=== PATIENT | female | born 1980 | race Caucasian/White ===

== ENCOUNTER 2017-07-24 21:11 | Emergency (ER) | payer MEDICAID, SELFPAY ==
[2017-07-24 21:12] VITALS: BP 129/84; PULSE 98; RESP 16; TEMP 36.7; O2SAT 98; BMI 35.9
--- NOTE | 2017-07-24 21:21 | EKG12_ITS ---
Test Reason : CP Blood Pressure : / mmHG Vent. Rate : 093 BPM Atrial Rate : 093 BPM P-R Int : 136 ms QRS Dur : 078 ms QT Int : 356 ms P-R-T Axes : 063 048 047 degrees QTc Int : 442 ms Normal sinus rhythm Normal ECG Confirmed by ALBERTO RUTHERFORD, TOMEKA ([id number]), news videotape editor JOS SANTOYO ([id number]) on 07/27/2017 1:59:22 PM Referred By: SAVITA Confirmed By:TOMEKA DOMINGUEZ MD
--- NOTE | 2017-07-24 22:09 | CT_ITS ---
STUDY: CT BRAIN WITHOUT CONTRAST REASON FOR EXAM: Female, 36 years old. Weakness of the left leg. Numbness and tingling. RADIATION DOSAGE (If Supplied By Facility): CTDIvol = ( 44.99 ) mGy, DLP = ( 745.49 ) mGycm TECHNIQUE: Transaxial CT imaging of the brain was performed without administration of intravenous contrast material. Individualized dose optimization techniques were used for this CT. COMPARISON: Prior head CT exam of July 09, 2012 FINDINGS: Normal soft tissue structures. Normal calvarium. Normal size ventricles and extra-axial spaces for the patient's age. Normal white matter tracts of the cerebral hemispheres. Normal basal ganglia and thalami. Normal brainstem. Normal cerebellum. There is no intracranial hemorrhage. There are no findings of an acute ischemic infarction. Normal visualized paranasal sinuses. CT/Brain/Head without Contrast IMPRESSION: Normal unenhanced CT scan of the brain. Electronically Signed: Latasha Toure MD at 23:04 EST , Service support ,
--- NOTE | 2017-07-24 22:14 | ED.DCSUM_ITS ---
- ER Visit Summary Date of Service: 07/24/17 Chief Complaint: []Left leg numbness History of Present Illness: The patient is a 36 F [] complaining of entire left leg numbness. She reports the numbness starts from the groin down to the toes. Denies any injury. Denies any increase in physical activity. 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 She is asleep upon my entry into the room to perform history and physical exam. Denies headache. No other complaints. Physical Examination: [] Afebrile, vital signs stable. 36-year-old female no acute distress. Cardiovascular exam is regular rate and rhythm. Lungs are clear to auscultation. Abdomen is soft nontender. There is no lower extremity edema. Positive dorsalis pedis pulses are palpable bilaterally. Patient exhibits slight motor weakness to the left lower extremity, however this seems voluntary. Patient reports slight decreased sensation from the upper thigh down to the foot. Right lower extremity is unremarkable in regards to muscle strength or sensation. Test Results: [] CT head: Negative. CBC, BMP: Within normal limits. Emergency Department Course and Treatment: [] Patient evaluated for symptoms consistent with left lower extremity numbness. I do not identify any significant or life-threatening pathology based on this presentation. In light of the normal laboratory work including electrolytes and normal head CT, I feel the patient can follow-up with her primary care physician. Treatment Plan: [] Follow up with primary care physician. Disposition: [] Discharge, stable. Impression: [] Left lower extremity numbness This note was generated with [employer] dictation software. It may contain incorrect words, spelling, and punctuation that were not noted in review of the chart prior to signing ED Disposition - Plan for ED Patient: Chief Complaint: Numb/Ting Referrals: Gonzalo Adamson MD [Primary Care Provider] -
[2017-07-24 22:43] LABS: Anion Gap 5 (5-15); BUN 15 mg/dL (7-18); BUN/Creat Ratio 22.3 RATIO (10-20); Calcium,Total 8.5 mg/dL (8.5-10.1); Chloride 109 mmol/L (98-107); Creatinine, Serum 0.67 mg/dL (0.55-1.02); EST Glomerular Filtration Rate 106 mL/min (>60); Est Glom Filt Rate - Afr Amer 128 mL/min (>60); Estimated Creatinine Clearance 102.17 ml/min; Glucose 74 mg/dL (74-106); Potassium 3.7 mmol/L (3.5-5.1); Sodium Level 140 mmol/L (136-145)
[2017-07-24 22:47] LABS: Absolute Lymphocyte Count 3.16 X10^3/ul (0.83-4.51); Absolute Neutrophil Count 5.7 X10^3/uL (2.0-7.7); Basophil# 0.04 X10^3/uL; Basophil% 0.4 % (0-1); Eosinophil# 0.33 X10^3/uL; Eosinophils% 3.3 % (0-5); Hematocrit 38.9 % (37-47); Lymphocyte # 3.16 X10^3/ul (4.0); Lymphocyte % 31.9 % (19-41); Mean Corp Hgb Conc 33.4 g/gl (32-36); Mean Corpuscular Hgb 33.3 pg (27.0-32.0); Mean Corpuscular Volume 99.7 fL (81-99); Mean Platelet Vol. 9.1 fl (6.2-12.0); Monocyte# 0.64 X10^3/uL; Monocyte% 6.5 % (0-10); Neutrophil # 5.72 X10^3/uL (2.7-7.7); Neutrophil % 57.8 % (47-70); Platelet Count 308 K/mm3 (150-450); RBC Distribution Width CV 12.3 % (11.6-14.6); RBC Distribution Width SD 44.8 fl (35.1-43.9); White Blood Count 9.9 K/mm3 (4.4-11.0)
[2017-07-24 22:52] LABS: POSITIVE COUNT NO; POSITIVE DIFFERENTIAL NO; POSITIVE MORPHOLOGY NO
--- NOTE | 2017-07-24 23:09 | ED.DEP ---
ED Disposition - Plan for ED Patient: Disposition: Home or Assisted Living Chief Complaint: Numb/Ting Instructions: ED Sciatica Referrals: Gonzalo Adamson MD [Primary Care Provider] -
[2017-07-24 23:26] VITALS: BP 130/94; PULSE 88; RESP 14
== END 2017-07-24 23:26 | disposition home or self-care (01) ==
PROVIDERS: Emergency Provider Emergency Medicine; Family Provider Family Medicine; PCP Family Medicine
DX: R20.0 Anesthesia of skin (principal); Z72.0 Tobacco use
CPT/HCPCS: 70450; 80048; 85025; 93005; 99283; A4216

== ENCOUNTER 2017-09-10 08:52 | Emergency (ER) | payer MEDICAID, SELFPAY ==
[2017-09-10 08:53] VITALS: BP 152/78; PULSE 104; RESP 16; TEMP 36.5; O2SAT 96; BMI 30.9
--- NOTE | 2017-09-10 09:17 | ED.VISSUMM ---
- ER Visit Summary Date of Service: 09/10/17 Chief Complaint: [] diffuse muscle pain History of Present Illness: The patient is a 36 F [] reports history of musculoskeletal disorder diagnosed as an adult the causes her to have diffuse muscle pains and cramps she indicates her daughter has the same condition, she is treated by [facility] physician she has not seen them in some time she takes Valium she took that was not improved and she came in today for evaluation. She states this is her chronic condition nothing is new or different she indicates she has spasms in her muscles diffusely almost every muscle group. There has been no fever no cough no trauma she also complains that she has a lip blister that she would like to be evaluated for. She indicates normally when she comes into the emergency department she is treated with Dilaudid and other medications her review of systems otherwise negative Physical Examination: [] Sitting in the bed no distress she has a very flat scaled crusted lip blister the oral cavity is unremarkable with no blister she is opening her mouth fully there is no lymphadenopathy lungs are clear heart tones are normal abdomen soft obese but nontender she has full range of motion of all major joints in all 4 extremities she complains of whole body musculoskeletal sense of tightness she denies chest pain shortness of breath, she assures me this is her typical usual musculoskeletal exacerbation Through the upper potential treatment options and management options. She indicates she is always treated with Dilaudid I explained to her that narcotic medications are generally not indicated for chronic conditions such as the above we try to discuss nonnarcotic management she rejected that, she indicates she always gets Dilaudid when she comes to the emergency department she wanted Dilaudid explained to her that I was not present when she was seen for previous visits cannot comment on what was done or what was not done at those times but that given her condition given her physical exam given the requirements and regulations by the state pharmacy board [facility] medical [facility] other national organizations related to the use of narcotics, given that her physicians been managing her chronically do not have her on narcotics that narcotics will not be prescribed today She did agree to proceed with dose of Norflex IM she will be given a prescription we did also send a viral swab for the lip blister, and she was instructed to use [id number] occasions for the blister and follow-up her family doctor for culture results and further management of all the above Test Results: [] Emergency Department Course and Treatment: [] Treatment Plan: [] Disposition: [] Stable, home Impression: [] Diffuse musculoskeletal type spasm reported history of unspecified musculoskeletal disorder, lip blister, requesting narcotics This note was generated with [employer] software. It may contain incorrect words, spelling, and punctuation that were not noted in review of the chart prior to signing ED Disposition - Plan for ED Patient: Chief Complaint: Back Referrals: Gonzalo Adamson MD [Primary Care Provider] -
[2017-09-10] MEDS: Orphenadrine 60 MG/2 ML Ampul IM (09:19)
--- NOTE | 2017-09-10 09:22 | ED.DCSUM_ITS ---
- ER Visit Summary Date of Service: 09/10/17 Chief Complaint: [] diffuse muscle pain History of Present Illness: The patient is a 36 F [] reports history of musculoskeletal disorder diagnosed as an adult the causes her to have diffuse muscle pains and cramps she indicates her daughter has the same condition, she is treated by [facility] physician she has not seen them in some time she takes Valium she took that was not improved and she came in today for evaluation. She states this is her chronic condition nothing is new or different she indicates she has spasms in her muscles diffusely almost every muscle group. There has been no fever no cough no trauma she also complains that she has a lip blister that she would like to be evaluated for. She indicates normally when she comes into the emergency department she is treated with Dilaudid and other medications her review of systems otherwise negative Physical Examination: [] Sitting in the bed no distress she has a very flat scaled crusted lip blister the oral cavity is unremarkable with no blister she is opening her mouth fully there is no lymphadenopathy lungs are clear heart tones are normal abdomen soft obese but nontender she has full range of motion of all major joints in all 4 extremities she complains of whole body musculoskeletal sense of tightness she denies chest pain shortness of breath, she assures me this is her typical usual musculoskeletal exacerbation Through the upper potential treatment options and management options. She indicates she is always treated with Dilaudid I explained to her that narcotic medications are generally not indicated for chronic conditions such as the above we try to discuss nonnarcotic management she rejected that, she indicates she always gets Dilaudid when she comes to the emergency department she wanted Dilaudid explained to her that I was not present when she was seen for previous visits cannot comment on what was done or what was not done at those times but that given her condition given her physical exam given the requirements and regulations by the state pharmacy board [facility] other national organizations related to the use of narcotics, given that her physicians been managing her chronically do not have her on narcotics that narcotics will not be prescribed today She did agree to proceed with dose of Norflex IM she will be given a prescription we did also send a viral swab for the lip blister, and she was instructed to use [id number] occasions for the blister and follow-up her family doctor for culture results and further management of all the above Test Results: [] Emergency Department Course and Treatment: [] Treatment Plan: [] Disposition: [] Stable, home Impression: [] Diffuse musculoskeletal type spasm reported history of unspecified musculoskeletal disorder, lip blister, requesting narcotics This note was generated with [employer] software. It may contain incorrect words, spelling, and punctuation that were not noted in review of the chart prior to signing ED Disposition - Plan for ED Patient: Chief Complaint: Back Referrals: Gonzalo Adamson MD [Primary Care Provider] -
--- NOTE | 2017-09-10 09:22 | ED.DEP ---
ED Disposition - Plan for ED Patient: Chief Complaint: Back Instructions: ED Spasm Back No Trauma Prescriptions: Orphenadrine [Norflex ER] 100 mg ORAL DAILY #7 tab Referrals: Gonzalo Adamson MD [Primary Care Provider] -
[2017-09-10 09:48] VITALS: BP 113/82; PULSE 71; RESP 18; O2SAT 98
--- NOTE | 2017-09-10 09:53 | ED.RN ---
THIS NURSE REVIEWED D/C INSTRUCTIONS WITH PT. PT VERBALIZED UNDERSTANDING OF INSTRUCTIONS. PT DENIES FURTHER NEEDS OR QUESTIONS AT THIS TIME. PT AMBULATES FROM ROOM ON OWN WITHOUT ASSISTANCE FROM STAFF
--- NOTE | 2017-09-19 20:50 | ED.RN ---
ATTEMPTED TO CALL PATIENT AND INFORM HER OF LIP BLISTER CULTURE RESULTS. PATIENTS MAILBOX IS FULL AND CAN NOT ACCEPT ANY NEW MESSAGES AT THIS TIME. SPOKE WITH DR. HOGAN ABOUT PATIENTS CARE PLAN. ADVISED FOLLOW OF THE COUNTER TREATMENTS FOR COLD SORES AND FOLLOW UP WITH PCP WITH ANY FURTHER ISSUES.
== END 2017-09-10 09:53 | disposition home or self-care (01) ==
LOC: ED 09:16
PROVIDERS: Emergency Provider Emergency Medicine; Family Provider Family Medicine; PCP Family Medicine
DX: M62.838 Other muscle spasm (principal); S00.521A Blister (nonthermal) of lip, initial encounter; X58.XXXA Exposure to other specified factors, initial encounter; Y93.9 Activity, unspecified; Y92.9 Unspecified place or not applicable; Y99.9 Unspecified external cause status
CPT/HCPCS: 87252; 96372; 99282

== ENCOUNTER 2017-12-29 23:08 | Emergency (ER) | payer MEDICAID, SELFPAY ==
[2017-12-29 23:09] VITALS: BP 130/81; PULSE 72; RESP 16; TEMP 36.2; O2SAT 98; BMI 34.3
--- NOTE | 2017-12-29 23:20 | RAD_ITS ---
STUDY: X-RAY - RIGHT FOOT CLINICAL: Female, 37 years old. Right foot injury 2 days ago. Fifth digit pain TECHNIQUE: 3 view(s) of the foot. COMPARISON: None. FINDINGS: Normal talus, calcaneus, and tarsal bones. Normal visualized subtalar, talonavicular, calcaneocuboid, tarsal and tarsometatarsal articulations. Normal metatarsi. Normal metatarsophalangeal joint of the great toe. Normal tibial and fibular sesamoid bones. Normal interphalangeal joint of the great toe. Normal phalanges of the great toe. Normal second through fifth metatarsophalangeal joints. Normal interphalangeal joints and phalanges of the lesser toes. The soft tissue structures are unremarkable. RAD/Foot min 3 Views IMPRESSION: Normal x-ray examination of the foot. Electronically Signed: Anshu Hooper MD at 23:45 EDT Tel , Service support ,
--- NOTE | 2017-12-29 23:21 | ED.DCSUM_ITS ---
- ER Visit Summary Date of Service: 12/29/17 Chief Complaint: Right foot pain History of Present Illness: The patient is a 37 F who has right foot pain. She kicked a shopping cart 2 days ago. She was only wearing sandals when this happened. She has pain of the right foot that radiates to her ankle. She tried Aleve without any relief. She does have a history of a surgery to the right foot. Physical Examination: Vital signs reviewed. Right foot exam reveals tenderness palpation of the lateral foot. There is no swelling seen. She does have painful range of motion. She has equal pulses. Test Results: X-rays the foot is normal Emergency Department Course and Treatment: Patient has no fractures of the foot. She will be instructed to use ice and continue nonsteroidals. She will follow-up with her PCP Treatment Plan: [] Disposition: Discharge Impression: Right foot sprain This note was generated with [employer] dictation software. It may contain incorrect words, spelling, and punctuation that were not noted in review of the chart prior to signing ED Disposition - Plan for ED Patient: Chief Complaint: Lower Extremity Injury Referrals: Gonzalo Adamson MD [Primary Care Provider] -
--- NOTE | 2017-12-29 23:33 | ED.DEP ---
ED Disposition - Plan for ED Patient: Disposition: Home or Assisted Living Chief Complaint: Lower Extremity Injury Instructions: ED Sprain Foot Referrals: Gonzalo Adamson MD [Primary Care Provider] -
[2017-12-29 23:51] VITALS: RESP 18
== END 2017-12-29 23:54 | disposition home or self-care (01) ==
LOC: ED 23:40
PROVIDERS: Emergency Provider Emergency Medicine; Family Provider Family Medicine; PCP Family Medicine
DX: S93.601A Unspecified sprain of right foot, initial encounter (principal); Z72.0 Tobacco use; W22.8XXA Striking against or struck by other objects, initial encounter; Y93.89 Activity, other specified; Y92.89 Other specified places as the place of occurrence of the external cause; Y99.8 Other external cause status
CPT/HCPCS: 73630; 99282

== ENCOUNTER 2018-02-16 13:43 | Emergency (ER) | payer MEDICAID, SELFPAY ==
[2018-02-16 13:44] VITALS: BP 131/79; PULSE 85; RESP 16; TEMP 36.8; O2SAT 98; BMI 35.6
--- NOTE | 2018-02-16 14:45 | RAD_ITS ---
STUDY: X-RAY CHEST REASON FOR EXAM: Female, 37 years old. Dizziness TECHNIQUE: Frontal and lateral views of the chest. COMPARISON: None. FINDINGS: The lungs are clear and expanded. There is no demonstrated pleural abnormality. Normal size heart. Normal mediastinum and maddie. Normal visualized pulmonary arteries. Normal visualized aortic arch and descending thoracic aorta. Normal visualized thoracic spine. Normal visualized ribs, clavicles, and shoulders. There is no demonstrated abnormality of the visualized soft tissue structures of the upper abdomen. RAD/Chest PA and Lateral IMPRESSION: Normal x-ray examination of the chest. Electronically Signed: Keaton Lambert MD at 16:37 EDT , Service support ,
--- NOTE | 2018-02-16 14:54 | ED.DCSUM_ITS ---
- ER Visit Summary Date of Service: 02/16/18 Chief Complaint: General weakness History of Present Illness: The patient is a 37 F who presents with weakness, lightheadedness, dizziness that began yesterday. Patient states this has been waxing and waning for the past 2 days. Patient states this has gradually gotten worse. Patient states she feels lightheaded. Patient also states she feels like my head is filled with fog. Patient denies any spinning sensation. Patient does admit to some urinary urgency but denies any dysuria. Patient admits to some subjective fevers. Patient denies any chest pain or shortness of breath. Patient denies any nausea or vomiting. Patient does admit to a headache. Physical Examination: All signs are stable. Patient is afebrile. Patient is in no acute distress. Oral mucosa is pink and moist. Neck is supple. Trachea is midline. There is no JVD noted. Heart was regular rate and rhythm. Lungs are clear and equal bilaterally. There is good respiratory effort noted. Cranial nerves II through XII are intact strength is 5/5 bilateral in the upper and lower extremities. She was able to sit up on her own without difficulty. There are no sensory deficits noted. The remaining physical exam is within normal limits. Test Results: CBC, metabolic profile, and urinalysis were obtained were all within normal limits. PA and lateral chest x-ray was obtained. There is no acute cardiopulmonary process. Emergency Department Course and Treatment: Patient was able to stand and ambulate without difficulty. Patient was advised that this may be related to her baclofen and Valium. Patient was instructed to follow-up with her primary care physician for further evaluation. Patient understood and was agreeable with the plan. All questions were answered. Disposition: Discharged home Impression: Weakness and dizziness This note was generated with [employer] dictation software. It may contain incorrect words, spelling, and punctuation that were not noted in review of the chart prior to signing ED Disposition - Plan for ED Patient: Chief Complaint: Weakness Diagnosis: Weakness generalized Instructions: ED Weakness O Referrals: Gonzalo Adamson MD [Primary Care Provider] -
[2018-02-16 15:13] LABS: Absolute Lymphocyte Count 2.27 X10^3/ul (0.83-4.51); Absolute Neutrophil Count 5.8 X10^3/uL (2.0-7.7); Basophil# 0.03 X10^3/uL; Basophil% 0.3 % (0-1); Eosinophil# 0.29 X10^3/uL; Eosinophils% 3.3 % (0-5); Hematocrit 40.3 % (37-47); Hemoglobin 13.6 g/dl (12.0-15.0); Lymphocyte # 2.27 X10^3/ul (4.0); Lymphocyte % 25.9 % (19-41); Mean Corp Hgb Conc 33.7 g/gl (32-36); Mean Corpuscular Hgb 33.4 pg (27.0-32.0); Mean Platelet Vol. 9.3 fl (6.2-12.0); Monocyte# 0.39 X10^3/uL; Monocyte% 4.4 % (0-10); Neutrophil # 5.79 X10^3/uL (2.7-7.7); Neutrophil % 66.1 % (47-70); Platelet Count 314 K/mm3 (150-450); RBC Distribution Width SD 43.5 fl (35.1-43.9); Red Blood Count 4.07 M/mm3 (4.2-5.4); White Blood Count 8.8 K/mm3 (4.4-11.0)
[2018-02-16 15:17] LABS: POSITIVE COUNT NO; POSITIVE DIFFERENTIAL NO; POSITIVE MORPHOLOGY NO
[2018-02-16 15:28] LABS: Albumin, Serum 3.7 g/dL (3.2-5.0); BUN 12 mg/dL (7-18); BUN/Creat Ratio 13.5 RATIO (10-20); Creatinine, Serum 0.89 mg/dL (0.55-1.02); EST Glomerular Filtration Rate 77 mL/min (>60); Est Glom Filt Rate - Afr Amer 93 mL/min (>60); Estimated Creatinine Clearance 76.19 ml/min; Globulin 3.2 g/dL (2.2-4.2); Glucose 74 mg/dL (74-106); Protein, Total 6.9 g/dL (6.4-8.2)
[2018-02-16 15:29] LABS: ALB/GLOB Ratio 1.2 RATIO (0.9-2.4); AST(SGOT) 18 U/L (15-37); Alanine Aminotransfer ALT/SGPT 32 U/L (13-56); Alkaline Phosphatase 60 U/L (45-117); Anion Gap 6 (5-15); Calcium,Total 8.8 mg/dL (8.5-10.1); Chloride 109 mmol/L (98-107); Potassium 4.1 mmol/L (3.5-5.1); Sodium Level 143 mmol/L (136-145)
[2018-02-16 15:41] LABS: Bacteria 0 SEEN /hpf (None Seen); Mucous, Urine 0 SEEN /hpf (<or=2+)
[2018-02-16 15:46] LABS: Color, Urine Yellow (Yellow); Glucose, Dipstick Normal (Normal); Ketone-Dipstick 5 mg/dl (Negative); Leukocyte Esterase-Dipstick 25 /ul (Negative); Nitrite-Dipstick Negative (Negative); Occult Blood-Urine 25 /ul (Negative); Protein-Dipstick Negative (Negative); Specific Gravity, Urine 1.015 (1.002-1.030); Urine Bilirubin Dipstick Negative (Negative); Urine Clarity Sl. Cloudy (Clear); Urine Urobilinogen 1 mg/dl (Normal)
[2018-02-16 15:55] LABS: Amorphous Sediment 1+ PHOS; Red Blood Cells-Urine 0-5 SEEN /hpf (0-5); Squamous Epithelial Cells - UA 0-5 SEEN /hpf (5-10); White Blood Cells 0-5 SEEN /hpf (0-5)
[2018-02-16 17:00] VITALS: BP 130/87; PULSE 87; RESP 16; O2SAT 98
== END 2018-02-16 17:02 | disposition home or self-care (01) ==
LOC: ED 15:19
PROVIDERS: Emergency Provider Emergency Medicine; Family Provider Family Medicine; PCP Family Medicine
DX: R42 Dizziness and giddiness (principal); R53.1 Weakness; G71.12 Myotonia congenita; Z72.0 Tobacco use; Z79.899 Other long term (current) drug therapy
CPT/HCPCS: 71046; 80053; 81001; 85025; 99283; A4216

== ENCOUNTER 2018-04-17 22:06 | Emergency (ER) | payer MEDICAID, SELFPAY ==
[2018-04-17 22:06] VITALS: BP 128/79; PULSE 87; RESP 18; TEMP 35.5; O2SAT 97; BMI 34.3
--- NOTE | 2018-04-17 22:50 | RAD_ITS ---
STUDY: X-RAY - RIGHT FOOT CLINICAL: Female, 37 years old. Pain TECHNIQUE: 3 view(s) of the foot. COMPARISON: None. FINDINGS: Normal talus, calcaneus, and tarsal bones. Normal visualized subtalar, talonavicular, calcaneocuboid, tarsal and tarsometatarsal articulations. Normal metatarsi. Normal metatarsophalangeal joint of the great toe. Normal tibial and fibular sesamoid bones. Normal interphalangeal joint of the great toe. Normal phalanges of the great toe. Normal second through fifth metatarsophalangeal joints. Normal interphalangeal joints and phalanges of the lesser toes. The soft tissue structures are unremarkable. RAD/Foot min 3 Views IMPRESSION: Normal x-ray examination of the foot. Electronically Signed: Juvenal Pedroza DO at 23:19 EST Tel [phone], Service support ,
--- NOTE | 2018-04-17 23:33 | ED.DCSUM_ITS ---
- ER Visit Summary Date of Service: 04/17/18 Chief Complaint: Right foot pain History of Present Illness: The patient is a 37 F who presents with right foot pain. 2 days ago she was playing twister and she fell inverting her right foot and ankle and then a 12-year-old also fell onto it. She states I have a bad right foot. She has a history of prior problems with that foot and ankle and she has had previous right ankle arthroscopy. She has had some recent congestion but otherwise review of systems negative. She has been able to ambulate although is painful. Physical Examination: Afebrile vital signs normal Moist mucous membranes Heart regular rate Respiratory distress Patient has active full range of motion of the right lower extremity she does have some ecchymosis and soft tissue swelling over the proximal lateral right foot no focal bony tenderness no deformity normal sensation brisk capillary refill easily palpable dorsalis pedis pulse Test Results: Foot x-ray is normal Emergency Department Course and Treatment: Patient advised on supportive care including rest ice elevation and anti-inflammatory use. He was discharged. Treatment Plan: [] Disposition: Discharge Impression: Acute right foot sprain Right foot contusion This note was generated with [employer] dictation software. It may contain incorrect words, spelling, and punctuation that were not noted in review of the chart prior to signing ED Disposition - Plan for ED Patient: Chief Complaint: Lower Extremity Injury Referrals: Gonzalo Adamson MD [Primary Care Provider] -
--- NOTE | 2018-04-17 23:33 | ED.DEP ---
ED Disposition - Plan for ED Patient: Chief Complaint: Lower Extremity Injury Instructions: ED Contusion Foot, ED Sprain Foot Referrals: Gonzalo Adamson MD [Primary Care Provider] -
[2018-04-17 23:53] VITALS: RESP 14
--- NOTE | 2018-04-17 23:53 | ED.RN ---
RIGHT FOOT WRAPPED PER PT REQUEST WITH [employer] [facility]. PATIENT VERBALIZES UNDERSTANDING OF HOW TO USE WRAP. [facility]'S INTACT POST WRAP. PT VERBALIZES UNDERSTANDING OF D/C INSTRUCTIONS AND LEAVES FACILITY WITH SELF
== END 2018-04-17 23:55 | disposition home or self-care (01) ==
LOC: ED 22:53
PROVIDERS: Emergency Provider Emergency Medicine; Family Provider Family Medicine; PCP Family Medicine
DX: S93.601A Unspecified sprain of right foot, initial encounter (principal); S90.31XA Contusion of right foot, initial encounter; Z72.0 Tobacco use; X50.1XXA Overexertion from prolonged static or awkward postures, initial encounter; Y93.89 Activity, other specified; Y92.89 Other specified places as the place of occurrence of the external cause; Y99.8 Other external cause status
CPT/HCPCS: 73630; 99282

== ENCOUNTER 2018-06-22 12:43 | Emergency (ER) | payer MEDICAID, SELFPAY ==
[2018-06-22 12:43] VITALS: PULSE 80; RESP 16; TEMP 36.8; O2SAT 95; BMI 36.0
[2018-06-22 12:50] VITALS: BP 139/94
[2018-06-22 14:00] VITALS: BP 129/73; PULSE 73; RESP 19; TEMP 37.2; O2SAT 96
[2018-06-22 14:19] LABS: Anion Gap 7 (5-15); BUN 13 mg/dL (7-18); BUN/Creat Ratio 14.8 RATIO (10-20); Calcium,Total 8.7 mg/dL (8.5-10.1); Chloride 107 mmol/L (98-107); Creatinine, Serum 0.88 mg/dL (0.55-1.02); EST Glomerular Filtration Rate 78 mL/min (>60); Est Glom Filt Rate - Afr Amer 94 mL/min (>60); Estimated Creatinine Clearance 77.05 ml/min; Glucose 79 mg/dL (74-106); Potassium 4.3 mmol/L (3.5-5.1); Sodium Level 141 mmol/L (136-145)
[2018-06-22 14:43] VITALS: BP 139/89; PULSE 85; RESP 22
--- NOTE | 2018-06-22 15:51 | ED.VISSUMM ---
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 Patient states at home today she had twitching of her face which he thought might be a seizure. She denies any recent head injury. She denies any nausea, vomiting or diarrhea. She does not have a history of seizures. She had a negative CAT scan of her brain last year. Physical Examination: Well-appearing young female. Vital signs are stable. She is afebrile. She does not look septic or toxic. She is in no acute distress. HEENT exam pupils round reactive light. Moist weeks membranes. No facial droop. No signs of trauma to her face or scalp. Neck nontender. No lymphadenopathy. No meningismus. Lungs clear to auscultation bilaterally. Heart good rhythm no murmur. Abdomen soft nontender normal bowel sounds no peritoneal signs. Extremities she moves all 4. Neurovascularly intact. Calves are nontender. Neurologically she is awake alert with no Test Results: Chemistry panel was done was completely normal. Normal gap. Normal potassium. Normal BUN and creatinine. Emergency Department Course and Treatment: Repeat exam patient is doing well at 1550. She has had no seizures the entire time in the ER. Her exam is been unchanged. She requested some Tylenol for headache. Treatment Plan: Discharged home. Follow-up with her primary care physician. Disposition: Discharge Impression: Facial muscle spasms History of myoclonic congenita This note was generated with [employer] dictation software. It may contain incorrect words, spelling, and punctuation that were not noted in review of the chart prior to signing ED Disposition - Plan for ED Patient: Chief Complaint: Seizure Referrals: Gonzalo Adamson MD [Primary Care Provider] -
--- NOTE | 2018-06-22 15:54 | ED.DEP ---
ED Disposition - Plan for ED Patient: Disposition: Home or Assisted Living Chief Complaint: Seizure Referrals: Gonzalo Adamson MD [Primary Care Provider] - As Needed Additional Instructions: Follow up with your doctor as needed
[2018-06-22 16:02] VITALS: BP 112/73; PULSE 76; RESP 14; O2SAT 94
[2018-06-22] MEDS: Acetaminophen 500 MG Tablet 1000 MG PO (16:04)
[2018-06-22 16:08] VITALS: BP 112/73; PULSE 76; RESP 14; O2SAT 94
--- OUTSIDE RECORDS SUMMARY | 2018-08-27 09:47 | XMS RPT_ITS ---
:1980 Author Organization [place] Care Team Providers Name Role Phone THO BALL (CNM) Attending Unavailable GONZALO DE LEON Attending Unavailable KAREN SAMUEL (PT) Attending Unavailable GONZALO DE LEON Referring Unavailable GONZALO DE LEON Referring Unavailable Ankur DEAL (PA-C) Attending Unavailable Ankur DEAL (PA-C) Attending Unavailable CONSTANCE NEWSOME Attending Unavailable Ankur DEAL (PA-C) Attending Unavailable Ankur DEAL (PA-C) Attending Unavailable Ankur DEAL (PA-C) Attending Unavailable Ankur DEAL (PA-C) Referring Unavailable Ankur DEAL (PA-C) Referring Unavailable GONZALO DE LEON Attending Unavailable GONZALO DE LEON Referring Unavailable CHUCKY LAI Attending Unavailable GONZALO DE LEON Referring Unavailable GONZALO DE LEON Attending Unavailable GONZALO DE LEON Referring Unavailable HALEYGONZALO Referring Unavailable SHAE RODGERS (SAUSAGE CUTTER) Attending Unavailable Ankur DEAL (PA-C) Attending Unavailable ENRIQUE SANTOYO DO Attending Unavailable GONZALO DE LEON MD Primary Care Unavailable [place], Gonzalo Primary Care Unavailable Aryan Frey Attending Unavailable Dominik Diaz Attending Unavailable Ankur Deal Primary Care Unavailable [place], Gonzalo Primary Care Unavailable Kyle Gurrola Attending Unavailable [place], Gonzalo Primary Care Unavailable Kristina Scott Attending Unavailable Haley, Gonzalo Primary Care Unavailable Donte Ladd Attending Unavailable [place], Gonzalo Primary Care Unavailable Petar Osuna Attending Unavailable Haley, Gonzalo Primary Care Unavailable Billy Cage Attending Unavailable PROBLEMS PROBLEMS DATE TYPE CONDITION / CODE ATTENDING STATUS SOURCE 06/19/2018 Active Syncope and NA Active [facility] collapse / [facility] [place] R55(ICD-10) Repository 06/01/2018 Active Other specified CHUCKY LAI Active [facility] joint disorders, [facility] [place] right wrist / Repository M25.831(ICD-10) 05/08/2018 Active Pain in right NA Active [facility] wrist / [facility] [place] M25.531(ICD-10) Repository 03/21/2013 Active Nontoxic NA Active [facility] multinodular [facility] goiter / Repository E04.2(ICD-10) 03/28/2018 Active Other fatigue / NA Active [facility] R53.83(ICD-10) [facility] [place] Repository 08/22/2017 Active Sciatica, left NA Active [facility] side / [facility] M54.32(ICD-10) Repository 08/22/2017 Active Unknown / KAREN SAMUEL Active [facility] UNK(Unknown) (PT) [facility] [place] Repository PROCEDURES PROCEDURES No Procedure Records FoundRESULTS RESULTS CNCO Observed: 06/30/2018 Status: COMPLETED Source: [place] 12:00 AM [facility] Clinical report posted in error Void Comment: typo Letter Text [facility] [address] [place] [address] NAME: Valeria Jha DATE: 06/30/2018 ADDRESS: [address] [place], [place] [id number] [place] PHONE: [phone] (home) : 1980 To [facility] Appeals, Ms. Jha is being treated in the Department of Neurology at the [facility]. 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 Previously she had tried and failed multiple other SNRI meds including: Cymbalta, Paxil, Effexor, and Venlafaxine XR. According to the denial letter that was received, it states Desvenlafax is given if at least three of the preferred therapies have been tried. This criteria has been met and we ask that you reconsider the denial and approve this medication Thank you for your time, Constance Newsome MD Letter Text ? [facility] [address] [place] [address] ? NAME: Valeria Jha DATE: 06/30/2018 ? ADDRESS: [address] [place], [place] [id number] [place] PHONE: [phone] (home) ? : 1980 ? To [facility] Appeals, ? Ms. Jha is being treated in the Department of Neurology at the [facility]. 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 Previously she had tried and failed multiple other SNRI meds including: Cymbalta, Paxil, Effexor, and Venlafaxine XR. According to the denial letter that was received, Desvenlafax is given if at least three of the preferred therapies have been tried. This criteria has been met and we ask that you reconsider the denial and approve this medication ? Thank you for your time, ? ? ? Constance Newsome MD PROGRESS Observed: 06/28/2018 Status: COMPLETED Source: [place] 11:50 AM [facility] REPOSITORY HNO ID: [id number] Author: Ankur Brantley (Hiral) Say Service: (none) Author Type: Physician Sales And Merchandising Representative Type: Progress Notes Filed: 06/28/2018 5:08 PM Note Text: 37 year old female for [facility] ED follow up 06/22/18: went in with c/o feeling dizziness, lightheaded, severe headaches. Then started having headaches, increasing anxious feeling with tremors. States passed out last Tuesday. Attributes to Cymabalta which was actually helping her immensely. Robins like normal person. Pain was much better. States seizure- like activity: shaking in head and arms but couldn't stop it. Had a headache also for 2 weeks which improved when she stopped Cymbalta last Tuesday. Came back yesterday when she took the medication again. Robins she had to do something because she feels so anxious. Petitioned Dr. Newsome to increase valium. He placed rx for Pristiq but needs prior auth. She feels agitated and angry inside. No thoughts of injury to self or others. from who she claims was violent but also who has custody of daughter. Has boyfriend with whom she lives. Significant stresses. Has been too symptomatic to work. Asking for temporary absence until meds are straightened out. HISTORIES FAMILY HISTORY Problem Relation Age of Onset - Allergies Mother - Hypertension Mother diabetes - Lipids Mother - Psychiatry Mother bipolar disorder - Diabetes Mother - Arthritis Father gout - other (Myotonia) Father - Alzheimer's Disease Paternal Grandfather HEARING LOSS,PARKINSONS - Stroke Paternal Grandfather - Arthritis Paternal Grandmother - Hypertension Paternal Grandmother - Osteoporosis Paternal Grandmother - Stroke Paternal Grandmother - Thyroid Paternal Grandmother - Arthritis Maternal Grandmother CAROTID ARTERY CLEANED OUT, DIABETES - Hypertension Maternal Grandmother - Lipids Maternal Grandmother - Stroke Maternal Grandmother - Diabetes Maternal Grandmother - Diabetes Brother (1/2 brother) PAST MEDICAL HISTORY Diagnosis Date - Abdominal pain, other specified site RLQ and LLQ chronic - Abnormal glandular Papanicolaou smear of cervix Abn. Pap smear (cervix), s/p CHARBEL - Chronic back pain - Chronic rhinitis 06/30/2005 Dr. Bell - Depressive disorder, not elsewhere classified 06/30/2005 nerves - Esotropia, unspecified Dr. Encarnacion, Right eye - GERD (gastroesophageal reflux disease) - Migraine - Myotonia - Thrombosed external hemorrhoid 03/20/2012 - Tobacco abuse - Unspecified constipation - Unspecified inflammatory disease of female pelvic organs and tissues chronic pelvic pain PAST SURGICAL HISTORY Procedure Laterality Date - APPENDECTOMY October 27, 2004 LAPROSCOPIC - COLONOSCOP W/ OR W/O [facility] SPEC 10/27/05 - HYSTEROSCOPY, STERILIZATION 02/13/08 [facility] - L'SCOPE DX W/WO BRUSHINGS/WASHINGS October Laparoscopy, adhesion lysis - POLYSOMNOGRAM(DIAG) 44981 12/2005 Sleep study wnl - THYROID FINE NEEDLE ASPIRATION 2013 - VAGINAL HYSTERECTOMY 10/29/10 [facility] Social History Marital status: Spouse name: Years of education: GED Number of children: 2 Occupational History Occupation Employer Comment unemployed [employer] last job in [employer] Social History Main Topics Smoking status: Current Every Day Smoker Packs/day: 1.00 Years: 12.00 Types: Cigarettes Smokeless tobacco: Never Used Alcohol use: No Drug use: No Comment: marijuana as teenager, none recent Sexual activity: Yes Partners with: Male control/protection: Surgical Other Topics Concern BLOOD TRANSFUSIONS No CAFFEINE Yes Comment:caffeine withdrawal headaches OCCUPATIONAL EXPOSURE No SLEEP CONCERN Yes Comment:nightmares of killings STRESS CONCERN Yes Comment:'too much' DIET No EXERCISE No SEAT BELT Yes SELF EXAMS Yes Comment:advised Social History Narrative Single, 2 children (ages 11 yo son, age 5 yo dtr ) - [facility] 01/2013 ACTIVE PROBLEM LIST Migraine Without Aura, Without Mention of Intractable Migraine Without Mention of Status Migrainosus Unspecified Constipation Myalgia and Myositis, Unspecified Bmi 37.0-37.9, Adult Multinodular Goiter Lumbar Spondylosis Low Back Pain 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 Disp: 30 tablet Rfl: 1 baclofen (LIORESAL) 10 mg tablet Take 1 tablet by mouth three times daily as needed. Disp: 90 tablet Rfl: 1 diazePAM (VALIUM) 10 mg tablet Take 1 tablet by mouth three times daily for 90 days. Disp: 90 tablet Rfl: 1 silver sulfADIAZINE (SILVADENE,THERMAZENE) 1 % cream Apply 1 application to affected area once daily. Disp: 50 g Rfl: 0 fluticasone (FLONASE) 50 mcg/actuation nasal spray Use 2 Sprays in each nostril once daily. Rinse mouth after use. Disp: 1 Bottle Rfl: 11 cetirizine (ZYRTEC) 10 mg tablet Take 1 tablet by mouth once daily. Disp: 90 tablet Rfl: 1 mupirocin (BACTROBAN) 2 % ointment Apply 1 application to affected area three times daily. Location: boil Disp: 15 g Rfl: 0 NAPROXEN ORAL Take by mouth. Disp: Rfl: ibuprofen (MOTRIN) 800 mg tablet Take 1 tablet by mouth every 6 hours as needed for Pain. Take with food. Disp: 40 tablet Rfl: 1 amoxicillin-clavulanic acid (AUGMENTIN) 875-125 mg per tablet Take 1 tablet by mouth twice daily for 10 days. Disp: 20 tablet Rfl: 0 perflutren lipid microspheres (DEFINITY) 1.1 mg/mL injection (to be provided with echo procedure) Inject 1.3 mL intravenously as directed. Disp: 1.3 mL Rfl: 0 No current facility-administered medications for this visit. ONE PNEUMOVAX PRIOR TO AGE 67 due on 2001 EXAM: BP 100/80 Pulse 80 Temp 36.1 ?C (97 ?F) (Tympanic) Resp 20 Wt 95.7 kg (211 lb) LMP 10/13/2010 BMI 36.22 kg/m? Pleasant adult woman who appears affected with depressed facies. Alert and oriented all spheres. Normal affect and cognition. Speech normal. No deficits to learning or comprehension. No pressured speech. Did have occurrence with intentional tremor in neck while holding breath. When I told her this was not a seizure behavior, she said she knew that, she was just frustrated that she can't take a medication that really helped. Skin warm, dry, pink to lips and nailbeds. Normal turgor. Respirations regular and unlabored. HEENT WNL. PERRLA, right eye with esotropia (chronic). No scleral injections. TM's clear. Nose and oropharynx free from injection or lesion. No cervical lymph nodes. Thyroid non-tender, no masses Chest CTA. HRRR without murmur or gallop. Neck is supple. TTPs bilaterally with cervical restriction. TTPS in TMJs bilaterally also. Extrem: no clubbing, cyanosis, edema. Extremities are warm and pink with prompt capillary refill. No rigidity or cogwheeling. No flapping tremor. No spasm. OMT: myofascial release to TTPS, HVLA to cervical segments bilaterally ASSESSMENT/PLAN: 1. Medication adverse effect, subsequent encounter - ICD9: V58.89, ICD10: T50.905D (primary diagnosis) May take Cymbalta intermittently if helps in weaning. 2. Major depressive disorder with single episode, remission status unspecified - ICD9: 296.20, ICD10: F32.9 Trial Pristiq if approved. 3. Anxiety disorder, unspecified type - ICD9: 300.00, ICD10: F41.9 As above 4. Tension headache - ICD9: 307.81, ICD10: G44.209 Improved with manual therapy 5. 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 No changes. F/u 2 weeks. Work absence for that period. HIRAL Li Observed: 06/28/2018 Status: COMPLETED Source: [place] 11:40 AM [facility] RE[facility]ORY Office Visit (FAMPWS) VALERIA JHA ([id number]) 1980 F Date Time Provider Department 06/28/18 11:40 AM Ankur DEAL) ORIN During your visit today, we recorded the following information about you: Temperature Pulse Respiration Blood pressure 97 degrees 80/minute 20/minute 100/80 Weight 95.7 kg M Fercho Deal PA-C 06/28/2018 5:08 PM Signed 37 year old female for [facility] ED follow up 06/22/18: went in with c/o feeling dizziness, lightheaded, severe headaches. Then started having headaches, increasing anxious feeling with tremors. States passed out last Tuesday. Attributes to Cymabalta which was actually helping her immensely. Robins like normal person. Pain was much better. States seizure-like activity: shaking in head and arms but couldn't stop it. Had a headache also for 2 weeks which improved when she stopped Cymbalta last Tuesday. Came back yesterday when she took the medication again. [place] she had to do something because she feels so anxious. Petitioned Dr. Newsome to increase valium. He placed rx for Pristiq but needs prior auth. She feels agitated and angry inside. No thoughts of injury to self or others. from who she claims was violent but also who has custody of daughter. Has boyfriend with whom she lives. Significant stresses. Has been too symptomatic to work. Asking for temporary absence until meds are straightened out. HISTORIES FAMILY HISTORY Problem Relation Age of Onset - Allergies Mother - Hypertension Mother diabetes - Lipids Mother - Psychiatry Mother bipolar disorder - Diabetes Mother - Arthritis Father gout - other (Myotonia) Father - Alzheimer's Disease Paternal Grandfather HEARING LOSS,PARKINSONS - Stroke Paternal Grandfather - Arthritis Paternal Grandmother - Hypertension Paternal Grandmother - Osteoporosis Paternal Grandmother - Stroke Paternal Grandmother - Thyroid Paternal Grandmother - Arthritis Maternal Grandmother CAROTID ARTERY CLEANED OUT, DIABETES - Hypertension Maternal Grandmother - Lipids Maternal Grandmother - Stroke Maternal Grandmother - Diabetes Maternal Grandmother - Diabetes Brother (1/2 brother) PAST MEDICAL HISTORY Diagnosis Date - Abdominal pain, other specified site RLQ and LLQ chronic - Abnormal glandular Papanicolaou smear of cervix Abn. Pap smear (cervix), s/p CHARBEL - Chronic back pain - Chronic rhinitis 06/30/2005 Dr. Bell - Depressive disorder, not elsewhere classified 06/30/2005 nerves - Esotropia, unspecified Dr. Encarnacion, Right eye - GERD (gastroesophageal reflux disease) - Migraine - Myotonia - Thrombosed external hemorrhoid 03/20/2012 - Tobacco abuse - Unspecified constipation - Unspecified inflammatory disease of female pelvic organs and tissues chronic pelvic pain PAST SURGICAL HISTORY Procedure Laterality Date - APPENDECTOMY October 27, 2004 LAPROSCOPIC - COLONOSCOP W/ OR W/O [facility] SPEC 10/27/05 - HYSTEROSCOPY, STERILIZATION 02/13/08 [facility] - L'SCOPE DX W/WO BRUSHINGS/WASHINGS October Laparoscopy, adhesion lysis - POLYSOMNOGRAM(DIAG) [id number] 12/2005 Sleep study wnl - THYROID FINE NEEDLE ASPIRATION 2012 - VAGINAL HYSTERECTOMY 10/29/10 [facility] Social History Marital status: Spouse name: Years of education: GED Number of children: 2 Occupational History Occupation Employer Comment unemployed [employer] last job in [place] Social History Main Topics Smoking status: Current Every Day Smoker Packs/day: 1.00 Years: 12.00 Types: Cigarettes Smokeless tobacco: Never Used Alcohol use: No Drug use: No Comment: marijuana as teenager, none recent Sexual activity: Yes Partners with: Male control/protection: Surgical Other Topics Concern BLOOD TRANSFUSIONS No CAFFEINE Yes Comment:caffeine withdrawal headaches OCCUPATIONAL EXPOSURE No SLEEP CONCERN Yes Comment:nightmares of killings STRESS CONCERN Yes Comment:'too much' DIET No EXERCISE No SEAT BELT Yes SELF EXAMS Yes Comment:advised Social History Narrative Single, 2 children (ages 11 yo son, age 5 yo dtr ) - [facility] 01/2013 ACTIVE PROBLEM LIST Migraine Without Aura, Without Mention of Intractable Migraine Without Mention of Status Migrainosus Unspecified Constipation Myalgia and Myositis, Unspecified Bmi 37.0-37.9, Adult Multinodular Goiter Lumbar Spondylosis Low Back Pain 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 Disp: 30 tablet Rfl: 1 baclofen (LIORESAL) 10 mg tablet Take 1 tablet by mouth three times daily as needed. Disp: 90 tablet Rfl: 1 diazePAM (VALIUM) 10 mg tablet Take 1 tablet by mouth three times daily for 90 days. Disp: 90 tablet Rfl: 1 silver sulfADIAZINE (SILVADENE,THERMAZENE) 1 % cream Apply 1 application to affected area once daily. Disp: 50 g Rfl: 0 fluticasone (FLONASE) 50 mcg/actuation nasal spray Use 2 Sprays in each nostril once daily. Rinse mouth after use. Disp: 1 Bottle Rfl: 11 cetirizine (ZYRTEC) 10 mg tablet Take 1 tablet by mouth once daily. Disp: 90 tablet Rfl: 1 mupirocin (BACTROBAN) 2 % ointment Apply 1 application to affected area three times daily. Location: boil Disp: 15 g Rfl: 0 NAPROXEN ORAL Take by mouth. Disp: Rfl: ibuprofen (MOTRIN) 800 mg tablet Take 1 tablet by mouth every 6 hours as needed for Pain. Take with food. Disp: 40 tablet Rfl: 1 amoxicillin-clavulanic acid (AUGMENTIN) 875-125 mg per tablet Take 1 tablet by mouth twice daily for 10 days. Disp: 20 tablet Rfl: 0 perflutren lipid microspheres (DEFINITY) 1.1 mg/mL injection (to be provided with echo procedure) Inject 1.3 mL intravenously as directed. Disp: 1.3 mL Rfl: 0 No current facility-administered medications for this visit. ONE PNEUMOVAX PRIOR TO AGE 67 due on 2001 EXAM: BP 100/80 Pulse 80 Temp 36.1 ?C (97 ?F) (Tympanic) Resp 20 Wt 95.7 kg (211 lb) LMP 10/13/2010 BMI 36.22 kg/m? Pleasant adult woman who appears affected with depressed facies. Alert and oriented all spheres. Normal affect and cognition. Speech normal. No deficits to learning or comprehension. No pressured speech. Did have occurrence with intentional tremor in neck while holding breath. When I told her this was not a seizure behavior, she said she knew that, she was just frustrated that she can't take a medication that really helped. Skin warm, dry, pink to lips and nailbeds. Normal turgor. Respirations regular and unlabored. HEENT WNL. PERRLA, right eye with esotropia (chronic). No scleral injections. TM's clear. Nose and oropharynx free from injection or lesion. No cervical lymph nodes. Thyroid non-tender, no masses Chest CTA. HRRR without murmur or gallop. Neck is supple. TTPs bilaterally with cervical restriction. TTPS in TMJs bilaterally also. Extrem: no clubbing, cyanosis, edema. Extremities are warm and pink with prompt capillary refill. No rigidity or cogwheeling. No flapping tremor. No spasm. OMT: myofascial release to TTPS, HVLA to cervical segments bilaterally ASSESSMENT/PLAN: 1. Medication adverse effect, subsequent encounter - ICD9: V58.89, ICD10: T50.905D (primary diagnosis) May take Cymbalta intermittently if helps in weaning. 2. Major depressive disorder with single episode, remission status unspecified - ICD9: 296.20, ICD10: F32.9 Trial Pristiq if approved. 3. Anxiety disorder, unspecified type - ICD9: 300.00, ICD10: F41.9 As above 4. Tension headache - ICD9: 307.81, ICD10: G44.209 Improved with manual therapy 5. 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 No changes. F/u 2 weeks. Work absence for that period. Ankur Deal PA-C M Fercho Deal PA-C 06/28/2018 12:35 PM Addendum Benadryl 25mg three times a day as needed for shakiness and dizziness Referring Provider: ER STAFF [[id number]] Allergies As of Date: 06/28/2018 Noted Allergy Reaction ADHESIVE 10/09/2008 Comments: Local irritation at site AUGMENTIN (AMOXICILLIN-POT CLAVUL*06/19/2018 14 - Other: See Comments Comments: Yeast infection Beestings [Other] 03/13/2007 CAT DANDER [Other] 02/25/2005 5 - Intolerance FLEXERIL (CYCLOBENZAPRINE HCL) 06/30/2016 5 - Intolerance Comments: headcahes GRASS POLLEN 02/25/2005 2 - Rash MOLDS [Other] 02/25/2005 5 - Intolerance RAGWEED 03/18/2006 Date Reviewed: 06/28/2018 Reviewed by: Jessy Nielson LPN - Fully Assessed Reason for Visit: ER F/U [41] Cmt: [facility] 06/22/18 and 06/23/18. Fainting, dizziness, headache witness stated looked like a seizure. Did stop taking the cymbalta for about 4 days and was feeling much better except for her mood. Reason For Visit History Recorded Primary Visit Diagnosis:Medication adverse effect, subsequent encounter [T50.902D] Other Visit Diagnoses:Major depressive disorder with single episode, remission status unspecified [F32.9] Anxiety disorder, unspecified type [F41.9] Tension headache [G44.209] Myotonia congenita [G71.12] Prescriptions as of 06/28/2018 Sig: DESVENLAFAXINE SUCCINATE ER 5* Take 1 tablet by mouth once d* BACLOFEN 10 MG TABLET Take 1 tablet by mouth three * DIAZEPAM 10 MG TABLET Take 1 tablet by mouth three * SILVER SULFADIAZINE 1 % TOPIC* Apply 1 application to affect* FLUTICASONE 50 MCG/ACTUATION * Use 2 Sprays in each nostril * CETIRIZINE 10 MG TABLET Take 1 tablet by mouth once d* MUPIROCIN 2 % TOPICAL OINTMENT Apply 1 application to affect* NAPROXEN ORAL Take by mouth. IBUPROFEN 800 MG TABLET Take 1 tablet by mouth every * AMOXICILLIN 875 MG-POTASSIUM * Take 1 tablet by mouth twice * PERFLUTREN LIPID MICROSPHERES* Inject 1.3 mL intravenously a* Problem List As Of Date 06/28/2018 Noted Resolved Esophageal reflux [K21.9] INVALID FOR*08/27/2015 Depressive disorder, not elsewhere classified [*INVALID FOR*08/27/2015 COMMON MIGRAINE W/O MENTN INTRACT [G43.009] INVALID FOR* Chronic rhinitis [J31.0] INVALID FOR*08/27/2015 More... Abdominal pain, right lower quadrant [R10.31] 05/09/2012 Abdominal pain, left lower quadrant [R10.32] 05/09/2012 CONSTIPATION NOS [K59.00] MYALGIA AND MYOSITIS NOS [DBC0642] INVALID FOR* Lump or Mass in Breast [N63.0] INVALID FOR*01/30/2009 Sprain of foot, unspecified site [S93.609A] INVALID FOR*03/21/2013 Nausea alone [R11.0] 03/21/2013 Heartburn [R12] 08/27/2015 Achilles bursitis or tendinitis [M76.60] INVALID FOR*08/27/2015 Enthesopathy of unspecified site [M77.9] INVALID FOR*08/27/2015 Tibialis posterior tendonitis [M76.829] INVALID FOR*08/27/2015 Urine frequency [R35.0] INVALID FOR*08/27/2015 Hematuria [R31.9] INVALID FOR*08/27/2015 Suprapubic pressure [R10.2] INVALID FOR*08/27/2015 Stress incontinence [N39.3] INVALID FOR*08/27/2015 BMI 37.0-37.9, adult [Z68.37] INVALID FOR* Thrombosed external hemorrhoid [K64.5] INVALID FOR*03/21/2013 Multinodular goiter [E04.2] INVALID FOR* Right groin pain [R10.31] INVALID FOR*08/18/2016 Lumbar spondylosis [M47.816] INVALID FOR* Low back pain [M54.5] INVALID FOR* 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 Left medial knee pain [M25.562] INVALID FOR* Paresthesia of left leg [R20.2] INVALID FOR* More... Sciatica of left side [M54.32] INVALID FOR* Fibromyalgia [M79.7] INVALID FOR* Other instructions from your clinician: Benadryl 25mg three times a day as needed for shakiness and dizziness Medications Discontinued During This Encounter doxycycline monohydrate (MONODOX) 10* 20 c* 0 06/19/2018 06/28/2018 Route: ORAL Sig: Take 1 capsule by mouth twice daily. Disc: Reason for discontinue is not on file. fluticasone propionate (FLONASE NASA* 06/28/2018 Class: Historical Med Route: NASAL Sig: Use 2 Sprays in the nose once daily. Disc: Reason for discontinue is not on file. Disposition: Return in about 2 weeks (around 07/12/2018). Follow-up and Disposition History Recorded Letter Text [facility] [address] [place], [place] [address] Valeria Jha [address] [place] [address] Clinic #: [id number] 06/28/2018 To Whom it may concern, Valeria Jha was examined here for an acute medical condition related to a medication reaction. Please excuse her from work missed over the next 2 weeks. We are adjusting and working with medications. She will be rechecked at that time for return to work. Thank you, Janeen Deal PA-C Encounter Status:Closed by Ankur DEAL PA-C on 06/28/18 OBSOLETE Observed: 06/27/2018 Status: COMPLETED Source: [place] 12:00 AM [facility] Refill ([facility]) VALERIA JHA ([id number]) 1980 F Date Time Provider Department 06/27/18 [facility] During your visit today, we recorded the following information about you: Subhash Frye, RN, RN 06/27/2018 2:15 PM Signed Spoke to pt. Agreeable to new dosage plan. States she has been on Effexor in the past and it caused worsening depression. Requesting scripts updated for baclofen and Valium. Sig adjusted per [facility]. Will have SjS review scripts and sign if appropriate/addend as needed. KATHY Latif, RN, RN 06/28/2018 9:13 AM Signed The following prescriptions have been called to [facility] pharmacy 06/28/2018 at 9:13 AM by Subhash Frye RN. Message left on VM in the pharmacy. Signed Prescriptions Disp Refills diazePAM (VALIUM) 10 mg tablet 90 tablet 1 Sig: Take 1 tablet by mouth three times daily for 90 days. TRES Class: C-IV PRICE: No Authorizing Provider: CONSTANCE NEWSOME Allergies As of Date: 06/27/2018 Noted Allergy Reaction ADHESIVE 10/09/2008 Comments: Local irritation at site AUGMENTIN (AMOXICILLIN-POT CLAVUL*06/19/2018 14 - Other: See Comments Comments: Yeast infection Beestings [Other] 03/13/2007 CAT DANDER [Other] 02/25/2005 5 - Intolerance FLEXERIL (CYCLOBENZAPRINE HCL) 06/30/2016 5 - Intolerance Comments: headcahes GRASS POLLEN 02/25/2005 2 - Rash MOLDS [Other] 02/25/2005 5 - Intolerance RAGWEED 03/18/2006 Date Reviewed: 06/19/2018 Reviewed by: Pat Oreilly LPN - Fully Assessed Reason for Visit: Refill Request [94] 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] Order(s):desvenlafaxine ER (PRISTIQ) 50 mg 24 hr tabletTake 1 tablet by mouth once daily.Disp: 30 tabletRfl: 1 baclofen (LIORESAL) 10 mg tabletTake 1 tablet by mouth three times daily as needed.Disp: 90 tabletRfl: 1 diazePAM (VALIUM) 10 mg tabletTake 1 tablet by mouth three times daily for 90 days.Disp: 90 tabletRfl: 1 Prescriptions as of 06/27/2018 Sig: DESVENLAFAXINE SUCCINATE ER 5* Take 1 tablet by mouth once d* BACLOFEN 10 MG TABLET Take 1 tablet by mouth three * DIAZEPAM 10 MG TABLET Take 1 tablet by mouth three * SILVER SULFADIAZINE 1 % TOPIC* Apply 1 application to affect* FLUTICASONE 50 MCG/ACTUATION * Use 2 Sprays in each nostril * FLONASE NASAL Use 2 Sprays in the nose once* AMOXICILLIN 875 MG-POTASSIUM * Take 1 tablet by mouth twice * PERFLUTREN LIPID MICROSPHERES* Inject 1.3 mL intravenously a* DOXYCYCLINE MONOHYDRATE 100 M* Take 1 capsule by mouth twice* CETIRIZINE 10 MG TABLET Take 1 tablet by mouth once d* MUPIROCIN 2 % TOPICAL OINTMENT Apply 1 application to affect* NAPROXEN ORAL Take by mouth. IBUPROFEN 800 MG TABLET Take 1 tablet by mouth every * Problem List As Of Date 06/27/2018 Noted Resolved Esophageal reflux [K21.9] INVALID FOR*08/27/2015 Depressive disorder, not elsewhere classified [*INVALID FOR*08/27/2015 COMMON MIGRAINE W/O MENTN INTRACT [G43.009] INVALID FOR* Chronic rhinitis [J31.0] INVALID FOR*08/27/2015 More... Abdominal pain, right lower quadrant [R10.31] 05/09/2012 Abdominal pain, left lower quadrant [R10.32] 05/09/2012 CONSTIPATION NOS [K59.00] MYALGIA AND MYOSITIS NOS [DIN5977] INVALID FOR* Lump or Mass in Breast [N63.0] INVALID FOR*01/30/2009 Sprain of foot, unspecified site [S93.609A] INVALID FOR*03/21/2013 Nausea alone [R11.0] 03/21/2013 Heartburn [R12] 08/27/2015 Achilles bursitis or tendinitis [M76.60] INVALID FOR*08/27/2015 Enthesopathy of unspecified site [M77.9] INVALID FOR*08/27/2015 Tibialis posterior tendonitis [M76.829] INVALID FOR*08/27/2015 Urine frequency [R35.0] INVALID FOR*08/27/2015 Hematuria [R31.9] INVALID FOR*08/27/2015 Suprapubic pressure [R10.2] INVALID FOR*08/27/2015 Stress incontinence [N39.3] INVALID FOR*08/27/2015 BMI 37.0-37.9, adult [Z68.37] INVALID FOR* Thrombosed external hemorrhoid [K64.5] INVALID FOR*03/21/2013 Multinodular goiter [E04.2] INVALID FOR* Right groin pain [R10.31] INVALID FOR*08/18/2016 Lumbar spondylosis [M47.816] INVALID FOR* Low back pain [M54.5] INVALID FOR* 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 Left medial knee pain [M25.562] INVALID FOR* Paresthesia of left leg [R20.2] INVALID FOR* More... Sciatica of left side [M54.32] INVALID FOR* Fibromyalgia [M79.7] INVALID FOR* Prescriptions ordered this encounter Disp Refills Start End DESVENLAFAXINE SUCCINATE ER 50 MG TA* 30 t* 1 06/28/2018 Route: ORAL Sig: Take 1 tablet by mouth once daily. BACLOFEN 10 MG TABLET 90 t* 1 06/28/2018 Route: ORAL Sig: Take 1 tablet by mouth three times daily as needed. DIAZEPAM 10 MG TABLET 90 t* 1 06/28/2018 09/26/2018 Class: Call Rx Route: ORAL Sig: Take 1 tablet by mouth three times daily for 90 days. Medications Discontinued During This Encounter DULoxetine (CYMBALTA) 30 mg capsule 30 c* 2 04/10/2018 06/28/2018 Route: ORAL Sig: Take 1 capsule by mouth once daily. Disc: Reason for discontinue is not on file. baclofen (LIORESAL) 10 mg tablet 90 t* 1 01/25/2018 06/28/2018 Sig: take 1 tablet by mouth three times a day if needed for muscle spasm Disc: Reason for discontinue is not on file. diazePAM (VALIUM) 10 mg tablet 60 t* 5 05/05/2018 06/28/2018 Class: Call Rx Route: ORAL Sig: Take 1 tablet by mouth twice daily for 180 days. Disc: Reason for discontinue is not on file. Encounter Status:Closed by SUBHASH FRYE on 06/28/18 DISCHARGE INSTRUCTION Observed: 06/23/2018 Status: F Source: [place] 3:45 PM [facility] Medical Records Department [address] [place] [address] Discharge Instruction 06/23/18804 MR#: [id number] Acct: [id number] Name: VALERIA JHA Ed[place] Rep #: [id number] : 1980 37 From: Corby Castellano MD PCP: Ankur Deal Status: DEP ER ED Disposition - Plan for ED Patient: Chief Complaint: Seizure Instructions: ED Muscle Pain Leg Cramps Referrals: Gonzalo De Leon MD [NON-STAFF] - What to do if you have Problems For any increased pain, shortness of breath, bleeding, nausea or vomiting, chest pain, or any unexpected problems, contact your Primary Care Provider. Call [facility] ([phone]) or report to the closest Emergency Room. Call 911 if necessary. 06/23/18 1545 <Electronically signed by Corby Castellano MD> Date Corby Castellano MD Cosigner Signature (If Indicated): Date CC: Ankur Deal EMERGENCY DEPARTMENT Observed: 06/23/2018 Status: C Source: [place] SUMMARY 8:05 AM [facility] Medical Records Department [address] [place] [address] Emergency Department Summary 06/23/18 0651 MR#: [id number] Acct: [id number] Name: VALERIA JHA Rep #: [id number] : 1980 37 From: Emiliano Diaz MD PCP: Ankur Deal Status: REG ER ADDENDUM by Corby Castellano MD on 06/23/18 at 0804 Patient signed out to me. CBC, BMP, urinalysis, hCG, CT brain all unremarkable. Patient did complain of a headache and requested Tylenol. She was treated. She will be discharged as planned. 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 She states that she felt as if she was going to have a seizure and then alerted coworkers, asking him to call 911. She was then witnessed to have twitching type movements but apparently remained conscious. According to report, no full body tonic-clonic seizure activity. She did not lose control of her bladder and she did not bite her tongue. She currently has a headache but otherwise feels back to baseline. Denies any injuries associated with the twitching. She was here last night for similar symptoms and her blood work was within normal limits but she is concerned that she may need a CAT scan. She denies any recent changes in medication. Denies any recent infection or trauma. Physical Examination: Vitals are within normal limits. She is not in distress. Neck is supple. Heart tones are regular and without murmur. Lungs are clear bilaterally. Abdomen is soft and nontender. She has no focal or lateralizing neuro findings. Test Results: CBC, BMP, hCG, urinalysis, and CT brain were all ordered and pending. Emergency Department Course and Treatment: Care will be turned over to the oncoming physician to check test results and reevaluate. Treatment Plan: At this point she looks well, by description it sounds like this was more of a twitching disorder which she states is not unusual for her myoclonic disorder. It does not sound like a full body tonic-clonic seizure based on what she is describing but I cannot say with certainty. If her workup is unremarkable here today, and she continues to feel completely normal, I feel she can safely be discharged home but will need close neurology follow-up. I discussed this with her as well as the oncoming physician who will assume care now at shift change. Disposition: Home if workup unremarkable here, close neurology follow-up Impression: Subsequent encounter, myoclonic jerks This note was generated with [employer] dictation software. It may contain incorrect words, spelling, and punctuation that were not noted in review of the chart prior to signing ED Disposition - Plan for ED Patient: Chief Complaint: Seizure Referrals: Gonzalo De Leon MD [Primary Care Provider] - What to do if you have Problems For any increased pain, shortness of breath, bleeding, nausea or vomiting, chest pain, or any unexpected problems, contact your Primary Care Provider. Call [facility] ([phone]) or report to the closest Emergency Room. Call 911 if necessary. 06/23/18 0700 <Electronically signed by Emiliano Diaz MD> Date Emiliano Diaz MD Cosigner Signature (If Indicated): Date CC: Ankur Deal URINALYSIS, COMPLETE Collected: 06/23/2018 Status: F Source: [place] 7:45 AM [facility] Order Comment: Order Date: 06/23/18 How was Urine Obtained? CLEAN CATCH TYPE CODE TESTS RESULT OUT OF RANGE REFERENCE UNITS LAB L400.3000 Yellow COLOR Normal Yellow LAB L400.3050 Clear Normal CLARITY Sl. Cloudy LAB L400.3200 Normal mg/dl Normal GLUCOSE, UR Normal LAB L400.3300 Negative mg/dL Normal BILIRUBIN URINE Negative LAB L400.3400 Negative mg/dl Normal KETONE UR Negative LAB L400.3465 1.002-1.030 Normal SP.GR. DIPSTX 1.010 LAB L400.3550 5.0 - 8.0 pH UR Normal 6.0 LAB L400.3600 Negative mg/dl PROT Normal DIPSTX Negative LAB L400.3700 Normal mg/dl Normal UROBILI Normal LAB L400.3750 Negative Normal NITRITE UR Negative LAB L400.3780 Negative /ul High 10 OCCULT BLOOD-UR LAB L400.3800 Negative /ul LEUK Normal ESTERASE Negative LAB L400.4050 0-5 /hpf WBC 0 Normal SEEN LAB L400.4100 0-5 /hpf Normal RBC-UA 0-5 SEEN LAB L400.4150 5-10 /hpf SQUAM Normal EPI 5-10 SEEN LAB L400.4300 None Seen /hpf 1+ Normal BACTERIA LAB L400.4350 <or=2+ /hpf 0 Normal MUCUS, URINE SEEN Performed By: #### L400.0001 #### [facility] [address] [place], [place], [address] CBC W/DIFF, AUTOMATED Collected: 06/23/2018 Status: F Source: [place] 6:45 AM [facility] TYPE CODE TESTS RESULT OUT OF RANGE REFERENCE UNITS LAB L100.1000 4.4-11.0 K/mm3 Normal WBC 7.9 LAB L100.1200 4.2-5.4 M/mm3 Normal RBC 4.27 LAB L100.1300 12.0-15.0 g/dl Normal HGB 14.7 LAB L100.1400 37-47 % Normal HCT 43.0 LAB L100.1500 81-99 fL High MCV 100.7 LAB L100.1600 27.0-32.0 pg High MCH 34.4 LAB L100.1700 32-36 g/gl Normal MCHC 34.2 LAB L100.1810 11.6-14.6 % Low RDW CV 11.4 LAB L100.1820 35.1-43.9 fl Normal RDW SD 41.1 LAB L100.1900 150-450 K/mm3 Normal PLT 291 LAB L100.2000 6.2-12.0 fl Normal MPV 9.2 LAB L100.2100 47-70 % High NEUT% 71.5 LAB L100.2200 19-41 % Normal LY% 20.6 LAB L100.2300 0-10 % Normal MONO% 5.6 LAB L100.2400 0-5 % Normal EO% 1.8 LAB L100.2500 0-1 % Normal BASO% 0.4 LAB L100.2550 0.0-0.9 % Normal IM GRAN % 0.100 Result Comment: IG% - Immature Granulocytes (promyelocytes, myelocytes and metamyelocytes) > 1% indicates that a LEFT SHIFT is Present. LAB L100.2620 2.0-7.7 X10 3/uL Normal Absolute Neut 5.6 LAB L100.2720 0.83-4.51 X10 3/ul Normal Absolute Lymph 1.62 Performed By: #### L100.0100 #### [facility] [address] [place], [address] BASIC METABOLIC Collected: 06/23/2018 Status: F Source: [place] PROFILE (BMP) 6:45 AM [facility] TYPE CODE TESTS RESULT OUT OF RANGE REFERENCE UNITS LAB L501.0100 74-106 mg/dL Normal GLU 93 Result Comment: Please note revised GLUCOSE reference range effective 2017. LAB L501.1000 7-18 mg/dL Normal BUN 15 LAB L501.1100 0.55-1.02 mg/dL Normal CREAT,SERUM 0.93 Result Comment: The validity of the calculated GFR AND GFRAA in patients over 70 years has not been determined. Clinical correlation is essential. LAB L501.1110 >60 mL/min Normal EST GFR 73 Result Comment: Non- GFR Calc LAB L501.1115 >60 mL/min Normal EST GFR - AA 88 Result Comment: GFR Calc LAB L501.1255 ml/min Normal Estimated CRCL 72.91 LAB L501.1300 10-20 RATIO Normal BUN/CRE 16.2 LAB L501.2200 8.5-10 mg/dL Normal .1 CA 8.7 LAB L501.5300 136-14 mmol/L Normal 5 NA 140 LAB L501.5600 3.5-5. mmol/L Normal 1 K 3.7 LAB L501.5900 98-107 mmol/L Normal CL 106 LAB L501.6100 21.0-3 mmol/L Normal 2.0 CO2 26.0 LAB L501.6200 5-15 Normal GAP 8 Performed By: #### L500.2500 #### [facility] [address] [place], [place], [id number] ,SERUM,HCG QUALI. Collected: Status: F Source: [place] 06/23/2018 6:45 AM [facility] TYPE CODE TESTS RESULT OUT OF REFERENCE UNITS RANGE LAB L700.6700 =>Qualitative mIU/mL Normal HCG Qual < 1 triggr LAB L700.7000 0-9 Nonpreg Negative Normal HCGSQUAL NEGATIVE Performed By: #### L700.6800 #### [facility] [address] [place], [place], [address] BRAIN/HEAD WITHOUT Observed: 06/23/2018 Status: F Source: [place] CONTRAST 6:39 AM [facility] Imaging Services [address] [place] [address] Brain/Head without Contrast MR#: [id number] Acct: [id number] Name: VALERIA JHA Rep #: [id number] : 1980 F 37 From: Tremayne Cordova PCP: Ankur Deal Status: REG ER Study: Brain/Head without Contrast Date of Exam: 06/23/18 Exam# [id number] Ordering Dr: Emiliano Diaz MD STUDY: CT BRAIN WITHOUT CONTRAST REASON FOR EXAM: Female, 37 years old. Seizure RADIATION DOSAGE (If Supplied By Facility): CTDIvol = ( 44.99 ) mGy, DLP = ( 745.49 ) mGycm TECHNIQUE: Transaxial CT imaging of the brain was performed without administration of intravenous contrast material. Individualized dose optimization techniques were used for this CT. COMPARISON: 07/24/2017 FINDINGS: Normal soft tissue structures. Normal calvarium. Normal size ventricles and extra-axial spaces for the patient's age. Normal white matter tracts of the cerebral hemispheres. Normal basal ganglia and thalami. Normal brainstem. Normal cerebellum. There is no intracranial hemorrhage. There are no findings of an acute ischemic infarction. Normal visualized paranasal sinuses. CT/Brain/Head without Contrast IMPRESSION: Normal unenhanced CT scan of the brain. Electronically Signed: Tremayne Cordova MD at 7:08 EST , Service support , CC: Ankur Deal; Dominik Diaz MD Broadcast Director Operations: Signed EMERGENCY DEPARTMENT Observed: 06/22/2018 Status: F Source: [place] SUMMARY 4:04 PM [facility] Medical Records Department [address] [place] [address] Emergency Department Summary 06/22/18 1551 MR#: [id number] Acct: [id number] Name: VALERIA JHA Rep #: [id number] : 1980 37 From: Aryan Frey MD PCP: Gonzalo De Leon MD Status: REG ER - ER Visit Summary Date of Service: 06/22/18 Chief Complaint: Possible seizure History of Present Illness: The patient is a 37 F medical history of myotonic congenita. Patient states at home today she had twitching of her face which he thought might be a seizure. She denies any recent head injury. She denies any nausea, vomiting or diarrhea. She does not have a history of seizures. She had a negative CAT scan of her brain last year. Physical Examination: Well-appearing young female. Vital signs are stable. She is afebrile. She does not look septic or toxic. She is in no acute distress. HEENT exam pupils round reactive light. Moist weeks membranes. No facial droop. No signs of trauma to her face or scalp. Neck nontender. No lymphadenopathy. No meningismus. Lungs clear to auscultation bilaterally. Heart good rhythm no murmur. Abdomen soft nontender normal bowel sounds no peritoneal signs. Extremities she moves all 4. Neurovascularly intact. Calves are nontender. Neurologically she is awake alert with no Test Results: Chemistry panel was done was completely normal. Normal gap. Normal potassium. Normal BUN and creatinine. Emergency Department Course and Treatment: Repeat exam patient is doing well at 1550. She has had no seizures the entire time in the ER. Her exam is been unchanged. She requested some Tylenol for headache. Treatment Plan: Discharged home. Follow-up with her primary care physician. Disposition: Discharge Impression: Facial muscle spasms History of myoclonic congenita This note was generated with [employer] dictation software. It may contain incorrect words, spelling, and punctuation that were not noted in review of the chart prior to signing ED Disposition - Plan for ED Patient: Chief Complaint: Seizure Referrals: Gonzalo De Leon MD [Primary Care Provider] - What to do if you have Problems For any increased pain, shortness of breath, bleeding, nausea or vomiting, chest pain, or any unexpected problems, contact your Primary Care Provider. Call [facility] ([phone]) or report to the closest Emergency Room. Call 911 if necessary. 06/22/18 1604 <Electronically signed by Aryan Frey MD> Date Aryan Frey MD Cosigner Signature (If Indicated): Date CC: Gonzalo De Leon MD DISCHARGE INSTRUCTION Observed: 06/22/2018 Status: F Source: [place] 4:04 PM [facility] Medical Records Department [address] [place] [address] Discharge Instruction 06/22/18 1554 MR#: [id number] Acct: [id number] Name: VALERIA JHA Rep #: [id number] : 1980 37 From: Aryan Frey MD PCP: Gonzalo De Leon MD Status: REG ER ED Disposition - Plan for ED Patient: Disposition: Home or Assisted Living Chief Complaint: Seizure Referrals: Gonzalo De Leon MD [Primary Care Provider] - As Needed Additional Instructions: Follow up with your doctor as needed What to do if you have Problems For any increased pain, shortness of breath, bleeding, nausea or vomiting, chest pain, or any unexpected problems, contact your Primary Care Provider. Call [facility] ([phone]) or report to the closest Emergency Room. Call 911 if necessary. 06/22/18 1604 <Electronically signed by Aryan Frey MD> Date Aryan Frey MD Cosigner Signature (If Indicated): Date CC: Gonzalo De Leon MD BASIC METABOLIC Collected: 06/22/2018 Status: F Source: [place] PROFILE (BMP) 2:02 PM [facility] TYPE CODE TESTS RESULT OUT OF RANGE REFERENCE UNITS LAB L501.0100 74-106 mg/dL Normal GLU 79 Result Comment: Please note revised GLUCOSE reference range effective 2017. LAB L501.1000 7-18 mg/dL Normal BUN 13 LAB L501.1100 0.55-1.02 mg/dL Normal CREAT,SERUM 0.88 Result Comment: The validity of the calculated GFR AND GFRAA in patients over 70 years has not been determined. Clinical correlation is essential. LAB L501.1110 >60 mL/min Normal EST GFR 78 Result Comment: Non- GFR Calc LAB L501.1115 >60 mL/min Normal EST GFR - AA 94 Result Comment: GFR Calc LAB L501.1255 ml/min Normal Estimated CRCL 77.05 LAB L501.1300 10-20 RATIO Normal BUN/CRE 14.8 LAB L501.2200 8.5-10 mg/dL Normal .1 CA 8.7 LAB L501.5300 136-14 mmol/L Normal 5 NA 141 LAB L501.5600 3.5-5. mmol/L Normal 1 K 4.3 LAB L501.5900 98-107 mmol/L Normal CL 107 LAB L501.6100 21.0-3 mmol/L Normal 2.0 CO2 27.0 LAB L501.6200 5-15 Normal GAP 7 Performed By: #### L500.2500 #### [facility] [address] [place], [address] OBSOLETE Observed: 06/20/2018 Status: COMPLETED Source: [place] 12:00 AM [facility] VALERIA JHA ([id number]) 1980 F Date Time Provider Department 06/20/18 [facility] During your visit today, we recorded the following information about you: Hiwot Encarnacion RN 06/20/2018 12:41 PM Signed Patient states that insurance will pay for Flonase if sent as Rx. Please send this and the Silvadene to [facility], Silvadene was marked in office and did not go to pharmacy yesterday. Rx's pended, please file. Thank you, Hiwot Encarnacion RN Allergies As of Date: 06/20/2018 Noted Allergy Reaction ADHESIVE 10/09/2008 Comments: Local irritation at site AUGMENTIN (AMOXICILLIN-POT CLAVUL*06/19/2018 14 - Other: See Comments Comments: Yeast infection Beestings [Other] 03/13/2007 CAT DANDER [Other] 02/25/2005 5 - Intolerance FLEXERIL (CYCLOBENZAPRINE HCL) 06/30/2016 5 - Intolerance Comments: headcahes GRASS POLLEN 02/25/2005 2 - Rash MOLDS [Other] 02/25/2005 5 - Intolerance RAGWEED 03/18/2006 Date Reviewed: 06/19/2018 Reviewed by: Pat Oreilly LPN - Fully Assessed Reason for Visit: Refill Request [94] Visit Diagnosis:Skin burn [T30.0] Order(s):silver sulfADIAZINE (SILVADENE,THERMAZENE) 1 % creamApply 1 application to affected area once daily.Disp: 50 gRfl: 0 fluticasone (FLONASE) 50 mcg/actuation nasal sprayUse 2 Sprays in each nostril once daily. Rinse mouth after use.Disp: 1 BottleRfl: 11 Prescriptions as of 06/20/2018 Sig: SILVER SULFADIAZINE 1 % TOPIC* Apply 1 application to affect* FLUTICASONE 50 MCG/ACTUATION * Use 2 Sprays in each nostril * FLONASE NASAL Use 2 Sprays in the nose once* AMOXICILLIN 875 MG-POTASSIUM * Take 1 tablet by mouth twice * PERFLUTREN LIPID MICROSPHERES* Inject 1.3 mL intravenously a* DOXYCYCLINE MONOHYDRATE 100 M* Take 1 capsule by mouth twice* DIAZEPAM 10 MG TABLET Take 1 tablet by mouth twice * DULOXETINE 30 MG CAPSULE,EUSEBIA* Take 1 capsule by mouth once * CETIRIZINE 10 MG TABLET Take 1 tablet by mouth once d* MUPIROCIN 2 % TOPICAL OINTMENT Apply 1 application to affect* BACLOFEN 10 MG TABLET take 1 tablet by mouth three * NAPROXEN ORAL Take by mouth. IBUPROFEN 800 MG TABLET Take 1 tablet by mouth every * Problem List As Of Date 06/20/2018 Noted Resolved Esophageal reflux [K21.9] INVALID FOR*08/27/2015 Depressive disorder, not elsewhere classified [*INVALID FOR*08/27/2015 COMMON MIGRAINE W/O MENTN INTRACT [G43.009] INVALID FOR* Chronic rhinitis [J31.0] INVALID FOR*08/27/2015 More... Abdominal pain, right lower quadrant [R10.31] 05/09/2012 Abdominal pain, left lower quadrant [R10.32] 05/09/2012 CONSTIPATION NOS [K59.00] MYALGIA AND MYOSITIS NOS [VVC2155] INVALID FOR* Lump or Mass in Breast [N63.0] INVALID FOR*01/30/2009 Sprain of foot, unspecified site [S93.609A] INVALID FOR*03/21/2013 Nausea alone [R11.0] 03/21/2013 Heartburn [R12] 08/27/2015 Achilles bursitis or tendinitis [M76.60] INVALID FOR*08/27/2015 Enthesopathy of unspecified site [M77.9] INVALID FOR*08/27/2015 Tibialis posterior tendonitis [M76.829] INVALID FOR*08/27/2015 Urine frequency [R35.0] INVALID FOR*08/27/2015 Hematuria [R31.9] INVALID FOR*08/27/2015 Suprapubic pressure [R10.2] INVALID FOR*08/27/2015 Stress incontinence [N39.3] INVALID FOR*08/27/2015 BMI 37.0-37.9, adult [Z68.37] INVALID FOR* Thrombosed external hemorrhoid [K64.5] INVALID FOR*03/21/2013 Multinodular goiter [E04.2] INVALID FOR* Right groin pain [R10.31] INVALID FOR*08/18/2016 Lumbar spondylosis [M47.816] INVALID FOR* Low back pain [M54.5] INVALID FOR* 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 Left medial knee pain [M25.562] INVALID FOR* Paresthesia of left leg [R20.2] INVALID FOR* More... Sciatica of left side [M54.32] INVALID FOR* Fibromyalgia [M79.7] INVALID FOR* Prescriptions ordered this encounter Disp Refills Start End SILVER SULFADIAZINE 1 % TOPICAL CREAM 50 g 0 06/20/2018 Route: TOPICAL Sig: Apply 1 application to affected area once daily. FLUTICASONE 50 MCG/ACTUATION NASAL S* 1 [facility]* 11 06/20/2018 Route: EACH NOSTRIL Sig: Use 2 Sprays in each nostril once daily. Rinse mouth after use. Medications Discontinued During This Encounter silver sulfADIAZINE (SILVADENE,THERM* 50 g 0 06/19/2018 06/20/2018 Class: In Office Route: TOPICAL Sig: Apply 1 application to affected area once daily. Disc: Reason for discontinue is not on file. Encounter Status:Closed by GONZALO DE LEON MD on 06/20/18 PROGRESS Observed: 06/19/2018 Status: COMPLETED Source: [place] 2:03 PM [facility] HNO ID: [id number] Author: Shae Rascon) [place] Service: (none) Author Type: Nurse Practitioner Type: Progress Notes Filed: 06/19/2018 3:03 PM Note Text: Valeria Jha is a 37 year old female who presents for problem visit labial lump for 3 days. HPI: pt states that she noticed the lump Sat when taking a shower, it was a little swollen and sore because she was messing with it. Denies any drainage from the lump. She does have a sinus infection and was running a low temp from that she believes. PAST MEDICAL HISTORY Diagnosis Date - Abdominal pain, other specified site RLQ and LLQ chronic - Abnormal glandular Papanicolaou smear of cervix Abn. Pap smear (cervix), s/p CHARBEL - Chronic back pain - Chronic rhinitis 06/30/2005 Dr. Bell - Depressive disorder, not elsewhere classified 06/30/2005 nerves - Esotropia, unspecified Dr. Encarnacion, Right eye - GERD (gastroesophageal reflux disease) - Migraine - Myotonia - Thrombosed external hemorrhoid 03/20/2012 - Tobacco abuse - Unspecified constipation - Unspecified inflammatory disease of female pelvic organs and tissues chronic pelvic pain PAST SURGICAL HISTORY Procedure Laterality Date - APPENDECTOMY October 27, 2004 LAPROSCOPIC - COLONOSCOP W/ OR W/O [facility] SPEC 10/27/05 - HYSTEROSCOPY, STERILIZATION 02/13/08 [facility] - L'SCOPE DX W/WO BRUSHINGS/WASHINGS October Laparoscopy, adhesion lysis - POLYSOMNOGRAM(DIAG) 15684 12/2005 Sleep study wnl - THYROID FINE NEEDLE ASPIRATION 2012 - VAGINAL HYSTERECTOMY 10/29/10 [facility] FAMILY HISTORY Problem Relation Age of Onset - Allergies Mother - Hypertension Mother diabetes - Lipids Mother - Psychiatry Mother bipolar disorder - Diabetes Mother - Arthritis Father gout - other (Myotonia) Father - Alzheimer's Disease Paternal Grandfather HEARING LOSS,PARKINSONS - Stroke Paternal Grandfather - Arthritis Paternal Grandmother - Hypertension Paternal Grandmother - Osteoporosis Paternal Grandmother - Stroke Paternal Grandmother - Thyroid Paternal Grandmother - Arthritis Maternal Grandmother CAROTID ARTERY CLEANED OUT, DIABETES - Hypertension Maternal Grandmother - Lipids Maternal Grandmother - Stroke Maternal Grandmother - Diabetes Maternal Grandmother - Diabetes Brother (1/2 brother) Social History Marital status: Spouse name: Years of education: GED Number of children: 2 Occupational History Occupation Employer Comment unemployed [employer] last job in [employer] Social History Main Topics Smoking status: Current Every Day Smoker Packs/day: 1.00 Years: 12.00 Types: Cigarettes Smokeless tobacco: Never Used Alcohol use: No Drug use: No Comment: marijuana as teenager, none recent Sexual activity: Yes Partners with: Male control/protection: Surgical Other Topics Concern BLOOD TRANSFUSIONS No CAFFEINE Yes Comment:caffeine withdrawal headaches OCCUPATIONAL EXPOSURE No SLEEP CONCERN Yes Comment:nightmares of killings STRESS CONCERN Yes Comment:'too much' DIET No EXERCISE No SEAT BELT Yes SELF EXAMS Yes Comment:advised Social History Narrative Single, 2 children (ages 11 yo son, age 5 yo dtr ) - [facility] 01/2013 Current Outpatient Prescriptions: fluticasone propionate (FLONASE NASAL) Use 2 Sprays in the nose once daily. silver sulfADIAZINE (SILVADENE,THERMAZENE) 1 % cream Apply 1 application to affected area once daily. amoxicillin-clavulanic acid (AUGMENTIN) 875-125 mg per tablet Take 1 tablet by mouth twice daily for 10 days. perflutren lipid microspheres (DEFINITY) 1.1 mg/mL injection (to be provided with echo procedure) Inject 1.3 mL intravenously as directed. diazePAM (VALIUM) 10 mg tablet Take 1 tablet by mouth twice daily for 180 days. DULoxetine (CYMBALTA) 30 mg capsule Take 1 capsule by mouth once daily. cetirizine (ZYRTEC) 10 mg tablet Take 1 tablet by mouth once daily. mupirocin (BACTROBAN) 2 % ointment Apply 1 application to affected area three times daily. Location: boil baclofen (LIORESAL) 10 mg tablet take 1 tablet by mouth three times a day if needed for muscle spasm NAPROXEN ORAL Take by mouth. ibuprofen (MOTRIN) 800 mg tablet Take 1 tablet by mouth every 6 hours as needed for Pain. Take with food. No current facility-administered medications for this visit. Allergies As of Date: 06/19/2018 Allergen Noted Reaction ADHESIVE 10/09/2008 BEESTINGS [OTHER] 03/13/2007 CAT DANDER [OTHER] 02/25/2005 Intolerance FLEXERIL [CYCLOBENZAPRINE HCL] 06/30/2016 Intolerance GRASS POLLEN 02/25/2005 Rash MOLDS [OTHER] 02/25/2005 Intolerance RAGWEED 03/18/2006 Fully Assessed 06/19/2018 REVIEW OF SYSTEMS Abdomen: No bloating, early satiety, indigestion, or increased flatulence. No abdominal pain, nausea, vomiting, diarrhea, or constipation. Bladder: No dysuria, gross hematuria, urinary frequency, urinary urgency, or incontinence. Expanded ROS: N/A Allergies and current medication updated:Yes EXAM: LMP 10/13/2010 GENERAL: pleasant, female in no apparent distress HEENT: Normocephalic, atraumatic, mucus membranes moist and no lesions CHEST: Normal inspiratory effort PELVIC: external genitalia normal, normal Bartholin's glands, urethra, Grayslake's glands, no cervical lesions, physiologic discharge present, normal appearing perineal body and perianal region, occulusion cyst of the left labia minora appox 0.5cm in size- able to squeeze scant amount of bloody discharge NEURO: alert and oriented x3,exam grossly non-focal ASSESSMENT AND PLAN: Pt is starting a ATB for sinus infection Diflucan sent Warm compress and bath soaks Follow up if cyst gets larger or more painful Shae [place], SPECIAL DELIVERY MESSENGER.SAUSAGE CUTTER CNOV Observed: 06/19/2018 Status: COMPLETED Source: [place] 2:00 PM [facility] Office Visit (WOOB) VALERIA JHA ([id number]) 1980 F Date Time Provider Department 06/19/18 2:00 PM SHAE RODGERS ([facility]) WOOB During your visit today, we recorded the following information about you: Blood pressure Weight 114/68 95.3 kg Shae Rodgers APRN.CNP 06/19/2018 3:03 PM Signed Valeria Edmar Yudelka is a 37 year old female who presents for problem visit labial lump for 3 days. HPI: pt states that she noticed the lump Sat when taking a shower, it was a little swollen and sore because she was messing with it. Denies any drainage from the lump. She does have a sinus infection and was running a low temp from that she believes. PAST MEDICAL HISTORY Diagnosis Date - Abdominal pain, other specified site RLQ and LLQ chronic - Abnormal glandular Papanicolaou smear of cervix Abn. Pap smear (cervix), s/p CHARBEL - Chronic back pain - Chronic rhinitis 06/30/2005 Dr. Bell - Depressive disorder, not elsewhere classified 06/30/2005 nerves - Esotropia, unspecified Dr. Encarnacion, Right eye - GERD (gastroesophageal reflux disease) - Migraine - Myotonia - Thrombosed external hemorrhoid 03/20/2012 - Tobacco abuse - Unspecified constipation - Unspecified inflammatory disease of female pelvic organs and tissues chronic pelvic pain PAST SURGICAL HISTORY Procedure Laterality Date - APPENDECTOMY October 27, 2004 LAPROSCOPIC - COLONOSCOP W/ OR W/O [facility] SPEC 10/27/05 - HYSTEROSCOPY, STERILIZATION 02/13/08 [facility] - L'SCOPE DX W/WO BRUSHINGS/WASHINGS October Laparoscopy, adhesion lysis - POLYSOMNOGRAM(DIAG) 10744 12/2005 Sleep study wnl - THYROID FINE NEEDLE ASPIRATION 2013 - VAGINAL HYSTERECTOMY 10/29/10 [facility] FAMILY HISTORY Problem Relation Age of Onset - Allergies Mother - Hypertension Mother diabetes - Lipids Mother - Psychiatry Mother bipolar disorder - Diabetes Mother - Arthritis Father gout - other (Myotonia) Father - Alzheimer's Disease Paternal Grandfather HEARING LOSS,PARKINSONS - Stroke Paternal Grandfather - Arthritis Paternal Grandmother - Hypertension Paternal Grandmother - Osteoporosis Paternal Grandmother - Stroke Paternal Grandmother - Thyroid Paternal Grandmother - Arthritis Maternal Grandmother CAROTID ARTERY CLEANED OUT, DIABETES - Hypertension Maternal Grandmother - Lipids Maternal Grandmother - Stroke Maternal Grandmother - Diabetes Maternal Grandmother - Diabetes Brother (1/2 brother) Social History Marital status: Spouse name: Years of education: GED Number of children: 2 Occupational History Occupation Employer Comment unemployed [employer] last job in [employer] Social History Main Topics Smoking status: Current Every Day Smoker Packs/day: 1.00 Years: 12.00 Types: Cigarettes Smokeless tobacco: Never Used Alcohol use: No Drug use: No Comment: marijuana as teenager, none recent Sexual activity: Yes Partners with: Male control/protection: Surgical Other Topics Concern BLOOD TRANSFUSIONS No CAFFEINE Yes Comment:caffeine withdrawal headaches OCCUPATIONAL EXPOSURE No SLEEP CONCERN Yes Comment:nightmares of killings STRESS CONCERN Yes Comment:'too much' DIET No EXERCISE No SEAT BELT Yes SELF EXAMS Yes Comment:advised Social History Narrative Single, 2 children (ages 11 yo son, age 5 yo dtr ) - [facility] 01/2013 Current Outpatient Prescriptions: fluticasone propionate (FLONASE NASAL) Use 2 Sprays in the nose once daily. silver sulfADIAZINE (SILVADENE,THERMAZENE) 1 % cream Apply 1 application to affected area once daily. amoxicillin-clavulanic acid (AUGMENTIN) 875-125 mg per tablet Take 1 tablet by mouth twice daily for 10 days. perflutren lipid microspheres (DEFINITY) 1.1 mg/mL injection (to be provided with echo procedure) Inject 1.3 mL intravenously as directed. diazePAM (VALIUM) 10 mg tablet Take 1 tablet by mouth twice daily for 180 days. DULoxetine (CYMBALTA) 30 mg capsule Take 1 capsule by mouth once daily. cetirizine (ZYRTEC) 10 mg tablet Take 1 tablet by mouth once daily. mupirocin (BACTROBAN) 2 % ointment Apply 1 application to affected area three times daily. Location: boil baclofen (LIORESAL) 10 mg tablet take 1 tablet by mouth three times a day if needed for muscle spasm NAPROXEN ORAL Take by mouth. ibuprofen (MOTRIN) 800 mg tablet Take 1 tablet by mouth every 6 hours as needed for Pain. Take with food. No current facility-administered medications for this visit. Allergies As of Date: 06/19/2018 Allergen Noted Reaction ADHESIVE 10/09/2008 BEESTINGS [OTHER] 03/13/2007 CAT DANDER [OTHER] 02/25/2005 Intolerance FLEXERIL [CYCLOBENZAPRINE HCL] 06/30/2016 Intolerance GRASS POLLEN 02/25/2005 Rash MOLDS [OTHER] 02/25/2005 Intolerance RAGWEED 03/18/2006 Fully Assessed 06/19/2018 REVIEW OF SYSTEMS Abdomen: No bloating, early satiety, indigestion, or increased flatulence. No abdominal pain, nausea, vomiting, diarrhea, or constipation. Bladder: No dysuria, gross hematuria, urinary frequency, urinary urgency, or incontinence. Expanded ROS: N/A Allergies and current medication updated:Yes EXAM: LMP 10/13/2010 GENERAL: pleasant, female in no apparent distress HEENT: Normocephalic, atraumatic, mucus membranes moist and no lesions CHEST: Normal inspiratory effort PELVIC: external genitalia normal, normal Bartholin's glands, urethra, Grayslake's glands, no cervical lesions, physiologic discharge present, normal appearing perineal body and perianal region, occulusion cyst of the left labia minora appox 0.5cm in size- able to squeeze scant amount of bloody discharge NEURO: alert and oriented x3,exam grossly non-focal ASSESSMENT AND PLAN: Pt is starting a ATB for sinus infection Diflucan sent Warm compress and bath soaks Follow up if cyst gets larger or more painful Shae Rodgers APRN.SAUSAGE CUTTER Referring Provider: SELF [[id number]] Allergies As of Date: 06/19/2018 Noted Allergy Reaction ADHESIVE 10/09/2008 Comments: Local irritation at site AUGMENTIN (AMOXICILLIN-POT CLAVUL*06/19/2018 14 - Other: See Comments Comments: Yeast infection Beestings [Other] 03/13/2007 CAT DANDER [Other] 02/25/2005 5 - Intolerance FLEXERIL (CYCLOBENZAPRINE HCL) 06/30/2016 5 - Intolerance Comments: headcahes GRASS POLLEN 02/25/2005 2 - Rash MOLDS [Other] 02/25/2005 5 - Intolerance RAGWEED 03/18/2006 Date Reviewed: 06/19/2018 Reviewed by: Pat Oreilly LPN - Fully Assessed Reason for Visit: Vaginal Problem [117] Cmt: Lump on vaginal area 3 days Primary Visit Diagnosis:Labial cyst [N90.7] Order(s):fluconazole (DIFLUCAN) 150 mg tabletTake 1 tablet by mouth one time only for 1 dose.Disp: 1 tabletRfl: 0 Prescriptions as of 06/19/2018 Sig: FLONASE NASAL Use 2 Sprays in the nose once* SILVER SULFADIAZINE 1 % TOPIC* Apply 1 application to affect* PERFLUTREN LIPID MICROSPHERES* Inject 1.3 mL intravenously a* DIAZEPAM 10 MG TABLET Take 1 tablet by mouth twice * DULOXETINE 30 MG CAPSULE,EUSEBIA* Take 1 capsule by mouth once * CETIRIZINE 10 MG TABLET Take 1 tablet by mouth once d* MUPIROCIN 2 % TOPICAL OINTMENT Apply 1 application to affect* BACLOFEN 10 MG TABLET take 1 tablet by mouth three * NAPROXEN ORAL Take by mouth. IBUPROFEN 800 MG TABLET Take 1 tablet by mouth every * AMOXICILLIN 875 MG-POTASSIUM * Take 1 tablet by mouth twice * FLUCONAZOLE 150 MG TABLET Take 1 tablet by mouth one ti* Medication notes this encounter AMOXICILLIN 875 MG-POTASSIUM CLAVULANATE 125 MG TABLET >> Pat Oreilly LPN 06/19/2018 2:07 PM >> PAT OREILLY LPN TueJun 19, 2018 2:07 PM Not started Problem List As Of Date 06/19/2018 Noted Resolved Esophageal reflux [K21.9] INVALID FOR*08/27/2015 Depressive disorder, not elsewhere classified [*INVALID FOR*08/27/2015 COMMON MIGRAINE W/O MENTN INTRACT [G43.009] INVALID FOR* Chronic rhinitis [J31.0] INVALID FOR*08/27/2015 More... Abdominal pain, right lower quadrant [R10.31] 05/09/2012 Abdominal pain, left lower quadrant [R10.32] 05/09/2012 CONSTIPATION NOS [K59.00] MYALGIA AND MYOSITIS NOS [DNF8694] INVALID FOR* Lump or Mass in Breast [N63.0] INVALID FOR*01/30/2009 Sprain of foot, unspecified site [S93.609A] INVALID FOR*03/21/2013 Nausea alone [R11.0] 03/21/2013 Heartburn [R12] 08/27/2015 Achilles bursitis or tendinitis [M76.60] INVALID FOR*08/27/2015 Enthesopathy of unspecified site [M77.9] INVALID FOR*08/27/2015 Tibialis posterior tendonitis [M76.829] INVALID FOR*08/27/2015 Urine frequency [R35.0] INVALID FOR*08/27/2015 Hematuria [R31.9] INVALID FOR*08/27/2015 Suprapubic pressure [R10.2] INVALID FOR*08/27/2015 Stress incontinence [N39.3] INVALID FOR*08/27/2015 BMI 37.0-37.9, adult [Z68.37] INVALID FOR* Thrombosed external hemorrhoid [K64.5] INVALID FOR*03/21/2013 Multinodular goiter [E04.2] INVALID FOR* Right groin pain [R10.31] INVALID FOR*08/18/2016 Lumbar spondylosis [M47.816] INVALID FOR* Low back pain [M54.5] INVALID FOR* 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 Left medial knee pain [M25.562] INVALID FOR* Paresthesia of left leg [R20.2] INVALID FOR* More... Sciatica of left side [M54.32] INVALID FOR* Fibromyalgia [M79.7] INVALID FOR* Prescriptions ordered this encounter Disp Refills Start End FLUCONAZOLE 150 MG TABLET 1 ta* 0 06/19/2018 06/19/2018 Route: ORAL Sig: Take 1 tablet by mouth one time only for 1 dose. Encounter Status:Closed by SHAE RODGERS on 06/19/18 CBC AND DIFFERENTIAL Collected: 06/19/2018 Status: F Source: [place] 1:13 PM [facility] TYPE CODE TESTS RESULT OUT OF REFERENCE UNITS RANGE LAB WBC 3.70-11.00 k/uL WBC 10.25 LAB RBC 3.90-5.20 m/uL RBC 4.21 LAB HGB 11.5-15.5 g/dL Hemoglobin 14.3 LAB HCT 36.0-46.0 % Hematocrit 43.2 LAB MCV 80.0-100.0 fL MCV High 102.6 LAB MCH 26.0-34.0 pG MCH 34.0 LAB MCHC 30.5-36.0 g/dL MCHC 33.1 LAB RDWCV 11.5-15.0 % RDW-CV 11.5 LAB PLTCT 150-400 k/uL Platelet Count 329 LAB MPV 9.0-12.7 fL MPV 9.4 LAB ANEUT % Neut% 59.3 LAB AANEUT 1.45-7.50 k/uL Abs Neut 6.08 LAB ALYMP % Lymph% 33.1 LAB AALYMP 1.00-4.00 k/uL Abs Lymph 3.39 LAB AMONO % [place]% 4.8 LAB AAMONO <0.87 k/uL Abs [place] 0.49 LAB AEOS % Eosin% 2.1 LAB AAEOS <0.46 k/uL Abs Eosin 0.22 LAB ABASO % Baso% 0.7 LAB AABASO <0.11 k/uL Abs Baso 0.07 LAB AUNRBC 0 /100 WBC NRBCs 0.0 LAB ABNRBC <0.01 k/uL Absolute nRBC <0.01 LAB DTYP DTYPE Auto Diff Performed By: #### CBCDIF, BMP #### [facility] [address] [place] [address] BASIC METABOLIC PANL Collected: 06/19/2018 Status: F Source: [place] 1:13 PM [facility] TYPE CODE TESTS RESULT OUT OF REFERENCE UNITS RANGE LAB GLU 74-99 mg/dL Low Glucose 68 Result Comment: The [place] [employer] Association (ADA) provides guidance for cutoff values for fasting glucose and random glucose. The ADA defines fasting as no caloric intake for at least 8 hours. Fas ting plasma glucose results between 100 to 125 mg/dL indicate increased risk for diabetes (prediabetes). Fasting plasma glucose results greater than or equal to 126 mg/dL meet the criteria for diagnosis of diabetes. In the absence of unequivocal hyperglycemia, results should be confirmed by repeat testing. In a patient with classic symptoms of hyperglycemia or hyperglycemic crisis, random plasma glucose results greater than or equal to 200 mg/dL meet the criteria for diagnosis of diabetes. Reference: Standards of Medical Care in Diabetes 2016, [place] [employer] Association. Diabetes Care. 2016.39(Suppl 1). LAB BUN 7-21 mg/dL BUN 10 LAB CRET 0.58-0.96 mg/dL Creatinine 0.89 LAB NA 136-144 mmol/L Sodium 141 LAB K 3.7-5.1 mmol/L Potassium 4.2 LAB CL 97-105 mmol/L Chloride 101 LAB CO2 22-30 mmol/L CO2 28 LAB AGAP 9-18 mmol/L Anion Gap 12 LAB CA 8.5-10.2 mg/dL Calcium, Total 9.4 LAB GFRAA eGFR- Amer. >60 LAB GFRNAA . eGFR-All Other Races >60 Result Comment: eGFR (Estimated GFR) Units of measure: mL/min/1.73 meters squared eGFR is derived from the reexpressed MDRD Study equation using the following parameters: serum creatinine, age, gender and race. The creatinine assay has been calibrated to be traceable to IDMS. An eGFR <60 mL/min/1.73m2 for >3 months is consistent with chronic kidney disease. Refer to KDOQI guidelines for clinical interpretation. In patients with unstable renal function, e.g. those with acute kidney injury, the eGFR may not accurately reflect actual GFR. Performed By: #### CBCDIF, BMP #### [facility] [address] [place], [place] [address] PROGRESS Observed: 06/19/2018 Status: COMPLETED Source: [place] 12:16 PM [facility] REPOSITORY O ID: [id number] Author: Gonzalo De [place] Service: (none) Author Type: Physician Type: Progress Notes Filed: 06/19/2018 12:41 PM Note Text: On leaving. Mentions that after intercourse has had episodes where she is awake, her head shakes and feels short of breath. No actual syncope. Does not sound seizure like. Last time it happened was several weeks ago. Has happened twice. ? Vasovagal vs other etiology. Did ekg Consider holter and stress echo to rule out ischemic issues. RTO in one month PROGRESS Observed: 06/19/2018 Status: COMPLETED Source: [place] 12:02 PM [facility] REPOSITORY HNO ID: [id number] Author: Gonzalo De [place] Service: (none) Author Type: Physician Type: Progress Notes Filed: 06/19/2018 12:15 PM Note Text: Patient presents with: Sinus Problem HPI: Patient presents today for office visit for follow up. Nursing Notes: Sowmya Lopez LPN 06/19/2018 12:02 PM Signed ENT: Patient complains of sinus pressure. Duration: going on week 2 now Fever: Yes. Comes and goes Headache: Yes. Sore throat: Yes. Ear pain: Yes. Nasal drainage: Yes. Cough: Yes. Shortness of breath: No. Nausea: Yes. Vomiting: No. Diarrhea: No. Previous treatment: Off brand mucinex. Asking about taking zyrtec twice daily? [place] and basement is damp. No chills. Does not feel like it is in her chest. mucinex does help. MEDICATIONS: Current Outpatient Prescriptions: fluticasone propionate (FLONASE NASAL) Use 2 Sprays in the nose once daily. diazePAM (VALIUM) 10 mg tablet Take 1 tablet by mouth twice daily for 180 days. DULoxetine (CYMBALTA) 30 mg capsule Take 1 capsule by mouth once daily. cetirizine (ZYRTEC) 10 mg tablet Take 1 tablet by mouth once daily. baclofen (LIORESAL) 10 mg tablet take 1 tablet by mouth three times a day if needed for muscle spasm ibuprofen (MOTRIN) 800 mg tablet Take 1 tablet by mouth every 6 hours as needed for Pain. Take with food. mupirocin (BACTROBAN) 2 % ointment Apply 1 application to affected area three times daily. Location: boil NAPROXEN ORAL Take by mouth. No current facility-administered medications for this visit. ALLERGIES: ALLERGIES Allergen Reactions - Adhesive Local irritation at site - Beestings [Other] - Cat Dander [Other] Intolerance - Flexeril [Cyclobenz* Intolerance headcahes - Grass Pollen Rash - Molds [Other] Intolerance - Ragweed PAST MEDICAL HISTORY Diagnosis Date - Abdominal pain, other specified site RLQ and LLQ chronic - Abnormal glandular Papanicolaou smear of cervix Abn. Pap smear (cervix), s/p CHARBEL - Chronic back pain - Chronic rhinitis 06/30/2005 Dr. Bell - Depressive disorder, not elsewhere classified 06/30/2005 nerves - Esotropia, unspecified Dr. Encarnacion, Right eye - GERD (gastroesophageal reflux disease) - Migraine - Myotonia - Thrombosed external hemorrhoid 03/20/2012 - Tobacco abuse - Unspecified constipation - Unspecified inflammatory disease of female pelvic organs and tissues chronic pelvic pain PAST SURGICAL HISTORY Procedure Laterality Date - APPENDECTOMY October 27, 2004 LAPROSCOPIC - COLONOSCOP W/ OR W/O [facility] SPEC 10/27/05 - HYSTEROSCOPY, STERILIZATION 02/13/08 [facility] - L'SCOPE DX W/WO BRUSHINGS/WASHINGS October Laparoscopy, adhesion lysis - POLYSOMNOGRAM(DIAG) 52430 12/2005 Sleep study wnl - THYROID FINE NEEDLE ASPIRATION 2012 - VAGINAL HYSTERECTOMY 10/29/10 [facility] FAMILY HISTORY Problem Relation Age of Onset - Allergies Mother - Hypertension Mother diabetes - Lipids Mother - Psychiatry Mother bipolar disorder - Diabetes Mother - Arthritis Father gout - other (Myotonia) Father - Alzheimer's Disease Paternal Grandfather HEARING LOSS,PARKINSONS - Stroke Paternal Grandfather - Arthritis Paternal Grandmother - Hypertension Paternal Grandmother - Osteoporosis Paternal Grandmother - Stroke Paternal Grandmother - Thyroid Paternal Grandmother - Arthritis Maternal Grandmother CAROTID ARTERY CLEANED OUT, DIABETES - Hypertension Maternal Grandmother - Lipids Maternal Grandmother - Stroke Maternal Grandmother - Diabetes Maternal Grandmother - Diabetes Brother (1/2 brother) Social History Marital status: Spouse name: Years of education: GED Number of children: 2 Occupational History Occupation Employer Comment unemployed [employer] last job in [place] Social History Main Topics Smoking status: Current Every Day Smoker Packs/day: 1.00 Years: 12.00 Types: Cigarettes Smokeless tobacco: Never Used Alcohol use: No Drug use: No Comment: marijuana as teenager, none recent Sexual activity: Yes Partners with: Male control/protection: Surgical Other Topics Concern BLOOD TRANSFUSIONS No CAFFEINE Yes Comment:caffeine withdrawal headaches OCCUPATIONAL EXPOSURE No SLEEP CONCERN Yes Comment:nightmares of killings STRESS CONCERN Yes Comment:'too much' DIET No EXERCISE No SEAT BELT Yes SELF EXAMS Yes Comment:advised Social History Narrative Single, 2 children (ages 11 yo son, age 5 yo dtr ) - [facility] 01/2013 Reviewed current medications, allergies, past medical history, surgical history, family history and social history today. REVIEW OF SYSTEMS All other reviewed and negative other than HPI. HEALTH MAINTENANCE: Reviewed health maintenance issues today and recommended the following in detail. ONE PNEUMOVAX PRIOR TO AGE 67 due on 2001 VITALS: BP 122/72 Pulse 80 Temp 36.1 ?C (97 ?F) (Tympanic) Resp 16 Wt 95.7 kg (211 lb) LMP 10/13/2010 BMI 36.22 kg/m? Last 4 Encounter Wt Readings: Date: Wt: 06/19/2018 95.7 kg (211 lb) 06/01/2018 96.3 kg (212 lb 6.4 oz) 05/08/2018 97.5 kg (215 lb) 03/28/2018 94.3 kg (208 lb) PHYSICAL EXAMINATION: General appearance: Well appearing, alert, in no acute distress, well-hydrated, well nourished. Skin: Skin color, texture, turgor normal, no suspicious rashes or lesions, two candelario on right forearm and right hand. No signs of infection. Happened while cooking. Head: Normocephalic, no masses, lesions, tenderness or abnormalities Eyes: Anicteric sclera. Pupils are equally round and reactive to light. Extraocular movements are intact. Ears: External ears normal, canals clear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 couple of years with the past few months feeling worse. She works at a [employer] and is quite painful for her while working there. She is right-hand dominant. She has been using a splint but she is unable to use it at work. ASSESSMENT: M25.531 Pain in right wrist (primary encounter diagnosis) M25.831 Ulnar impaction syndrome, right PLAN: we discussed multiple options. She would like to try a cortisone injection. I'll provide her one today. FOLLOW UP INSTRUCTIONS: as needed Ms. Valeria Jha was advised as to contrast therapies and/or to take analgesics/anti-inflammatories as needed and all contraindications were reviewed. OBJECTIVE: Ms. Valeria Jha is a pleasant 37 year old in no apparent distress. Gen:BP 121/76 Pulse 86 Wt 212 lb 6.4 oz (96.3kg) LMP 10/13/2010 nl development, non obese, no deformities ENT: Normocephalic, normal hearing, moist mucosa CV: Pulses:Radial= 2+ and symmetric, capillary refill < 2 secs, no peripheral edema/varicosities Skin: no rash, bruising or lesions. Good turgor. Psych: cooperative and appropriate, alert and oriented x 3, good mood and affect. Musculoskeletal: full range of motion of the wrist though painful on ulnar deviation. Tenderness to palpation at the ulnar fossa. Median, radial and ulnar nerves are intact. Nontender over the radial side of the wrist. Negative Tristan's. No locking catching or clicking of any of the digits. The risk, benefits and alternatives of injection and no injection therapy were discussed. The patient consented for an injection. Time out was conducted. The injection site was prepped with an alcohol swab. The right ulnar wrist joint was injected with a 25 gauge needle with 1 cc (40 mg) Celestone and 0.5 cc 1% Lidocaine Plain. The injection site was then dressed with a bandaid. The patient tolerated the injection well. The patient was instructed to call the office if any adverse local effects occurred or any if any questions or concerns arise. Chucky Lai MD IMAGING: IMPRESSION: POSITIVE ULNAR VARIANCE. Broadcast Director Operations: ADRIAN ? Transcribe Date/Time: May ?2017 ?9:17A Dictated by : MUSTAPHA DERAS MD This examination was interpreted and the report reviewed and electronically signed by: MUSTAPHA DERAS MD on May ?9:19AM ?EST Results-Findings * * *Final Report* * * DATE OF EXAM: May ?5:23PM ? WOX ? [id number] ?- ?XR WRIST 3V PA/LAT/OBL RT ?/ PROCEDURE REASON: Wrist pain, right ?? ? * * * * Physician Interpretation * * * * ?HISTORY: 37-YEAR-OLD FEMALE WITH ? Wrist pain, right ? . ?right posterior/medial wrist pain for 10 years. She has someone pull on wrist to pop it to relieve the pain. TECHNIQUE: XR WRIST 3V PA/LAT/OBL RT ?? Laterality: ?RIGHT ?? Number of different views (projections): 3 COMPARISON: RESULT: ?Positive ulnar variance. ?No radiographic evidence of ulnar impaction changes at this time. ?Carpal bones, intercarpal joint spaces and carpal alignment are normal. ?No fracture. Supporting Subjective Information Below: Past Medical History: PAST MEDICAL HISTORY Diagnosis Date - Abdominal pain, other specified site RLQ and LLQ chronic - Abnormal glandular Papanicolaou smear of cervix Abn. Pap smear (cervix), s/p CHARBEL - Chronic back pain - Chronic rhinitis 06/30/2005 Dr. Bell - Depressive disorder, not elsewhere classified 06/30/2005 nerves - Esotropia, unspecified Dr. Encarnacion, Right eye - GERD (gastroesophageal reflux disease) - Migraine - Myotonia - Thrombosed external hemorrhoid 03/20/2012 - Tobacco abuse - Unspecified constipation - Unspecified inflammatory disease of female pelvic organs and tissues chronic pelvic pain Past Surgical History: PAST SURGICAL HISTORY Procedure Laterality Date - APPENDECTOMY October 27, 2004 LAPROSCOPIC - COLONOSCOP W/ OR W/O BRSH SPEC 10/27/05 - HYSTEROSCOPY, STERILIZATION 02/13/08 [facility] - L'SCOPE DX W/WO BRUSHINGS/WASHINGS October Laparoscopy, adhesion lysis - POLYSOMNOGRAM(DIAG) 17107 12/2005 Sleep study wnl - THYROID FINE NEEDLE ASPIRATION 2012 - VAGINAL HYSTERECTOMY 10/29/10 [facility] Family History: FAMILY HISTORY Problem Relation Age of Onset - Allergies Mother - Hypertension Mother diabetes - Lipids Mother - Psychiatry Mother bipolar disorder - Diabetes Mother - Arthritis Father gout - other (Myotonia) Father - Alzheimer's Disease Paternal Grandfather HEARING LOSS,PARKINSONS - Stroke Paternal Grandfather - Arthritis Paternal Grandmother - Hypertension Paternal Grandmother - Osteoporosis Paternal Grandmother - Stroke Paternal Grandmother - Thyroid Paternal Grandmother - Arthritis Maternal Grandmother CAROTID ARTERY CLEANED OUT, DIABETES - Hypertension Maternal Grandmother - Lipids Maternal Grandmother - Stroke Maternal Grandmother - Diabetes Maternal Grandmother - Diabetes Brother (1/2 brother) Social History:Social History Marital status: Spouse name: Years of education: GED Number of children: 2 Occupational History Occupation Employer Comment unemployed [employer] last job in [employer] Social History Main Topics Smoking status: Current Every Day Smoker Packs/day: 1.00 Years: 12.00 Types: Cigarettes Smokeless tobacco: Never Used Alcohol use: No Drug use: No Comment: marijuana as teenager, none recent Sexual activity: Yes Partners with: Male control/protection: Surgical Other Topics Concern BLOOD TRANSFUSIONS No CAFFEINE Yes Comment:caffeine withdrawal headaches OCCUPATIONAL EXPOSURE No SLEEP CONCERN Yes Comment:nightmares of killings STRESS CONCERN Yes Comment:'too much' DIET No EXERCISE No SEAT BELT Yes SELF EXAMS Yes Comment:advised Social History Narrative Single, 2 children (ages 11 yo son, age 5 yo dtr ) - [employer] [facility] 01/2013 Medications: Current Outpatient Prescriptions: baclofen (LIORESAL) 10 mg tablet take 1 tablet by mouth three times a day if needed for muscle spasm cetirizine (ZYRTEC) 10 mg tablet Take 1 tablet by mouth once daily. diazePAM (VALIUM) 10 mg tablet Take 1 tablet by mouth twice daily for 180 days. DULoxetine (CYMBALTA) 30 mg capsule Take 1 capsule by mouth once daily. ibuprofen (MOTRIN) 800 mg tablet Take 1 tablet by mouth every 6 hours as needed for Pain. Take with food. mupirocin (BACTROBAN) 2 % ointment Apply 1 application to affected area three times daily. Location: boil NAPROXEN ORAL Take by mouth. Current Facility-Administered Medications: [COMPLETED] triamcinolone acetonide 40 mg injection (KENALOG 40) 40 mg INTRA-ARTICULAR ONCE Allergies: Adhesive; Beestings [Other]; Cat Dander [Other]; Flexeril [Cyclobenzaprine Hcl]; Grass Pollen; Molds [Other]; Ragweed ROS: General (negative for fatigue, malaise, weight loss/gain) HEENT (negative for headache, earache, recent vision changes, sinus pain, sore throat) Respiratory (no recent shortness of breath, hemoptysis) CV (negative for chest tightness, palpitations) Musculoskeletal (see HPI) Psych (no depression, anxiety) REFERRING PHYSICIAN: Ms. Valeria Jha was referred to me for consultation by the following physician. This consultation note will be sent to the following physician by either mail or electronic medical record. Gonzalo De Leon MD [address] [facility] [address] Fercho Deal PA-C [address] [facility] [address] This note was partially generated using [employer] voice recognition system, and there may be some incorrect words, spellings, and punctuation that were not noted in checking the note before saving. Chucky Lai MD Referring Provider: GONZALO DE LEON [[id number]] Allergies As of Date: 06/01/2018 Noted Allergy Reaction ADHESIVE 10/09/2008 Comments: Local irritation at site Beestings [Other] 03/13/2007 CAT DANDER [Other] 02/25/2005 5 - Intolerance FLEXERIL (CYCLOBENZAPRINE HCL) 06/30/2016 5 - Intolerance Comments: headcahes GRASS POLLEN 02/25/2005 2 - Rash MOLDS [Other] 02/25/2005 5 - Intolerance RAGWEED 03/18/2006 Date Reviewed: 06/01/2018 Reviewed by: Chucky Lai - Fully Assessed Reason for Visit: New Patient [172] Primary Visit Diagnosis:Pain in right wrist [M25.531] Other Visit Diagnosis:Ulnar impaction syndrome, right [M25.831] Order(s):[] triamcinolone acetonide 40 mg injection (KENALOG 40)Disp: Rfl: Prescriptions as of 06/01/2018 Sig: DIAZEPAM 10 MG TABLET Take 1 tablet by mouth twice * DULOXETINE 30 MG CAPSULE,EUSEBIA* Take 1 capsule by mouth once * CETIRIZINE 10 MG TABLET Take 1 tablet by mouth once d* MUPIROCIN 2 % TOPICAL OINTMENT Apply 1 application to affect* BACLOFEN 10 MG TABLET take 1 tablet by mouth three * NAPROXEN ORAL Take by mouth. IBUPROFEN 800 MG TABLET Take 1 tablet by mouth every * Problem List As Of Date 06/01/2018 Noted Resolved Esophageal reflux [K21.9] INVALID FOR*08/27/2015 Depressive disorder, not elsewhere classified [*INVALID FOR*08/27/2015 COMMON MIGRAINE W/O MENTN INTRACT [G43.009] INVALID FOR* Chronic rhinitis [J31.0] INVALID FOR*08/27/2015 More... Abdominal pain, right lower quadrant [R10.31] 05/09/2012 Abdominal pain, left lower quadrant [R10.32] 05/09/2012 CONSTIPATION NOS [K59.00] MYALGIA AND MYOSITIS NOS [SFE3177] INVALID FOR* Lump or Mass in Breast [N63.0] INVALID FOR*01/30/2009 Sprain of foot, unspecified site [S93.609A] INVALID FOR*03/21/2013 Nausea alone [R11.0] 03/21/2013 Heartburn [R12] 08/27/2015 Achilles bursitis or tendinitis [M76.60] INVALID FOR*08/27/2015 Enthesopathy of unspecified site [M77.9] INVALID FOR*08/27/2015 Tibialis posterior tendonitis [M76.829] INVALID FOR*08/27/2015 Urine frequency [R35.0] INVALID FOR*08/27/2015 Hematuria [R31.9] INVALID FOR*08/27/2015 Suprapubic pressure [R10.2] INVALID FOR*08/27/2015 Stress incontinence [N39.3] INVALID FOR*08/27/2015 BMI 37.0-37.9, adult [Z68.37] INVALID FOR* Thrombosed external hemorrhoid [K64.5] INVALID FOR*03/21/2013 Multinodular goiter [E04.2] INVALID FOR* Right groin pain [R10.31] INVALID FOR*08/18/2016 Lumbar spondylosis [M47.816] INVALID FOR* Low back pain [M54.5] INVALID FOR* 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 Left medial knee pain [M25.562] INVALID FOR* Paresthesia of left leg [R20.2] INVALID FOR* More... Sciatica of left side [M54.32] INVALID FOR* Fibromyalgia [M79.7] INVALID FOR* Prescriptions ordered this encounter Disp Refills Start End TRIAMCINOLONE ACETONIDE 40 MG/ML BHASKAR* 06/01/2018 06/01/2018 Route: IAtc Follow-up and Disposition History Recorded Encounter Status:Closed by CHUCKY LAI MD on 06/26/18 XR WRIST 3V PA/LAT/OBL Observed: 05/08/2018 Status: F Source: [facility] 5:23 PM [facility] REPOSITORY * * *Final Report* * * DATE OF EXAM: May 08 2018 5:23PM WOX [id number] - XR WRIST 3V PA/LAT/OBL RT / PROCEDURE REASON: Wrist pain, right * * * * Physician Interpretation * * * * HISTORY: 37-YEAR-OLD FEMALE WITH Wrist pain, right . right posterior/medial wrist pain for 10 years. She has someone pull on wrist to pop it to relieve the pain. TECHNIQUE: XR WRIST 3V PA/LAT/OBL RT Laterality: RIGHT Number of different views (projections): 3 COMPARISON: RESULT: Positive ulnar variance. No radiographic evidence of ulnar impaction changes at this time. Carpal bones, intercarpal joint spaces and carpal alignment are normal. No fracture. IMPRESSION: POSITIVE ULNAR VARIANCE. Broadcast Director Operations: PSCB Transcribe Date/Time: May 09 2018 9:17A Dictated by : MUSTAPHA DERAS MD This examination was interpreted and the report reviewed and electronically signed by: MUSTAPHA DERAS MD on May 09 2018 9:19AM EST [id number] PROGRESS Observed: 05/08/2018 Status: COMPLETED Source: [place] 5:14 PM [facility] REPOSIT[facility] HNO ID: [id number] Author: Osiris Benz Rt Service: (none) Author Type: (none) Type: Progress Notes Filed: 05/08/2018 5:23 PM Note Text: Radiology Service Progress Note PATIENT NAME: Valeria Jha DATE OF SERVICE: May 08, 2018 TIME: 5:14 PM PATIENT IDENTITY VERIFICATION COMPLETED USING TWO (2) METHODS: Patient confirmed name verbally and Date of . PATIENT GENDER DATA: Female. status: : No status: NO. PATIENT RELEVANT IMPLANT DATA REVIEWED: Not Applicable RADIOLOGY DEPARTMENT: General X-ray: Exam(s) Completed: Upper Extremity X-Ray(s): Wrist, right : PERIPHERAL IV DATA: Not applicable SIGNED BY: Osiris Benz Rt May 08, 2018 5:14 PM PROGRESS Observed: 05/08/2018 Status: COMPLETED Source: [place] 4:53 PM [facility] RE[facility]ITORY O ID: [id number] Author: Gonzalo De Leon Service: (none) Author Type: Physician Type: Progress Notes Filed: 05/08/2018 5:46 PM Note Text: Patient presents with: Wrist Pain HPI: Patient presents today for office visit for evaluation of wrist pain. Has chronic issues with her wrist dating back to at least 10 years. Sometimes if she carries something heavy etc it pops out. has been bugging her since last week. She can often pull on it and it will pop back into place. Does not wear a brace. Has been bothering her since last week. Had someone pull on it but this time it did not improve. Does not recall direct trauma. No redness or warmth She has never seen ortho for it. MEDICATIONS: Current Outpatient Prescriptions: diazePAM (VALIUM) 10 mg tablet Take 1 tablet by mouth twice daily for 180 days. DULoxetine (CYMBALTA) 30 mg capsule Take 1 capsule by mouth once daily. cetirizine (ZYRTEC) 10 mg tablet Take 1 tablet by mouth once daily. mupirocin (BACTROBAN) 2 % ointment Apply 1 application to affected area three times daily. Location: boil baclofen (LIORESAL) 10 mg tablet take 1 tablet by mouth three times a day if needed for muscle spasm NAPROXEN ORAL Take by mouth. ibuprofen (MOTRIN) 800 mg tablet Take 1 tablet by mouth every 6 hours as needed for Pain. Take with food. No current facility-administered medications for this visit. ALLERGIES: ALLERGIES Allergen Reactions - Adhesive Local irritation at site - Beestings [Other] - Cat Dander [Other] Intolerance - Flexeril [Cyclobenz* Intolerance headcahes - Grass Pollen Rash - Molds [Other] Intolerance - Ragweed PAST MEDICAL HISTORY Diagnosis Date - Abdominal pain, other specified site RLQ and LLQ chronic - Abnormal glandular Papanicolaou smear of cervix Abn. Pap smear (cervix), s/p CHARBEL - Chronic back pain - Chronic rhinitis 06/30/2005 Dr. Bell - Depressive disorder, not elsewhere classified 06/30/2005 nerves - Esotropia, unspecified Dr. Encarnacion, Right eye - GERD (gastroesophageal reflux disease) - Migraine - Myotonia - Thrombosed external hemorrhoid 03/20/2012 - Tobacco abuse - Unspecified constipation - Unspecified inflammatory disease of female pelvic organs and tissues chronic pelvic pain PAST SURGICAL HISTORY Procedure Laterality Date - APPENDECTOMY October 27, 2004 LAPROSCOPIC - COLONOSCOP W/ OR W/O BRSH SPEC 10/27/05 - HYSTEROSCOPY, STERILIZATION 02/13/08 [facility] - L'SCOPE DX W/WO BRUSHINGS/WASHINGS October Laparoscopy, adhesion lysis - POLYSOMNOGRAM(DIAG) 70550 12/2005 Sleep study wnl - THYROID FINE NEEDLE ASPIRATION 2012 - VAGINAL HYSTERECTOMY 10/29/10 [facility] FAMILY HISTORY Problem Relation Age of Onset - Allergies Mother - Hypertension Mother diabetes - Lipids Mother - Psychiatry Mother bipolar disorder - Diabetes Mother - Arthritis Father gout - other (Myotonia) Father - Alzheimer's Disease Paternal Grandfather HEARING LOSS,PARKINSONS - Stroke Paternal Grandfather - Arthritis Paternal Grandmother - Hypertension Paternal Grandmother - Osteoporosis Paternal Grandmother - Stroke Paternal Grandmother - Thyroid Paternal Grandmother - Arthritis Maternal Grandmother CAROTID ARTERY CLEANED OUT, DIABETES - Hypertension Maternal Grandmother - Lipids Maternal Grandmother - Stroke Maternal Grandmother - Diabetes Maternal Grandmother - Diabetes Brother (1/2 brother) Social History Marital status: Spouse name: Years of education: GED Number of children: 2 Occupational History Occupation Employer Comment unemployed [employer] last job in [employer] Social History Main Topics Smoking status: Current Every Day Smoker Packs/day: 0.50 Years: 12.00 Types: Cigarettes Smokeless tobacco: Never Used Alcohol use: No Drug use: No Comment: marijuana as teenager, none recent Sexual activity: Yes Partners with: Male control/protection: Surgical Other Topics Concern BLOOD TRANSFUSIONS No CAFFEINE Yes Comment:caffeine withdrawal headaches OCCUPATIONAL EXPOSURE No SLEEP CONCERN Yes Comment:nightmares of killings STRESS CONCERN Yes Comment:'too much' DIET No EXERCISE No SEAT BELT Yes SELF EXAMS Yes Comment:advised Social History Narrative Single, 2 children (ages 11 yo son, age 5 yo dtr ) - [employer] [employer] 01/2013 Reviewed current medications, allergies, past medical history, surgical history, family history and social history today. REVIEW OF SYSTEMS All other reviewed and negative other than HPI. HEALTH MAINTENANCE: Reviewed health maintenance issues today and recommended the following in detail. VITALS: BP 110/62 Pulse 72 Resp 12 Wt 97.5 kg (215 lb) LMP 10/13/2010 BMI 36.90 kg/m? Last 4 Encounter Wt Readings: Date: Wt: 05/08/2018 97.5 kg (215 lb) 03/28/2018 94.3 kg (208 lb) 03/19/2018 92.8 kg (204 lb 9.6 oz) 03/13/2018 92.1 kg (203 lb) PHYSICAL EXAMINATION: General appearance: Well appearing, alert, in no acute distress, well-hydrated, well nourished. Skin: Skin color, texture, turgor normal, no suspicious rashes or lesions Extremities: no deformity. Normal pp's and cap refill. Normal range of motion. Pain is over dorsum of the wrist. No redness Or warmth. Neuro: Negative. ASSESSMENT/PLAN: 1. Wrist pain, right - ICD9: 719.43, ICD10: M25.531 - ice and rest. See ortho since is a chronic issues. - XR WRIST GENERAL 3V PA/LAT/OBL RT - WRIST SPLINT - THUMB SPICA - CONSULT TO ORTHOPAEDICS Gonzalo De Leon MD CNOV Observed: 05/08/2018 Status: COMPLETED Source: [place] 4:00 PM [facility] Office Visit (FAMPWS) VALERIA JHA ([id number]) 1980 F Date Time Provider Department 05/08/18 4:00 PM GONZALO DE LEON During your visit today, we recorded the following information about you: Pulse Respiration Blood pressure Weight 72/minute 12/minute 110/62 97.5 kg Karen Sheehan Clau 05/08/2018 4:52 PM Signed WRIST: Pt c/o right wrist popping out of place frequently. She can usually have someone pull on it and it will go back in place. Has happened for years, but is increasing in frequency. Gonzalo De Leon MD 05/08/2018 5:46 PM Signed Patient presents with: Wrist Pain HPI: Patient presents today for office visit for evaluation of wrist pain. Has chronic issues with her wrist dating back to at least 10 years. Sometimes if she carries something heavy etc it pops out. has been bugging her since last week. She can often pull on it and it will pop back into place. Does not wear a brace. Has been bothering her since last week. Had someone pull on it but this time it did not improve. Does not recall direct trauma. No redness or warmth She has never seen ortho for it. MEDICATIONS: Current Outpatient Prescriptions: diazePAM (VALIUM) 10 mg tablet Take 1 tablet by mouth twice daily for 180 days. DULoxetine (CYMBALTA) 30 mg capsule Take 1 capsule by mouth once daily. cetirizine (ZYRTEC) 10 mg tablet Take 1 tablet by mouth once daily. mupirocin (BACTROBAN) 2 % ointment Apply 1 application to affected area three times daily. Location: boil baclofen (LIORESAL) 10 mg tablet take 1 tablet by mouth three times a day if needed for muscle spasm NAPROXEN ORAL Take by mouth. ibuprofen (MOTRIN) 800 mg tablet Take 1 tablet by mouth every 6 hours as needed for Pain. Take with food. No current facility-administered medications for this visit. ALLERGIES: ALLERGIES Allergen Reactions - Adhesive Local irritation at site - Beestings [Other] - Cat Dander [Other] Intolerance - Flexeril [Cyclobenz* Intolerance headcahes - Grass Pollen Rash - Molds [Other] Intolerance - Ragweed PAST MEDICAL HISTORY Diagnosis Date - Abdominal pain, other specified site RLQ and LLQ chronic - Abnormal glandular Papanicolaou smear of cervix Abn. Pap smear (cervix), s/p CHARBEL - Chronic back pain - Chronic rhinitis 06/30/2005 Dr. Bell - Depressive disorder, not elsewhere classified 06/30/2005 nerves - Esotropia, unspecified Dr. Encarnacion, Right eye - GERD (gastroesophageal reflux disease) - Migraine - Myotonia - Thrombosed external hemorrhoid 03/20/2012 - Tobacco abuse - Unspecified constipation - Unspecified inflammatory disease of female pelvic organs and tissues chronic pelvic pain PAST SURGICAL HISTORY Procedure Laterality Date - APPENDECTOMY October 27, 2004 LAPROSCOPIC - COLONOSCOP W/ OR W/O BRSH SPEC 10/27/05 - HYSTEROSCOPY, STERILIZATION 02/13/08 [facility] - L'SCOPE DX W/WO BRUSHINGS/WASHINGS October Laparoscopy, adhesion lysis - POLYSOMNOGRAM(DIAG) 23586 12/2005 Sleep study wnl - THYROID FINE NEEDLE ASPIRATION 2012 - VAGINAL HYSTERECTOMY 10/29/10 [facility] FAMILY HISTORY Problem Relation Age of Onset - Allergies Mother - Hypertension Mother diabetes - Lipids Mother - Psychiatry Mother bipolar disorder - Diabetes Mother - Arthritis Father gout - other (Myotonia) Father - Alzheimer's Disease Paternal Grandfather HEARING LOSS,PARKINSONS - Stroke Paternal Grandfather - Arthritis Paternal Grandmother - Hypertension Paternal Grandmother - Osteoporosis Paternal Grandmother - Stroke Paternal Grandmother - Thyroid Paternal Grandmother - Arthritis Maternal Grandmother CAROTID ARTERY CLEANED OUT, DIABETES - Hypertension Maternal Grandmother - Lipids Maternal Grandmother - Stroke Maternal Grandmother - Diabetes Maternal Grandmother - Diabetes Brother (1/2 brother) Social History Marital status: Spouse name: Years of education: GED Number of children: 2 Occupational History Occupation Employer Comment unemployed [employer] last job in [place] [employer] Social History Main Topics Smoking status: Current Every Day Smoker Packs/day: 0.50 Years: 12.00 Types: Cigarettes Smokeless tobacco: Never Used Alcohol use: No Drug use: No Comment: marijuana as teenager, none recent Sexual activity: Yes Partners with: Male control/protection: Surgical Other Topics Concern BLOOD TRANSFUSIONS No CAFFEINE Yes Comment:caffeine withdrawal headaches OCCUPATIONAL EXPOSURE No SLEEP CONCERN Yes Comment:nightmares of killings STRESS CONCERN Yes Comment:'too much' DIET No EXERCISE No SEAT BELT Yes SELF EXAMS Yes Comment:advised Social History Narrative Single, 2 children (ages 11 yo son, age 5 yo dtr ) - [facility] 01/2013 Reviewed current medications, allergies, past medical history, surgical history, family history and social history today. REVIEW OF SYSTEMS All other reviewed and negative other than HPI. HEALTH MAINTENANCE: Reviewed health maintenance issues today and recommended the following in detail. VITALS: BP 110/62 Pulse 72 Resp 12 Wt 97.5 kg (215 lb) LMP 10/13/2010 BMI 36.90 kg/m? Last 4 Encounter Wt Readings: Date: Wt: 05/08/2018 97.5 kg (215 lb) 03/28/2018 94.3 kg (208 lb) 03/19/2018 92.8 kg (204 lb 9.6 oz) 03/13/2018 92.1 kg (203 lb) PHYSICAL EXAMINATION: General appearance: Well appearing, alert, in no acute distress, well-hydrated, well nourished. Skin: Skin color, texture, turgor normal, no suspicious rashes or lesions Extremities: no deformity. Normal pp's and cap refill. Normal range of motion. Pain is over dorsum of the wrist. No redness Or warmth. Neuro: Negative. ASSESSMENT/PLAN: 1. Wrist pain, right - ICD9: 719.43, ICD10: M25.531 - ice and rest. See ortho since is a chronic issues. - XR WRIST GENERAL 3V PA/LAT/OBL RT - WRIST SPLINT - THUMB SPICA - CONSULT TO ORTHOPAEDICS Gonzalo De Leon MD Referring Provider: SELF [[id number]] Allergies As of Date: 05/08/2018 Noted Allergy Reaction ADHESIVE 10/09/2008 Comments: Local irritation at site Beestings [Other] 03/13/2007 CAT DANDER [Other] 02/25/2005 5 - Intolerance FLEXERIL (CYCLOBENZAPRINE HCL) 06/30/2016 5 - Intolerance Comments: headcahes GRASS POLLEN 02/25/2005 2 - Rash MOLDS [Other] 02/25/2005 5 - Intolerance RAGWEED 03/18/2006 Date Reviewed: 05/08/2018 Reviewed by: Karen Sheehan Ma - Fully Assessed Reason for Visit: Wrist Pain [1580] Primary Visit Diagnosis:Wrist pain, right [M25.531] Order(s):XR WRIST GENERAL 3V PA/LAT/OBL RT [[id number]] Order #: [id number] FUTURE WRIST SPLINT - THUMB SPICA [[id number]] Order #: [id number] CONSULT TO ORTHOPAEDICS [9026] Order #: [id number]: 1 Prescriptions as of 05/08/2018 Sig: DIAZEPAM 10 MG TABLET Take 1 tablet by mouth twice * DULOXETINE 30 MG CAPSULE,EUSEBIA* Take 1 capsule by mouth once * CETIRIZINE 10 MG TABLET Take 1 tablet by mouth once d* MUPIROCIN 2 % TOPICAL OINTMENT Apply 1 application to affect* BACLOFEN 10 MG TABLET take 1 tablet by mouth three * NAPROXEN ORAL Take by mouth. IBUPROFEN 800 MG TABLET Take 1 tablet by mouth every * Problem List As Of Date 05/08/2018 Noted Resolved Esophageal reflux [K21.9] INVALID FOR*08/27/2015 Depressive disorder, not elsewhere classified [*INVALID FOR*08/27/2015 COMMON MIGRAINE W/O MENTN INTRACT [G43.009] INVALID FOR* Chronic rhinitis [J31.0] INVALID FOR*08/27/2015 More... Abdominal pain, right lower quadrant [R10.31] 05/09/2012 Abdominal pain, left lower quadrant [R10.32] 05/09/2012 CONSTIPATION NOS [K59.00] MYALGIA AND MYOSITIS NOS [JOO2239] INVALID FOR* Lump or Mass in Breast [N63.0] INVALID FOR*01/30/2009 Sprain of foot, unspecified site [S93.609A] INVALID FOR*03/21/2013 Nausea alone [R11.0] 03/21/2013 Heartburn [R12] 08/27/2015 Achilles bursitis or tendinitis [M76.60] INVALID FOR*08/27/2015 Enthesopathy of unspecified site [M77.9] INVALID FOR*08/27/2015 Tibialis posterior tendonitis [M76.829] INVALID FOR*08/27/2015 Urine frequency [R35.0] INVALID FOR*08/27/2015 Hematuria [R31.9] INVALID FOR*08/27/2015 Suprapubic pressure [R10.2] INVALID FOR*08/27/2015 Stress incontinence [N39.3] INVALID FOR*08/27/2015 BMI 37.0-37.9, adult [Z68.37] INVALID FOR* Thrombosed external hemorrhoid [K64.5] INVALID FOR*03/21/2013 Multinodular goiter [E04.2] INVALID FOR* Right groin pain [R10.31] INVALID FOR*08/18/2016 Lumbar spondylosis [M47.816] INVALID FOR* Low back pain [M54.5] INVALID FOR* 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 Left medial knee pain [M25.562] INVALID FOR* Paresthesia of left leg [R20.2] INVALID FOR* More... Sciatica of left side [M54.32] INVALID FOR* Fibromyalgia [M79.7] INVALID FOR* Visit Notes: >> Karen Sheehan Ma Mon May 08, 2018 4:28 PM Status: Signed WRIST: Pt c/o right wrist popping out of place frequently. She can usually have someone pull on it and it will go back in place. Has happened for years, but is increasing in frequency. Encounter Status:Closed by GONZALO DE LEON MD on 05/08/18 DISCHARGE INSTRUCTION Observed: 04/17/2018 Status: F Source: [place] 11:34 PM [facility] Medical Records Department [address] [place] [address] Discharge Instruction 04/17/183 MR#: [id number] Acct: [id number] Name: VALERIA JHA Rep #: [id number] : 1980 37 From: Billy Cage MD PCP: Gonzalo De Leon MD Status: REG ER ED Disposition - Plan for ED Patient: Chief Complaint: Lower Extremity Injury Instructions: ED Contusion Foot, ED Sprain Foot Referrals: Gonzalo De Leon MD [Primary Care Provider] - What to do if you have Problems For any increased pain, shortness of breath, bleeding, nausea or vomiting, chest pain, or any unexpected problems, contact your Primary Care Provider. Call [facility] ([phone]) or report to the closest Emergency Room. Call 911 if necessary. 04/17/18 2334 <Electronically signed by Billy Cage MD> Date Billy Cage MD Cosigner Signature (If Indicated): Date CC: Gonzalo De Leon MD EMERGENCY DEPARTMENT Observed: 04/17/2018 Status: F Source: [place] SUMMARY 11:33 PM [facility] Medical Records Department [address] [place] [address] Emergency Department Summary 04/17/18 2330 MR#: [id number] Acct: [id number] Name: VALERIA JHA Rep #: [id number] : 1980 37 From: Billy Cage MD PCP: Gonzalo De Leon MD Status: REG ER - ER Visit Summary Date of Service: 04/17/18 Chief Complaint: Right foot pain History of Present Illness: The patient is a 37 F who presents with right foot pain. 2 days ago she was playing twister and she fell inverting her right foot and ankle and then a 12-year-old also fell onto it. She states I have a bad right foot. She has a history of prior problems with that foot and ankle and she has had previous right ankle arthroscopy. She has had some recent congestion but otherwise review of systems negative. She has been able to ambulate although is painful. Physical Examination: Afebrile vital signs normal Moist mucous membranes Heart regular rate Respiratory distress Patient has active full range of motion of the right lower extremity she does have some ecchymosis and soft tissue swelling over the proximal lateral right foot no focal bony tenderness no deformity normal sensation brisk capillary refill easily palpable dorsalis pedis pulse Test Results: Foot x-ray is normal Emergency Department Course and Treatment: Patient advised on supportive care including rest ice elevation and anti-inflammatory use. He was discharged. Treatment Plan: [] Disposition: Discharge Impression: Acute right foot sprain Right foot contusion This note was generated with [employer] dictation software. It may contain incorrect words, spelling, and punctuation that were not noted in review of the chart prior to signing ED Disposition - Plan for ED Patient: Chief Complaint: Lower Extremity Injury Referrals: Gonzalo De Leon MD [Primary Care Provider] - What to do if you have Problems For any increased pain, shortness of breath, bleeding, nausea or vomiting, chest pain, or any unexpected problems, contact your Primary Care Provider. Call [facility] ([phone]) or report to the closest Emergency Room. Call 911 if necessary. 04/17/18 2333 <Electronically signed by Billy Cage MD> Date Billy Cage MD Cosigner Signature (If Indicated): Date CC: Gonzalo De Leon MD FOOT MIN 3 VIEWS Observed: 04/17/2018 Status: F Source: [place] 10:36 PM [facility] Imaging Services [address] [place] [address] Foot min 3 Views MR#: [id number] Acct: [id number] Name: VALERIA JHA Rep #: [id number] : 1980 F 37 From: Juvenal Pedroza DO PCP: Gonzalo De Leon MD Status: REG ER Study: Foot min 3 Views Date of Exam: 04/17/18 Exam# [id number] Ordering Dr: Billy Cage MD STUDY: X-RAY - RIGHT FOOT CLINICAL: Female, 37 years old. Pain TECHNIQUE: 3 view(s) of the foot. COMPARISON: None. FINDINGS: Normal talus, calcaneus, and tarsal bones. Normal visualized subtalar, talonavicular, calcaneocuboid, tarsal and tarsometatarsal articulations. Normal metatarsi. Normal metatarsophalangeal joint of the great toe. Normal tibial and fibular sesamoid bones. Normal interphalangeal joint of the great toe. Normal phalanges of the great toe. Normal second through fifth metatarsophalangeal joints. Normal interphalangeal joints and phalanges of the lesser toes. The soft tissue structures are unremarkable. RAD/Foot min 3 Views IMPRESSION: Normal x-ray examination of the foot. Electronically Signed: Juvenalbryn Pedroza DO at 23:19 EST Tel [phone], Service support , CC: Billy Cage MD; Gonzalo De Leon MD Broadcast Director Operations: Signed PROGRESS Observed: 04/03/2018 Status: COMPLETED Source: [place] 11:18 AM [facility] O ID: [id number] Author: Roseann Wasserman Service: (none) Author Type: Planting Supervisor Type: Progress Notes Filed: 04/03/2018 11:18 AM Note Text: Radiology Service Progress Note PATIENT NAME: Valeria Jha DATE OF SERVICE: April 03, 2018 TIME: 11:18 AM PATIENT IDENTITY VERIFICATION COMPLETED USING TWO (2) METHODS: Patient confirmed name verbally and Date of . PATIENT GENDER DATA: Female. status: : No status: N/A PATIENT RELEVANT IMPLANT DATA REVIEWED: Not Applicable RADIOLOGY DEPARTMENT: Ultrasound PERIPHERAL IV DATA: Not applicable SIGNED BY: ROSEANN WASSERMAN RDMS RVT April 03, 2018 11:18 AM US THYROID/PARATHYROID Observed: 04/03/2018 Status: F Source: [place] 11:18 AM [facility] * * *Final Report* * * DATE OF EXAM: Apr 03 2018 11:18AM [facility] 1048 - US THYROID/PARATHYROID / PROCEDURE REASON: Multinodular goiter * * * * Physician Interpretation * * * * THYROID ULTRASOUND CLINICAL HISTORY: Follow-up thyroid nodules COMPARISON: 03/20/2013 TECHNIQUE: Sonography and Doppler imaging of the thyroid was performed. Images were obtained and stored in a permanent archive. RESULT: RIGHT LOBE: Size: 1.1x 1.9x 3.8 cm Echotexture: Heterogeneous Nodules: Present Nodule 1 Location: Lateral Size: 0.2 x 0.3 x 0.3 cm, previously 0.2 x 0.3 x 0.4 cm Characteristics: Hypoechoic Nodule 2 Location: Medial Size: 0.3 x 0.4 x 0.3 cm , previously 0.3 x 0.4 x 0.5 cm Characteristics: Mildly hypoechoic LEFT LOBE: Size: 1.2x 1.7x 3.9 cm Echotexture: Heterogeneous Nodules: Present Nodule 1 Location: Mid Size: 0.6 x 0.6 x 0.8 cm , thought to correspond to a 1.0 x 1.0 x 1.1 cm left thyroid lobe nodule on prior exam of 2012 Characteristics: Hypoechoic ISTHMUS: AP diameter: 3 mm Nodules: None. IMPRESSION: Bilateral thyroid nodules, as described. Broadcast Director Operations: PSCB Transcribe Date/Time: Apr 03 2018 4:16P Dictated by : LATOYA FELIZ MD This examination was interpreted and the report reviewed and electronically signed by: LATOYA FELIZ MD on Apr 03 2018 4:21PM EST [id number] Observed: 03/29/2018 Status: COMPLETED Source: [place] 12:00 AM [facility]phone [facility] VALERIA JHA ([id number]) 1980 F Date Time Provider Department 03/29/18 Ankur DEAL[facility] During your visit today, we recorded the following information about you: Arti García LPN 03/29/2018 1:57 PM Signed [facility] will not cover Savella. They are stating to use Gabapentin, Amitriptyline or Flexeril. Pt has been/is on Flexeril and Gabapentin. Med list does not show pt has been on Amitriptyline. Please advise. [facility] ID# [id number] SHENG Quintero PA-C 03/29/2018 3:47 PM Signed She was no Nortryptiline; couldn't tolerate. Probably won't make a difference. Thanks, HIRAL Gomez LPN 03/30/2018 9:29 AM Signed Prior Authorization has been completed online at [employer] for KRISTIAN, will await response. Please keep encounter open until final decision has been received and documented from insurance company. RIBERA- [id number] SHENG Quintero LPN 03/31/2018 11:31 AM Signed PA was been denied, stating this product only treats a certain medical condition: Fibromyalgia. Pt's dx does not qualify for coverage. SHENG Quintero PA-C 04/05/2018 6:08 PM Signed She has diagnosis of fibromyalgia. Thanks, HIRAL Gomez LPN 04/07/2018 11:02 AM Addendum Med refiled with dx of Fibromyalgia. Originally only linked with depression and Myotonia. Will attempt to resubmit with added dx. Ribera: [id number] Will await response. SHENG Quintero LPN 04/07/2018 11:11 AM Signed PA still denied. Stating pt MUST try 3 of the following: - Duloxetine -Lyrica (also requires a PA) -Amitriptyline -Fluoxetine- tried or on -Gabapentin- tried or on - Venlafaxine Pt has also tried Flexeril, however [facility] is stating she still has not tried enough other therapies. Please advise. SHENG Quintero PA-C 04/08/2018 7:56 AM Signed I tried to be thorough with this request Meds tried and failed: BuSpar stopped 06/26/12 Citalopram Stopped 04/30/13 Duloxetine stopped 04/16/2008 Fluoxetine stopped 12/16/14 Proximal stopped 03/28/18 Sertraline stopped on 08/01/17 Venlafaxine stopped in November 2006 Thanks, HIRAL Gomez LPN 04/10/2018 9:11 AM Signed Rafi reyes, I didn't submit the Duloxetine as a tried and failed drug because it was documented that it was stopped due to cost and due to not being on formulary. I called and spoke with [facility] and I was advised that they only accept previous medications tried that was filled while pt was on their insurance, which started in 2017. I told [facility] that that is unacceptable as pt has a chronic illness that's needs treatment and she has tried different drugs in previous years. She told me that was their policy. Spoke with [place], discussed trying Duloxetine for 30 days (as I can resubmit a another PA in 30 days and we can document all adverse effects pt had to previous drugs). SHENG Quintero PA-C 04/10/2018 5:48 PM Signed Please advise we are going to retry cymbalta. Notes indicate stopped due to cost. Insurance denied Savella. The following approved medication requests have been transmitted electronically. Signed Prescriptions Disp Refills DULoxetine (CYMBALTA) 30 mg capsule 30 capsule 2 Sig: Take 1 capsule by mouth once daily. Authorizing Provider: Ankur DEAL (HIRAL) HIRAL Li LPN 04/10/2018 6:02 PM Signed Unable to reach mailbox is full. Janice Sims Ma 04/11/2018 12:54 PM Signed Patient notified - verbalized understanding. Allergies As of Date: 03/29/2018 Noted Allergy Reaction ADHESIVE 10/09/2008 Comments: Local irritation at site Beestings [Other] 03/13/2007 CAT DANDER [Other] 02/25/2005 5 - Intolerance FLEXERIL (CYCLOBENZAPRINE HCL) 06/30/2016 5 - Intolerance Comments: headcahes GRASS POLLEN 02/25/2005 2 - Rash MOLDS [Other] 02/25/2005 5 - Intolerance RAGWEED 03/18/2006 Date Reviewed: 03/28/2018 Reviewed by: Estee Solorzano LPN - Fully Assessed Reason for Visit: Insurance Authorization [[id number]] Primary Visit Diagnosis:Fibromyalgia [M79.7] Other Visit Diagnoses:Myotonia [M62.89] Chronic depression [F32.9] Order(s):DULoxetine (CYMBALTA) 30 mg capsuleTake 1 capsule by mouth once daily.Disp: 30 capsuleRfl: 2 Prescriptions as of 03/29/2018 Sig: DULOXETINE 30 MG CAPSULE,EUSEBIA* Take 1 capsule by mouth once * CETIRIZINE 10 MG TABLET Take 1 tablet by mouth once d* MUPIROCIN 2 % TOPICAL OINTMENT Apply 1 application to affect* BACLOFEN 10 MG TABLET take 1 tablet by mouth three * DIAZEPAM 10 MG TABLET Take 1 tablet by mouth twice * NAPROXEN ORAL Take by mouth. IBUPROFEN 800 MG TABLET Take 1 tablet by mouth every * Problem List As Of Date 03/29/2018 Noted Resolved Esophageal reflux [K21.9] INVALID FOR*08/27/2015 Depressive disorder, not elsewhere classified [*INVALID FOR*08/27/2015 COMMON MIGRAINE W/O MENTN INTRACT [G43.009] INVALID FOR* Chronic rhinitis [J31.0] INVALID FOR*08/27/2015 More... Abdominal pain, right lower quadrant [R10.31] 05/09/2012 Abdominal pain, left lower quadrant [R10.32] 05/09/2012 CONSTIPATION NOS [K59.00] MYALGIA AND MYOSITIS NOS [[id number]] INVALID FOR* Lump or Mass in Breast [N63.0] INVALID FOR*01/30/2009 Sprain of foot, unspecified site [S93.609A] INVALID FOR*03/21/2013 Nausea alone [R11.0] 03/21/2013 Heartburn [R12] 08/27/2015 Achilles bursitis or tendinitis [M76.60] INVALID FOR*08/27/2015 Enthesopathy of unspecified site [M77.9] INVALID FOR*08/27/2015 Tibialis posterior tendonitis [M76.829] INVALID FOR*08/27/2015 Urine frequency [R35.0] INVALID FOR*08/27/2015 Hematuria [R31.9] INVALID FOR*08/27/2015 Suprapubic pressure [R10.2] INVALID FOR*08/27/2015 Stress incontinence [N39.3] INVALID FOR*08/27/2015 BMI 37.0-37.9, adult [Z68.37] INVALID FOR* Thrombosed external hemorrhoid [K64.5] INVALID FOR*03/21/2013 Multinodular goiter [E04.2] INVALID FOR* Right groin pain [R10.31] INVALID FOR*08/18/2016 Lumbar spondylosis [M47.816] INVALID FOR* Low back pain [M54.5] INVALID FOR* 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 Left medial knee pain [M25.562] INVALID FOR* Paresthesia of left leg [R20.2] INVALID FOR* More... Sciatica of left side [M54.32] INVALID FOR* Prescriptions ordered this encounter Disp Refills Start End MILNACIPRAN 25 MG TABLET 30 t* 2 04/06/2018 04/10/2018 Class: Med Update Route: ORAL Sig: Take 1 tablet by mouth once daily. Cosign accepted by Ankur DEAL PA-C[[id number]] on 04/06/2018 1:28 PM DULOXETINE 30 MG CAPSULE,DELAYED REL* 30 c* 2 04/10/2018 Route: ORAL Sig: Take 1 capsule by mouth once daily. Medications Discontinued During This Encounter Milnacipran (SAVELLA) 25 mg tab 30 t* 2 03/28/2018 04/06/2018 Route: ORAL Sig: Take 1 tablet by mouth once daily. Disc: Reason for discontinue is not on file. Milnacipran (SAVELLA) 25 mg tab 30 t* 2 04/06/2018 04/10/2018 Class: Med Update Route: ORAL Sig: Take 1 tablet by mouth once daily. Disc: Reason for discontinue is not on file. Cosign accepted by Ankur DEAL PA-C[[id number]] on 04/06/2018 1:28 PM Encounter Status:Closed by JANICE SIMS MA on 04/11/18 CBC AND DIFFERENTIAL Collected: 03/28/2018 Status: F Source: [place] 3:40 PM [facility] REPOSITORY TYPE CODE TESTS RESULT OUT OF REFERENCE UNITS RANGE LAB WBC 3.70-11.00 k/uL WBC High 11.73 LAB RBC 3.90-5.20 m/uL Low RBC 3.86 LAB HGB 11.5-15.5 g/dL Hemoglobin 12.9 LAB HCT 36.0-46.0 % Hematocrit 40.0 LAB MCV 80.0-100.0 fL MCV High 103.6 LAB MCH 26.0-34.0 pG MCH 33.4 LAB MCHC 30.5-36.0 g/dL MCHC 32.3 LAB RDWCV 11.5-15.0 % RDW-CV 12.2 LAB PLTCT 150-400 k/uL Platelet Count 368 LAB MPV 9.0-12.7 fL MPV 9.5 LAB ANEUT % Neut% 50.6 LAB AANEUT 1.45-7.50 k/uL Abs Neut 5.93 LAB ALYMP % Lymph% 39.7 LAB AALYMP 1.00-4.00 k/uL Abs High Lymph 4.66 LAB AMONO % [place]% 5.0 LAB AAMONO <0.87 k/uL Abs [place] 0.59 LAB AEOS % Eosin% 4.0 LAB AAEOS <0.46 k/uL Abs High Eosin 0.47 LAB ABASO % Baso% 0.7 LAB AABASO <0.11 k/uL Abs Baso 0.08 LAB AUNRBC 0 /100 WBC NRBCs 0.0 LAB ABNRBC <0.01 k/uL Absolute nRBC <0.01 LAB DTYP DTYPE Auto Diff Performed By: #### CBCDIF, CMP, TSH #### [facility] [address] [place], [place] [address] COMP METABOLIC PANEL Collected: 03/28/2018 Status: F Source: [place] 3:40 PM [facility] TYPE CODE TESTS RESULT OUT OF REFERENCE UNITS RANGE LAB TP 6.3-8.0 g/dL Protein, Total 6.6 LAB ALB 3.9-4.9 g/dL Albumin 4.0 LAB CA 8.5-10.2 mg/dL Calcium, Total 9.0 LAB TBIL 0.2-1.3 mg/dL Bilirubin, Total 0.2 LAB ALKP 34-123 U/L Alkaline Phosphatase 57 LAB AST 13-35 U/L AST 19 LAB GLU 74-99 mg/dL Low Glucose 71 Result Comment: The [place] Diabetes Association (ADA) provides guidance for cutoff values for fasting glucose and random glucose. The ADA defines fasting as no caloric intake for at least 8 hours. Fas ting plasma glucose results between 100 to 125 mg/dL indicate increased risk for diabetes (prediabetes). Fasting plasma glucose results greater than or equal to 126 mg/dL meet the criteria for diagnosis of diabetes. In the absence of unequivocal hyperglycemia, results should be confirmed by repeat testing. In a patient with classic symptoms of hyperglycemia or hyperglycemic crisis, random plasma glucose results greater than or equal to 200 mg/dL meet the criteria for diagnosis of diabetes. Reference: Standards of Medical Care in Diabetes 2016, [place] [employer]. Diabetes Care. 2016.39(Suppl 1). LAB BUN 7-21 mg/dL BUN 11 LAB CRET 0.58-0.96 mg/dL Creatinine High 1.04 LAB NA 136-144 mmol/L Sodium 141 LAB K 3.7-5.1 mmol/L Low Potassium 3.6 LAB CL 97-105 mmol/L Chloride 99 LAB CO2 22-30 mmol/L CO2 26 LAB AGAP 9-18 mmol/L Anion Gap 16 LAB ALT 7-38 U/L ALT 14 LAB GFRAA eGFR- Amer. >60 LAB GFRNAA . eGFR-All Other Races >60 Result Comment: eGFR (Estimated GFR) Units of measure: mL/min/1.73 meters squared eGFR is derived from the reexpressed MDRD Study equation using the following parameters: serum creatinine, age, gender and race. The creatinine assay has been calibrated to be traceable to IDMS. An eGFR <60 mL/min/1.73m2 for >3 months is consistent with chronic kidney disease. Refer to KDOQI guidelines for clinical interpretation. In patients with unstable renal function, e.g. those with acute kidney injury, the eGFR may not accurately reflect actual GFR. Performed By: #### CBCDIF, CMP, TSH #### [facility] [address] [place], [place] [address] TSH Collected: 03/28/2018 Status: F Source: [place] 3:40 PM [facility] REPOSITORY TYPE CODE TESTS RESULT OUT OF RANGE REFERENCE UNITS LAB TSH 0.400-5.500 uU/mL TSH 3.210 Result Comment: If the patient is , TSH reference range varies by gestational period: First Trimester 0.100-2.500 uU/mL Second Trimester 0.200-3.000 uU/mL Third Trimester 0.300-3.000 uU/mL References: 1. Barbosa L, Consuelo M, Shane EK, et al. Management of Thyroid Dysfunction during and : An Endocrine Society Clinical Practice Guideline. J Clin Endocrinol Metab, 2012:97:6168-0150. 2. Jakub VALENZUELA. Overview of thyroid disease in . UpToDate. 2016. Accessed on November 21, 2015. Performed By: #### CBCDIF, CMP, TSH #### [facility] [address] [place], [place] [address] PROGRESS Observed: 03/28/2018 Status: COMPLETED Source: [place] 2:26 PM [facility] REPOSITORY HNO ID: [id number] Author: Ankur Brantley (PaPretty) Say Service: (none) Author Type: Physician Sales And Merchandising Representative Type: Progress Notes Filed: 03/28/2018 5:45 PM Note Text: 37 year old female with c/o fatigue and weakness. Worried about diabetes/ low blood sugar. Completely exhausted and weak. Keeps having feeling going to faint/ pass out, gets shakes, headaches. Feels like hasn't slept in days but sleeping normally. Sleeps like a rock, some snoring. 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 Doesn't aggravate myotonia. won custody of her daughter. Patient is very stressed because she can't see her. She is appealing to the court but apparently did not have a lawyerr at the trial. Acknowledges loss of interest, depersonalization. No thoughts of hurting herself. Patient has had prior treatment for depression for lack of improvement or side effects including: BuSpar stopped 06/26/12 Citalopram Stopped 04/30/13 Duloxetine stopped 04/16/2008 Fluoxetine stopped 12/16/14 Proximal stopped 03/28/18 Sertraline stopped on 08/01/17 Venlafaxine stopped in November 2006 HISTORIES FAMILY HISTORY Problem Relation Age of Onset - Allergies Mother - Hypertension Mother diabetes - Lipids Mother - Psychiatry Mother bipolar disorder - Diabetes Mother - Arthritis Father gout - other (Myotonia) Father - Alzheimer's Disease Paternal Grandfather HEARING LOSS,PARKINSONS - Stroke Paternal Grandfather - Arthritis Paternal Grandmother - Hypertension Paternal Grandmother - Osteoporosis Paternal Grandmother - Stroke Paternal Grandmother - Thyroid Paternal Grandmother - Arthritis Maternal Grandmother CAROTID ARTERY CLEANED OUT, DIABETES - Hypertension Maternal Grandmother - Lipids Maternal Grandmother - Stroke Maternal Grandmother - Diabetes Maternal Grandmother - Diabetes Brother (1/2 brother) PAST MEDICAL HISTORY Diagnosis Date - Abdominal pain, other specified site RLQ and LLQ chronic - Abnormal glandular Papanicolaou smear of cervix Abn. Pap smear (cervix), s/p CHARBEL - Chronic back pain - Chronic rhinitis 06/30/2005 Dr. Bell - Depressive disorder, not elsewhere classified 06/30/2005 nerves - Esotropia, unspecified Dr. Encarnacion, Right eye - GERD (gastroesophageal reflux disease) - Migraine - Myotonia - Thrombosed external hemorrhoid 03/20/2012 - Tobacco abuse - Unspecified constipation - Unspecified inflammatory disease of female pelvic organs and tissues chronic pelvic pain PAST SURGICAL HISTORY Procedure Laterality Date - APPENDECTOMY October 27, 2004 LAPROSCOPIC - COLONOSCOP W/ OR W/O [facility] SPEC 10/27/05 - HYSTEROSCOPY, STERILIZATION 02/13/08 [facility] - L'SCOPE DX W/WO BRUSHINGS/WASHINGS October Laparoscopy, adhesion lysis - POLYSOMNOGRAM(DIAG) 03138 12/2005 Sleep study wnl - THYROID FINE NEEDLE ASPIRATION 2012 - VAGINAL HYSTERECTOMY 10/29/10 [facility] Social History Marital status: Spouse name: Years of education: GED Number of children: 2 Occupational History Occupation Employer Comment unemployed [employer] last job in [place] Social History Main Topics Smoking status: Current Every Day Smoker Packs/day: 0.50 Years: 12.00 Types: Cigarettes Smokeless tobacco: Never Used Alcohol use: No Drug use: No Comment: marijuana as teenager, none recent Sexual activity: Yes Partners with: Male control/protection: Surgical Other Topics Concern BLOOD TRANSFUSIONS No CAFFEINE Yes Comment:caffeine withdrawal headaches OCCUPATIONAL EXPOSURE No SLEEP CONCERN Yes Comment:nightmares of killings STRESS CONCERN Yes Comment:'too much' DIET No EXERCISE No SEAT BELT Yes SELF EXAMS Yes Comment:advised Social History Narrative Single, 2 children (ages 11 yo son, age 5 yo dtr ) - [facility] 01/2013 ACTIVE PROBLEM LIST Migraine Without Aura, Without Mention of Intractable Migraine Without Mention of Status Migrainosus Unspecified Constipation Myalgia and Myositis, Unspecified Bmi 37.0-37.9, Adult Multinodular Goiter Lumbar Spondylosis Low Back Pain 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 Disp: 90 tablet Rfl: 1 mupirocin (BACTROBAN) 2 % ointment Apply 1 application to affected area three times daily. Location: boil Disp: 15 g Rfl: 0 baclofen (LIORESAL) 10 mg tablet take 1 tablet by mouth three times a day if needed for muscle spasm Disp: 90 tablet Rfl: 1 diazePAM (VALIUM) 10 mg tablet Take 1 tablet by mouth twice daily for 180 days. Disp: 60 tablet Rfl: 5 NAPROXEN ORAL Take by mouth. Disp: Rfl: ibuprofen (MOTRIN) 800 mg tablet Take 1 tablet by mouth every 6 hours as needed for Pain. Take with food. Disp: 40 tablet Rfl: 1 PARoxetine (PAXIL) 10 mg tablet Take 1 tablet by mouth once daily. Disp: 30 tablet Rfl: 5 No current facility-administered medications for this visit. ONE PNEUMOVAX PRIOR TO AGE 67 due on 2001 INFLUENZA(1) due on 02/04/2018 EXAM: BP 100/78 Pulse 64 Resp 16 Wt 94.3 kg (208 lb) LMP 10/13/2010 BMI 35.70 kg/m? Pleasant adult woman in no acute distress. Alert and oriented all spheres. Normal affect and cognition. Speech normal. No deficits to learning or comprehension. Skin warm, dry, pink to lips and nailbeds. Normal turgor. Respirations regular and unlabored. HEENT WNL. TM's clear. Nose and oropharynx free from injection or lesion. Lymph node half previous size but still 1cm diameter. Non- tender no other cervical lymph nodes. Thyroid non-tender, no masses Chest CTA. HRRR without murmur or gallop. Extrem: no clubbing, cyanosis, edema. Extremities are warm and pink with prompt capillary refill. ASSESSMENT/PLAN: 1. Multinodular goiter - ICD9: 241.1, ICD10: E04.2 (primary diagnosis) Patient has had some fairly large thyroid nodules which have not been followed recently. She has had biopsy which were negative. - US THYROID/PARATHYROID 2. Fatigue, unspecified type - ICD9: 780.79, ICD10: R53.83 - TSH BLD - COMP METABOLIC PANEL - CBC + DIFF 3. Myotonia - ICD9: 728.85, ICD10: M62.89 Trial of Savella for muscle pain and depression. Will likely require prior authorization. - MILNACIPRAN 25 MG TABLET 4. Chronic depression - ICD9: 311, ICD10: F32.9 - MILNACIPRAN 25 MG TABLET Ankur Deal PA-C CNOV Observed: 03/28/2018 Status: COMPLETED Source: [place] 2:00 PM [facility] Office Visit (FAMPWS) VALERIA JHA ([id number]) 1980 F Date Time Provider Department 03/28/18 2:00 PM Ankur DEAL) FAMPWS During your visit today, we recorded the following information about you: Pulse Respiration Blood pressure Weight 64/minute 16/minute 100/78 94.3 kg Ankur Deal PA-C 03/28/2018 5:45 PM Signed 37 year old female with c/o fatigue and weakness. Worried about diabetes/ low blood sugar. Completely exhausted and weak. Keeps having feeling going to faint/ pass out, gets shakes, headaches. Feels like hasn't slept in days but sleeping normally. Sleeps like a rock, some snoring. 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 Doesn't aggravate myotonia. won custody of her daughter. Patient is very stressed because she can't see her. She is appealing to the court but apparently did not have a lawyerr at the trial. Acknowledges loss of interest, depersonalization. No thoughts of hurting herself. Patient has had prior treatment for depression for lack of improvement or side effects including: BuSpar stopped 06/26/12 Citalopram Stopped 04/30/13 Duloxetine stopped 04/16/2008 Fluoxetine stopped 12/16/14 Proximal stopped 03/28/18 Sertraline stopped on 08/01/17 Venlafaxine stopped in November 2006 HISTORIES FAMILY HISTORY Problem Relation Age of Onset - Allergies Mother - Hypertension Mother diabetes - Lipids Mother - Psychiatry Mother bipolar disorder - Diabetes Mother - Arthritis Father gout - other (Myotonia) Father - Alzheimer's Disease Paternal Grandfather HEARING LOSS,PARKINSONS - Stroke Paternal Grandfather - Arthritis Paternal Grandmother - Hypertension Paternal Grandmother - Osteoporosis Paternal Grandmother - Stroke Paternal Grandmother - Thyroid Paternal Grandmother - Arthritis Maternal Grandmother CAROTID ARTERY CLEANED OUT, DIABETES - Hypertension Maternal Grandmother - Lipids Maternal Grandmother - Stroke Maternal Grandmother - Diabetes Maternal Grandmother - Diabetes Brother (1/2 brother) PAST MEDICAL HISTORY Diagnosis Date - Abdominal pain, other specified site RLQ and LLQ chronic - Abnormal glandular Papanicolaou smear of cervix Abn. Pap smear (cervix), s/p CHARBEL - Chronic back pain - Chronic rhinitis 06/30/2005 Dr. Bell - Depressive disorder, not elsewhere classified 06/30/2005 nerves - Esotropia, unspecified Dr. Encarnacion, Right eye - GERD (gastroesophageal reflux disease) - Migraine - Myotonia - Thrombosed external hemorrhoid 03/20/2012 - Tobacco abuse - Unspecified constipation - Unspecified inflammatory disease of female pelvic organs and tissues chronic pelvic pain PAST SURGICAL HISTORY Procedure Laterality Date - APPENDECTOMY October 27, 2004 LAPROSCOPIC - COLONOSCOP W/ OR W/O [facility] SPEC 10/27/05 - HYSTEROSCOPY, STERILIZATION 02/13/08 [facility] - L'SCOPE DX W/WO BRUSHINGS/WASHINGS October Laparoscopy, adhesion lysis - POLYSOMNOGRAM(DIAG) 23891 12/2005 Sleep study wnl - THYROID FINE NEEDLE ASPIRATION 2013 - VAGINAL HYSTERECTOMY 10/29/10 [facility] Social History Marital status: Spouse name: Years of education: GED Number of children: 2 Occupational History Occupation Employer Comment unemployed [employer] last job in [place] Social History Main Topics Smoking status: Current Every Day Smoker Packs/day: 0.50 Years: 12.00 Types: Cigarettes Smokeless tobacco: Never Used Alcohol use: No Drug use: No Comment: marijuana as teenager, none recent Sexual activity: Yes Partners with: Male control/protection: Surgical Other Topics Concern BLOOD TRANSFUSIONS No CAFFEINE Yes Comment:caffeine withdrawal headaches OCCUPATIONAL EXPOSURE No SLEEP CONCERN Yes Comment:nightmares of killings STRESS CONCERN Yes Comment:'too much' DIET No EXERCISE No SEAT BELT Yes SELF EXAMS Yes Comment:advised Social History Narrative Single, 2 children (ages 11 yo son, age 5 yo dtr ) - [facility] 01/2013 ACTIVE PROBLEM LIST Migraine Without Aura, Without Mention of Intractable Migraine Without Mention of Status Migrainosus Unspecified Constipation Myalgia and Myositis, Unspecified Bmi 37.0-37.9, Adult Multinodular Goiter Lumbar Spondylosis Low Back Pain 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 Disp: 90 tablet Rfl: 1 mupirocin (BACTROBAN) 2 % ointment Apply 1 application to affected area three times daily. Location: boil Disp: 15 g Rfl: 0 baclofen (LIORESAL) 10 mg tablet take 1 tablet by mouth three times a day if needed for muscle spasm Disp: 90 tablet Rfl: 1 diazePAM (VALIUM) 10 mg tablet Take 1 tablet by mouth twice daily for 180 days. Disp: 60 tablet Rfl: 5 NAPROXEN ORAL Take by mouth. Disp: Rfl: ibuprofen (MOTRIN) 800 mg tablet Take 1 tablet by mouth every 6 hours as needed for Pain. Take with food. Disp: 40 tablet Rfl: 1 PARoxetine (PAXIL) 10 mg tablet Take 1 tablet by mouth once daily. Disp: 30 tablet Rfl: 5 No current facility-administered medications for this visit. ONE PNEUMOVAX PRIOR TO AGE 67 due on 2001 INFLUENZA(1) due on 02/04/2018 EXAM: BP 100/78 Pulse 64 Resp 16 Wt 94.3 kg (208 lb) LMP 10/13/2010 BMI 35.70 kg/m? Pleasant adult woman in no acute distress. Alert and oriented all spheres. Normal affect and cognition. Speech normal. No deficits to learning or comprehension. Skin warm, dry, pink to lips and nailbeds. Normal turgor. Respirations regular and unlabored. HEENT WNL. TM's clear. Nose and oropharynx free from injection or lesion. Lymph node half previous size but still 1cm diameter. Non-tender no other cervical lymph nodes. Thyroid non-tender, no masses Chest CTA. HRRR without murmur or gallop. Extrem: no clubbing, cyanosis, edema. Extremities are warm and pink with prompt capillary refill. ASSESSMENT/PLAN: 1. Multinodular goiter - ICD9: 241.1, ICD10: E04.2 (primary diagnosis) Patient has had some fairly large thyroid nodules which have not been followed recently. She has had biopsy which were negative. - US THYROID/PARATHYROID 2. Fatigue, unspecified type - ICD9: 780.79, ICD10: R53.83 - TSH BLD - COMP METABOLIC PANEL - CBC + DIFF 3. Myotonia - ICD9: 728.85, ICD10: M62.89 Trial of Savella for muscle pain and depression. Will likely require prior authorization. - MILNACIPRAN 25 MG TABLET 4. Chronic depression - ICD9: 311, ICD10: F32.9 - MILNACIPRAN 25 MG TABLET M Fercho Deal PA-C Referring Provider: SELF [200] Allergies As of Date: 03/28/2018 Noted Allergy Reaction ADHESIVE 10/09/2008 Comments: Local irritation at site Beestings [Other] 03/13/2007 CAT DANDER [Other] 02/25/2005 5 - Intolerance FLEXERIL (CYCLOBENZAPRINE HCL) 06/30/2016 5 - Intolerance Comments: headcahes GRASS POLLEN 02/25/2005 2 - Rash MOLDS [Other] 02/25/2005 5 - Intolerance RAGWEED 03/18/2006 Date Reviewed: 03/28/2018 Reviewed by: Estee Solorzano LPN - Fully Assessed Reason for Visit: Fatigue [46] Cmt: feeling weakness, dry mouth AND tired X 4 days Primary Visit Diagnosis:Multinodular goiter [E04.2] Other Visit Diagnoses:Fatigue, unspecified type [R53.83] Myotonia [M62.89] Chronic depression [F32.9] Order(s):US THYROID/PARATHYROID [[id number]] Order #: [id number] FUTURE TSH BLD [SQTSH] Order #: [id number] FUTURE COMP METABOLIC PANEL [SQCMP] Order #: [id number] FUTURE CBC + DIFF [SQCBCDIF] Order #: [id number] FUTURE Milnacipran (SAVELLA) 25 mg tabTake 1 tablet by mouth once daily.Disp: 30 tabletRfl: 2 Prescriptions as of 03/28/2018 Sig: CETIRIZINE 10 MG TABLET Take 1 tablet by mouth once d* MUPIROCIN 2 % TOPICAL OINTMENT Apply 1 application to affect* BACLOFEN 10 MG TABLET take 1 tablet by mouth three * DIAZEPAM 10 MG TABLET Take 1 tablet by mouth twice * NAPROXEN ORAL Take by mouth. IBUPROFEN 800 MG TABLET Take 1 tablet by mouth every * MILNACIPRAN 25 MG TABLET Take 1 tablet by mouth once d* Problem List As Of Date 03/28/2018 Noted Resolved Esophageal reflux [K21.9] INVALID FOR*08/27/2015 Depressive disorder, not elsewhere classified [*INVALID FOR*08/27/2015 COMMON MIGRAINE W/O MENTN INTRACT [G43.009] INVALID FOR* Chronic rhinitis [J31.0] INVALID FOR*08/27/2015 More... Abdominal pain, right lower quadrant [R10.31] 05/09/2012 Abdominal pain, left lower quadrant [R10.32] 05/09/2012 CONSTIPATION NOS [K59.00] MYALGIA AND MYOSITIS NOS [PFH8994] INVALID FOR* Lump or Mass in Breast [N63.0] INVALID FOR*01/30/2009 Sprain of foot, unspecified site [S93.609A] INVALID FOR*03/21/2013 Nausea alone [R11.0] 03/21/2013 Heartburn [R12] 08/27/2015 Achilles bursitis or tendinitis [M76.60] INVALID FOR*08/27/2015 Enthesopathy of unspecified site [M77.9] INVALID FOR*08/27/2015 Tibialis posterior tendonitis [M76.829] INVALID FOR*08/27/2015 Urine frequency [R35.0] INVALID FOR*08/27/2015 Hematuria [R31.9] INVALID FOR*08/27/2015 Suprapubic pressure [R10.2] INVALID FOR*08/27/2015 Stress incontinence [N39.3] INVALID FOR*08/27/2015 BMI 37.0-37.9, adult [Z68.37] INVALID FOR* Thrombosed external hemorrhoid [K64.5] INVALID FOR*03/21/2013 Multinodular goiter [E04.2] INVALID FOR* Right groin pain [R10.31] INVALID FOR*08/18/2016 Lumbar spondylosis [M47.816] INVALID FOR* Low back pain [M54.5] INVALID FOR* 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 Left medial knee pain [M25.562] INVALID FOR* Paresthesia of left leg [R20.2] INVALID FOR* More... Sciatica of left side [M54.32] INVALID FOR* Prescriptions ordered this encounter Disp Refills Start End MILNACIPRAN 25 MG TABLET 30 t* 2 03/28/2018 Route: ORAL Sig: Take 1 tablet by mouth once daily. Medications Discontinued During This Encounter PARoxetine (PAXIL) 10 mg tablet 30 t* 5 11/14/2017 03/28/2018 Class: Print RX Route: ORAL Sig: Take 1 tablet by mouth once daily. Disc: Reason for discontinue is not on file. Disposition: Return in about 4 weeks (around 04/25/2018). Follow-up and Disposition History Recorded Letter Text [facility] [address], [place] [address] Valeria Jha [address] [place] [phone] Clinic #: [id number] 03/28/2018 To Whom it may concern, Valeria Jha was examined here for an acute medical condition. Please excuse her from work missed today. Thank you, Janeen Deal PA-C Letter Text Janeen Deal PA-C [address] [place], [place] [address] 03/28/2018 Valeria Jha [facility]# [id number] [address] [id number] TO WHOM IT MAY CONCERN: This is to certify that Ms. Valeria Jha has been under my care for illness and was unable to work from 03/28/18. May return to work 03/29/18 with no restriction. Sincerely yours, Janeen Deal PA-C (Signed electronically to expedite mailing) Encounter Status:Closed by Ankur DEAL PA-C on 03/28/18 PROGRESS Observed: 03/19/2018 Status: COMPLETED Source: [place] 3:48 PM [facility] REPOSITORY HNO ID: [id number] Author: Aviva Kan (Mechanical Design Engineer Facilities) Jasbir Service: (none) Author Type: Nurse Practitioner Type: Progress Notes Filed: 03/19/2018 3:53 PM Note Text: Subjective HPI Patient presents with: bug bite on right palm of hand: x 6 days pt states on Bactrim for recurrent boils, started 03/13, which is improving on Bactrim. Hand was swollen yesterday down to wrist but improved today but redness on palm remains. Benadryl otc x1 with minimal relief. Denies fever, chills, myalgia ROS All other reviewed and negative other than HPI. PAST MEDICAL HISTORY Diagnosis Date - Abdominal pain, other specified site RLQ and LLQ chronic - Abnormal glandular Papanicolaou smear of cervix Abn. Pap smear (cervix), s/p CHARBEL - Chronic back pain - Chronic rhinitis 06/30/2005 Dr. Bell - Depressive disorder, not elsewhere classified 06/30/2005 nerves - Esotropia, unspecified Dr. Encarnacion, Right eye - GERD (gastroesophageal reflux disease) - Migraine - Myotonia - Thrombosed external hemorrhoid 03/20/2012 - Tobacco abuse - Unspecified constipation - Unspecified inflammatory disease of female pelvic organs and tissues chronic pelvic pain PAST SURGICAL HISTORY Procedure Laterality Date - APPENDECTOMY October 27, 2004 LAPROSCOPIC - COLONOSCOP W/ OR W/O [facility] SPEC 10/27/05 - HYSTEROSCOPY, STERILIZATION 02/13/08 [facility] - L'SCOPE DX W/WO BRUSHINGS/WASHINGS October Laparoscopy, adhesion lysis - POLYSOMNOGRAM(DIAG) 37709 12/2005 Sleep study wnl - THYROID FINE NEEDLE ASPIRATION 2012 - VAGINAL HYSTERECTOMY 10/29/10 [facility] ALLERGIES Adhesive; Beestings [Other]; Cat Dander [Other]; Flexeril [Cyclobenzaprine Hcl]; Grass Pollen; Molds [Other]; Ragweed MEDICATIONS cetirizine (ZYRTEC) 10 mg tablet Take 1 tablet by mouth once daily. mupirocin (BACTROBAN) 2 % ointment Apply 1 application to affected area three times daily. Location: boil baclofen (LIORESAL) 10 mg tablet take 1 tablet by mouth three times a day if needed for muscle spasm diazePAM (VALIUM) 10 mg tablet Take 1 tablet by mouth twice daily for 180 days. NAPROXEN ORAL Take by mouth. ibuprofen (MOTRIN) 800 mg tablet Take 1 tablet by mouth every 6 hours as needed for Pain. Take with food. predniSONE (DELTASONE) 20 mg tablet Take 2 tablets by mouth once daily for 4 days. Take daily with food. sulfamethoxazole-trimethoprim (BACTRIM DS) 800-160 mg per tablet Take 1 tablet by mouth twice daily for 10 days. PARoxetine (PAXIL) 10 mg tablet Take 1 tablet by mouth once daily. FAMILY HISTORY Problem Relation Age of Onset - Allergies Mother - Hypertension Mother diabetes - Lipids Mother - Psychiatry Mother bipolar disorder - Diabetes Mother - Arthritis Father gout - other (Myotonia) Father - Alzheimer's Disease Paternal Grandfather HEARING LOSS,PARKINSONS - Stroke Paternal Grandfather - Arthritis Paternal Grandmother - Hypertension Paternal Grandmother - Osteoporosis Paternal Grandmother - Stroke Paternal Grandmother - Thyroid Paternal Grandmother - Arthritis Maternal Grandmother CAROTID ARTERY CLEANED OUT, DIABETES - Hypertension Maternal Grandmother - Lipids Maternal Grandmother - Stroke Maternal Grandmother - Diabetes Maternal Grandmother - Diabetes Brother (1/2 brother) Social History Substance Use Topics - Smoking status: Current Every Day Smoker Packs/day: 0.50 Years: 12.00 Types: Cigarettes - Smokeless tobacco: Never Used - Alcohol use No Objective Physical Exam Skin: Nursing note and vitals reviewed. ASSESSMENT/PLAN: 1. Insect bite, initial encounter - ICD9: 919.4, E906.4, ICD10: W57.XXXA -cont. Bactrim as rx by PCP, pt has scheduled f/u tomorrow with PCP, strongly encouraged pt to keep for further eval/tx -Prednisone -Benadryl otc PRN -F/u with pcp in 3-5 days or sooner if symptoms are not improving or worsening Prescription instructions reviewed with patient as applicable. Patient advised if symptoms do not improve or if symptoms worsen sooner, to contact their primary care physician. Potential red flag symptoms discussed with the patient. Reviewed appropriate action plan to take if red flag symptoms occur. Patient agreeable to treatment plan. Aviva Martell APRN.GIOVANA CNOV Observed: 03/19/2018 Status: COMPLETED Source: [place] 3:30 PM [facility] Office Visit (UCWSTR) VALERIA JHA ([id number]) 1980 F Date Time Provider Department 03/19/18 3:30 PM AVIVA MARTELL (CLUB WAITER/WAITRESS) [facility] During your visit today, we recorded the following information about you: Temperature Pulse Respiration Blood pressure 98.1 degrees 86/minute 16/minute 94/62 Weight 92.8 kg Aviva Martell APRN.GIOVANA 03/19/2018 3:53 PM Signed Subjective HPI Patient presents with: bug bite on right palm of hand: x 6 days pt states on Bactrim for recurrent boils, started 03/13, which is improving on Bactrim. Hand was swollen yesterday down to wrist but improved today but redness on palm remains. Benadryl otc x1 with minimal relief. Denies fever, chills, myalgia ROS All other reviewed and negative other than HPI. PAST MEDICAL HISTORY Diagnosis Date - Abdominal pain, other specified site RLQ and LLQ chronic - Abnormal glandular Papanicolaou smear of cervix Abn. Pap smear (cervix), s/p CHARBEL - Chronic back pain - Chronic rhinitis 06/30/2005 Dr. Bell - Depressive disorder, not elsewhere classified 06/30/2005 nerves - Esotropia, unspecified Dr. Encarnacion, Right eye - GERD (gastroesophageal reflux disease) - Migraine - Myotonia - Thrombosed external hemorrhoid 03/20/2012 - Tobacco abuse - Unspecified constipation - Unspecified inflammatory disease of female pelvic organs and tissues chronic pelvic pain PAST SURGICAL HISTORY Procedure Laterality Date - APPENDECTOMY October 27, 2004 LAPROSCOPIC - COLONOSCOP W/ OR W/O [facility] SPEC 10/27/05 - HYSTEROSCOPY, STERILIZATION 02/13/08 [facility] - L'SCOPE DX W/WO BRUSHINGS/WASHINGS October Laparoscopy, adhesion lysis - POLYSOMNOGRAM(DIAG) [id number] 12/2005 Sleep study wnl - THYROID FINE NEEDLE ASPIRATION 2012 - VAGINAL HYSTERECTOMY 10/29/10 [facility] ALLERGIES Adhesive; Beestings [Other]; Cat Dander [Other]; Flexeril [Cyclobenzaprine Hcl]; Grass Pollen; Molds [Other]; Ragweed MEDICATIONS cetirizine (ZYRTEC) 10 mg tablet Take 1 tablet by mouth once daily. mupirocin (BACTROBAN) 2 % ointment Apply 1 application to affected area three times daily. Location: boil baclofen (LIORESAL) 10 mg tablet take 1 tablet by mouth three times a day if needed for muscle spasm diazePAM (VALIUM) 10 mg tablet Take 1 tablet by mouth twice daily for 180 days. NAPROXEN ORAL Take by mouth. ibuprofen (MOTRIN) 800 mg tablet Take 1 tablet by mouth every 6 hours as needed for Pain. Take with food. predniSONE (DELTASONE) 20 mg tablet Take 2 tablets by mouth once daily for 4 days. Take daily with food. sulfamethoxazole-trimethoprim (BACTRIM DS) 800-160 mg per tablet Take 1 tablet by mouth twice daily for 10 days. PARoxetine (PAXIL) 10 mg tablet Take 1 tablet by mouth once daily. FAMILY HISTORY Problem Relation Age of Onset - Allergies Mother - Hypertension Mother diabetes - Lipids Mother - Psychiatry Mother bipolar disorder - Diabetes Mother - Arthritis Father gout - other (Myotonia) Father - Alzheimer's Disease Paternal Grandfather HEARING LOSS,PARKINSONS - Stroke Paternal Grandfather - Arthritis Paternal Grandmother - Hypertension Paternal Grandmother - Osteoporosis Paternal Grandmother - Stroke Paternal Grandmother - Thyroid Paternal Grandmother - Arthritis Maternal Grandmother CAROTID ARTERY CLEANED OUT, DIABETES - Hypertension Maternal Grandmother - Lipids Maternal Grandmother - Stroke Maternal Grandmother - Diabetes Maternal Grandmother - Diabetes Brother (1/2 brother) Social History Substance Use Topics - Smoking status: Current Every Day Smoker Packs/day: 0.50 Years: 12.00 Types: Cigarettes - Smokeless tobacco: Never Used - Alcohol use No Objective Physical Exam Skin: Nursing note and vitals reviewed. ASSESSMENT/PLAN: 1. Insect bite, initial encounter - ICD9: 919.4, E906.4, ICD10: W57.XXXA -cont. Bactrim as rx by PCP, pt has scheduled f/u tomorrow with PCP, strongly encouraged pt to keep for further eval/tx -Prednisone -Benadryl otc PRN -F/u with pcp in 3-5 days or sooner if symptoms are not improving or worsening Prescription instructions reviewed with patient as applicable. Patient advised if symptoms do not improve or if symptoms worsen sooner, to contact their primary care physician. Potential red flag symptoms discussed with the patient. Reviewed appropriate action plan to take if red flag symptoms occur. Patient agreeable to treatment plan. Aviva Martell APRN.SAUSAGE CUTTER Referring Provider: SELF [[id number]] Allergies As of Date: 03/19/2018 Noted Allergy Reaction ADHESIVE 10/09/2008 Comments: Local irritation at site Beestings [Other] 03/13/2007 CAT DANDER [Other] 02/25/2005 5 - Intolerance FLEXERIL (CYCLOBENZAPRINE HCL) 06/30/2016 5 - Intolerance Comments: headcahes GRASS POLLEN 02/25/2005 2 - Rash MOLDS [Other] 02/25/2005 5 - Intolerance RAGWEED 03/18/2006 Date Reviewed: 03/19/2018 Reviewed by: Nova Ni Ma - Fully Assessed Reason for Visit: bug bite on right palm of hand [Other] Cmt: x 6 days Primary Visit Diagnosis:Insect bite, initial encounter [W57.XXXA] Order(s):predniSONE (DELTASONE) 20 mg tabletTake 2 tablets by mouth once daily for 4 days. Take daily with food.Disp: 8 tabletRfl: 0 Prescriptions as of 03/19/2018 Sig: CETIRIZINE 10 MG TABLET Take 1 tablet by mouth once d* MUPIROCIN 2 % TOPICAL OINTMENT Apply 1 application to affect* BACLOFEN 10 MG TABLET take 1 tablet by mouth three * DIAZEPAM 10 MG TABLET Take 1 tablet by mouth twice * NAPROXEN ORAL Take by mouth. IBUPROFEN 800 MG TABLET Take 1 tablet by mouth every * PREDNISONE 20 MG TABLET Take 2 tablets by mouth once * SULFAMETHOXAZOLE 800 MG-TRIME* Take 1 tablet by mouth twice * Patient not taking: Reported on 03/19/2018 PAROXETINE 10 MG TABLET Take 1 tablet by mouth once d* Problem List As Of Date 03/19/2018 Noted Resolved Esophageal reflux [K21.9] INVALID FOR*08/27/2015 Depressive disorder, not elsewhere classified [*INVALID FOR*08/27/2015 COMMON MIGRAINE W/O MENTN INTRACT [G43.009] INVALID FOR* Chronic rhinitis [J31.0] INVALID FOR*08/27/2015 More... Abdominal pain, right lower quadrant [R10.31] 05/09/2012 Abdominal pain, left lower quadrant [R10.32] 05/09/2012 CONSTIPATION NOS [K59.00] MYALGIA AND MYOSITIS NOS [[id number]] INVALID FOR* Lump or Mass in Breast [N63.0] INVALID FOR*01/30/2009 Sprain of foot, unspecified site [S93.609A] INVALID FOR*03/21/2013 Nausea alone [R11.0] 03/21/2013 Heartburn [R12] 08/27/2015 Achilles bursitis or tendinitis [M76.60] INVALID FOR*08/27/2015 Enthesopathy of unspecified site [M77.9] INVALID FOR*08/27/2015 Tibialis posterior tendonitis [M76.829] INVALID FOR*08/27/2015 Urine frequency [R35.0] INVALID FOR*08/27/2015 Hematuria [R31.9] INVALID FOR*08/27/2015 Suprapubic pressure [R10.2] INVALID FOR*08/27/2015 Stress incontinence [N39.3] INVALID FOR*08/27/2015 BMI 37.0-37.9, adult [Z68.37] INVALID FOR* Thrombosed external hemorrhoid [K64.5] INVALID FOR*03/21/2013 Multinodular goiter [E04.2] INVALID FOR* Right groin pain [R10.31] INVALID FOR*08/18/2016 Lumbar spondylosis [M47.816] INVALID FOR* Low back pain [M54.5] INVALID FOR* 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 Left medial knee pain [M25.562] INVALID FOR* Paresthesia of left leg [R20.2] INVALID FOR* More... Sciatica of left side [M54.32] INVALID FOR* Prescriptions ordered this encounter Disp Refills Start End PREDNISONE 20 MG TABLET 8 ta* 0 03/19/2018 03/23/2018 Route: ORAL Sig: Take 2 tablets by mouth once daily for 4 days. Take daily with food. Disposition: Return if symptoms worsen or fail to improve. Follow-up and Disposition History Recorded Encounter Status:Closed by AVIVA MARTELL on 03/19/18 PROGRESS Observed: 03/13/2018 Status: COMPLETED Source: [place] 3:08 PM [facility] REPOSITORY HNO ID: [id number] Author: Ankur Brantley (Hiral) Say Service: (none) Author Type: Physician Sales And Merchandising Representative Type: Progress Notes Filed: 03/13/2018 10:07 PM Note Text: 37 year old female with c/o 1. infection on abdominal wall which tarted at least a month ago with a boil. Now has a hole'. No fever or chills. Just realized still there Tuesday night. Recurrent. 2. Right thumb pain radiating to wrist. Asked to have OMT which helped in past. 3. Exacerbation seasonal allerigies. Want to refill zyrtec. Which helps. 4. Tender lymph node posterior right occipital area. No recent scratches or rashes on scalp or head. HISTORIES FAMILY HISTORY Problem Relation Age of Onset - Allergies Mother - Hypertension Mother diabetes - Lipids Mother - Psychiatry Mother bipolar disorder - Diabetes Mother - Arthritis Father gout - other (Myotonia) Father - Alzheimer's Disease Paternal Grandfather HEARING LOSS,PARKINSONS - Stroke Paternal Grandfather - Arthritis Paternal Grandmother - Hypertension Paternal Grandmother - Osteoporosis Paternal Grandmother - Stroke Paternal Grandmother - Thyroid Paternal Grandmother - Arthritis Maternal Grandmother CAROTID ARTERY CLEANED OUT, DIABETES - Hypertension Maternal Grandmother - Lipids Maternal Grandmother - Stroke Maternal Grandmother - Diabetes Maternal Grandmother - Diabetes Brother (1/2 brother) PAST MEDICAL HISTORY Diagnosis Date - Abdominal pain, other specified site RLQ and LLQ chronic - Abnormal glandular Papanicolaou smear of cervix Abn. Pap smear (cervix), s/p CHARBEL - Chronic back pain - Chronic rhinitis 06/30/2005 Dr. Bell - Depressive disorder, not elsewhere classified 06/30/2005 nerves - Esotropia, unspecified Dr. Encarnacion, Right eye - GERD (gastroesophageal reflux disease) - Migraine - Myotonia - Thrombosed external hemorrhoid 03/20/2012 - Tobacco abuse - Unspecified constipation - Unspecified inflammatory disease of female pelvic organs and tissues chronic pelvic pain PAST SURGICAL HISTORY Procedure Laterality Date - APPENDECTOMY October 27, 2004 LAPROSCOPIC - COLONOSCOP W/ OR W/O [facility] SPEC 10/27/05 - HYSTEROSCOPY, STERILIZATION 02/13/08 [facility] - L'SCOPE DX W/WO BRUSHINGS/WASHINGS October Laparoscopy, adhesion lysis - POLYSOMNOGRAM(DIAG) 69538 12/2005 Sleep study wnl - THYROID FINE NEEDLE ASPIRATION 2012 - VAGINAL HYSTERECTOMY 10/29/10 [facility] Social History Marital status: Spouse name: Years of education: GED Number of children: 2 Occupational History Occupation Employer Comment unemployed [employer] last job in [place] [employer] Social History Main Topics Smoking status: Current Every Day Smoker Packs/day: 0.50 Years: 12.00 Types: Cigarettes Smokeless tobacco: Never Used Alcohol use: No Drug use: No Comment: marijuana as teenager, none recent Sexual activity: Yes Partners with: Male control/protection: Surgical Other Topics Concern BLOOD TRANSFUSIONS No CAFFEINE Yes Comment:caffeine withdrawal headaches OCCUPATIONAL EXPOSURE No SLEEP CONCERN Yes Comment:nightmares of killings STRESS CONCERN Yes Comment:'too much' DIET No EXERCISE No SEAT BELT Yes SELF EXAMS Yes Comment:advised Social History Narrative Single, 2 children (ages 11 yo son, age 5 yo dtr ) - [facility] 01/2013 ACTIVE PROBLEM LIST Migraine Without Aura, Without Mention of Intractable Migraine Without Mention of Status Migrainosus Unspecified Constipation Myalgia and Myositis, Unspecified Bmi 37.0-37.9, Adult Multinodular Goiter Lumbar Spondylosis Low Back Pain Cognitive Deficit Due 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 Disp: Rfl: ibuprofen (MOTRIN) 800 mg tablet Take 1 tablet by mouth every 6 hours as needed for Pain. Take with food. Disp: 40 tablet Rfl: 1 diazePAM (VALIUM) 10 mg tablet Take 1 tablet by mouth twice daily for 180 days. Disp: 60 tablet Rfl: 5 PARoxetine (PAXIL) 10 mg tablet Take 1 tablet by mouth once daily. Disp: 30 tablet Rfl: 5 cetirizine (ZYRTEC) 10 mg tablet Take 1 tablet by mouth once daily. Disp: 90 tablet Rfl: 1 No current facility-administered medications for this visit. ONE PNEUMOVAX PRIOR TO AGE 67 due on 2001 INFLUENZA(1) due on 02/04/2018 EXAM: BP 116/60 Pulse 64 Temp 36.9 ?C (98.4 ?F) (Tympanic) Resp 16 Wt 92.1 kg (203 lb) LMP 10/13/2010 BMI 34.84 kg/m? Pleasant adult woman in no acute distress. Alert and oriented all spheres. Normal affect and cognition. Speech normal. No deficits to learning or comprehension. Skin warm, dry, pink to lips and nailbeds. Normal turgor. Has 1.5 cm ulceration with inverted edges, 1 cm erythema surrounding, tender. Also has small 1cm red papule right axilla. Respirations regular and unlabored. HEENT WNL. TM's clear. Nose and oropharynx free from injection or lesion. No cervical lymph nodes. Thyroid non-tender, no massesExtrem: no clubbing, cyanosis, edema. Extremities are warm and pink with prompt capillary refill. Has tenderness in muscular trigger points right thumb. Has spasm with resisted opposition. OMT: myofascial release to trigger points, HVLA to MCCJ on right with improvement. ASSESSMENT/PLAN: 1. Ulcer of abdomen wall, limited to breakdown of skin (HCC) - ICD9: 707.8, ICD10: L98.491 (primary diagnosis) - SULFAMETHOXAZOLE 800 MG-TRIMETHOPRIM 160 MG TABLET - Recheck in 1 week 2. Recurrent boils - ICD9: 680.9, ICD10: L02.93 - SULFAMETHOXAZOLE 800 MG-TRIMETHOPRIM 160 MG TABLET - MUPIROCIN 2 % TOPICAL OINTMENT 3. Seasonal allergies - ICD9: 477.9, ICD10: J30.2 - CETIRIZINE 10 MG TABLET 4. Chronic pain of right thumb - ICD9: 729.5, 338.29, ICD10: M79.644, G89.29 OMT with improvement 5. 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 Ankur Deal PA-C CNOV Observed: 03/13/2018 Status: COMPLETED Source: [place] 2:20 PM [facility] RE[facility]ITORY Office Visit (FAMPWS) VALERIA JHA ([id number]) 1980 F Date Time Provider Department 03/13/18 2:20 PM Ankur DEAL) FAMPWS During your visit today, we recorded the following information about you: Temperature Pulse Respiration Blood pressure 98.4 degrees 64/minute 16/minute 116/60 Weight 92.1 kg Ankur Deal PA-C 03/13/2018 10:07 PM Signed 37 year old female with c/o 1. infection on abdominal wall which tarted at least a month ago with a boil. Now has a hole'. No fever or chills. Just realized still there Tuesday night. Recurrent. 2. Right thumb pain radiating to wrist. Asked to have OMT which helped in past. 3. Exacerbation seasonal allerigies. Want to refill zyrtec. Which helps. 4. Tender lymph node posterior right occipital area. No recent scratches or rashes on scalp or head. HISTORIES FAMILY HISTORY Problem Relation Age of Onset - Allergies Mother - Hypertension Mother diabetes - Lipids Mother - Psychiatry Mother bipolar disorder - Diabetes Mother - Arthritis Father gout - other (Myotonia) Father - Alzheimer's Disease Paternal Grandfather HEARING LOSS,PARKINSONS - Stroke Paternal Grandfather - Arthritis Paternal Grandmother - Hypertension Paternal Grandmother - Osteoporosis Paternal Grandmother - Stroke Paternal Grandmother - Thyroid Paternal Grandmother - Arthritis Maternal Grandmother CAROTID ARTERY CLEANED OUT, DIABETES - Hypertension Maternal Grandmother - Lipids Maternal Grandmother - Stroke Maternal Grandmother - Diabetes Maternal Grandmother - Diabetes Brother (1/2 brother) PAST MEDICAL HISTORY Diagnosis Date - Abdominal pain, other specified site RLQ and LLQ chronic - Abnormal glandular Papanicolaou smear of cervix Abn. Pap smear (cervix), s/p CHARBEL - Chronic back pain - Chronic rhinitis 06/30/2005 Dr. Bell - Depressive disorder, not elsewhere classified 06/30/2005 nerves - Esotropia, unspecified Dr. Encarnacion, Right eye - GERD (gastroesophageal reflux disease) - Migraine - Myotonia - Thrombosed external hemorrhoid 03/20/2012 - Tobacco abuse - Unspecified constipation - Unspecified inflammatory disease of female pelvic organs and tissues chronic pelvic pain PAST SURGICAL HISTORY Procedure Laterality Date - APPENDECTOMY October 27, 2004 LAPROSCOPIC - COLONOSCOP W/ OR W/O [facility] SPEC 10/27/05 - HYSTEROSCOPY, STERILIZATION 02/13/08 [facility] - L'SCOPE DX W/WO BRUSHINGS/WASHINGS October Laparoscopy, adhesion lysis - POLYSOMNOGRAM(DIAG) [id number] 12/2005 Sleep study wnl - THYROID FINE NEEDLE ASPIRATION 2012 - VAGINAL HYSTERECTOMY 10/29/10 [facility] Social History Marital status: Spouse name: Years of education: GED Number of children: 2 Occupational History Occupation Employer Comment unemployed [employer] last job in [place] [employer] Social History Main Topics Smoking status: Current Every Day Smoker Packs/day: 0.50 Years: 12.00 Types: Cigarettes Smokeless tobacco: Never Used Alcohol use: No Drug use: No Comment: marijuana as teenager, none recent Sexual activity: Yes Partners with: Male control/protection: Surgical Other Topics Concern BLOOD TRANSFUSIONS No CAFFEINE Yes Comment:caffeine withdrawal headaches OCCUPATIONAL EXPOSURE No SLEEP CONCERN Yes Comment:nightmares of killings STRESS CONCERN Yes Comment:'too much' DIET No EXERCISE No SEAT BELT Yes SELF EXAMS Yes Comment:advised Social History Narrative Single, 2 children (ages 11 yo son, age 5 yo dtr ) - [facility] 01/2013 ACTIVE PROBLEM LIST Migraine Without Aura, Without Mention of Intractable Migraine Without Mention of Status Migrainosus Unspecified Constipation Myalgia and Myositis, Unspecified Bmi 37.0-37.9, Adult Multinodular Goiter Lumbar Spondylosis Low Back Pain Cognitive Deficit Due 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 Disp: Rfl: ibuprofen (MOTRIN) 800 mg tablet Take 1 tablet by mouth every 6 hours as needed for Pain. Take with food. Disp: 40 tablet Rfl: 1 diazePAM (VALIUM) 10 mg tablet Take 1 tablet by mouth twice daily for 180 days. Disp: 60 tablet Rfl: 5 PARoxetine (PAXIL) 10 mg tablet Take 1 tablet by mouth once daily. Disp: 30 tablet Rfl: 5 cetirizine (ZYRTEC) 10 mg tablet Take 1 tablet by mouth once daily. Disp: 90 tablet Rfl: 1 No current facility-administered medications for this visit. ONE PNEUMOVAX PRIOR TO AGE 67 due on 2001 INFLUENZA(1) due on 02/04/2018 EXAM: BP 116/60 Pulse 64 Temp 36.9 ?C (98.4 ?F) (Tympanic) Resp 16 Wt 92.1 kg (203 lb) LMP 10/13/2010 BMI 34.84 kg/m? Pleasant adult woman in no acute distress. Alert and oriented all spheres. Normal affect and cognition. Speech normal. No deficits to learning or comprehension. Skin warm, dry, pink to lips and nailbeds. Normal turgor. Has 1.5 cm ulceration with inverted edges, 1 cm erythema surrounding, tender. Also has small 1cm red papule right axilla. Respirations regular and unlabored. HEENT WNL. TM's clear. Nose and oropharynx free from injection or lesion. No cervical lymph nodes. Thyroid non-tender, no massesExtrem: no clubbing, cyanosis, edema. Extremities are warm and pink with prompt capillary refill. Has tenderness in muscular trigger points right thumb. Has spasm with resisted opposition. OMT: myofascial release to trigger points, HVLA to MCCJ on right with improvement. ASSESSMENT/PLAN: 1. Ulcer of abdomen wall, limited to breakdown of skin (HCC) - ICD9: 707.8, ICD10: L98.491 (primary diagnosis) - SULFAMETHOXAZOLE 800 MG-TRIMETHOPRIM 160 MG TABLET - Recheck in 1 week 2. Recurrent boils - ICD9: 680.9, ICD10: L02.93 - SULFAMETHOXAZOLE 800 MG-TRIMETHOPRIM 160 MG TABLET - MUPIROCIN 2 % TOPICAL OINTMENT 3. Seasonal allergies - ICD9: 477.9, ICD10: J30.2 - CETIRIZINE 10 MG TABLET 4. Chronic pain of right thumb - ICD9: 729.5, 338.29, ICD10: M79.644, G89.29 OMT with improvement 5. 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 HIRAL Li PA-C 03/13/2018 3:30 PM Signed Bactrim DS is a sulfa based antibiotic. Please take it as directed. If you should breakout in a rash, stop the medicine and call the office. Any antibiotic has the potential to cause diarrhea due to alteration in the normal bacterial charis of the gut. This can be reduced by eating yogurt with active cultures daily while on the medication. If diarrhea becomes severe (watery, large volumes or more than 3-4/day) call the office. If you do not like yogurt, ask the pharmacist for a probiotic supplement such as lactobacillus or acidophillus. Women may experience yeast vaginitis due to alteration in the vaginal charis. Symptoms include vaginal itching, irritation, and often a clumpy white discharge. If this occurs, there are several effective over the counter remedies available, including one-dose treatments. If these are unsuccessful, call the office. Antibiotics may interfer with control. If you are on oral contraceptives, use another form of protection (condoms, foams, jellies, diaphragm) throught the end of whatever pill pack you are on in 10 days. Keep area(s) clean and dry. Wash with soap and water twice a day followed by Bacitracin ointment and a clean dry gauze (not telfa) dressing until oozing or bleeding stops. Once wound is dry, you may leave it open to the air. Recheck wound in 5-7 days here. If any unusual pain, swelling, red streaks, pus, fever or other signs of worsening infection, call immediately. Regarding lymph node on scalp: recheck in 2 weeks if still present. Referring Provider: SELF [[id number]] Allergies As of Date: 03/13/2018 Noted Allergy Reaction ADHESIVE 10/09/2008 Comments: Local irritation at site Beestings [Other] 03/13/2007 CAT DANDER [Other] 02/25/2005 5 - Intolerance FLEXERIL (CYCLOBENZAPRINE HCL) 06/30/2016 5 - Intolerance Comments: headcahes GRASS POLLEN 02/25/2005 2 - Rash MOLDS [Other] 02/25/2005 5 - Intolerance RAGWEED 03/18/2006 Date Reviewed: 03/13/2018 Reviewed by: Karen Sheehan Ma - Fully Assessed Reason for Visit: Abscess [1744] Cmt: abdomen, since tuesday Primary Visit Diagnosis:Ulcer of abdomen wall, limited to breakdown of skin (HCC) [L98.491] Other Visit Diagnoses:Recurrent boils [L02.93] Seasonal allergies [J30.2] Chronic pain of right thumb [M79.644, G89.29] 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 [facility]: 0 fluconazole (DIFLUCAN) 150 mg tabletTake 1 tablet by mouth once daily for 1 day.Disp: 1 tabletRfl: 0 Prescriptions as of 03/13/2018 Sig: BACLOFEN 10 MG TABLET take 1 tablet by mouth three * NAPROXEN ORAL Take by mouth. IBUPROFEN 800 MG TABLET Take 1 tablet by mouth every * CETIRIZINE 10 MG TABLET Take 1 tablet by mouth once d* SULFAMETHOXAZOLE 800 MG-TRIME* Take 1 tablet by mouth twice * MUPIROCIN 2 % TOPICAL OINTMENT Apply 1 application to affect* FLUCONAZOLE 150 MG TABLET Take 1 tablet by mouth once d* DIAZEPAM 10 MG TABLET Take 1 tablet by mouth twice * PAROXETINE 10 MG TABLET Take 1 tablet by mouth once d* Medication notes this encounter PAROXETINE 10 MG TABLET >> Karen Sheehan Ma 03/13/2018 2:43 PM >> KAREN SHEEHAN MA Mar 13, 2018 2:43 PM Patient is no longer taking due to side effects Problem List As Of Date 03/13/2018 Noted Resolved Esophageal reflux [K21.9] INVALID FOR*08/27/2015 Depressive disorder, not elsewhere classified [*INVALID FOR*08/27/2015 COMMON MIGRAINE W/O MENTN INTRACT [G43.009] INVALID FOR* Chronic rhinitis [J31.0] INVALID FOR*08/27/2015 More... Abdominal pain, right lower quadrant [R10.31] 05/09/2012 Abdominal pain, left lower quadrant [R10.32] 05/09/2012 CONSTIPATION NOS [K59.00] MYALGIA AND MYOSITIS NOS [[id number]] INVALID FOR* Lump or Mass in Breast [N63.0] INVALID FOR*01/30/2009 Sprain of foot, unspecified site [S93.609A] INVALID FOR*03/21/2013 Nausea alone [R11.0] 03/21/2013 Heartburn [R12] 08/27/2015 Achilles bursitis or tendinitis [M76.60] INVALID FOR*08/27/2015 Enthesopathy of unspecified site [M77.9] INVALID FOR*08/27/2015 Tibialis posterior tendonitis [M76.829] INVALID FOR*08/27/2015 Urine frequency [R35.0] INVALID FOR*08/27/2015 Hematuria [R31.9] INVALID FOR*08/27/2015 Suprapubic pressure [R10.2] INVALID FOR*08/27/2015 Stress incontinence [N39.3] INVALID FOR*08/27/2015 BMI 37.0-37.9, adult [Z68.37] INVALID FOR* Thrombosed external hemorrhoid [K64.5] INVALID FOR*03/21/2013 Multinodular goiter [E04.2] INVALID FOR* Right groin pain [R10.31] INVALID FOR*08/18/2016 Lumbar spondylosis [M47.816] INVALID FOR* Low back pain [M54.5] INVALID FOR* 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 Left medial knee pain [M25.562] INVALID FOR* Paresthesia of left leg [R20.2] INVALID FOR* More... Sciatica of left side [M54.32] INVALID FOR* Other instructions from your clinician: Bactrim DS is a sulfa based antibiotic. Please take it as directed. If you should breakout in a rash, stop the medicine and call the office. Any antibiotic has the potential to cause diarrhea due to alteration in the normal bacterial charis of the gut. This can be reduced by eating yogurt with active cultures daily while on the medication. If diarrhea becomes severe (watery, large volumes or more than 3-4/day) call the office. If you do not like yogurt, ask the pharmacist for a probiotic supplement such as lactobacillus or acidophillus. Women may experience yeast vaginitis due to alteration in the vaginal charis. Symptoms include vaginal itching, irritation, and often a clumpy white discharge. If this occurs, there are several effective over the counter remedies available, including one-dose treatments. If these are unsuccessful, call the office. Antibiotics may interfer with control. If you are on oral contraceptives, use another form of protection (condoms, foams, jellies, diaphragm) throught the end of whatever pill pack you are on in 10 days. Keep area(s) clean and dry. Wash with soap and water twice a day followed by Bacitracin ointment and a clean dry gauze (not telfa) dressing until oozing or bleeding stops. Once wound is dry, you may leave it open to the air. Recheck wound in 5-7 days here. If any unusual pain, swelling, red streaks, pus, fever or other signs of worsening infection, call immediately. Regarding lymph node on scalp: recheck in 2 weeks if still present. Prescriptions ordered this encounter Disp Refills Start End CETIRIZINE 10 MG TABLET 90 t* 1 03/13/2018 Route: ORAL Sig: Take 1 tablet by mouth once daily. SULFAMETHOXAZOLE 800 MG-TRIMETHOPRIM* 20 t* 0 03/13/2018 03/23/2018 Cmt: Ok to give generic equivalent Route: ORAL Sig: Take 1 tablet by mouth twice daily for 10 days. MUPIROCIN 2 % TOPICAL OINTMENT 15 g 0 03/13/2018 Route: TOPICAL Sig: Apply 1 application to affected area three times daily. Location: boil FLUCONAZOLE 150 MG TABLET 1 ta* 0 03/13/2018 03/14/2018 Route: ORAL Sig: Take 1 tablet by mouth once daily for 1 day. Medications Discontinued During This Encounter fluticasone (FLONASE) 50 mcg/actuati* 1 [facility]* 5 08/01/2017 03/13/2018 Route: EACH NOSTRIL Sig: Use 2 Sprays in each nostril once daily. Disc: Course of therapy completed triamcinolone (KENALOG IN ORABASE) 0* 2 g 1 09/12/2017 03/13/2018 Sig: Apply small amount (1/4 of paste) twice a day to ulcer on tongue until improved. Patient not taking: Reported on 11/14/2017 Disc: Course of therapy completed cetirizine (ZYRTEC) 10 mg tablet 90 t* 1 10/06/2017 03/13/2018 Route: ORAL Sig: Take 1 tablet by mouth once daily. Disc: Reason for discontinue is not on file. Encounter Status:Closed by Ankur DEAL PA-C on 03/13/18 EMERGENCY DEPARTMENT Observed: 02/16/2018 Status: F Source: [place] SUMMARY 4:21 PM [facility] Medical Records Department [address] [place] [address] Emergency Department Summary 02/16/18 1447 MR#: [id number] Acct: [id number] Name: VALERIA JHA Rep #: [id number] : 1980 37 From: Petar Osuna DO PCP: Gonzalo De Leon MD Status: REG ER - ER Visit Summary Date of Service: 02/16/18 Chief Complaint: General weakness History of Present Illness: The patient is a 37 F who presents with weakness, lightheadedness, dizziness that began yesterday. Patient states this has been waxing and waning for the past 2 days. Patient states this has gradually gotten worse. Patient states she feels lightheaded. Patient also states she feels like my head is filled with fog. Patient denies any spinning sensation. Patient does admit to some urinary urgency but denies any dysuria. Patient admits to some subjective fevers. Patient denies any chest pain or shortness of breath. Patient denies any nausea or vomiting. Patient does admit to a headache. Physical Examination: All signs are stable. Patient is afebrile. Patient is in no acute distress. Oral mucosa is pink and moist. Neck is supple. Trachea is midline. There is no JVD noted. Heart was regular rate and rhythm. Lungs are clear and equal bilaterally. There is good respiratory effort noted. Cranial nerves II through XII are intact strength is 5/5 bilateral in the upper and lower extremities. She was able to sit up on her own without difficulty. There are no sensory deficits noted. The remaining physical exam is within normal limits. Test Results: CBC, metabolic profile, and urinalysis were obtained were all within normal limits. PA and lateral chest x-ray was obtained. There is no acute cardiopulmonary process. Emergency Department Course and Treatment: Patient was able to stand and ambulate without difficulty. Patient was advised that this may be related to her baclofen and Valium. Patient was instructed to follow-up with her primary care physician for further evaluation. Patient understood and was agreeable with the plan. All questions were answered. Disposition: Discharged home Impression: Weakness and dizziness This note was generated with [employer] dictation software. It may contain incorrect words, spelling, and punctuation that were not noted in review of the chart prior to signing ED Disposition - Plan for ED Patient: Chief Complaint: Weakness Diagnosis: Weakness generalized Instructions: ED Weakness UKO Referrals: Gonzalo De Leon MD [Primary Care Provider] - What to do if you have Problems For any increased pain, shortness of breath, bleeding, nausea or vomiting, chest pain, or any unexpected problems, contact your Primary Care Provider. Call [facility] ([phone]) or report to the closest Emergency Room. Call 911 if necessary. 02/16/18 1621 <Electronically signed by Petar Osuna DO> Date Petar Osuna DO Cosigner Signature (If Indicated): Date CC: Gonzalo De Leon MD URINALYSIS, COMPLETE Collected: 02/16/2018 Status: F Source: [place] 3:30 PM [facility] Order Comment: Order Date: 02/16/18 How was Urine Obtained? CLEAN CATCH TYPE CODE TESTS RESULT OUT OF RANGE REFERENCE UNITS LAB L400.3000 Yellow COLOR Normal Yellow LAB L400.3050 Clear Normal CLARITY Sl. Cloudy LAB L400.3200 Normal mg/dl Normal GLUCOSE, UR Normal LAB L400.3300 Negative mg/dL Normal BILIRUBIN URINE Negative LAB L400.3400 Negative mg/dl High 5 KETONE UR LAB L400.3465 1.002-1.030 Normal SP.GR. DIPSTX 1.015 LAB L400.3550 5.0 - 8.0 pH UR Normal 7.0 LAB L400.3600 Negative mg/dl PROT Normal DIPSTX Negative LAB L400.3700 Normal mg/dl High 1 UROBILI LAB L400.3750 Negative Normal NITRITE UR Negative LAB L400.3780 Negative /ul High 25 OCCULT BLOOD-UR LAB L400.3800 Negative /ul High LEUK 25 ESTERASE LAB L400.4050 0-5 /hpf WBC Normal 0-5 SEEN LAB L400.4100 0-5 /hpf Normal RBC-UA 0-5 SEEN LAB L400.4150 5-10 /hpf SQUAM Normal EPI 0-5 SEEN LAB L400.4300 None Seen /hpf 0 Normal BACTERIA SEEN LAB L400.4350 <or=2+ /hpf 0 Normal MUCUS, URINE SEEN LAB L400.4900 1+ Normal AMORPHOUS PHOS Performed By: #### L400.0001 #### [facility] [address] [place], [address] CBC W/DIFF, AUTOMATED Collected: 02/16/2018 Status: F Source: [place] 2:56 PM [facility] TYPE CODE TESTS RESULT OUT OF RANGE REFERENCE UNITS LAB L100.1000 4.4-11.0 K/mm3 Normal WBC 8.8 LAB L100.1200 4.2-5.4 M/mm3 Low RBC 4.07 LAB L100.1300 12.0-15.0 g/dl Normal HGB 13.6 LAB L100.1400 37-47 % Normal HCT 40.3 LAB L100.1500 81-99 fL Normal MCV 99.0 LAB L100.1600 27.0-32.0 pg High MCH 33.4 LAB L100.1700 32-36 g/gl Normal MCHC 33.7 LAB L100.1810 11.6-14.6 % Normal RDW CV 12.0 LAB L100.1820 35.1-43.9 fl Normal RDW SD 43.5 LAB L100.1900 150-450 K/mm3 Normal PLT 314 LAB L100.2000 6.2-12.0 fl Normal MPV 9.3 LAB L100.2100 47-70 % Normal NEUT% 66.1 LAB L100.2200 19-41 % Normal LY% 25.9 LAB L100.2300 0-10 % Normal MONO% 4.4 LAB L100.2400 0-5 % Normal EO% 3.3 LAB L100.2500 0-1 % Normal BASO% 0.3 LAB L100.2550 0.0-0.9 % Normal IM GRAN % 0.000 Result Comment: IG% - Immature Granulocytes (promyelocytes, myelocytes and metamyelocytes) > 1% indicates that a LEFT SHIFT is Present. LAB L100.2620 2.0-7.7 X10 3/uL Normal Absolute Neut 5.8 LAB L100.2720 0.83-4.51 X10 3/ul Normal Absolute Lymph 2.27 Performed By: #### L100.0100 #### [facility] [place], [address] COMPREHENSIVE METABOLIC Collected: 02/16/2018 Status: F Source: [place] [facility] 2:56 PM [facility] TYPE CODE TESTS RESULT OUT OF RANGE REFERENCE UNITS LAB L501.0100 74-106 mg/dL Normal GLU 74 Result Comment: Please note revised GLUCOSE reference range effective 2017. LAB L501.1000 7-18 mg/dL Normal BUN 12 LAB L501.1100 0.55-1.02 mg/dL Normal CREAT,SERUM 0.89 Result Comment: The validity of the calculated GFR AND GFRAA in patients over 70 years has not been determined. Clinical correlation is essential. LAB L501.1110 >60 mL/min Normal EST GFR 77 Result Comment: Non- GFR Calc LAB L501.1115 >60 mL/min Normal EST GFR - AA 93 Result Comment: GFR Calc LAB L501.1255 ml/min Normal Estimated CRCL 76.19 LAB L501.1300 10-20 RATIO Normal BUN/CRE 13.5 LAB L501.1500 6.4-8. g/dL Normal 2 T PROT 6.9 LAB L501.1800 3.2-5. g/dL Normal 0 ALB 3.7 LAB L501.1950 2.2-4. g/dL Normal 2 GLOB 3.2 LAB L501.2000 0.9-2. RATIO Normal 4 A/G 1.2 LAB L501.2200 8.5-10 mg/dL Normal .1 CA 8.8 LAB L501.4100 15-37 U/L Normal AST 18 LAB L501.4305 45-117 U/L Normal ALK P 60 LAB L501.4405 13-56 U/L Normal ALT 32 LAB L501.4600 0.20-1 mg/dL Normal .00 T BILI 0.30 LAB L501.5300 136-14 mmol/L Normal 5 NA 143 LAB L501.5600 3.5-5. mmol/L Normal 1 K 4.1 LAB L501.5900 98-107 mmol/L High CL 109 LAB L501.6100 21.0-3 mmol/L Normal 2.0 CO2 28.0 LAB L501.6200 5-15 Normal GAP 6 Performed By: #### L500.4050 #### [facility] [address] [place], [address] CHEST PA AND LATERAL Observed: 02/16/2018 Status: F Source: [place] 2:47 PM [facility] Imaging Services [address] [place] [address] Chest PA and Lateral MR#: [id number] Acct: [id number] Name: VALERIA JHA R Rep #: [id number] : 1980 F 37 From: Keaton Lambert MD PCP: Gonzalo De Leon MD Status: REG ER Study: Chest PA and Lateral Date of Exam: 02/16/18 Exam# [id number] Ordering Dr: Petar Osuna DO STUDY: X-RAY CHEST REASON FOR EXAM: Female, 37 years old. Dizziness TECHNIQUE: Frontal and lateral views of the chest. COMPARISON: None. FINDINGS: The lungs are clear and expanded. There is no demonstrated pleural abnormality. Normal size heart. Normal mediastinum and maddie. Normal visualized pulmonary arteries. Normal visualized aortic arch and descending thoracic aorta. Normal visualized thoracic spine. Normal visualized ribs, clavicles, and shoulders. There is no demonstrated abnormality of the visualized soft tissue structures of the upper abdomen. RAD/Chest PA and Lateral IMPRESSION: Normal x-ray examination of the chest. Electronically Signed: Keaton Lambert MD at 16:37 EDT , Service support , CC: Petar Osuna DO; Gonzalo De Leon MD Broadcast Director Operations: Signed EMERGENCY DEPARTMENT Observed: 12/29/2017 Status: F Source: [place] SUMMARY 11:37 PM [facility] Medical Records Department [address] [place] [address] Emergency Department Summary 12/29/17 2320 MR#: [id number] Acct: [id number] Name: VALERIA JHA Rep #: [id number] : 1980 37 From: Donte Ladd MD PCP: Gonzalo De Leon MD Status: PRE ER - ER Visit Summary Date of Service: 12/29/17 Chief Complaint: Right foot pain History of Present Illness: The patient is a 37 F who has right foot pain. She kicked a shopping cart 2 days ago. She was only wearing sandals when this happened. She has pain of the right foot that radiates to her ankle. She tried Aleve without any relief. She does have a history of a surgery to the right foot. Physical Examination: Vital signs reviewed. Right foot exam reveals tenderness palpation of the lateral foot. There is no swelling seen. She does have painful range of motion. She has equal pulses. Test Results: X-rays the foot is normal Emergency Department Course and Treatment: Patient has no fractures of the foot. She will be instructed to use ice and continue nonsteroidals. She will follow-up with her PCP Treatment Plan: [] Disposition: Discharge Impression: Right foot sprain This note was generated with [employer] dictation software. It may contain incorrect words, spelling, and punctuation that were not noted in review of the chart prior to signing ED Disposition - Plan for ED Patient: Chief Complaint: Lower Extremity Injury Referrals: Gonzalo De Leon MD [Primary Care Provider] - What to do if you have Problems For any increased pain, shortness of breath, bleeding, nausea or vomiting, chest pain, or any unexpected problems, contact your Primary Care Provider. Call [facility] ([phone]) or report to the closest Emergency Room. Call 911 if necessary. 12/29/177 <Electronically signed by Donte Ladd MD> Date Donte Ladd MD Cosigner Signature (If Indicated): Date CC: Gonzalo De Leon MD DISCHARGE INSTRUCTION Observed: 12/29/2017 Status: F Source: [place] 11:34 PM [facility] Medical Records Department [address] [place] [address] Discharge Instruction 12/29/173 MR#: [id number] Acct: [id number] Name: VALERIA JHA Rep #: [id number] : 1980 37 From: Donte Ladd MD PCP: Gonzalo De Leon MD Status: PRE ER ED Disposition - Plan for ED Patient: Disposition: Home or Assisted Living Chief Complaint: Lower Extremity Injury Instructions: ED Sprain Foot Referrals: Gonzalo De Leon MD [Primary Care Provider] - What to do if you have Problems For any increased pain, shortness of breath, bleeding, nausea or vomiting, chest pain, or any unexpected problems, contact your Primary Care Provider. Call [facility] ([phone]) or report to the closest Emergency Room. Call 911 if necessary. 12/29/17 2334 <Electronically signed by Donte Ladd MD> Date Donte aLdd MD Cosigner Signature (If Indicated): Date CC: Gonzalo De Leon MD FOOT MIN 3 VIEWS Observed: 12/29/2017 Status: F Source: [place] 11:17 PM [facility] Imaging Services [address] [place] [id number] Foot min 3 Views MR#: [id number] Acct: [id number] Name: VALERIA JHA Rep #: [id number] : 1980 F 37 From: Anshu Hooper MD PCP: Gonzalo De Leon MD Status: REG ER Study: Foot min 3 Views Date of Exam: 12/29/17 Exam# [id number] Ordering Dr: Donte Ladd MD STUDY: X-RAY - RIGHT FOOT CLINICAL: Female, 37 years old. Right foot injury 2 days ago. Fifth digit pain TECHNIQUE: 3 view(s) of the foot. COMPARISON: None. FINDINGS: Normal talus, calcaneus, and tarsal bones. Normal visualized subtalar, talonavicular, calcaneocuboid, tarsal and tarsometatarsal articulations. Normal metatarsi. Normal metatarsophalangeal joint of the great toe. Normal tibial and fibular sesamoid bones. Normal interphalangeal joint of the great toe. Normal phalanges of the great toe. Normal second through fifth metatarsophalangeal joints. Normal interphalangeal joints and phalanges of the lesser toes. The soft tissue structures are unremarkable. RAD/Foot min 3 Views IMPRESSION: Normal x-ray examination of the foot. Electronically Signed: Anshu Hooper MD at 23:45 EDT Tel , Service support , CC: Donte Ladd MD; Gonzalo De Leon MD Broadcast Director Operations: Signed PROGRESS Observed: 12/19/2017 Status: COMPLETED Source: [place] 11:53 PM [facility] HNO ID: [id number] Author: Patricia Day Poly-T Service: (none) Author Type: (none) Type: Progress Notes Filed: 12/19/2017 11:59 PM Note Text: Your patient, Valeria Jha, could not have the sleep study you ordered due to no show. We will call the patient and make a reasonable attempt to reschedule the sleep study. Please note, your orders will still be valid for one year. Thank you for your attention. PROGRESS Observed: 11/15/2017 Status: COMPLETED Source: [place] 3:57 PM [facility] HNO ID: [id number] Author: Ankur Deal Service: (none) Author Type: Physician Sales And Merchandising Representative Type: Progress Notes Filed: 11/15/2017 7:03 PM Note Text: 36 year old female with c/o concern for nut allergy 1.) Nut allergy. Yesterday evening had ice cream with almonds (coffee fudge and truffle) and within an hour was itching and broke out in hives everywhere almost immediately (within 20 minutes). Admits to a similar experience as a child with a butter pecan ice cream. States that she eats nuts frequently and has never had this reaction. Took 2 benadryl which seemed to help. Residual pruritis in the am and she took 2 more benadryl which relieved the itching. Denies angioedema, runny eyes, runny nose. Believes she can eat dairy and gluten without problems. Has not seen anyone for this before. Denies any new changes in shampoo, detergent, lotions, face wash. Has seasonal allergies. Gets sneezing, runny nose, watery eyes with allergies. Has 2 cat 1 dog at home. Notices irritation when their hair gets on her. 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 Taking all medications as prescribed. No new changes. 3.) Back pain. Thinks there is a pinched nerve in her spine. Saw chiropractor that took X-rays- said they saw something pinched in her spine. Has lumbar pain that radiates around to R hip. Takes valium and baclofen for the pain but says this doesn't help. Concerned about chiropractic treatment. States that she gets better with me but didn't seem to get better with the chiropractor. She's having x- rays for review. She would like to proceed with an MRI and is willing to undergo physical therapy. 4.) Depression. Started Paxil last night. Gets this prescription from Dr. Newsome. Admits to increasing worry and fatigue. Sleeps a lot at night and throughout the day (12h total). Denies changes in appetite, suicidal ideations, intent to harm others. Does not have upcoming apt with Dr. Newsome. Will continue to communicate through my chart. HISTORIES FAMILY HISTORY Problem Relation Age of Onset - Allergies Mother - Hypertension Mother diabetes - Lipids Mother - Psychiatry Mother bipolar disorder - Diabetes Mother - Arthritis Father gout - Myotonia [OTHER] Father - Alzheimer's Disease Paternal Grandfather HEARING LOSS,PARKINSONS - Stroke Paternal Grandfather - Arthritis Paternal Grandmother - Hypertension Paternal Grandmother - Osteoporosis Paternal Grandmother - Stroke Paternal Grandmother - Thyroid Paternal Grandmother - Arthritis Maternal Grandmother CAROTID ARTERY CLEANED OUT, DIABETES - Hypertension Maternal Grandmother - Lipids Maternal Grandmother - Stroke Maternal Grandmother - Diabetes Maternal Grandmother - Diabetes Brother (1/2 brother) PAST MEDICAL HISTORY Diagnosis Date - Abdominal pain, other specified site RLQ and LLQ chronic - Abnormal glandular Papanicolaou smear of cervix Abn. Pap smear (cervix), s/p CHARBEL - Chronic back pain - Chronic rhinitis 06/30/2005 Dr. Bell - Depressive disorder, not elsewhere classified 06/30/2005 nerves - Esotropia, unspecified Dr. Encarnacion, Right eye - GERD (gastroesophageal reflux disease) - Migraine - Myotonia - Thrombosed external hemorrhoid 03/20/2012 - Tobacco abuse - Unspecified constipation - Unspecified inflammatory disease of female pelvic organs and tissues chronic pelvic pain PAST SURGICAL HISTORY Procedure Laterality Date - APPENDECTOMY October 27, 2004 LAPROSCOPIC - COLONOSCOP W/ OR W/O [facility] SPEC 10/27/05 - HYSTEROSCOPY, STERILIZATION 02/13/08 [facility] - L'SCOPE DX W/WO BRUSHINGS/WASHINGS October Laparoscopy, adhesion lysis - POLYSOMNOGRAM(DIAG) 47327 12/2005 Sleep study wnl - THYROID FINE NEEDLE ASPIRATION 2012 - VAGINAL HYSTERECTOMY 10/29/10 [facility] Social History Marital status: Spouse name: Years of education: GED Number of children: 2 Occupational History Occupation Employer Comment unemployed [employer] last job in [place] Social History Main Topics Smoking status: Current Every Day Smoker Packs/day: 0.50 Years: 12.00 Types: Cigarettes Smokeless tobacco: Never Used Alcohol use: No Drug use: No Comment: marijuana as teenager, none recent Sexual activity: Yes Partners with: Male control/protection: Surgical Other Topics Concern BLOOD TRANSFUSIONS No CAFFEINE Yes Comment:caffeine withdrawal headaches OCCUPATIONAL EXPOSURE No SLEEP CONCERN Yes Comment:nightmares of killings STRESS CONCERN Yes Comment:'too much' DIET No EXERCISE No SEAT BELT Yes SELF EXAMS Yes Comment:advised Social History Narrative Single, 2 children (ages 11 yo son, age 5 yo dtr ) - [facility] 01/2013 ACTIVE PROBLEM LIST Migraine Without Aura, Without Mention of Intractable Migraine Without Mention of Status Migrainosus Unspecified Constipation Myalgia and Myositis, Unspecified Bmi 37.0-37.9, Adult Multinodular Goiter Lumbar Spondylosis Low Back Pain 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 Disp: 60 tablet Rfl: 5 PARoxetine (PAXIL) 10 mg tablet Take 1 tablet by mouth once daily. Disp: 30 tablet Rfl: 5 baclofen (LIORESAL) 10 mg tablet Take 1 tablet by mouth three times daily as needed (muscle spasms). Disp: 90 tablet Rfl: 1 cetirizine (ZYRTEC) 10 mg tablet Take 1 tablet by mouth once daily. Disp: 90 tablet Rfl: 1 triamcinolone (KENALOG IN ORABASE) 0.1 % paste Apply small amount (1/4 of paste) twice a day to ulcer on tongue until improved. (Patient not taking: Reported on 11/14/2017 ) Disp: 2 g Rfl: 1 fluticasone (FLONASE) 50 mcg/actuation nasal spray Use 2 Sprays in each nostril once daily. Disp: 1 Bottle Rfl: 5 NAPROXEN ORAL Take by mouth. Disp: Rfl: ibuprofen (MOTRIN) 800 mg tablet Take 1 tablet by mouth every 6 hours as needed for Pain. Take with food. Disp: 40 tablet Rfl: 1 No current facility-administered medications for this visit. ONE PNEUMOVAX PRIOR TO AGE 67 due on 2001 EXAM: BP 114/72 Pulse 70 Resp 16 Wt 95.3 kg (210 lb) LMP 10/13/2010 BMI 36.05 kg/m? Pleasant overweight female in no acute distress. Alert and oriented all spheres. Normal affect and cognition. Speech normal. No deficits to learning or comprehension. Skin warm, dry, pink to lips and nailbeds. Normal turgor. No evidence of hives, irritation or erythema. Respirations regular and unlabored. Clear to auscultation bilaterally CV: RRR, no murmurs, rubs or gallops appreciated. S1 and S2 present. Extrem: no clubbing, cyanosis, edema. Extremities are warm and pink with prompt capillary refill. ASSESSMENT/PLAN: 1. Hives - ICD9: 708.9, ICD10: L50.9 (primary diagnosis) - Likely viral or allergic etiology discussed with patient. Patient is very insistent on having workup to determine whether or not she has no allergies. Was very disturbed by her outbreak of hives. - Follow up if symptoms persist or worsen. - CONSULT TO ALLERGY/IMMUNOLOGY 2. Lumbar spondylosis - ICD9: 721.3, ICD10: M47.816 Advised patient she is welcome to follow up here as needed for osteopathic therapy. She is also welcome to persist with chiropractor or physical therapy here. She does not really wish to proceed with physical therapy focused on having an MRI. Discussed this could be reviewed with her current neurologist but insurance is not likely cover an MRI without conservative treatment as a trial. She will let me know if she wants to proceed 3.. Major depressive disorder with single episode, remission status unspecified - ICD9: 296.20, ICD10: F32.9 recently started on Paxil by neurologist. We'll monitor for results. 4. Anxiety disorder, unspecified type - ICD9: 300.00, ICD10: F41.9 as above 5. BMI 37.0-37.9, adult - ICD9: V85.37, ICD10: Z68.37 education on weight loss reviewed with exercise and diet 6. 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 Will continue. Patient states she still has a squeezing sensation in her mid spine. is pressing for her to have an MRI because he has history of degenerative disc disease and disc herniation. We'll continue current medications for present. Follow-up when necessary Ankur Deal PA-C CNOV Observed: 11/15/2017 Status: COMPLETED Source: [place] 3:40 PM [facility] Office Visit (FAMPWS) VALERIA JHA ([id number]) 1980 F Date Time Provider Department 11/15/17 3:40 PM Ankur DEAL) FAMPWS During your visit today, we recorded the following information about you: Pulse Respiration Blood pressure Weight 70/minute 16/minute 114/72 95.3 kg Janice Sims Ma 11/15/2017 3:50 PM Signed Patient states she ate ice cream with almonds yesterday had hives and severe itching after. Ankur Deal PA-C 11/15/2017 7:03 PM Signed 36 year old female with c/o concern for nut allergy 1.) Nut allergy. Yesterday evening had ice cream with almonds (coffee fudge and truffle) and within an hour was itching and broke out in hives everywhere almost immediately (within 20 minutes). Admits to a similar experience as a child with a butter pecan ice cream. States that she eats nuts frequently and has never had this reaction. Took 2 benadryl which seemed to help. Residual pruritis in the am and she took 2 more benadryl which relieved the itching. Denies angioedema, runny eyes, runny nose. Believes she can eat dairy and gluten without problems. Has not seen anyone for this before. Denies any new changes in shampoo, detergent, lotions, face wash. Has seasonal allergies. Gets sneezing, runny nose, watery eyes with allergies. Has 2 cat 1 dog at home. Notices irritation when their hair gets on her. 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 Taking all medications as prescribed. No new changes. 3.) Back pain. Thinks there is a pinched nerve in her spine. Saw chiropractor that took X-rays- said they saw something pinched in her spine. Has lumbar pain that radiates around to R hip. Takes valium and baclofen for the pain but says this doesn't help. Concerned about chiropractic treatment. States that she gets better with me but didn't seem to get better with the chiropractor. She's having x-rays for review. She would like to proceed with an MRI and is willing to undergo physical therapy. 4.) Depression. Started Paxil last night. Gets this prescription from Dr. Newsome. Admits to increasing worry and fatigue. Sleeps a lot at night and throughout the day (12h total). Denies changes in appetite, suicidal ideations, intent to harm others. Does not have upcoming apt with Dr. Newsome. Will continue to communicate through my chart. HISTORIES FAMILY HISTORY Problem Relation Age of Onset - Allergies Mother - Hypertension Mother diabetes - Lipids Mother - Psychiatry Mother bipolar disorder - Diabetes Mother - Arthritis Father gout - Myotonia [OTHER] Father - Alzheimer's Disease Paternal Grandfather HEARING LOSS,PARKINSONS - Stroke Paternal Grandfather - Arthritis Paternal Grandmother - Hypertension Paternal Grandmother - Osteoporosis Paternal Grandmother - Stroke Paternal Grandmother - Thyroid Paternal Grandmother - Arthritis Maternal Grandmother CAROTID ARTERY CLEANED OUT, DIABETES - Hypertension Maternal Grandmother - Lipids Maternal Grandmother - Stroke Maternal Grandmother - Diabetes Maternal Grandmother - Diabetes Brother (1/2 brother) PAST MEDICAL HISTORY Diagnosis Date - Abdominal pain, other specified site RLQ and LLQ chronic - Abnormal glandular Papanicolaou smear of cervix Abn. Pap smear (cervix), s/p CHARBEL - Chronic back pain - Chronic rhinitis 06/30/2005 Dr. Bell - Depressive disorder, not elsewhere classified 06/30/2005 nerves - Esotropia, unspecified Dr. Encarnacion, Right eye - GERD (gastroesophageal reflux disease) - Migraine - Myotonia - Thrombosed external hemorrhoid 03/20/2012 - Tobacco abuse - Unspecified constipation - Unspecified inflammatory disease of female pelvic organs and tissues chronic pelvic pain PAST SURGICAL HISTORY Procedure Laterality Date - APPENDECTOMY October 27, 2004 LAPROSCOPIC - COLONOSCOP W/ OR W/O [facility] SPEC 10/27/05 - HYSTEROSCOPY, STERILIZATION 02/13/08 [facility] - L'SCOPE DX W/WO BRUSHINGS/WASHINGS October Laparoscopy, adhesion lysis - POLYSOMNOGRAM(DIAG) 57092 12/2005 Sleep study wnl - THYROID FINE NEEDLE ASPIRATION 2013 - VAGINAL HYSTERECTOMY 10/29/10 [facility] Social History Marital status: Spouse name: Years of education: GED Number of children: 2 Occupational History 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 Social History Main Topics Smoking status: Current Every Day Smoker Packs/day: 0.50 Years: 12.00 Types: Cigarettes Smokeless tobacco: Never Used Alcohol use: No Drug use: No Comment: marijuana as teenager, none recent Sexual activity: Yes Partners with: Male control/protection: Surgical Other Topics Concern BLOOD TRANSFUSIONS No CAFFEINE Yes Comment:caffeine withdrawal headaches OCCUPATIONAL EXPOSURE No SLEEP CONCERN Yes Comment:nightmares of killings STRESS CONCERN Yes Comment:'too much' DIET No EXERCISE No SEAT BELT Yes SELF EXAMS Yes Comment:advised Social History Narrative Single, 2 children (ages 11 yo son, age 5 yo dtr ) - [facility] 01/2013 ACTIVE PROBLEM LIST Migraine Without Aura, Without Mention of Intractable Migraine Without Mention of Status Migrainosus Unspecified Constipation Myalgia and Myositis, Unspecified Bmi 37.0-37.9, Adult Multinodular Goiter Lumbar Spondylosis Low Back Pain 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 Disp: 60 tablet Rfl: 5 PARoxetine (PAXIL) 10 mg tablet Take 1 tablet by mouth once daily. Disp: 30 tablet Rfl: 5 baclofen (LIORESAL) 10 mg tablet Take 1 tablet by mouth three times daily as needed (muscle spasms). Disp: 90 tablet Rfl: 1 cetirizine (ZYRTEC) 10 mg tablet Take 1 tablet by mouth once daily. Disp: 90 tablet Rfl: 1 triamcinolone (KENALOG IN ORABASE) 0.1 % paste Apply small amount (1/4 of paste) twice a day to ulcer on tongue until improved. (Patient not taking: Reported on 11/14/2017 ) Disp: 2 g Rfl: 1 fluticasone (FLONASE) 50 mcg/actuation nasal spray Use 2 Sprays in each nostril once daily. Disp: 1 Bottle Rfl: 5 NAPROXEN ORAL Take by mouth. Disp: Rfl: ibuprofen (MOTRIN) 800 mg tablet Take 1 tablet by mouth every 6 hours as needed for Pain. Take with food. Disp: 40 tablet Rfl: 1 No current facility-administered medications for this visit. ONE PNEUMOVAX PRIOR TO AGE 67 due on 2001 EXAM: BP 114/72 Pulse 70 Resp 16 Wt 95.3 kg (210 lb) LMP 10/13/2010 BMI 36.05 kg/m? Pleasant overweight female in no acute distress. Alert and oriented all spheres. Normal affect and cognition. Speech normal. No deficits to learning or comprehension. Skin warm, dry, pink to lips and nailbeds. Normal turgor. No evidence of hives, irritation or erythema. Respirations regular and unlabored. Clear to auscultation bilaterally CV: RRR, no murmurs, rubs or gallops appreciated. S1 and S2 present. Extrem: no clubbing, cyanosis, edema. Extremities are warm and pink with prompt capillary refill. ASSESSMENT/PLAN: 1. Hives - ICD9: 708.9, ICD10: L50.9 (primary diagnosis) - Likely viral or allergic etiology discussed with patient. Patient is very insistent on having workup to determine whether or not she has no allergies. Was very disturbed by her outbreak of hives. - Follow up if symptoms persist or worsen. - CONSULT TO ALLERGY/IMMUNOLOGY 2. Lumbar spondylosis - ICD9: 721.3, ICD10: M47.816 Advised patient she is welcome to follow up here as needed for osteopathic therapy. She is also welcome to persist with chiropractor or physical therapy here. She does not really wish to proceed with physical therapy focused on having an MRI. Discussed this could be reviewed with her current neurologist but insurance is not likely cover an MRI without conservative treatment as a trial. She will let me know if she wants to proceed 3.. Major depressive disorder with single episode, remission status unspecified - ICD9: 296.20, ICD10: F32.9 recently started on Paxil by neurologist. We'll monitor for results. 4. Anxiety disorder, unspecified type - ICD9: 300.00, ICD10: F41.9 as above 5. BMI 37.0-37.9, adult - ICD9: V85.37, ICD10: Z68.37 education on weight loss reviewed with exercise and diet 6. 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 Will continue. Patient states she still has a squeezing sensation in her mid spine. is pressing for her to have an MRI because he has history of degenerative disc disease and disc herniation. We'll continue current medications for present. Follow-up when necessary Ankur Deal PA-C Referring Provider: SELF [200] Allergies As of Date: 11/15/2017 Noted Allergy Reaction ADHESIVE 10/09/2008 Comments: Local irritation at site Beestings [Other] 03/13/2007 CAT DANDER [Other] 02/25/2005 5 - Intolerance FLEXERIL (CYCLOBENZAPRINE HCL) 06/30/2016 5 - Intolerance Comments: headcahes GRASS POLLEN 02/25/2005 2 - Rash MOLDS [Other] 02/25/2005 5 - Intolerance RAGWEED 03/18/2006 Date Reviewed: 11/15/2017 Reviewed by: Janice Sims Ma - Fully Assessed Reason for Visit: nut allergy [Other] Primary Visit Diagnosis:Hives [L50.9] Other Visit Diagnoses:Lumbar spondylosis [M47.816] Major depressive disorder with single episode, remission status unspecified [F32.9] Anxiety disorder, unspecified type [F41.9] BMI 37.0-37.9, adult [Z68.37] Myotonia congenita [G71.12] Order(s):CONSULT TO ALLERGY/IMMUNOLOGY [9001] Order #: [id number]: 1 Prescriptions as of 11/15/2017 Sig: DIAZEPAM 10 MG TABLET Take 1 tablet by mouth twice * PAROXETINE 10 MG TABLET Take 1 tablet by mouth once d* BACLOFEN 10 MG TABLET Take 1 tablet by mouth three * CETIRIZINE 10 MG TABLET Take 1 tablet by mouth once d* TRIAMCINOLONE ACETONIDE 0.1 %* Apply small amount (1/4 of p* Patient not taking: Reported on 11/14/2017 FLUTICASONE 50 MCG/ACTUATION * Use 2 Sprays in each nostril * NAPROXEN ORAL Take by mouth. IBUPROFEN 800 MG TABLET Take 1 tablet by mouth every * Problem List As Of Date 11/15/2017 Noted Resolved Esophageal reflux [K21.9] INVALID FOR*08/27/2015 Depressive disorder, not elsewhere classified [*INVALID FOR*08/27/2015 COMMON MIGRAINE W/O MENTN INTRACT [G43.009] INVALID FOR* Chronic rhinitis [J31.0] INVALID FOR*08/27/2015 More... Abdominal pain, right lower quadrant [R10.31] 05/09/2012 Abdominal pain, left lower quadrant [R10.32] 05/09/2012 CONSTIPATION NOS [K59.00] MYALGIA AND MYOSITIS NOS [KTX6854] INVALID FOR* Lump or Mass in Breast [N63.0] INVALID FOR*01/30/2009 Sprain of foot, unspecified site [S93.609A] INVALID FOR*03/21/2013 Nausea alone [R11.0] 03/21/2013 Heartburn [R12] 08/27/2015 Achilles bursitis or tendinitis [M76.60] INVALID FOR*08/27/2015 Enthesopathy of unspecified site [M77.9] INVALID FOR*08/27/2015 Tibialis posterior tendonitis [M76.829] INVALID FOR*08/27/2015 Urine frequency [R35.0] INVALID FOR*08/27/2015 Hematuria [R31.9] INVALID FOR*08/27/2015 Suprapubic pressure [R10.2] INVALID FOR*08/27/2015 Stress incontinence [N39.3] INVALID FOR*08/27/2015 BMI 37.0-37.9, adult [Z68.37] INVALID FOR* Thrombosed external hemorrhoid [K64.5] INVALID FOR*03/21/2013 Multinodular goiter [E04.2] INVALID FOR* Right groin pain [R10.31] INVALID FOR*08/18/2016 Lumbar spondylosis [M47.816] INVALID FOR* Low back pain [M54.5] INVALID FOR* 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 Left medial knee pain [M25.562] INVALID FOR* Paresthesia of left leg [R20.2] INVALID FOR* More... Sciatica of left side [M54.32] INVALID FOR* Visit Notes: >> Janice Sims Ma boo Nov 15, 2017 3:48 PM Status: Signed Patient states she ate ice cream with almonds yesterday had hives and severe itching after. Encounter Status:Closed by Ankur DEAL PA-C on 11/15/17 PROGRESS Observed: 11/15/2017 Status: COMPLETED Source: [place] 4:15 AM [facility] REPOSITORY HNO ID: [id number] Author: Colleen Harmon Service: (none) Author Type: (none) Type: Progress Notes Filed: 12/19/2017 11:59 PM Note Text: November 15, 2017 The electronic medical record was reviewed to determine if the proposed sleep study conforms to the AASM Practice Parameters for the Indications for Polysomnography and Related Procedures, or if the sleep study is indicated for other reasons. Indications for study: BAYLEE suspected without comorbid medical or sleep disorders Sleep study to be performed: In lab PSG Special instructions: None-follow laboratory protocol Colleen CardenasT I have read the above protocol, edited as needed, and agree to the plan as outlined. Pt's insurance is listed as medicaid, which will require in-lab instead of HST. Kayode Faulkner M.D. PROGRESS Observed: 11/14/2017 Status: COMPLETED Source: [place] 11:52 AM [facility] REPOSITORY O ID: [id number] Author: Constance Newsome Service: (none) Author Type: Physician Type: Progress Notes Filed: 11/14/2017 12:14 PM Note Text: [facility] Follow-Up Visit ? History of Present Illness: Ms. 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 ? The patient's prior records were reviewed, including the most recent office note dated 09/12/2015. ? Active issues: 1. Stiffness of the limbs (and face), intermittent. May worsen with cold exposure (if the shower goes cold, or if the weather is very cold). Daily, almost constant. Her current medication therapy has become less effective over time. ? 2. Difficulty in relaxing after muscle contraction and after prolonged use of the limbs (shoe polisher and percussion). Worse after mild physical exertion. ? No sensory changes. No symptoms suggesting prior myoglobinuria. ? At the time of our last visit we tried: gabapentin (gradually) to 900 mg TID - weight gain and overly sedating mexilatine 200 mg three times a day - no effect oxaprozin 600 mg tablet - takes one tablet twice daily - no effect cyclobenzaprine (I0 mg four times per day) - causes headaches Current therapy: baclofen 30 mg TID (does not take this consistently) valium 5-10 mg bid Has not tried: quinine (325 mg three times per day) phenytoin (400 mg/day) carbamazepine (1,200 mg/day) tocainide (400 mg three times per day) acetazolamide (250 mg two times per day) ? Review of symptoms including constitutional, eyes, ENT, neck, respiratory, cardiovascular, GI, , musculoskeletal, hematologic, oncologic, endocrine, and psychiatric categories is unchanged. ? Medications: See updated list below ? Allergies: See updated list below ? No new details in the family history or social history were offered by the patient. ? Vital Signs: BP 110/75 Pulse 77 Resp 18 Ht 162.6 cm (5' 4) Wt 94.3 kg (208 lb) LMP 10/13/2010 BMI 35.70 kg/m? Pain Scale: 3 on a scale of 0-10 ? General Medical Exam: No changes in eye/ENT, neck, respiratory, cardiac, GI, back, extremities and skin examination from the prior visit. ? Neurological Examination Today: ? CRANIAL NERVES: II: No visual field defects. III-IV-: Pupils equal round and reactive to light. Dysconjugate gaze, the right eye variably adducts, then returns to primary gaze after rest. No nystagmus. Mild bilateral ptosis no worse after sustained upgaze. She is unable to open eyes after forced closure V: Normal facial sensation. VII: Normal facial symmetry and movements. No pathologic facial reflexes. VIII: Normal hearing and vestibular function. IX-X: Normal palatal movement. XI: Normal shoulder shrug and head rotation. XII: Normal tongue strength and range of motion, no deviation or fasciculation. ? MOTOR: No atrophy, fasciculations or abnormal movements. No pronator drift. She has definite shoe polisher myotonia, no percussion myotonia. Power is 5-/5 throughout (I can break her at most muscle groups but she gives me fairly good and consistent resistance). ? MSRs: Normal 2+ reflexes in the arm and legs; without vertical spread. Neither Coley's nor Tromner's signs are present. No crossed adductors. Plantar responses are flexor. No clonus. ? SENSORY: Decreased pinprick and vibration from the mid william distal and in the fingers; proprioception intact. Romberg's sign absent. ? COORDINATION/GAIT: Able to rise from a chair without using arms. Gait is antalgic with evidence of axial stiffness. ? I have reviewed the Health Status Assessment responses and discussed these with the patient. ? 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 Best response to benzodiazepines. Depression ? PLAN/RECOMMENDATIONS: 1. Increase of diazepam 10 mg bid to control pain associated with weight loss 2. Continue baclofen 10 mg tid (added to valium recently) 3. Trial of Paxil 10 mg daily 4. Follow-up as needed ? The duration of this appointment visit was 60 minutes of upst-dh-utwi time with the patient. At least 50% of this time was spent in counseling, explanation of diagnosis, planning of further management, and coordination of care. ? Constance Newsome MD Staff, [facility] ? Referring provider: Pat Nascimento, [facility] [address] [facility] [address] ? Primary care provider: Rafael Samuel DO [address] [id number] PROGRESS Observed: 11/14/2017 Status: COMPLETED Source: [place] 11:05 AM [facility] HNO ID: [id number] Author: Nataliia Clark Service: (none) Author Type: (none) Type: Progress Notes Filed: 12/19/2017 11:59 PM Note Text: November 14, 2017 An order has been received for Home Sleep Test (HST) from Dr. Ankur Deal PA-C, [facility]. Visit prep complete. Comments :No The sleep study is scheduled for 12/13/2017. Insurance: Payor: [facility] MEDICAID / Plan: [facility] [employer] MEDICAID / Product Type: Medicaid / Nataliia Marjan [employer] CNOV Observed: 11/14/2017 Status: COMPLETED Source: [place] 10:40 AM [facility] RE[facility]IT[facility] Office Visit (NENMMN) VALERIA JHA ([id number]) 1980 F Date Time Provider Department 11/14/17 10:40 AM [facility] During your visit today, we recorded the following information about you: Pulse Respiration Blood pressure Weight 77/minute 18/minute 110/75 94.3 kg Height 1.626 m Constance Newsome MD 11/14/2017 12:14 PM Signed [facility] Follow-Up Visit ? History of Present Illness: Ms. 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 ? The patient's prior records were reviewed, including the most recent office note dated 09/12/2015. ? Active issues: 1. Stiffness of the limbs (and face), intermittent. May worsen with cold exposure (if the shower goes cold, or if the weather is very cold). Daily, almost constant. Her current medication therapy has become less effective over time. ? 2. Difficulty in relaxing after muscle contraction and after prolonged use of the limbs (shoe polisher and percussion). Worse after mild physical exertion. ? No sensory changes. No symptoms suggesting prior myoglobinuria. ? At the time of our last visit we tried: gabapentin (gradually) to 900 mg TID - weight gain and overly sedating mexilatine 200 mg three times a day - no effect oxaprozin 600 mg tablet - takes one tablet twice daily - no effect cyclobenzaprine (I0 mg four times per day) - causes headaches Current therapy: baclofen 30 mg TID (does not take this consistently) valium 5-10 mg bid Has not tried: quinine (325 mg three times per day) phenytoin (400 mg/day) carbamazepine (1,200 mg/day) tocainide (400 mg three times per day) acetazolamide (250 mg two times per day) ? Review of symptoms including constitutional, eyes, ENT, neck, respiratory, cardiovascular, GI, , musculoskeletal, hematologic, oncologic, endocrine, and psychiatric categories is unchanged. ? Medications: See updated list below ? Allergies: See updated list below ? No new details in the family history or social history were offered by the patient. ? Vital Signs: BP 110/75 Pulse 77 Resp 18 Ht 162.6 cm (5' 4) Wt 94.3 kg (208 lb) LMP 10/13/2010 BMI 35.70 kg/m? Pain Scale: 3 on a scale of 0-10 ? General Medical Exam: No changes in eye/ENT, neck, respiratory, cardiac, GI, back, extremities and skin examination from the prior visit. ? Neurological Examination Today: ? CRANIAL NERVES: II: No visual field defects. III-IV-: Pupils equal round and reactive to light. Dysconjugate gaze, the right eye variably adducts, then returns to primary gaze after rest. No nystagmus. Mild bilateral ptosis no worse after sustained upgaze. She is unable to open eyes after forced closure V: Normal facial sensation. VII: Normal facial symmetry and movements. No pathologic facial reflexes. VIII: Normal hearing and vestibular function. IX-X: Normal palatal movement. XI: Normal shoulder shrug and head rotation. XII: Normal tongue strength and range of motion, no deviation or fasciculation. ? MOTOR: No atrophy, fasciculations or abnormal movements. No pronator drift. She has definite shoe polisher myotonia, no percussion myotonia. Power is 5-/5 throughout (I can break her at most muscle groups but she gives me fairly good and consistent resistance). ? MSRs: Normal 2+ reflexes in the arm and legs; without vertical spread. Neither Coley's nor Tromner's signs are present. No crossed adductors. Plantar responses are flexor. No clonus. ? SENSORY: Decreased pinprick and vibration from the mid william distal and in the fingers; proprioception intact. Romberg's sign absent. ? COORDINATION/GAIT: Able to rise from a chair without using arms. Gait is antalgic with evidence of axial stiffness. ? I have reviewed the Health Status Assessment responses and discussed these with the patient. ? 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 Best response to benzodiazepines. Depression ? PLAN/RECOMMENDATIONS: 1. Increase of diazepam 10 mg bid to control pain associated with weight loss 2. Continue baclofen 10 mg tid (added to valium recently) 3. Trial of Paxil 10 mg daily 4. Follow-up as needed ? The duration of this appointment visit was 60 minutes of daeg-ac-xpvy time with the patient. At least 50% of this time was spent in counseling, explanation of diagnosis, planning of further management, and coordination of care. ? Constance Newsome MD Staff, [facility] ? Referring provider: Pat Nascimento, [facility] [address] [facility] [address] ? Primary care provider: Rafael Samuel, DO [address] [place] [address] Referring Provider: SELF [200] Allergies As of Date: 11/14/2017 Noted Allergy Reaction ADHESIVE 10/09/2008 Comments: Local irritation at site Beestings [Other] 03/13/2007 CAT DANDER [Other] 02/25/2005 5 - Intolerance FLEXERIL (CYCLOBENZAPRINE HCL) 06/30/2016 5 - Intolerance Comments: headcahes GRASS POLLEN 02/25/2005 2 - Rash MOLDS [Other] 02/25/2005 5 - Intolerance RAGWEED 03/18/2006 Date Reviewed: 11/14/2017 Reviewed by: Rajwinder Verduzco Ma - Fully Assessed Reason for Visit: Follow Up [171] Primary 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] Other Visit Diagnosis:Depression, unspecified depression type [F32.9] Order(s):diazePAM (VALIUM) 10 mg tabletTake 1 tablet by mouth twice daily for 180 days.Disp: 60 tabletRfl: 5 PARoxetine (PAXIL) 10 mg tabletTake 1 tablet by mouth once daily.Disp: 30 tabletRfl: 5 Prescriptions as of 11/14/2017 Sig: BACLOFEN 10 MG TABLET Take 1 tablet by mouth three * CETIRIZINE 10 MG TABLET Take 1 tablet by mouth once d* FLUTICASONE 50 MCG/ACTUATION * Use 2 Sprays in each nostril * NAPROXEN ORAL Take by mouth. IBUPROFEN 800 MG TABLET Take 1 tablet by mouth every * DIAZEPAM 10 MG TABLET Take 1 tablet by mouth twice * PAROXETINE 10 MG TABLET Take 1 tablet by mouth once d* TRIAMCINOLONE ACETONIDE 0.1 %* Apply small amount (1/4 of p* Patient not taking: Reported on 11/14/2017 Problem List As Of Date 11/14/2017 Noted Resolved Esophageal reflux [K21.9] INVALID FOR*08/27/2015 Depressive disorder, not elsewhere classified [*INVALID FOR*08/27/2015 COMMON MIGRAINE W/O MENTN INTRACT [G43.009] INVALID FOR* Chronic rhinitis [J31.0] INVALID FOR*08/27/2015 More... Abdominal pain, right lower quadrant [R10.31] 05/09/2012 Abdominal pain, left lower quadrant [R10.32] 05/09/2012 CONSTIPATION NOS [K59.00] MYALGIA AND MYOSITIS NOS [CTU0969] INVALID FOR* Lump or Mass in Breast [N63.0] INVALID FOR*01/30/2009 Sprain of foot, unspecified site [S93.609A] INVALID FOR*03/21/2013 Nausea alone [R11.0] 03/21/2013 Heartburn [R12] 08/27/2015 Achilles bursitis or tendinitis [M76.60] INVALID FOR*08/27/2015 Enthesopathy of unspecified site [M77.9] INVALID FOR*08/27/2015 Tibialis posterior tendonitis [M76.829] INVALID FOR*08/27/2015 Urine frequency [R35.0] INVALID FOR*08/27/2015 Hematuria [R31.9] INVALID FOR*08/27/2015 Suprapubic pressure [R10.2] INVALID FOR*08/27/2015 Stress incontinence [N39.3] INVALID FOR*08/27/2015 BMI 37.0-37.9, adult [Z68.37] INVALID FOR* Thrombosed external hemorrhoid [K64.5] INVALID FOR*03/21/2013 Multinodular goiter [E04.2] INVALID FOR* Right groin pain [R10.31] INVALID FOR*08/18/2016 Lumbar spondylosis [M47.816] INVALID FOR* Low back pain [M54.5] INVALID FOR* 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 Left medial knee pain [M25.562] INVALID FOR* Paresthesia of left leg [R20.2] INVALID FOR* More... Sciatica of left side [M54.32] INVALID FOR* Prescriptions ordered this encounter Disp Refills Start End DIAZEPAM 10 MG TABLET 60 t* 5 11/14/2017 05/13/2018 Class: Print RX Route: ORAL Sig: Take 1 tablet by mouth twice daily for 180 days. PAROXETINE 10 MG TABLET 30 t* 5 11/14/2017 Class: Print RX Route: ORAL Sig: Take 1 tablet by mouth once daily. Medications Discontinued During This Encounter diazePAM (VALIUM) 5 mg tablet 60 t* 5 11/02/2017 11/14/2017 Class: Call Rx Route: ORAL Sig: Take 1 tablet by mouth twice daily for 180 days. Disc: Reason for discontinue is not on file. Encounter Status:Closed by CONSTANCE NEWSOME MD on 11/14/17 PROGRESS Observed: 11/03/2017 Status: COMPLETED Source: [place] 5:34 PM [facility] REPOSITORY O ID: [id number] Author: Ankur Brantley (Pa-C) Say Service: (none) Author Type: Physician Sales And Merchandising Representative Type: Progress Notes Filed: 11/03/2017 7:04 PM Note Text: 36 year old female hx myotonia with c/o exacerbation chronic back pain lumbar right radiating to abdomen. Been present for months but worse lately. Trying to tolerate. Naprosyn hasn't helped. Continues with Valium routinely. Here so that I can do Buddhism which seems to help. HISTORIES FAMILY HISTORY Problem Relation Age of Onset - Allergies Mother - Hypertension Mother diabetes - Lipids Mother - Psychiatry Mother bipolar disorder - Diabetes Mother - Arthritis Father gout - Myotonia [OTHER] Father - Alzheimer's Disease Paternal Grandfather HEARING LOSS,PARKINSONS - Stroke Paternal Grandfather - Arthritis Paternal Grandmother - Hypertension Paternal Grandmother - Osteoporosis Paternal Grandmother - Stroke Paternal Grandmother - Thyroid Paternal Grandmother - Arthritis Maternal Grandmother CAROTID ARTERY CLEANED OUT, DIABETES - Hypertension Maternal Grandmother - Lipids Maternal Grandmother - Stroke Maternal Grandmother - Diabetes Maternal Grandmother - Diabetes Brother (1/2 brother) PAST MEDICAL HISTORY Diagnosis Date - Abdominal pain, other specified site RLQ and LLQ chronic - Abnormal glandular Papanicolaou smear of cervix Abn. Pap smear (cervix), s/p CHARBEL - Chronic back pain - Chronic rhinitis 06/30/2005 Dr. Bell - Depressive disorder, not elsewhere classified 06/30/2005 nerves - Esotropia, unspecified Dr. Encarnacion, Right eye - GERD (gastroesophageal reflux disease) - Migraine - Myotonia - Thrombosed external hemorrhoid 03/20/2012 - Tobacco abuse - Unspecified constipation - Unspecified inflammatory disease of female pelvic organs and tissues chronic pelvic pain PAST SURGICAL HISTORY Procedure Laterality Date - APPENDECTOMY October 27, 2004 LAPROSCOPIC - COLONOSCOP W/ OR W/O BRSH SPEC 10/27/05 - HYSTEROSCOPY, STERILIZATION 02/13/08 Essure - L'SCOPE DX W/WO BRUSHINGS/WASHINGS October Laparoscopy, adhesion lysis - POLYSOMNOGRAM(DIAG) 27006 12/2005 Sleep study wnl - THYROID FINE NEEDLE ASPIRATION 2012 - VAGINAL HYSTERECTOMY 10/29/10 [facility] Social History Marital status: Spouse name: Years of education: GED Number of children: 2 Occupational History Occupation Employer Comment unemployed [employer] last job in [employer] Social History Main Topics Smoking status: Current Every Day Smoker Packs/day: 0.50 Years: 12.00 Types: Cigarettes Smokeless tobacco: Never Used Alcohol use: No Drug use: No Comment: marijuana as teenager, none recent Sexual activity: Yes Partners with: Male control/protection: Surgical Other Topics Concern BLOOD TRANSFUSIONS No CAFFEINE Yes Comment:caffeine withdrawal headaches OCCUPATIONAL EXPOSURE No SLEEP CONCERN Yes Comment:nightmares of killings STRESS CONCERN Yes Comment:'too much' DIET No EXERCISE No SEAT BELT Yes SELF EXAMS Yes Comment:advised Social History Narrative Single, 2 children (ages 11 yo son, age 5 yo dtr ) - [facility] 01/2013 ACTIVE PROBLEM LIST Migraine Without Aura, Without Mention of Intractable Migraine Without Mention of Status Migrainosus Unspecified Constipation Myalgia and Myositis, Unspecified Bmi 37.0-37.9, Adult Multinodular Goiter Lumbar Spondylosis Low Back Pain 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 Disp: 60 tablet Rfl: 5 cetirizine (ZYRTEC) 10 mg tablet Take 1 tablet by mouth once daily. Disp: 90 tablet Rfl: 1 triamcinolone (KENALOG IN ORABASE) 0.1 % paste Apply small amount (1/4 of paste) twice a day to ulcer on tongue until improved. Disp: 2 g Rfl: 1 fluticasone (FLONASE) 50 mcg/actuation nasal spray Use 2 Sprays in each nostril once daily. Disp: 1 Bottle Rfl: 5 NAPROXEN ORAL Take by mouth. Disp: Rfl: ibuprofen (MOTRIN) 800 mg tablet Take 1 tablet by mouth every 6 hours as needed for Pain. Take with food. (Patient not taking: Reported on 11/03/2017 ) Disp: 40 tablet Rfl: 1 No current facility-administered medications for this visit. ONE PNEUMOVAX PRIOR TO AGE 67 due on 2001 EXAM: BP 106/72 Pulse 76 Resp 16 LMP 10/13/2010 Pleasant Overweight adult woman here with her , in no acute distress. Alert and oriented all spheres. Normal affect and cognition. Speech normal. No deficits to learning or comprehension. Skin warm, dry, pink to lips and nailbeds. Normal turgor. Respirations regular and unlabored. Neck with tender trigger points in the right lumbar paravertebrals with slight anterior rotation on the right side. She has tenderness all along the quadratus into the lower rib cage. She has some tender trigger points in rib restrictions in the lower segments. Patient is extremely tender and very reactive to even slight touch. Extrem: no clubbing, cyanosis, edema. Extremities are warm and pink with prompt capillary refill. OMT per request: Myofascial release to trigger points, HVLA to lumbar right and multiple rib segments with pain improving as indicated by it's not as horrible as it was. ASSESSMENT/PLAN: 1. Lumbar region somatic dysfunction - ICD9: 739.3, ICD10: M99.03 (primary diagnosis) 2. Thoracic region somatic dysfunction - ICD9: 739.2, ICD10: M99.02 Ice/ moist heat, lineaments, OTC analgesics as needed,. Stretching and posture reviewed. F/u for OMT prn 3. 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 I think she is probably become habituated to the Valium. I'm going to try adding baclofen 10 mg 3 times a day and we'll send note to her neurologist to make sure this is acceptable. Patient is asking if she can transfer most of her care to me with neurology oversight so that she only has to go to [place] once a year of which I am willing to do as long as there is clear oversight. - BACLOFEN 10 MG TABLET Patient (guardian) expressed understanding of instructions and agrees with plan. Ankur Deal PA-C x CNOV Observed: 11/03/2017 Status: COMPLETED Source: [place] 5:20 PM [facility] VALERIA JHA ([id number]) 1980 F Date Time Provider Department 11/03/17 5:20 PM Ankur DEAL[facility] During your visit today, we recorded the following information about you: Pulse Respiration Blood pressure 76/minute 16/minute 106/72 M Fercho Deal PA-C 11/03/2017 7:04 PM Signed 36 year old female hx myotonia with c/o exacerbation chronic back pain lumbar right radiating to abdomen. Been present for months but worse lately. Trying to tolerate. Naprosyn hasn't helped. Continues with Valium routinely. Here so that I can do Buddhism which seems to help. HISTORIES FAMILY HISTORY Problem Relation Age of Onset - Allergies Mother - Hypertension Mother diabetes - Lipids Mother - Psychiatry Mother bipolar disorder - Diabetes Mother - Arthritis Father gout - Myotonia [OTHER] Father - Alzheimer's Disease Paternal Grandfather HEARING LOSS,PARKINSONS - Stroke Paternal Grandfather - Arthritis Paternal Grandmother - Hypertension Paternal Grandmother - Osteoporosis Paternal Grandmother - Stroke Paternal Grandmother - Thyroid Paternal Grandmother - Arthritis Maternal Grandmother CAROTID ARTERY CLEANED OUT, DIABETES - Hypertension Maternal Grandmother - Lipids Maternal Grandmother - Stroke Maternal Grandmother - Diabetes Maternal Grandmother - Diabetes Brother (1/2 brother) PAST MEDICAL HISTORY Diagnosis Date - Abdominal pain, other specified site RLQ and LLQ chronic - Abnormal glandular Papanicolaou smear of cervix Abn. Pap smear (cervix), s/p CHARBEL - Chronic back pain - Chronic rhinitis 06/30/2005 Dr. Bell - Depressive disorder, not elsewhere classified 06/30/2005 nerves - Esotropia, unspecified Dr. Encarnacion, Right eye - GERD (gastroesophageal reflux disease) - Migraine - Myotonia - Thrombosed external hemorrhoid 03/20/2012 - Tobacco abuse - Unspecified constipation - Unspecified inflammatory disease of female pelvic organs and tissues chronic pelvic pain PAST SURGICAL HISTORY Procedure Laterality Date - APPENDECTOMY October 27, 2004 LAPROSCOPIC - COLONOSCOP W/ OR W/O BRSH SPEC 10/27/05 - HYSTEROSCOPY, STERILIZATION 02/13/08 [facility] - L'SCOPE DX W/WO BRUSHINGS/WASHINGS October Laparoscopy, adhesion lysis - POLYSOMNOGRAM(DIAG) 67172 12/2005 Sleep study wnl - THYROID FINE NEEDLE ASPIRATION 2012 - VAGINAL HYSTERECTOMY 10/29/10 [facility] Social History Marital status: Spouse name: Years of education: GED Number of children: 2 Occupational History Occupation Employer Comment unemployed [employer] last job in [place] Social History Main Topics Smoking status: Current Every Day Smoker Packs/day: 0.50 Years: 12.00 Types: Cigarettes Smokeless tobacco: Never Used Alcohol use: No Drug use: No Comment: marijuana as teenager, none recent Sexual activity: Yes Partners with: Male control/protection: Surgical Other Topics Concern BLOOD TRANSFUSIONS No CAFFEINE Yes Comment:caffeine withdrawal headaches OCCUPATIONAL EXPOSURE No SLEEP CONCERN Yes Comment:nightmares of killings STRESS CONCERN Yes Comment:'too much' DIET No EXERCISE No SEAT BELT Yes SELF EXAMS Yes Comment:advised Social History Narrative Single, 2 children (ages 11 yo son, age 5 yo dtr ) - [facility] 01/2013 ACTIVE PROBLEM LIST Migraine Without Aura, Without Mention of Intractable Migraine Without Mention of Status Migrainosus Unspecified Constipation Myalgia and Myositis, Unspecified Bmi 37.0-37.9, Adult Multinodular Goiter Lumbar Spondylosis Low Back Pain 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 Disp: 60 tablet Rfl: 5 cetirizine (ZYRTEC) 10 mg tablet Take 1 tablet by mouth once daily. Disp: 90 tablet Rfl: 1 triamcinolone (KENALOG IN ORABASE) 0.1 % paste Apply small amount (1/4 of paste) twice a day to ulcer on tongue until improved. Disp: 2 g Rfl: 1 fluticasone (FLONASE) 50 mcg/actuation nasal spray Use 2 Sprays in each nostril once daily. Disp: 1 Bottle Rfl: 5 NAPROXEN ORAL Take by mouth. Disp: Rfl: ibuprofen (MOTRIN) 800 mg tablet Take 1 tablet by mouth every 6 hours as needed for Pain. Take with food. (Patient not taking: Reported on 11/03/2017 ) Disp: 40 tablet Rfl: 1 No current facility-administered medications for this visit. ONE PNEUMOVAX PRIOR TO AGE 67 due on 2001 EXAM: BP 106/72 Pulse 76 Resp 16 LMP 10/13/2010 Pleasant Overweight adult woman here with her , in no acute distress. Alert and oriented all spheres. Normal affect and cognition. Speech normal. No deficits to learning or comprehension. Skin warm, dry, pink to lips and nailbeds. Normal turgor. Respirations regular and unlabored. Neck with tender trigger points in the right lumbar paravertebrals with slight anterior rotation on the right side. She has tenderness all along the quadratus into the lower rib cage. She has some tender trigger points in rib restrictions in the lower segments. Patient is extremely tender and very reactive to even slight touch. Extrem: no clubbing, cyanosis, edema. Extremities are warm and pink with prompt capillary refill. OMT per request: Myofascial release to trigger points, HVLA to lumbar right and multiple rib segments with pain improving as indicated by it's not as horrible as it was. ASSESSMENT/PLAN: 1. Lumbar region somatic dysfunction - ICD9: 739.3, ICD10: M99.03 (primary diagnosis) 2. Thoracic region somatic dysfunction - ICD9: 739.2, ICD10: M99.02 Ice/ moist heat, lineaments, OTC analgesics as needed,. Stretching and posture reviewed. F/u for OMT prn 3. 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 I think she is probably become habituated to the Valium. I'm going to try adding baclofen 10 mg 3 times a day and we'll send note to her neurologist to make sure this is acceptable. Patient is asking if she can transfer most of her care to me with neurology oversight so that she only has to go to [place] once a year of which I am willing to do as long as there is clear oversight. - BACLOFEN 10 MG TABLET Patient (guardian) expressed understanding of instructions and agrees with plan. M HIRAL Nassar Referring Provider: SELF [[id number]] Allergies As of Date: 11/03/2017 Noted Allergy Reaction ADHESIVE 10/09/2008 Comments: Local irritation at site Beestings [Other] 03/13/2007 CAT DANDER [Other] 02/25/2005 5 - Intolerance FLEXERIL (CYCLOBENZAPRINE HCL) 06/30/2016 5 - Intolerance Comments: headcahes GRASS POLLEN 02/25/2005 2 - Rash MOLDS [Other] 02/25/2005 5 - Intolerance RAGWEED 03/18/2006 Date Reviewed: 11/03/2017 Reviewed by: Karen Sheehan Ma - Fully Assessed Reason for Visit: Back Pain [12] Cmt: right lower side Primary Visit Diagnosis:Lumbar region somatic dysfunction [M99.03] Other Visit Diagnoses:Thoracic region somatic dysfunction [M99.02] Myotonia congenita [G71.12] Order(s):baclofen (LIORESAL) 10 mg tabletTake 1 tablet by mouth three times daily as needed (muscle spasms).Disp: 90 tabletRfl: 1 Prescriptions as of 11/03/2017 Sig: DIAZEPAM 5 MG TABLET Take 1 tablet by mouth twice * CETIRIZINE 10 MG TABLET Take 1 tablet by mouth once d* TRIAMCINOLONE ACETONIDE 0.1 %* Apply small amount (1/4 of p* FLUTICASONE 50 MCG/ACTUATION * Use 2 Sprays in each nostril * NAPROXEN ORAL Take by mouth. BACLOFEN 10 MG TABLET Take 1 tablet by mouth three * IBUPROFEN 800 MG TABLET Take 1 tablet by mouth every * Patient not taking: Reported on 11/03/2017 Problem List As Of Date 11/03/2017 Noted Resolved Esophageal reflux [K21.9] INVALID FOR*08/27/2015 Depressive disorder, not elsewhere classified [*INVALID FOR*08/27/2015 COMMON MIGRAINE W/O MENTN INTRACT [G43.009] INVALID FOR* Chronic rhinitis [J31.0] INVALID FOR*08/27/2015 More... Abdominal pain, right lower quadrant [R10.31] 05/09/2012 Abdominal pain, left lower quadrant [R10.32] 05/09/2012 CONSTIPATION NOS [K59.00] MYALGIA AND MYOSITIS NOS [[id number]] INVALID FOR* Lump or Mass in Breast [N63.0] INVALID FOR*01/30/2009 Sprain of foot, unspecified site [S93.609A] INVALID FOR*03/21/2013 Nausea alone [R11.0] 03/21/2013 Heartburn [R12] 08/27/2015 Achilles bursitis or tendinitis [M76.60] INVALID FOR*08/27/2015 Enthesopathy of unspecified site [M77.9] INVALID FOR*08/27/2015 Tibialis posterior tendonitis [M76.829] INVALID FOR*08/27/2015 Urine frequency [R35.0] INVALID FOR*08/27/2015 Hematuria [R31.9] INVALID FOR*08/27/2015 Suprapubic pressure [R10.2] INVALID FOR*08/27/2015 Stress incontinence [N39.3] INVALID FOR*08/27/2015 BMI 37.0-37.9, adult [Z68.37] INVALID FOR* Thrombosed external hemorrhoid [K64.5] INVALID FOR*03/21/2013 Multinodular goiter [E04.2] INVALID FOR* Right groin pain [R10.31] INVALID FOR*08/18/2016 Lumbar spondylosis [M47.816] INVALID FOR* Low back pain [M54.5] INVALID FOR* 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 Left medial knee pain [M25.562] INVALID FOR* Paresthesia of left leg [R20.2] INVALID FOR* More... Sciatica of left side [M54.32] INVALID FOR* Prescriptions ordered this encounter Disp Refills Start End BACLOFEN 10 MG TABLET 90 t* 1 11/03/2017 Route: ORAL Sig: Take 1 tablet by mouth three times daily as needed (muscle spasms). Follow-up and Disposition History Recorded Encounter Status:Closed by Ankur DEAL PA-C on 11/03/17 CT ABDOMEN/PELVIS W/O Observed: 11/01/2017 Status: F Source: Molecular Imprints CONTRAST 10:22 PM [facility] [place] REPOSITORY ORIGINAL CT ABDOMEN/PELVIS W/O CONTRAST Clinical Statement: BILATERAL flank pain COMPARISON: None TECHNIQUE: Multiplanar sagittal, axial, and coronal reconstructions were reviewed. This exam was performed according to our departmental dose optimization program, including but not limited to; automate d exposure control, adjustment of the mAs and/or kVp according to patient size and/or exam, and use of an iterative reconstruction algorithm where applicable. FINDINGS: The kidneys are symmetric in size and are without calculi, hydronephrosis, or perinephric stranding. The ureters are normal. No bladder calculi are visible. The visualized liver and spleen are unremarkable for noncontrast examination. The noncontrasted gallbladder, pancreas and adrenal glands are normal. The small and large bowel are normal in course and caliber. The appendix is surgically absent. There is no free fluid or free air. No adenopathy. There are no suspicious osseous lesions. IMPRESSION: No urinary tract calculi. No acute intra-abdominal abnormalities. I have personally reviewed the images of this examination and agree with the resident's findings and interpretation. Interpreted By: Enrique Pierce DO Preliminary Report By: Latoya Bender MD Electronically Signed By: Enrique Pierce DO Dictated Date: 11/01/2017 10:58:23 PM Prelim Date: 11/01/2017 11:01:14 PM Sign Date: 11/01/2017 11:15:15 PM UA Collected: 11/01/2017 Status: F Source: Flotype 9:20 PM [facility] [place] REPOSITORY TYPE CODE TESTS RESULT OUT OF REFERENCE UNITS RANGE LAB SPCUA(LOIN C) UA Specimen Type Clean Catch LAB CLRUA(LOIN C) UA Color YELLOW LAB APPUA(LOIN C) UA Appear CLEAR LAB SGUA(LOINC ) UA Spec Grav 1.025 LAB GLUA(LOINC mg/dL ) UA Glucose NEGATIVE LAB BILUA(LOIN C) UA Bili NEGATIVE LAB KETUA(LOIN mg/dL C) UA Ketones NEGATIVE LAB BLDUA(LOIN C) UA Blood SMALL LAB PHUA(LOINC ) UA pH 6.5 LAB PROUA(LOIN mg/dL C) UA Protein NEGATIVE LAB UROUA(LOIN E.U./dL C) UA Urobilinogen 0.2 LAB NITUA(LOIN C) UA Nitrite NEGATIVE LAB LEUUA(LOIN C) UA Leuk Est NEGATIVE Performed By: #### UA, PREGU, UAMICAO #### [place] [address] PREGU Collected: 11/01/2017 Status: F Source: [facility] 9:20 [facility] REPOSITORY TYPE CODE TESTS RESULT OUT OF RANGE REFERENCE UNITS LAB PREGU(LOIN C) Test Negative Urine LAB PRUG1(LOIN C) Unknown test HCG not (u) int detected. Performed By: #### UA, PREGU, UAMICAO #### [address] [address] .URINALYSIS MICROSCOPIC Collected: 11/01/2017 Status: F Source: [place] [facility] 9:20 [facility] REPOS[facility] TYPE CODE TESTS RESULT OUT OF RANGE REFERENCE UNITS LAB WBCUA(LOIN None Seen /hpf C) Unknown UA WBC 0-5 LAB RBCUA(LOIN None Seen /hpf C) Unknown UA RBC 5-10 LAB EPIUA(LOIN None Seen /hpf C) Unknown UA Squam Epithelial 10-15 LAB BACUA(LOIN /hpf C) Unknown UA Bacteria 2+ Performed By: #### UA, PREGU, UAMICAO #### [address] [address] PROGRESS Observed: 10/13/2017 Status: COMPLETED Source: [place] 12:09 PM [facility] RE[facility] HNO ID: [id number] Author: Karen Samuel (Pt) Service: (none) Author Type: Physical Therapist Type: Progress Notes Filed: 10/13/2017 12:09 PM Note Text: [facility] PHYSICAL THERAPY DISCONTINUANCE OF CARE Plan of Care Period: Start of Care Date: 08/22/17 Last Visit Date:same Therapy Program: Patient did not return for follow up care as planned. Please refer to last visit note for interventions provided for this episode of care. Assessment: Unable to formally assess goal achievement due to non-compliance with therapy plan of care. Reason for Discontinuation of Care: Patient has not returned to therapy or scheduled additional follow-up appointments. Karen Samuel, PT PROGRESS Observed: 09/12/2017 Status: COMPLETED Source: [place] 10:04 AM [facility] RE[facility] HNO ID: [id number] Author: Ankur Hull) Say Service: (none) Author Type: Physician Sales And Merchandising Representative Type: Progress Notes Filed: 09/12/2017 11:23 AM Note Text: 36 year old female with c/o 1. Wakes up tired every morning. Sleeps 6-8, occasional waking. Talks in sleep. No sleep waking. Sleep paralysis at least a few times a month waking up and also going to sleep. States falls asleep all the time while in conversation. Snores: no one has complained. Boyfriend does not note interrupted sleep. Sleep jerks. 2. Sore on tongue very painful. Had outbreak with HSV on lips. Went UC: started Zovirax and keflex. 3. Started new job last Tuesday [employer]. Set muscles off. Went to ED. Wouldn't give her dilaudid. Gave her Norflex IM. Sees Dr. News[facility]. On Valium 5mg twice if she remembers to take it. Pain is improving from ED visit. Mostly low back and legs. HISTORIES FAMILY HISTORY Problem Relation Age of Onset - Allergies Mother - Hypertension Mother diabetes - Lipids Mother - Psychiatry Mother bipolar disorder - Diabetes Mother - Arthritis Father gout - Myotonia [OTHER] Father - Alzheimer's Disease Paternal Grandfather HEARING LOSS,PARKINSONS - Stroke Paternal Grandfather - Arthritis Paternal Grandmother - Hypertension Paternal Grandmother - Osteoporosis Paternal Grandmother - Stroke Paternal Grandmother - Thyroid Paternal Grandmother - Arthritis Maternal Grandmother CAROTID ARTERY CLEANED OUT, DIABETES - Hypertension Maternal Grandmother - Lipids Maternal Grandmother - Stroke Maternal Grandmother - Diabetes Maternal Grandmother - Diabetes Brother (1/2 brother) PAST MEDICAL HISTORY Diagnosis Date - Abdominal pain, other specified site RLQ and LLQ chronic - Abnormal glandular Papanicolaou smear of cervix Abn. Pap smear (cervix), s/p CHARBEL - Chronic back pain - Chronic rhinitis 06/30/2005 Dr. Bell - Depressive disorder, not elsewhere classified 06/30/2005 nerves - Esotropia, unspecified Dr. Encarnacion, Right eye - GERD (gastroesophageal reflux disease) - Migraine - Myotonia - Thrombosed external hemorrhoid 03/20/2012 - Tobacco abuse - Unspecified constipation - Unspecified inflammatory disease of female pelvic organs and tissues chronic pelvic pain PAST SURGICAL HISTORY Procedure Laterality Date - APPENDECTOMY October 27, 2004 LAPROSCOPIC - COLONOSCOP W/ OR W/O BRSH SPEC 10/27/05 - HYSTEROSCOPY, STERILIZATION 02/13/08 [facility] - L'SCOPE DX W/WO BRUSHINGS/WASHINGS October Laparoscopy, adhesion lysis - POLYSOMNOGRAM(DIAG) [id number] 12/2005 Sleep study wnl - THYROID FINE NEEDLE ASPIRATION 2012 - VAGINAL HYSTERECTOMY 10/29/10 [facility] Social History Marital status: Spouse name: Years of education: GED Number of children: 2 Occupational History Occupation Employer Comment unemployed [employer] last job in [employer] Social History Main Topics Smoking status: Current Every Day Smoker Packs/day: 0.50 Years: 12.00 Types: Cigarettes Smokeless status: Never Used Alcohol use: No Drug use: No Comment: marijuana as teenager, none recent Sexual activity: Yes Partners with: Male control/protection: Surgical Other Topics Concern BLOOD TRANSFUSIONS No CAFFEINE Yes Comment:caffeine withdrawal headaches OCCUPATIONAL EXPOSURE No SLEEP CONCERN Yes Comment:nightmares of killings STRESS CONCERN Yes Comment:'too much' DIET No EXERCISE No SEAT BELT Yes SELF EXAMS Yes Comment:advised Social History Narrative Single, 2 children (ages 11 yo son, age 5 yo dtr ) - [facility] 01/2013 ACTIVE PROBLEM LIST Migraine Without Aura, Without Mention of Intractable Migraine Without Mention of Status Migrainosus Unspecified Constipation Myalgia and Myositis, Unspecified Bmi 37.0-37.9, Adult Multinodular Goiter Lumbar Spondylosis Low Back Pain 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 Disp: Rfl: acyclovir (ZOVIRAX) 400 mg tablet Take 1 tablet by mouth three times daily for 7 days. Disp: 21 tablet Rfl: 0 cephALEXin (KEFLEX) 500 mg capsule Take 1 capsule by mouth three times daily for 10 days. Disp: 30 capsule Rfl: 0 fluticasone (FLONASE) 50 mcg/actuation nasal spray Use 2 Sprays in each nostril once daily. Disp: 1 Bottle Rfl: 5 NAPROXEN ORAL Take by mouth. Disp: Rfl: ibuprofen (MOTRIN) 800 mg tablet Take 1 tablet by mouth every 6 hours as needed for Pain. Take with food. Disp: 40 tablet Rfl: 1 No current facility-administered medications for this visit. ONE PNEUMOVAX PRIOR TO AGE 67 due on 2001 EXAM: BP 120/84 Pulse 88 Temp 36.3 ?C (97.4 ?F) (Tympanic) Resp 24 Wt 94.3 kg (208 lb) LMP 10/13/2010 BMI 35.7 kg/m2 Pleasant overweight adult woman in no acute distress. Alert and oriented all spheres. Normal affect and cognition. Speech normal. No deficits to learning or comprehension. Skin warm, dry, pink to lips and nailbeds. Normal turgor. Respirations regular and unlabored. HEENT WNL. TM's clear. Lower kip with several scabbed lesions. Tongue with large white aphthae at tip, very tender. Nose and oropharynx free from injection or lesion. No cervical lymph nodes. Thyroid non- tender, no masses. Neck circumference 15.5 Chest CTA. HRRR without murmur or gallop. TTP in right lumbar with restricted SIJ. Extrem: no clubbing, cyanosis, edema. Extremities are warm and pink with prompt capillary refill. OMT: myofascial release to trigger points, HVLA right sacroiliac with improvement. ASSESSMENT/PLAN: 1. 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 As below for pain - TRIAMCINOLONE ACETONIDE 0.1 % DENTAL PASTE 2. Aphthous ulcer of tongue - ICD9: 528.2, ICD10: K12.0 As above 3. 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 improved with OMT 4. Drowsiness - ICD9: 780.09, ICD10: R40.0 Some possibility narcolepsy. Will start with BAYLEE eval as treatment would likely also affect narcolepsy. Consider consult to sleep. - POLYSOMNOGRAM (PSG)/HOME SLEEP APNEA TESTING (HSAT) HIRAL LiOV Observed: 09/12/2017 Status: COMPLETED Source: [place] 9:40 AM [facility] Office Visit (FAMPWS) VALERIA JHA ([id number]) 1980 F Date Time Provider Department 09/12/17 9:40 AM Ankur DEAL) FAMPWS During your visit today, we recorded the following information about you: Temperature Pulse Respiration Blood pressure 97.4 degrees 88/minute 24/minute 120/84 Weight 94.3 kg Ankur Deal PA-C 09/12/2017 11:23 AM Signed 36 year old female with c/o 1. Wakes up tired every morning. Sleeps 6-8, occasional waking. Talks in sleep. No sleep waking. Sleep paralysis at least a few times a month waking up and also going to sleep. States falls asleep ANDquot;all the timeANDquot; while in conversation. Snores: no one has complained. Boyfriend does not note interrupted sleep. Sleep jerks. 2. Sore on tongue very painful. Had outbreak with HSV on lips. Went UC: started Zovirax and keflex. 3. Started new job last Tuesday [employer]. Set muscles off. Went to ED. Wouldn't give her dilaudid. Gave her Norflex IM. Sees Dr. News[facility]. On Valium 5mg twice ANDquot;if she ANDquot;remembersANDquot; to take it. Pain is improving from ED visit. Mostly low back and legs. HISTORIES FAMILY HISTORY Problem Relation Age of Onset - Allergies Mother - Hypertension Mother diabetes - Lipids Mother - Psychiatry Mother bipolar disorder - Diabetes Mother - Arthritis Father gout - Myotonia [OTHER] Father - Alzheimer's Disease Paternal Grandfather HEARING LOSS,PARKINSONS - Stroke Paternal Grandfather - Arthritis Paternal Grandmother - Hypertension Paternal Grandmother - Osteoporosis Paternal Grandmother - Stroke Paternal Grandmother - Thyroid Paternal Grandmother - Arthritis Maternal Grandmother CAROTID ARTERY CLEANED OUT, DIABETES - Hypertension Maternal Grandmother - Lipids Maternal Grandmother - Stroke Maternal Grandmother - Diabetes Maternal Grandmother - Diabetes Brother (1/2 brother) PAST MEDICAL HISTORY Diagnosis Date - Abdominal pain, other specified site RLQ and LLQ chronic - Abnormal glandular Papanicolaou smear of cervix Abn. Pap smear (cervix), s/p CHARBEL - Chronic back pain - Chronic rhinitis 06/30/2005 Dr. Bell - Depressive disorder, not elsewhere classified 06/30/2005 ANDquot;nervesANDquot; - Esotropia, unspecified Dr. Encarnacion, Right eye - GERD (gastroesophageal reflux disease) - Migraine - Myotonia - Thrombosed external hemorrhoid 03/20/2012 - Tobacco abuse - Unspecified constipation - Unspecified inflammatory disease of female pelvic organs and tissues chronic pelvic pain PAST SURGICAL HISTORY Procedure Laterality Date - APPENDECTOMY October 27, 2004 LAPROSCOPIC - COLONOSCOP W/ OR W/O [facility] SPEC 10/27/05 - HYSTEROSCOPY, STERILIZATION 02/13/08 [facility] - L'SCOPE DX W/WO BRUSHINGS/WASHINGS October Laparoscopy, adhesion lysis - POLYSOMNOGRAM(DIAG) 66407 12/2005 Sleep study wnl - THYROID FINE NEEDLE ASPIRATION 2013 - VAGINAL HYSTERECTOMY 10/29/10 [facility] Social History Marital status: Spouse name: Years of education: GED Number of children: 2 Occupational History Occupation Employer Comment unemployed [employer] last job in [employer] [place] Social History Main Topics Smoking status: Current Every Day Smoker Packs/day: 0.50 Years: 12.00 Types: Cigarettes Smokeless status: Never Used Alcohol use: No Drug use: No Comment: marijuana as teenager, none recent Sexual activity: Yes Partners with: Male control/protection: Surgical Other Topics Concern BLOOD TRANSFUSIONS No CAFFEINE Yes Comment:caffeine withdrawal headaches OCCUPATIONAL EXPOSURE No SLEEP CONCERN Yes Comment:nightmares of killings STRESS CONCERN Yes Comment:'too much' DIET No EXERCISE No SEAT BELT Yes SELF EXAMS Yes Comment:advised Social History Narrative Single, 2 children (ages 11 yo son, age 5 yo dtr ) - [facility] 01/2013 ACTIVE PROBLEM LIST Migraine Without Aura, Without Mention of Intractable Migraine Without Mention of Status Migrainosus Unspecified Constipation Myalgia and Myositis, Unspecified Bmi 37.0-37.9, Adult Multinodular Goiter Lumbar Spondylosis Low Back Pain 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 Disp: Rfl: acyclovir (ZOVIRAX) 400 mg tablet Take 1 tablet by mouth three times daily for 7 days. Disp: 21 tablet Rfl: 0 cephALEXin (KEFLEX) 500 mg capsule Take 1 capsule by mouth three times daily for 10 days. Disp: 30 capsule Rfl: 0 fluticasone (FLONASE) 50 mcg/actuation nasal spray Use 2 Sprays in each nostril once daily. Disp: 1 Bottle Rfl: 5 NAPROXEN ORAL Take by mouth. Disp: Rfl: ibuprofen (MOTRIN) 800 mg tablet Take 1 tablet by mouth every 6 hours as needed for Pain. Take with food. Disp: 40 tablet Rfl: 1 No current facility-administered medications for this visit. ONE PNEUMOVAX PRIOR TO AGE 67 due on 2001 EXAM: BP 120/84 Pulse 88 Temp 36.3 ?C (97.4 ?F) (Tympanic) Resp 24 Wt 94.3 kg (208 lb) LMP 10/13/2010 BMI 35.7 kg/m2 Pleasant overweight adult woman in no acute distress. Alert and oriented all spheres. Normal affect and cognition. Speech normal. No deficits to learning or comprehension. Skin warm, dry, pink to lips and nailbeds. Normal turgor. Respirations regular and unlabored. HEENT WNL. TM's clear. Lower kip with several scabbed lesions. Tongue with large white aphthae at tip, very tender. Nose and oropharynx free from injection or lesion. No cervical lymph nodes. Thyroid non- tender, no masses. Neck circumference 15.5ANDquot; Chest CTA. HRRR without murmur or gallop. TTP in right lumbar with restricted SIJ. Extrem: no clubbing, cyanosis, edema. Extremities are warm and pink with prompt capillary refill. OMT: myofascial release to trigger points, HVLA right sacroiliac with improvement. ASSESSMENT/PLAN: 1. 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 As below for pain - TRIAMCINOLONE ACETONIDE 0.1 % DENTAL PASTE 2. Aphthous ulcer of tongue - ICD9: 528.2, ICD10: K12.0 As above 3. 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 improved with OMT 4. Drowsiness - ICD9: 780.09, ICD10: R40.0 Some possibility narcolepsy. Will start with BAYLEE eval as treatment would likely also affect narcolepsy. Consider consult to sleep. - POLYSOMNOGRAM (PSG)/HOME SLEEP APNEA TESTING (HSAT) Ankur Deal PA-C Referring Provider: SELF [[id number]] Allergies As of Date: 09/12/2017 Noted Allergy Reaction ADHESIVE 10/09/2008 Comments: Local irritation at site Beestings [Other] 03/13/2007 CAT DANDER [Other] 02/25/2005 5 - Intolerance FLEXERIL (CYCLOBENZAPRINE HCL) 06/30/2016 5 - Intolerance Comments: headcahes GRASS POLLEN 02/25/2005 2 - Rash MOLDS [Other] 02/25/2005 5 - Intolerance RAGWEED 03/18/2006 Date Reviewed: 09/12/2017 Reviewed by: Jessy Nileson LPN - Fully Assessed Reason for Visit: Fatigue [46] Cmt: states wakes up and still tired. Was suggested that she be checked for sleep apnea. ER F/U [41] Cmt: [facility] ER for muscle aches Reason For Visit History Recorded Primary Visit Diagnosis:Herpes labialis [B00.1] Other Visit Diagnoses:Aphthous ulcer of tongue [K12.0] Myotonia congenita [G71.12] Drowsiness [R40.0] Order(s):triamcinolone (KENALOG IN ORABASE) 0.1 % pasteApply small amount (1/4 of paste) twice a day to ulcer on tongue until improved.Disp: 2 gRfl: 1 POLYSOMNOGRAM (PSG)/HOME SLEEP APNEA TESTING (HSAT) [[id number]] Order #: [id number] FUTURE Prescriptions as of 09/12/2017 Sig: VALIUM ORAL Take by mouth. ACYCLOVIR 400 MG TABLET Take 1 tablet by mouth three * CEPHALEXIN 500 MG CAPSULE Take 1 capsule by mouth three* FLUTICASONE 50 MCG/ACTUATION * Use 2 Sprays in each nostril * NAPROXEN ORAL Take by mouth. IBUPROFEN 800 MG TABLET Take 1 tablet by mouth every * TRIAMCINOLONE ACETONIDE 0.1 %* Apply small amount (1/4 of p* Problem List As Of Date 09/12/2017 Noted Resolved Esophageal reflux [K21.9] INVALID FOR*08/27/2015 Depressive disorder, not elsewhere classified [*INVALID FOR*08/27/2015 COMMON MIGRAINE W/O MENTN INTRACT [G43.009] INVALID FOR* Chronic rhinitis [J31.0] INVALID FOR*08/27/2015 More... Abdominal pain, right lower quadrant [R10.31] 05/09/2012 Abdominal pain, left lower quadrant [R10.32] 05/09/2012 CONSTIPATION NOS [K59.00] MYALGIA AND MYOSITIS NOS [ABI9163] INVALID FOR* Lump or Mass in Breast [N63.0] INVALID FOR*01/30/2009 Sprain of foot, unspecified site [S93.609A] INVALID FOR*03/21/2013 Nausea alone [R11.0] 03/21/2013 Heartburn [R12] 08/27/2015 Achilles bursitis or tendinitis [M76.60] INVALID FOR*08/27/2015 Enthesopathy of unspecified site [M77.9] INVALID FOR*08/27/2015 Tibialis posterior tendonitis [M76.829] INVALID FOR*08/27/2015 Urine frequency [R35.0] INVALID FOR*08/27/2015 Hematuria [R31.9] INVALID FOR*08/27/2015 Suprapubic pressure [R10.2] INVALID FOR*08/27/2015 Stress incontinence [N39.3] INVALID FOR*08/27/2015 BMI 37.0-37.9, adult [Z68.37] INVALID FOR* Thrombosed external hemorrhoid [K64.5] INVALID FOR*03/21/2013 Multinodular goiter [E04.2] INVALID FOR* Right groin pain [R10.31] INVALID FOR*08/18/2016 Lumbar spondylosis [M47.816] INVALID FOR* Low back pain [M54.5] INVALID FOR* 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 Left medial knee pain [M25.562] INVALID FOR* Paresthesia of left leg [R20.2] INVALID FOR* More... Sciatica of left side [M54.32] INVALID FOR* Prescriptions ordered this encounter Disp Refills Start End TRIAMCINOLONE ACETONIDE 0.1 % DENTAL* 2 g 1 09/12/2017 Sig: Apply small amount (1/4 of paste) twice a day to ulcer on tongue until improved. Encounter Status:Closed by Ankur DEAL PA-C on 09/12/17 EMERGENCY DEPARTMENT Observed: 09/10/2017 Status: F Source: [place] SUMMARY 3:56 PM [facility] Medical Records Department [address] [place] [id number] Emergency Department Summary 09/10/17 0917 MR#: [id number] Acct: [id number] Name: VALERIA JHA Rep #: [id number] : 1980 36 From: Kristina Scott MD PCP: Gonzalo De Leon MD Status: DEP ER - ER Visit Summary Date of Service: 09/10/17 Chief Complaint: [] diffuse muscle pain History of Present Illness: The patient is a 36 F [] reports history of musculoskeletal disorder diagnosed as an adult the causes her to have diffuse muscle pains and cramps she indicates her daughter has the same condition, she is treated by [facility] physician she has not seen them in some time she takes Valium she took that was not improved and she came in today for evaluation. She states this is her chronic condition nothing is new or different she indicates she has spasms in her muscles diffusely almost every muscle group. There has been no fever no cough no trauma she also complains that she has a lip blister that she would like to be evaluated for. She indicates normally when she comes into the emergency department she is treated with Dilaudid and other medications her review of systems otherwise negative Physical Examination: [] Sitting in the bed no distress she has a very flat scaled crusted lip blister the oral cavity is unremarkable with no blister she is opening her mouth fully there is no lymphadenopathy lungs are clear heart tones are normal abdomen soft obese but nontender she has full range of motion of all major joints in all 4 extremities she complains of whole body musculoskeletal sense of tightness she denies chest pain shortness of breath, she assures me this is her typical usual musculoskeletal exacerbation Through the upper potential treatment options and management options. She indicates she is always treated with Dilaudid I explained to her that narcotic medications are generally not indicated for chronic conditions such as the above we try to discuss nonnarcotic management she rejected that, she indicates she always gets Dilaudid when she comes to the emergency department she wanted Dilaudid explained to her that I was not present when she was seen for previous visits cannot comment on what was done or what was not done at those times but that given her condition given her physical exam given the requirements and regulations by the state pharmacy board [facility] other national organizations related to the use of narcotics, given that her physicians been managing her chronically do not have her on narcotics that narcotics will not be prescribed today She did agree to proceed with dose of Norflex IM she will be given a prescription we did also send a viral swab for the lip blister, and she was instructed to use [id number] occasions for the blister and follow-up her family doctor for culture results and further management of all the above Test Results: [] Emergency Department Course and Treatment: [] Treatment Plan: [] Disposition: [] Stable, home Impression: [] Diffuse musculoskeletal type spasm reported history of unspecified musculoskeletal disorder, lip blister, requesting narcotics This note was generated with [employer] software. It may contain incorrect words, spelling, and punctuation that were not noted in review of the chart prior to signing ED Disposition - Plan for ED Patient: Chief Complaint: Back Referrals: Gonzalo De Leon MD [Primary Care Provider] - What to do if you have Problems For any increased pain, shortness of breath, bleeding, nausea or vomiting, chest pain, or any unexpected problems, contact your Primary Care Provider. Call [facility] ([phone]) or report to the closest Emergency Room. Call 911 if necessary. 09/10/17 1556 <Electronically signed by Kristina Scott MD> Date Kristina Scott MD Cosigner Signature (If Indicated): Date CC: Gonzalo De Leon MD GROUP A STREP BY Collected: 09/10/2017 Status: F Source: [place] PCR 11:08 AM [facility] RE[facility]ORY TYPE CODE TESTS RESULT OUT OF REFERENCE UNITS RANGE LAB GASSRC Throat Swab GAS Specimen Source LAB PCRGAS Negative for Group A Strep Group A PCR Streptococcus by PCR. Result Comment: This test was developed and its performance characteristics determined by [facility] [place] ([facility]). It has not been cleared or approved by the FDA. -[facility] is regulated under CLIA as qualified to perform high-complexity testing. This test is used for clinical purposes. It should not be regarded as inv estigational or for research. Performed By: #### GASPCR #### [facility] [address] [place], [place] [address] CNOV Observed: 09/10/2017 Status: COMPLETED Source: [place] 10:30 AM [facility] Office Visit (UCWSTR) VALERIA JHA ([id number]) 1980 F Date Time Provider Department 09/10/17 10:30 AM ARINA BOGGS (GIOVANA) UCWSTR During your visit today, we recorded the following information about you: Temperature Pulse Respiration Blood pressure 97.8 degrees 99/minute 16/minute 102/64 Weight 96.3 kg Arina Boggs APRN.CNP 09/10/2017 11:43 AM Signed Subjective HPI HPI Valeria Jha is a 36 year old female who presents today for CC of sores on mouth/lips, tender lymph nodes. This started 2 days ago. Has tried peroxide. Symptoms are worsened by nothing. Risk factors large amount of life stress, new job. Denies possibility of being . .Patient presents with: sore lips, tip of tongue and glands: x 2 days PAST MEDICAL HISTORY Diagnosis Date - Abdominal pain, other specified site RLQ and LLQ chronic - Abnormal glandular Papanicolaou smear of cervix Abn. Pap smear (cervix), s/p CHARBEL - Chronic back pain - Chronic rhinitis 06/30/2005 Dr. Bell - Depressive disorder, not elsewhere classified 06/30/2005 ANDquot;nervesANDquot; - Esotropia, unspecified Dr. Encarnacion, Right eye - GERD (gastroesophageal reflux disease) - Migraine - Myotonia - Thrombosed external hemorrhoid 03/20/2012 - Tobacco abuse - Unspecified constipation - Unspecified inflammatory disease of female pelvic organs and tissues chronic pelvic pain PAST SURGICAL HISTORY Procedure Laterality Date - APPENDECTOMY October 27, 2004 LAPROSCOPIC - COLONOSCOP W/ OR W/O [facility] SPEC 10/27/05 - HYSTEROSCOPY, STERILIZATION 02/13/08 [facility] - L'SCOPE DX W/WO BRUSHINGS/WASHINGS October Laparoscopy, adhesion lysis - POLYSOMNOGRAM(DIAG) 79033 12/2005 Sleep study wnl - THYROID FINE NEEDLE ASPIRATION 2012 - VAGINAL HYSTERECTOMY 10/29/10 [facility] ALLERGIES Adhesive; Beestings [Other]; Cat Dander [Other]; Flexeril [Cyclobenzaprine Hcl]; Grass Pollen; Molds [Other]; Ragweed MEDICATIONS DIAZEPAM (VALIUM ORAL) Take by mouth. fluticasone (FLONASE) 50 mcg/actuation nasal spray Use 2 Sprays in each nostril once daily. NAPROXEN ORAL Take by mouth. ibuprofen (MOTRIN) 800 mg tablet Take 1 tablet by mouth every 6 hours as needed for Pain. Take with food. FAMILY HISTORY Problem Relation Age of Onset - Allergies Mother - Hypertension Mother diabetes - Lipids Mother - Psychiatry Mother bipolar disorder - Diabetes Mother - Arthritis Father gout - Myotonia [OTHER] Father - Alzheimer's Disease Paternal Grandfather HEARING LOSS,PARKINSONS - Stroke Paternal Grandfather - Arthritis Paternal Grandmother - Hypertension Paternal Grandmother - Osteoporosis Paternal Grandmother - Stroke Paternal Grandmother - Thyroid Paternal Grandmother - Arthritis Maternal Grandmother CAROTID ARTERY CLEANED OUT, DIABETES - Hypertension Maternal Grandmother - Lipids Maternal Grandmother - Stroke Maternal Grandmother - Diabetes Maternal Grandmother - Diabetes Brother (1/2 brother) Social History Substance Use Topics - Smoking status: Current Every Day Smoker Packs/day: 0.50 Years: 12.00 Types: Cigarettes - Smokeless tobacco: Never Used - Alcohol use No Blood pressure 102/64, pulse 99, temperature 36.6 ?C (97.8 ?F), temperature source Tympanic, resp. rate 16, weight 96.3 kg (212 lb 3.2 oz), last menstrual period 10/13/2010. Review of Systems Constitutional: Negative for chills, fever and weight loss. HENT: Positive for congestion and sore throat. Negative for ear pain and nosebleeds. Respiratory: Positive for cough. Negative for shortness of breath and wheezing. Musculoskeletal: Negative for neck pain. Skin: Negative for itching and rash. Objective Physical Exam Constitutional: She is oriented to person, place, and time and well-developed, well-nourished, and in no distress. Non-toxic appearance. She does not have a sickly appearance. No distress. HENT: Head: Normocephalic and atraumatic. Right Ear: Hearing, tympanic membrane, external ear and ear canal normal. Left Ear: Hearing, tympanic membrane, external ear and ear canal normal. Nose: Nose normal. Mouth/Throat: Uvula is midline and mucous membranes are normal. Posterior oropharyngeal erythema present. No oropharyngeal exudate, posterior oropharyngeal edema or tonsillar abscesses. Eyes: Conjunctivae and lids are normal. Pupils are equal, round, and reactive to light. Right eye exhibits no discharge. Left eye exhibits no discharge. No scleral icterus. Neck: Trachea normal and normal range of motion. Neck supple. Cardiovascular: Normal rate, regular rhythm and normal heart sounds. Pulmonary/Chest: Effort normal and breath sounds normal. Lymphadenopathy: She has cervical adenopathy. Right cervical: Superficial cervical adenopathy present. Left cervical: Superficial cervical adenopathy present. Neurological: She is alert and oriented to person, place, and time. Skin: No rash noted. She is not diaphoretic. ASSESSMENT/PLAN: 1. 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 Sore throat - ICD9: 462, ICD10: J02.9 - Rapid Strep negative in the office today and Throat culture pending - Discussed supportive care treatment with fluids, rest and analgesia. - The patient should follow up in 3-5 days if symptoms persist or worsen - Call back if drooling, increased temperature, symptoms of dehydration and/or still sick in one week - RAPID STREP TEST B/O - GROUP A STREPTOCOCCUS BY PCR 3. Secondary infection of skin - ICD9: 686.8, ICD10: L08.89 -take medication as prescribed, herpetic lesions -follow up if worsening signs of infection occur - CEPHALEXIN 500 MG CAPSULE 4. Feared complaint without diagnosis - ICD9: V65.5, ICD10: Z71.1 If s/s of yeast infection occur, fill/take diflucan, f/u with pcp if symptoms persist - FLUCONAZOLE 150 MG TABLET Has an appointment with pcp on Tuesday, encouraged to keep the appointment Prescription instructions reviewed with patient as applicable. Patient advised if symptoms do not improve or if symptoms worsen sooner, to contact the office for further evaluation by their primary care physician. Potential red flag symptoms discussed with the patient. Reviewed appropriate action plan to take if red flag symptoms occur. Patient agreeable to treatment plan. Arian Boggs APRN.GIOVANA Boggs APRN.CNP 09/10/2017 11:10 AM Signed ASSESSMENT/PLAN: 1. 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 Sore throat - ICD9: 462, ICD10: J02.9 - Rapid Strep negative in the office today and Throat culture pending - Discussed supportive care treatment with fluids, rest and analgesia. - The patient should follow up in 3-5 days if symptoms persist or worsen - Call back if drooling, increased temperature, symptoms of dehydration and/or still sick in one week - RAPID STREP TEST B/O - GROUP A STREPTOCOCCUS BY PCR 3. Secondary infection of skin - ICD9: 686.8, ICD10: L08.89 -take medication as prescribed -follow up if worsening signs of infection occur - CEPHALEXIN 500 MG CAPSULE Referring Provider: SELF [200] Allergies As of Date: 09/10/2017 Noted Allergy Reaction ADHESIVE 10/09/2008 Comments: Local irritation at site Beestings [Other] 03/13/2007 CAT DANDER [Other] 02/25/2005 5 - Intolerance FLEXERIL (CYCLOBENZAPRINE HCL) 06/30/2016 5 - Intolerance Comments: headcahes GRASS POLLEN 02/25/2005 2 - Rash MOLDS [Other] 02/25/2005 5 - Intolerance RAGWEED 03/18/2006 Date Reviewed: 09/10/2017 Reviewed by: Viji White LPN - Fully Assessed Reason for Visit: sore lips, tip of tongue and glands [Other] Cmt: x 2 days Primary Visit Diagnosis:Herpes labialis [B00.1] Other Visit Diagnoses:Sore throat [J02.9] Secondary infection of skin [L08.89] Feared complaint without diagnosis [Z71.1] Order(s):acyclovir (ZOVIRAX) 400 mg tabletTake 1 tablet by mouth three times daily for 7 days.Disp: 21 tabletRfl: 0 cephALEXin (KEFLEX) 500 mg capsuleTake 1 capsule by mouth three times daily for 10 days.Disp: 30 capsuleRfl: 0 RAPID STREP TEST B/O [0603131] Order #: [id number] GROUP A STREPTOCOCCUS BY PCR [SQGASPCR] Order #: [id number] fluconazole (DIFLUCAN) 150 mg tabletTake 1 tablet by mouth once daily for 1 day.Disp: 1 tabletRfl: 0 Prescriptions as of 09/10/2017 Sig: VALIUM ORAL Take by mouth. FLUTICASONE 50 MCG/ACTUATION * Use 2 Sprays in each nostril * NAPROXEN ORAL Take by mouth. IBUPROFEN 800 MG TABLET Take 1 tablet by mouth every * ACYCLOVIR 400 MG TABLET Take 1 tablet by mouth three * CEPHALEXIN 500 MG CAPSULE Take 1 capsule by mouth three* FLUCONAZOLE 150 MG TABLET Take 1 tablet by mouth once d* Problem List As Of Date 09/10/2017 Noted Resolved Esophageal reflux [K21.9] INVALID FOR*08/27/2015 Depressive disorder, not elsewhere classified [*INVALID FOR*08/27/2015 COMMON MIGRAINE W/O MENTN INTRACT [G43.009] INVALID FOR* Chronic rhinitis [J31.0] INVALID FOR*08/27/2015 More... Abdominal pain, right lower quadrant [R10.31] 05/09/2012 Abdominal pain, left lower quadrant [R10.32] 05/09/2012 CONSTIPATION NOS [K59.00] MYALGIA AND MYOSITIS NOS [TDJ4178] INVALID FOR* Lump or Mass in Breast [N63.0] INVALID FOR*01/30/2009 Sprain of foot, unspecified site [S93.609A] INVALID FOR*03/21/2013 Nausea alone [R11.0] 03/21/2013 Heartburn [R12] 08/27/2015 Achilles bursitis or tendinitis [M76.60] INVALID FOR*08/27/2015 Enthesopathy of unspecified site [M77.9] INVALID FOR*08/27/2015 Tibialis posterior tendonitis [M76.829] INVALID FOR*08/27/2015 Urine frequency [R35.0] INVALID FOR*08/27/2015 Hematuria [R31.9] INVALID FOR*08/27/2015 Suprapubic pressure [R10.2] INVALID FOR*08/27/2015 Stress incontinence [N39.3] INVALID FOR*08/27/2015 BMI 37.0-37.9, adult [Z68.37] INVALID FOR* Thrombosed external hemorrhoid [K64.5] INVALID FOR*03/21/2013 Multinodular goiter [E04.2] INVALID FOR* Right groin pain [R10.31] INVALID FOR*08/18/2016 Lumbar spondylosis [M47.816] INVALID FOR* Low back pain [M54.5] INVALID FOR* Cognitive deficit due to old head trauma [F09, *INVALID FOR* Post concussion syndrome [F07.81] INVALID FOR* Depression, major (HCC) [F32.9] INVALID FOR* Anxiety disorder [F41.9] INVALID FOR* Hematuria [R31.9] INVALID FOR* Myotonia congenita [G71.12] INVALID FOR* Left medial knee pain [M25.562] INVALID FOR* Paresthesia of left leg [R20.2] INVALID FOR* More... Sciatica of left side [M54.32] INVALID FOR* Other instructions from your clinician: ASSESSMENT/PLAN: 1. 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 Sore throat - ICD9: 462, ICD10: J02.9 - Rapid Strep negative in the office today and Throat culture pending - Discussed supportive care treatment with fluids, rest and analgesia. - The patient should follow up in 3-5 days if symptoms persist or worsen - Call back if drooling, increased temperature, symptoms of dehydration and/or still sick in one week - RAPID STREP TEST B/O - GROUP A STREPTOCOCCUS BY PCR 3. Secondary infection of skin - ICD9: 686.8, ICD10: L08.89 -take medication as prescribed -follow up if worsening signs of infection occur - CEPHALEXIN 500 MG CAPSULE Prescriptions ordered this encounter Disp Refills Start End ACYCLOVIR 400 MG TABLET 21 t* 0 09/10/2017 09/17/2017 Route: ORAL Sig: Take 1 tablet by mouth three times daily for 7 days. CEPHALEXIN 500 MG CAPSULE 30 c* 0 09/10/2017 09/20/2017 Route: ORAL Sig: Take 1 capsule by mouth three times daily for 10 days. FLUCONAZOLE 150 MG TABLET 1 ta* 0 09/10/2017 09/11/2017 Class: Print RX Route: ORAL Sig: Take 1 tablet by mouth once daily for 1 day. Encounter Status:Closed by ARINA BOGGS CNP on 09/10/17 PROGRESS Observed: 09/10/2017 Status: COMPLETED Source: [place] 10:29 AM [facility] RE[facility] HNO ID: [id number] Author: Arina Rascon) Service: (none) Author Type: Nurse Practitioner Type: Progress Notes Filed: 09/10/2017 11:43 AM Note Text: Subjective HPI HPI Valeria Jha is a 36 year old female who presents today for CC of sores on mouth/lips, tender lymph nodes. This started 2 days ago. Has tried peroxide. Symptoms are worsened by nothing. Risk factors large amount of life stress, new job. Denies possibility of being . .Patient presents with: sore lips, tip of tongue and glands: x 2 days PAST MEDICAL HISTORY Diagnosis Date - Abdominal pain, other specified site RLQ and LLQ chronic - Abnormal glandular Papanicolaou smear of cervix Abn. Pap smear (cervix), s/p CHARBEL - Chronic back pain - Chronic rhinitis 06/30/2005 Dr. Bell - Depressive disorder, not elsewhere classified 06/30/2005 nerves - Esotropia, unspecified Dr. Encarnacion, Right eye - GERD (gastroesophageal reflux disease) - Migraine - Myotonia - Thrombosed external hemorrhoid 03/20/2012 - Tobacco abuse - Unspecified constipation - Unspecified inflammatory disease of female pelvic organs and tissues chronic pelvic pain PAST SURGICAL HISTORY Procedure Laterality Date - APPENDECTOMY October 27, 2004 LAPROSCOPIC - COLONOSCOP W/ OR W/O BRSH SPEC 10/27/05 - HYSTEROSCOPY, STERILIZATION 02/13/08 [facility] - L'SCOPE DX W/WO BRUSHINGS/WASHINGS October Laparoscopy, adhesion lysis - POLYSOMNOGRAM(DIAG) 05799 12/2005 Sleep study wnl - THYROID FINE NEEDLE ASPIRATION 2012 - VAGINAL HYSTERECTOMY 10/29/10 [facility] ALLERGIES Adhesive; Beestings [Other]; Cat Dander [Other]; Flexeril [Cyclobenzaprine Hcl]; Grass Pollen; Molds [Other]; Ragweed MEDICATIONS DIAZEPAM (VALIUM ORAL) Take by mouth. fluticasone (FLONASE) 50 mcg/actuation nasal spray Use 2 Sprays in each nostril once daily. NAPROXEN ORAL Take by mouth. ibuprofen (MOTRIN) 800 mg tablet Take 1 tablet by mouth every 6 hours as needed for Pain. Take with food. FAMILY HISTORY Problem Relation Age of Onset - Allergies Mother - Hypertension Mother diabetes - Lipids Mother - Psychiatry Mother bipolar disorder - Diabetes Mother - Arthritis Father gout - Myotonia [OTHER] Father - Alzheimer's Disease Paternal Grandfather HEARING LOSS,PARKINSONS - Stroke Paternal Grandfather - Arthritis Paternal Grandmother - Hypertension Paternal Grandmother - Osteoporosis Paternal Grandmother - Stroke Paternal Grandmother - Thyroid Paternal Grandmother - Arthritis Maternal Grandmother CAROTID ARTERY CLEANED OUT, DIABETES - Hypertension Maternal Grandmother - Lipids Maternal Grandmother - Stroke Maternal Grandmother - Diabetes Maternal Grandmother - Diabetes Brother (1/2 brother) Social History Substance Use Topics - Smoking status: Current Every Day Smoker Packs/day: 0.50 Years: 12.00 Types: Cigarettes - Smokeless tobacco: Never Used - Alcohol use No Blood pressure 102/64, pulse 99, temperature 36.6 ?C (97.8 ?F), temperature source Tympanic, resp. rate 16, weight 96.3 kg (212 lb 3.2 oz), last menstrual period 10/13/2010. Review of Systems Constitutional: Negative for chills, fever and weight loss. HENT: Positive for congestion and sore throat. Negative for ear pain and nosebleeds. Respiratory: Positive for cough. Negative for shortness of breath and wheezing. Musculoskeletal: Negative for neck pain. Skin: Negative for itching and rash. Objective Physical Exam Constitutional: She is oriented to person, place, and time and well-developed, well-nourished, and in no distress. Non-toxic appearance. She does not have a sickly appearance. No distress. HENT: Head: Normocephalic and atraumatic. Right Ear: Hearing, tympanic membrane, external ear and ear canal normal. Left Ear: Hearing, tympanic membrane, external ear and ear canal normal. Nose: Nose normal. Mouth/Throat: Uvula is midline and mucous membranes are normal. Posterior oropharyngeal erythema present. No oropharyngeal exudate, posterior oropharyngeal edema or tonsillar abscesses. Eyes: Conjunctivae and lids are normal. Pupils are equal, round, and reactive to light. Right eye exhibits no discharge. Left eye exhibits no discharge. No scleral icterus. Neck: Trachea normal and normal range of motion. Neck supple. Cardiovascular: Normal rate, regular rhythm and normal heart sounds. Pulmonary/Chest: Effort normal and breath sounds normal. Lymphadenopathy: She has cervical adenopathy. Right cervical: Superficial cervical adenopathy present. Left cervical: Superficial cervical adenopathy present. Neurological: She is alert and oriented to person, place, and time. Skin: No rash noted. She is not diaphoretic. ASSESSMENT/PLAN: 1. 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 Sore throat - ICD9: 462, ICD10: J02.9 - Rapid Strep negative in the office today and Throat culture pending - Discussed supportive care treatment with fluids, rest and analgesia. - The patient should follow up in 3-5 days if symptoms persist or worsen - Call back if drooling, increased temperature, symptoms of dehydration and/or still sick in one week - RAPID STREP TEST B/O - GROUP A STREPTOCOCCUS BY PCR 3. Secondary infection of skin - ICD9: 686.8, ICD10: L08.89 -take medication as prescribed, herpetic lesions -follow up if worsening signs of infection occur - CEPHALEXIN 500 MG CAPSULE 4. Feared complaint without diagnosis - ICD9: V65.5, ICD10: Z71.1 If s/s of yeast infection occur, fill/take diflucan, f/u with pcp if symptoms persist - FLUCONAZOLE 150 MG TABLET Has an appointment with pcp on Tuesday, encouraged to keep the appointment Prescription instructions reviewed with patient as applicable. Patient advised if symptoms do not improve or if symptoms worsen sooner, to contact the office for further evaluation by their primary care physician. Potential red flag symptoms discussed with the patient. Reviewed appropriate action plan to take if red flag symptoms occur. Patient agreeable to treatment plan. Arina Boggs APRN.SAUSAGE CUTTER DISCHARGE INSTRUCTION Observed: 09/10/2017 Status: F Source: [place] 9:24 AM [facility] Medical Records Department [facility] [place] [address] Discharge Instruction 09/10/17 0922 MR#: [id number] Acct: [id number] Name: VALERIA JHA Edmar Rep #: [id number] : 1980 36 From: Kristina Scott MD PCP: Gonzalo De Leon MD Status: REG ER ED Disposition - Plan for ED Patient: Chief Complaint: Back Instructions: ED Spasm Back No Trauma Prescriptions: Orphenadrine [Norflex ER] 100 mg ORAL DAILY #7 tab Referrals: Gonzalo De Leon MD [Primary Care Provider] - What to do if you have Problems For any increased pain, shortness of breath, bleeding, nausea or vomiting, chest pain, or any unexpected problems, contact your Primary Care Provider. Call [facility] ([phone]) or report to the closest Emergency Room. Call 911 if necessary. 09/10/17923 <Electronically signed by Kristina Scott MD> Date Kristina Scott MD Cosigner Signature (If Indicated): Date CC: Gonzalo De Leon MD Observed: 09/10/2017 Status: F Source: [place] CULTURE, [place] 9:15 AM [facility] [place] Comments: Lip sore Virus Culture Positive for Herpes simplex virus type-1. Typing was confirmed by monoclonal antibody microscopic immunofluorescence. TESTING PERFORMED AT [facility]. ORIGINAL REPORT ON FILE IN LAB CONTAINS ADDITIONAL TEST SITE INFORMATION. RESULTS CALLED TO Jamilah 09/19/17813 Hannah Sims. REPORT READ BACK BY Saige. Copy of report sent to Infection Control Printer [id number] 09/19/17813 [place]. Culture, Virus General CULTURE POSITIVE for HERPES SIMPLEX VIRUS by [facility]CENT Ab. Performed By: #### [id number] #### [facility] [address] [place], [place], [address] PROGRESS Observed: 08/22/2017 Status: COMPLETED Source: [place] 2:07 PM [facility] RE[facility] HNO ID: [id number] Author: Karen (Bc) Jimmie Service: (none) Author Type: Physical Therapist Type: Progress Notes Filed: 08/22/2017 2:11 PM Note Text: Episode Visit Count: 1 Therapist That Will Oversee The Plan Of Care: Karen Samuel Start of Care Date: 08/22/17 Onset Date: 02/22/18 Plan of Care Certification Date: 08/22/17 Patient Identified by Name and Date of : Yes REHABILITATION AND SPORTS THERAPY PHYSICAL THERAPY EVALUATION PLAN OF CARE: Assessment: Valeria Jha presents with the chief complaint of bilateral low back pain and left leg pain as well as numbness and tingling of leg with standing and walking. She presents with impairments of decreased trunk ROM. Decreased core strength. Decreased functional status. She may benefit from skilled therapy services to improve pain and sx and return to prior functional level. Low Back Pain Subgroup Classification Low Back Pain Subgroup Classification: Specific exercise subgroup: recommended visits 8. Specific Exercies Subgroup Classification based on: directional preference Prognosis: Good Good due to: current objective clinical presentation Goals for Episode of Care: created on 08/22/17 through 09/22/17 Independent in home exercises. Patient will decrease pain to 3/10 with functional activities to allow patient to improve standing tolerance for ADLs. Stand / Walk 1 hours without pain/symptoms. Patient will be able to tolerate work activities without increased symptoms. Planned Interventions, Frequency, and Duration: Current Frequency: 2x/week Duration: 4 weeks Total Number of Visits Planned: 8 Patient to be see for Planned Treatment Interventions: Therapeutic exercise;Manual therapy PLAN FOR NEXT VISIT: Progress flexion based exs, trial of belt traction Patient demonstrates good understanding of plan of care and treatment. The above goals and plan of care were discussed and agreed upon by patient/family. SUBJECTIVE: Valeria Jha is a 36 year old female seen today for Pain bilateral low back and then numbness and tingling left leg to foot. 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 Environment Patient Lives With: Significant Other Spine History Pain is Worse Always: (standing, walking) Pain is Better Always: (sitting / lying down) Sleeping Position: Side lying right > left Sleep Affected by Pain: Pain keeps from falling asleep Previous Episodes: Yes Pain Score: 4/10 Pain Location: Low Back/Lumbar Spine - Right;Low Back/Lumbar Spine - Left (left leg pain as well as numbness and tingling) Description: Aching Frequency: Intermittent Post Treatment Pain Score: No Change Pain Location: Low Back/Lumbar Spine - Right;Low Back/Lumbar Spine - Left;Leg - Left Post Treatment Pain Description: Aching OBJECTIVE MEASURES WITH LEVEL OF FUNCTION: Posture / Alignment Posture: Decreased lumbar lordosis Gait Assessment Gait: ( no deviation) Spine Palpation R Lumbar Spine Palpation Tenderness: Paraspinals L Lumbar Spine Palpation Tenderness: Paraspinals Lumbar Spine AROM Lumbar Flexion: Normal Lumbar Extension: Major limitation Lumbar R Side-Bend: Normal Lumbar L Side-Bend: Normal Repeated Test Movements - Lumbar RFIS - Symptoms During: no effect RFIS - Symptoms After: no effect PAVEL - Symptoms During: increases PAVEL - Symptoms After: worse RFIL - Symptoms During: decreases RFIL - Symptoms After: no better REIL - Symptoms During: increases REIL - Symptoms After: no better Static Testing - Lumbar Lying Prone In Extension: worse;peripheralized LE Strength R LE Strength: 5/5 L LE Strength: 5/5 Education: Education Learning Preferences: Demonstration;Explanation;Performance;Printed Materials Barriers: None Learning/educational needs: Home exercise program;Plan of Care Education Provided: Yes, see treatment interventions for education provided Education Provided To: Patient Education Mode/Type: Demonstration;Explanation/Discussion;Literature/Printed Materials;Performance Response to Education/Teach Back: States/Identifies TREATMENT: Evaluation Therapeutic Exercise: 1: orange rep band shld extension to thigh hooklying 3x10 2: SKC 10 sec hold x5 B 3: seated purple rep band trunk flexion 1x10 Skilled Intervention: Patient was educated in proper exercise technique and purpose for exercises. Skilled judgment was provided in selection of appropriate interventions. Provided written instruction for home exercise program to facilitate proper performance and compliance. Correct performance of therapeutic exercises was facilitated with verbal and visual cuing. Educated patient on rationale for performing exercises in regards to ROM and function Billing: [facility]: Evaluation - Low Complexity (72861) Therapeutic Exercise (03650): 1:1 time: 25 minutes (2 units: 23-37 mins) Total time: 45 minutes Karen Samuel, PT XR LUMBAR 3V Observed: 08/22/2017 Status: F Source: [place] AP/LAT/L5-S1 1:06 PM [facility] REPOSITORY * * *Final Report* * * DATE OF EXAM: Aug 22 2017 1:06PM WRX [id number] - XR LUMBAR 3V AP/LAT/L5-S1 / PROCEDURE REASON: Sciatica, left side * * * * Physician Interpretation * * * * EXAM TITLE: XR LUMBAR 3V AP/LAT/L5-S1 EXAM DATE/TIME: 08/22/2017 1:06 PM COMPARISON: None. CLINICAL INDICATION/HISTORY: Sciatica TECHNIQUE: AP, lateral and cone down lateral views of the lumbar spine are presented. FINDINGS: There are five irt-eci-bxrczjy lumbar vertebra. No fracture or subluxations are noted. The disc spaces are well preserved. There is no significant osteophyte formation. IMPRESSION: Negative lumbar spine. Broadcast Director Operations: PSC[employer] Transcribe Date/Time: Aug 22 2017 6:59P Dictated by : MELISSA SILVA MD This examination was interpreted and the report reviewed and electronically signed by: MELISSA SILVA MD on Aug 22 2017 7:00PM EST [id number] PROGRESS Observed: 08/22/2017 Status: COMPLETED Source: [place] 12:58 PM [facility] HNO ID: [id number] Author: Dorian Wong (Rt) Service: (none) Author Type: Gas Plumber Type: Progress Notes Filed: 08/22/2017 1:05 PM Note Text: Radiology Service Progress Note PATIENT NAME: Valeria Jha DATE OF SERVICE: August 22, 2017 TIME: 12:58 PM PATIENT IDENTITY VERIFICATION COMPLETED USING TWO (2) METHODS: Patient confirmed name verbally and Date of . PATIENT GENDER DATA: Female. status: : No status: NO. PATIENT RELEVANT IMPLANT DATA REVIEWED: Not Applicable RADIOLOGY DEPARTMENT: General X-ray: Exam(s) Completed: Spine X-Ray(s): Lumbar AP / LAT / L5-S1 PERIPHERAL IV DATA: Not applicable SIGNED BY: RT Judith August 22, 2017 12:58 PM CNTHERAPY Observed: 08/22/2017 Status: COMPLETED Source: [place] 11:45 AM [facility] OT/PT/Speech Visit (PTWS) VALERIA JHA ([id number]) 1980 F Date Time Provider Department 08/22/17 11:45 AM KAREN SAMUEL (PT) PTWS Date Time Provider Department Center 08/22/2017 11:45 AM [id number], LISA (PT) PTWS [facility] Reason for Visit: PT Eval [747] Patient Education [91] PT Discharge [752] Reason For Visit History Recorded Visit Diagnosis:Sciatica of left side [M54.32] Allergies As of Date: 08/22/2017 Noted Allergy Reaction ADHESIVE 10/09/2008 Comments: Local irritation at site Beestings [Other] 03/13/2007 CAT DANDER [Other] 02/25/2005 5 - Intolerance FLEXERIL (CYCLOBENZAPRINE HCL) 06/30/2016 5 - Intolerance Comments: headcahes GRASS POLLEN 02/25/2005 2 - Rash MOLDS [Other] 02/25/2005 5 - Intolerance RAGWEED 03/18/2006 Date Reviewed: 08/01/2017 Reviewed by: Sowmya Lopez LPN - Fully Assessed Prescriptions as of 08/22/2017 Sig: FLUTICASONE 50 MCG/ACTUATION * Use 2 Sprays in each nostril * NAPROXEN ORAL Take by mouth. IBUPROFEN 800 MG TABLET Take 1 tablet by mouth every * Progress Notes: Karen Samuel (Pt) 08/22/2017 2:11 PM Signed Episode Visit Count: 1 Therapist That Will Oversee The Plan Of Care: Karen Samuel Start of Care Date: 08/22/17 Onset Date: 02/22/18 Plan of Care Certification Date: 08/22/17 Patient Identified by Name and Date of : Yes REHABILITATION AND SPORTS THERAPY PHYSICAL THERAPY EVALUATION PLAN OF CARE: Assessment: Valeria Jha presents with the chief complaint of bilateral low back pain and left leg pain as well as numbness and tingling of leg with standing and walking. She presents with impairments of decreased trunk ROM. Decreased core strength. Decreased functional status. She may benefit from skilled therapy services to improve pain and sx and return to prior functional level. Low Back Pain Subgroup Classification Low Back Pain Subgroup Classification: Specific exercise subgroup: recommended visits 8. Specific Exercies Subgroup Classification based on: directional preference Prognosis: Good Good due to: current objective clinical presentation Goals for Episode of Care: created on 08/22/17 through 09/22/17 Independent in home exercises. Patient will decrease pain to 3/10 with functional activities to allow patient to improve standing tolerance for ADLs. Stand / Walk 1 hours without pain/symptoms. Patient will be able to tolerate work activities without increased symptoms. Planned Interventions, Frequency, and Duration: Current Frequency: 2x/week Duration: 4 weeks Total Number of Visits Planned: 8 Patient to be see for Planned Treatment Interventions: Therapeutic exercise;Manual therapy PLAN FOR NEXT VISIT: Progress flexion based exs, trial of belt traction Patient demonstrates good understanding of plan of care and treatment. The above goals and plan of care were discussed and agreed upon by patient/family. SUBJECTIVE: Valeria Jha is a 36 year old female seen today for Pain bilateral low back and then numbness and tingling left leg to foot. 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 Environment Patient Lives With: Significant Other Spine History Pain is Worse Always: (standing, walking) Pain is Better Always: (sitting / lying down) Sleeping Position: Side lying right > left Sleep Affected by Pain: Pain keeps from falling asleep Previous Episodes: Yes Pain Score: 4/10 Pain Location: Low Back/Lumbar Spine - Right;Low Back/Lumbar Spine - Left (left leg pain as well as numbness and tingling) Description: Aching Frequency: Intermittent Post Treatment Pain Score: No Change Pain Location: Low Back/Lumbar Spine - Right;Low Back/Lumbar Spine - Left;Leg - Left Post Treatment Pain Description: Aching OBJECTIVE MEASURES WITH LEVEL OF FUNCTION: Posture / Alignment Posture: Decreased lumbar lordosis Gait Assessment Gait: ( no deviation) Spine Palpation R Lumbar Spine Palpation Tenderness: Paraspinals L Lumbar Spine Palpation Tenderness: Paraspinals Lumbar Spine AROM Lumbar Flexion: Normal Lumbar Extension: Major limitation Lumbar R Side-Bend: Normal Lumbar L Side-Bend: Normal Repeated Test Movements - Lumbar RFIS - Symptoms During: no effect RFIS - Symptoms After: no effect PAVEL - Symptoms During: increases PAVEL - Symptoms After: worse RFIL - Symptoms During: decreases RFIL - Symptoms After: no better REIL - Symptoms During: increases REIL - Symptoms After: no better Static Testing - Lumbar Lying Prone In Extension: worse;peripheralized LE Strength R LE Strength: 5/5 L LE Strength: 5/5 Education: Education Learning Preferences: Demonstration;Explanation;Performance;Printed Materials Barriers: None Learning/educational needs: Home exercise program;Plan of Care Education Provided: Yes, see treatment interventions for education provided Education Provided To: Patient Education Mode/Type: Demonstration;Explanation/Discussion;Literature/Printed Materials;Performance Response to Education/Teach Back: States/Identifies TREATMENT: Evaluation Therapeutic Exercise: 1: orange rep band shld extension to thigh hooklying 3x10 2: SKC 10 sec hold x5 B 3: seated purple rep band trunk flexion 1x10 Skilled Intervention: Patient was educated in proper exercise technique and purpose for exercises. Skilled judgment was provided in selection of appropriate interventions. Provided written instruction for home exercise program to facilitate proper performance and compliance. Correct performance of therapeutic exercises was facilitated with verbal and visual cuing. Educated patient on rationale for performing exercises in regards to ROM and function Billing: [facility]: Evaluation - Low Complexity (20244) Therapeutic Exercise (52222): 1:1 time: 25 minutes (2 units: 23-37 mins) Total time: 45 minutes BC Marrero Lisa (Pt) 10/13/2017 12:09 PM Signed [facility] PHYSICAL THERAPY DISCONTINUANCE OF CARE Plan of Care Period: Start of Care Date: 08/22/17 Last Visit Date:same Therapy Program: Patient did not return for follow up care as planned. Please refer to last visit note for interventions provided for this episode of care. Assessment: Unable to formally assess goal achievement due to non-compliance with therapy plan of care. Reason for Discontinuation of Care: Patient has not returned to therapy or scheduled additional follow-up appointments. Karen Samuel, PT PROGRESS Observed: 08/01/2017 Status: COMPLETED Source: [place] 1:03 PM [facility] REPOS[facility] HNO ID: [id number] Author: Gonzalo De Leon Service: (none) Author Type: Physician Type: Progress Notes Filed: 08/01/2017 1:15 PM Note Text: Patient presents with: ED Follow-up HPI: Patient presents today for office visit for follow up [facility] ER. Nursing Notes: Sowmya Lopez LPN 08/01/2017 12:56 PM Signed HOSPITAL/ER FOLLOW UP: Reason for visit: numbness left leg Which facility: [facility] Date of visit: 07/24/17 Diagnosis: left lower extremity numbness Testing done: CT scan brain, CBC, BMP Treatment given: told to follow up with PCP no change to treatment Current symptoms: Entire leg is still numb causing her to feel like foot is swollen Has not caused her to fall but some imbalance issues with it Has been checking glucose at home due to feeling faint states that most times is around 110. Recalls no injury. Has chronic back pain. Has been there since 07/24. Leg aches and tingles. Feels like pins or needles. No trauma. No issues with bowel or bladder. Has had episodes where she feels dizzy or lightheaded. Has had syncope in the past related to it. Has gone on for literally years. Has had some work up but no etiology has occurred. Will call if worsens. MEDICATIONS: Current Outpatient Prescriptions: NAPROXEN ORAL Take by mouth. ibuprofen (MOTRIN) 800 mg tablet Take 1 tablet by mouth every 6 hours as needed for Pain. Take with food. No current facility-administered medications for this visit. ALLERGIES: ALLERGIES Allergen Reactions - Adhesive Local irritation at site - Beestings [Other] - Cat Dander [Other] Intolerance - Flexeril [Cyclobenz* Intolerance headcahes - Grass Pollen Rash - Molds [Other] Intolerance - Ragweed PAST MEDICAL HISTORY Diagnosis Date - Abdominal pain, other specified site RLQ and LLQ chronic - Abnormal glandular Papanicolaou smear of cervix Abn. Pap smear (cervix), s/p CHARBEL - Chronic back pain - Chronic rhinitis 06/30/2005 Dr. Bell - Depressive disorder, not elsewhere classified 06/30/2005 nerves - Esotropia, unspecified Dr. Encarnacion, Right eye - GERD (gastroesophageal reflux disease) - Migraine - Myotonia - Thrombosed external hemorrhoid 03/20/2012 - Tobacco abuse - Unspecified constipation - Unspecified inflammatory disease of female pelvic organs and tissues chronic pelvic pain PAST SURGICAL HISTORY Procedure Laterality Date - APPENDECTOMY October 27, 2004 LAPROSCOPIC - COLONOSCOP W/ OR W/O BRSH SPEC 10/27/05 - HYSTEROSCOPY, STERILIZATION 02/13/08 [facility] - L'SCOPE DX W/WO BRUSHINGS/WASHINGS October Laparoscopy, adhesion lysis - POLYSOMNOGRAM(DIAG) 43801 12/2005 Sleep study wnl - THYROID FINE NEEDLE ASPIRATION 2012 - VAGINAL HYSTERECTOMY 10/29/10 [facility] FAMILY HISTORY Problem Relation Age of Onset - Allergies Mother - Hypertension Mother diabetes - Lipids Mother - Psychiatry Mother bipolar disorder - Diabetes Mother - Arthritis Father gout - Myotonia [OTHER] Father - Alzheimer's Disease Paternal Grandfather HEARING LOSS,PARKINSONS - Stroke Paternal Grandfather - Arthritis Paternal Grandmother - Hypertension Paternal Grandmother - Osteoporosis Paternal Grandmother - Stroke Paternal Grandmother - Thyroid Paternal Grandmother - Arthritis Maternal Grandmother CAROTID ARTERY CLEANED OUT, DIABETES - Hypertension Maternal Grandmother - Lipids Maternal Grandmother - Stroke Maternal Grandmother - Diabetes Maternal Grandmother - Diabetes Brother (1/2 brother) Social History Marital status: Spouse name: Years of education: GED Number of children: 2 Occupational History Occupation Employer Comment unemployed [employer]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 Social History Main Topics Smoking status: Current Every Day Smoker Packs/day: 0.50 Years: 12.00 Types: Cigarettes Smokeless status: Never Used Alcohol use: No Drug use: No Comment: marijuana as teenager, none recent Sexual activity: Yes Partners with: Male control/protection: Surgical Other Topics Concern BLOOD TRANSFUSIONS No CAFFEINE Yes Comment:caffeine withdrawal headaches OCCUPATIONAL EXPOSURE No SLEEP CONCERN Yes Comment:nightmares of killings STRESS CONCERN Yes Comment:'too much' DIET No EXERCISE No SEAT BELT Yes SELF EXAMS Yes Comment:advised Social History Narrative Single, 2 children (ages 11 yo son, age 5 yo dtr ) - [facility] 01/2013 Reviewed current medications, allergies, past medical history, surgical history, family history and social history today. REVIEW OF SYSTEMS All other reviewed and negative other than HPI. HEALTH MAINTENANCE: Reviewed health maintenance issues today and recommended the following in detail. ONE PNEUMOVAX PRIOR TO AGE 67 due on 2001 VITALS: BP 112/72 Pulse 76 Resp 12 Wt 93.4 kg (206 lb) LMP 10/13/2010 BMI 35.36 kg/m2 Last 4 Encounter Wt Readings: Date: Wt: 08/01/2017 93.4 kg (206 lb) 07/19/2017 95.8 kg (211 lb 3.2 oz) 05/26/2017 90.7 kg (200 lb) 05/10/2017 91.2 kg (201 lb) PHYSICAL EXAMINATION: General appearance: Well appearing, alert, in no acute distress, well-hydrated, well nourished. Skin: Skin color, texture, turgor normal, no suspicious rashes or lesions BACK: Normal curvature of spine. No spine tenderness. Straight leg test negative. Deep tendon reflexes 2+/4 at patellas. Normal lower extremity strength. Feet:Shoes and socks removed, No deformities, ulcers, calluses, normal distal pulses and sensitive to 10 gm monofilament Extremities: No deformities, edema, skin discoloration, clubbing or cyanosis. Good capillary refill. ASSESSMENT/PLAN: 1. Sciatica of left side - ICD9: 724.3, ICD10: M54.32 (primary diagnosis) Sciatica - Medrol dose pack - PT consult - Xrays- see orders - Call if symptoms worsen at all or if not better in one to two weeks 2. Acute non-recurrent frontal sinusitis - ICD9: 461.1, ICD10: J01.10 - FLUTICASONE 50 MCG/ACTUATION NASAL SPRAY,SUSPENSION Gonzalo De Leon MD 12 LEAD ELECTROCARDIOGRAM Observed: 07/27/2017 Status: F Source: [place] 1:59 PM [facility] Cardiovascular Services [address] [place] [address] 12 Lead EKG 07/24/172120 MR#: [id number] Acct: [id number] Name: VALERIA JHA R Rep #: [id number] : 1980 36 From: Reilly Olmedo MD Attending Dr: Status: DEP ER Ordering Dr: Kyle Gurrola DO Date: 07/24/17 Location: ED Sex: F C Admitted: Test Reason : CP Blood Pressure : / mmHG Vent. Rate : 093 BPM Atrial Rate : 093 BPM P-R Int : 136 ms QRS Dur : 078 ms QT Int : 356 ms P-R-T Axes : 063 048 047 degrees QTc Int : 442 ms Normal sinus rhythm Normal ECG Confirmed by ALBERTO RUTHERFORD, REILLY ([id number]), assistant film editor JOS SANTOYO ([id number]) on 07/27/2017 1:59:22 PM Referred By: SAVITA Confirmed By:REILLY OLMEDO MD 07/27/17 1359 Date Reilly Olmedo MD CC: Kyle Gurrola DO; Gonzalo De Leon MD Signed EMERGENCY DEPARTMENT Observed: 07/25/2017 Status: F Source: [place] SUMMARY 7:15 AM [facility] Medical Records Department [address] [place] [address] Emergency Department Summary 07/24/17 221 MR#: [id number] Acct: [id number] Name: VALERIA JHA R Rep #: [id number] : 1980 36 From: Kyle Gurrola DO PCP: Gonzalo De Leon MD Status: DEP ER - ER Visit Summary Date of Service: 07/24/17 Chief Complaint: []Left leg numbness History of Present Illness: The patient is a 36 F [] complaining of entire left leg numbness. She reports the numbness starts from the groin down to the toes. Denies any injury. Denies any increase in physical activity. 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 She is asleep upon my entry into the room to perform history and physical exam. Denies headache. No other complaints. Physical Examination: [] Afebrile, vital signs stable. 36-year-old female no acute distress. Cardiovascular exam is regular rate and rhythm. Lungs are clear to auscultation. Abdomen is soft nontender. There is no lower extremity edema. Positive dorsalis pedis pulses are palpable bilaterally. Patient exhibits slight motor weakness to the left lower extremity, however this seems voluntary. Patient reports slight decreased sensation from the upper thigh down to the foot. Right lower extremity is unremarkable in regards to muscle strength or sensation. Test Results: [] CT head: Negative. CBC, BMP: Within normal limits. Emergency Department Course and Treatment: [] Patient evaluated for symptoms consistent with left lower extremity numbness. I do not identify any significant or life-threatening pathology based on this presentation. In light of the normal laboratory work including electrolytes and normal head CT, I feel the patient can follow-up with her primary care physician. Treatment Plan: [] Follow up with primary care physician. Disposition: [] Discharge, stable. Impression: [] Left lower extremity numbness This note was generated with [employer] dictation software. It may contain incorrect words, spelling, and punctuation that were not noted in review of the chart prior to signing ED Disposition - Plan for ED Patient: Chief Complaint: Numb/Ting Referrals: Gonzalo De Leon MD [Primary Care Provider] - What to do if you have Problems For any increased pain, shortness of breath, bleeding, nausea or vomiting, chest pain, or any unexpected problems, contact your Primary Care Provider. Call [facility] ([phone]) or report to the closest Emergency Room. Call 911 if necessary. 07/25/17 0715 <Electronically signed by Kyle Gurrola DO> Date Kyle Gurrola DO Cosigner Signature (If Indicated): Date CC: Gonzalo De Leon MD DISCHARGE INSTRUCTION Observed: 07/24/2017 Status: F Source: [place] 11:10 PM [facility] Medical Records Department [address] [address] Discharge Instruction 07/24/17 2309 MR#: [id number] Acct: [id number] Name: VALERIA JHA Rep #: [id number] : 1980 36 From: Kyle Gurrola DO PCP: Gonzalo De Leon MD Status: REG ER ED Disposition - Plan for ED Patient: Disposition: Home or Assisted Living Chief Complaint: Numb/Ting Instructions: ED Sciatica Referrals: Gonzalo De Leon MD [Primary Care Provider] - What to do if you have Problems For any increased pain, shortness of breath, bleeding, nausea or vomiting, chest pain, or any unexpected problems, contact your Primary Care Provider. Call [facility] ([phone]) or report to the closest Emergency Room. Call 911 if necessary. 07/24/17 2310 <Electronically signed by Kyle Gurrola DO> Date Kyle Gurrola DO Cosigner Signature (If Indicated): Date CC: Gonzalo De Leon MD BASIC METABOLIC Collected: 07/24/2017 Status: F Source: [place] PROFILE (BMP) 10:18 PM [facility] TYPE CODE TESTS RESULT OUT OF RANGE REFERENCE UNITS LAB L501.0100 74-106 mg/dL Normal GLU 74 Result Comment: Please note revised GLUCOSE reference range effective 2017. LAB L501.1000 7-18 mg/dL Normal BUN 15 LAB L501.1100 0.55-1.02 mg/dL Normal CREAT,SERUM 0.67 Result Comment: The validity of the calculated GFR AND GFRAA in patients over 70 years has not been determined. Clinical correlation is essential. LAB L501.1110 >60 mL/min Normal EST GFR 106 Result Comment: Non- GFR Calc LAB L501.1115 >60 mL/min Normal EST GFR - AA 128 Result Comment: GFR Calc LAB L501.1255 ml/min Normal Estimated CRCL 102.17 LAB L501.1300 10-20 RATIO High BUN/CRE 22.3 LAB L501.2200 8.5-10 mg/dL .1 CA Normal 8.5 LAB L501.5300 136-14 mmol/L 5 NA Normal 140 LAB L501.5600 3.5-5. mmol/L 1 K Normal 3.7 LAB L501.5900 98-107 mmol/L High CL 109 LAB L501.6100 21.0-3 mmol/L 2.0 CO2 Normal 26.0 LAB L501.6200 5-15 GAP Normal 5 Performed By: #### L500.2500 #### [facility] [address] [place], [address] CBC W/DIFF, AUTOMATED Collected: 07/24/2017 Status: F Source: [place] 10:18 PM [facility] TYPE CODE TESTS RESULT OUT OF RANGE REFERENCE UNITS LAB L100.1000 4.4-11.0 K/mm3 Normal WBC 9.9 LAB L100.1200 4.2-5.4 M/mm3 Low RBC 3.90 LAB L100.1300 12.0-15.0 g/dl Normal HGB 13.0 LAB L100.1400 37-47 % Normal HCT 38.9 LAB L100.1500 81-99 fL High MCV 99.7 LAB L100.1600 27.0-32.0 pg High MCH 33.3 LAB L100.1700 32-36 g/gl Normal MCHC 33.4 LAB L100.1810 11.6-14.6 % Normal RDW CV 12.3 LAB L100.1820 35.1-43.9 fl High RDW SD 44.8 LAB L100.1900 150-450 K/mm3 Normal PLT 308 LAB L100.2000 6.2-12.0 fl Normal MPV 9.1 LAB L100.2100 47-70 % Normal NEUT% 57.8 LAB L100.2200 19-41 % Normal LY% 31.9 LAB L100.2300 0-10 % Normal MONO% 6.5 LAB L100.2400 0-5 % Normal EO% 3.3 LAB L100.2500 0-1 % Normal BASO% 0.4 LAB L100.2550 0.0-0.9 % Normal IM GRAN % 0.100 Result Comment: IG% - Immature Granulocytes (promyelocytes, myelocytes and metamyelocytes) > 1% indicates that a LEFT SHIFT is Present. LAB L100.2620 2.0-7.7 X10 3/uL Normal Absolute Neut 5.7 LAB L100.2720 0.83-4.51 X10 3/ul Normal Absolute Lymph 3.16 Performed By: #### L100.0100 #### [facility] [address], [address] BRAIN/HEAD WITHOUT Observed: 07/24/2017 Status: F Source: [place] CONTRAST 10:11 PM [facility] Imaging Services [address] [place] [address] Brain/Head without Contrast MR#: [id number] Acct: [id number] Name: VALERIA JHA Rep #: [id number] : 1980 F 36 From: Latasha Toure MD PCP: Gonzalo De Leon MD Status: REG ER Study: Brain/Head without Contrast Date of Exam: 07/24/17 Exam# [id number] Ordering Dr: Kyle Gurrola DO STUDY: CT BRAIN WITHOUT CONTRAST REASON FOR EXAM: Female, 36 years old. Weakness of the left leg. Numbness and tingling. RADIATION DOSAGE (If Supplied By Facility): CTDIvol = ( 44.99 ) mGy, DLP = ( 745.49 ) mGycm TECHNIQUE: Transaxial CT imaging of the brain was performed without administration of intravenous contrast material. Individualized dose optimization techniques were used for this CT. COMPARISON: Prior head CT exam of July 09, 2012 FINDINGS: Normal soft tissue structures. Normal calvarium. Normal size ventricles and extra-axial spaces for the patient's age. Normal white matter tracts of the cerebral hemispheres. Normal basal ganglia and thalami. Normal brainstem. Normal cerebellum. There is no intracranial hemorrhage. There are no findings of an acute ischemic infarction. Normal visualized paranasal sinuses. CT/Brain/Head without Contrast IMPRESSION: Normal unenhanced CT scan of the brain. Electronically Signed: Latasha Toure MD at 23:04 EST , Service support , CC: Kyle Gurrola DO; Gonzalo De Leon MD Broadcast Director Operations: Signed PROGRESS Observed: 07/19/2017 Status: COMPLETED Source: [place] 1:20 PM [facility] HNO ID: [id number] Author: Tho Ball Service: (none) Author Type: Revenue Collector Type: Progress Notes Filed: 07/19/2017 2:45 PM Note Text: Valeria Jha is a 36 year old female who presents for problem visit reporting constant L-sided abdominal/pelvic pain for 2 days. HPI: Patient reports L-sided pain for a few days. Breasts also have been sore for last month. Denies vaginal discharge. Patient had partial hysterectomy [place] [address] Nielson, Rt. Ovary remains. Patient notes chronic bowel issues - constipation. Having rectal bleeding and hemorrhoids. Hemorrhoids started 3-4 weeks, took Preparation H for a few days and that seemed to help. Otherwise patient has one bowel movement per week. Also has a hx of rectal spasms. Reports that rectal spasm pain is completely random. She reports that she took Magnesium Citrate about a week and a half ago, and that induced diarrhea. Went 3 times and then was done. Patient has only had small bowel movement since x 1. Patient denies any urinary symptoms. Patient also reports she is tired all the time and feels like she is dragging through the day. Reports increased snoring at bedtime with her partner having difficulty waking her. PAST MEDICAL HISTORY Diagnosis Date - Abdominal pain, other specified site RLQ and LLQ chronic - Abnormal glandular Papanicolaou smear of cervix Abn. Pap smear (cervix), s/p CHARBEL - Chronic back pain - Chronic rhinitis 06/30/2005 Dr. Bell - Depressive disorder, not elsewhere classified 06/30/2005 nerves - Esotropia, unspecified Dr. Encarnacion, Right eye - GERD (gastroesophageal reflux disease) - Migraine - Myotonia - Thrombosed external hemorrhoid 03/20/2012 - Tobacco abuse - Unspecified constipation - Unspecified inflammatory disease of female pelvic organs and tissues chronic pelvic pain PAST SURGICAL HISTORY Procedure Laterality Date - APPENDECTOMY October 27, 2004 LAPROSCOPIC - COLONOSCOP W/ OR W/O BRSH SPEC 10/27/05 - HYSTEROSCOPY, STERILIZATION 02/13/08 [facility] - L'SCOPE DX W/WO BRUSHINGS/WASHINGS October Laparoscopy, adhesion lysis - POLYSOMNOGRAM(DIAG) 91327 12/2005 Sleep study wnl - THYROID FINE NEEDLE ASPIRATION 2012 - VAGINAL HYSTERECTOMY 10/29/10 [facility] FAMILY HISTORY Problem Relation Age of Onset - Allergies Mother - Hypertension Mother diabetes - Lipids Mother - Psychiatry Mother bipolar disorder - Diabetes Mother - Arthritis Father gout - Myotonia [OTHER] Father - Alzheimer's Disease Paternal Grandfather HEARING LOSS,PARKINSONS - Stroke Paternal Grandfather - Arthritis Paternal Grandmother - Hypertension Paternal Grandmother - Osteoporosis Paternal Grandmother - Stroke Paternal Grandmother - Thyroid Paternal Grandmother - Arthritis Maternal Grandmother CAROTID ARTERY CLEANED OUT, DIABETES - Hypertension Maternal Grandmother - Lipids Maternal Grandmother - Stroke Maternal Grandmother - Diabetes Maternal Grandmother - Diabetes Brother (1/2 brother) Social History Marital status: Spouse name: Years of education: GED Number of children: 2 Occupational History 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 Social History Main Topics Smoking status: Current Every Day Smoker Packs/day: 0.50 Years: 12.00 Types: Cigarettes Smokeless status: Never Used Alcohol use: No Drug use: No Comment: marijuana as teenager, none recent Sexual activity: Yes Partners with: Male control/protection: Surgical Other Topics Concern BLOOD TRANSFUSIONS No CAFFEINE Yes Comment:caffeine withdrawal headaches OCCUPATIONAL EXPOSURE No SLEEP CONCERN Yes Comment:nightmares of killings STRESS CONCERN Yes Comment:'too much' DIET No EXERCISE No SEAT BELT Yes SELF EXAMS Yes Comment:advised Social History Narrative Single, 2 children (ages 11 yo son, age 5 yo dtr ) - [facility] 01/2013 Current Outpatient Prescriptions: NAPROXEN ORAL Take by mouth. diazePAM (VALIUM) 5 mg tablet Take 1 tablet by mouth twice daily. ibuprofen (MOTRIN) 800 mg tablet Take 1 tablet by mouth every 6 hours as needed for Pain. Take with food. HYDROcodone-acetaminophen (NORCO) 5-325 mg per tablet Take 1 tablet by mouth every 6 hours as needed. sertraline (ZOLOFT) 100 mg tablet Take 1 tablet by mouth once daily. diclofenac sodium (VOLTAREN) 1 % topical gel Apply 4 g to affected area four times daily. fluticasone (FLONASE) 50 mcg/actuation nasal spray Use 2 Sprays in each nostril once daily. cetirizine (ZYRTEC) 10 mg tablet Take 1 tablet by mouth once daily. No current facility-administered medications for this visit. Allergies As of Date: 07/19/2017 Allergen Noted Reaction ADHESIVE 10/09/2008 BEESTINGS [OTHER] 03/13/2007 CAT DANDER [OTHER] 02/25/2005 Intolerance FLEXERIL [CYCLOBENZAPRINE HCL] 06/30/2016 Intolerance GRASS POLLEN 02/25/2005 Rash MOLDS [OTHER] 02/25/2005 Intolerance RAGWEED 03/18/2006 Fully Assessed 07/19/2017 REVIEW OF SYSTEMS Abdomen: No nausea, vomiting, or diarrhea. Bladder: No dysuria, gross hematuria, urinary frequency, urinary urgency, or incontinence. Reports history of blood in urine since hysterectomy. Breast: No breast lumps, nipple d/c, overlying skin changes, redness or skin retraction. Expanded ROS: MUSCULOSKELETAL: Negative for joint pain or swelling, back pain or muscle pain Allergies and current medication updated:Yes EXAM: BP 118/80 Wt 211 lb 3.2 oz (95.8kg) LMP 10/13/2010 GENERAL: pleasant, female in mild distress HEENT: Normocephalic, atraumatic, mucus membranes moist and no lesions NECK: Supple, full range of motion, no adenopathy and thyroid normal DERMATOLOGY: Normal, without lesions, non-icteric and non-hirsute BREAST: soft, non-tender, symmetric, no dominant mass, normal nipple-areolar complex, no lymphadenopathy and no nipple discharge CHEST: Normal inspiratory effort ABDOMEN: soft, non-tender and no masses PELVIC: external genitalia normal, normal Bartholin's glands, urethra, Grayslake's glands, no vulvar lesions, no cervical lesions, good vaginal support, physiologic discharge present, normal appearing perineal body and perianal region. + stool felt on exam through posterior vaginal wall BIMANUAL: uterus normal size, shape and consistency, no adnexal masses and non-tender NEURO: alert and oriented x3,exam grossly non-focal EXTREMITIES: normal ASSESSMENT AND PLAN: Encounter Diagnosis ICD-10-CM 1. Chronic pelvic pain in female R10.2 UA DIP B/O G89.29 1) Discussed that LLQ pain likely d/t back-up of stool. Discussed dietary methods to help regulate bowels. Encourage increasing fiber in diet - information provided. 2) Urine very concentrated, patient to increase PO fluids especially water in diet. Patient to drink 8-10 glasses daily. 3) Recommendation for stool softener provided 4) Directed back to PCP for evaluation of somnolence, possible Sleep Apnea Tho Ball CNM ALLERGIES ALLERGIES DATE TYPE / CODE NAME / CODE REACTION SEVERITY SOURCE 06/23/19 Drug clavulanic Other Unknown [place] 19 Allergy/513437159 acid/[id number](RXN [facility] (SNOMED CT) ORM) Hospital Repository 06/23/19 Drug amoxicillin/G459796 Other Unknown [place] 19 Allergy/144931667 675(RXNORM) [facility] (SNOMED CT) Hospital Repository 06/23/19 Drug cyclobenzaprine/F00 Other Unknown [place] 19 Allergy/720238992 8121988(RXNORM) [facility] (SNOMED CT) Hospital Repository 06/19/19 DRUG/901234840(SN AMOXICILLIN-POT OTHER: SEE C [place] [address]) CLAVULANATE [facility] [place] Repository 06/30/19 DRUG CYCLOBENZAPRINE HCL INTOLERANCE [place] 17 INGREDI/783641166 [facility] (SNOMED CT) [place] Repository 10/10/19 DRUG ADHESIVE [place] 09 INGREDI/907368055 [facility] (SNOMED CT) [place] Repository 03/13/20 Miscellaneous OTHER [place] 07 Allergy/249669007 [facility] (SNOMED CT) [place] Repository 03/18/20 Environ/683872152 RAGWEED [place] 06 (SNOMED CT) [facility] [place] Repository 02/26/20 Miscellaneous OTHER INTOLERANCE [place] 05 Allergy/374940201 [facility] (SNOMED CT) [place] Repository 02/26/20 DRUG GRASS POLLEN RASH [place] 05 INGREDI/647269799 [facility] (SNOMED CT) [place] Repository ENCOUNTERS ENCOUNTERS ADMIT/DISCHARGE ACCOUNT NUMBER ADMITTING ENCOUNTER LOCATION SOURCE CLASS 06/28/2018/06/29/19 [id number] Ambulatory [address] Main [place] Repository 06/23/2018/06/23/19 [id number] Emergency [place] ding:ED Repository 06/22/2018/06/22/19 [id number] Emergency [place] ding:ED Repository 06/19/2018/06/20/19 [id number] Ambulatory [address] Main [place] Repository 06/19/2018/06/19/19 [id number] Ambulatory [address] Main [place] Repository 06/19/2018/06/19/19 [id number] Ambulatory [address] Main [place] Repository 06/19/2018/06/20/19 [id number] Ambulatory [address] Main [place] Repository 06/01/2018/06/27/19 [id number] Ambulatory [address] Main [place] Repository 05/08/2018/05/08/20 [id number] Ambulatory [address] Main [place] Repository 05/08/2018/05/09/20 [id number] Ambulatory [address] Main [place] Repository 04/17/2018/04/17/20 [id number] Emergency [address] ding:ED Repository 04/03/2018/04/03/20 [id number] Ambulatory [address] Main [place] Repository 03/28/2018/03/28/20 [id number] Ambulatory [address] Main [place] Repository 03/28/2018/03/29/20 [id number] Ambulatory [address] Main [place] Repository 03/19/2018/03/21/20 [id number] Ambulatory [address] Main [place] Repository 03/13/2018/03/14/20 [id number] Ambulatory [address] Main [place] Repository 02/16/2018/02/17/20 [id number] Emergency [place] ding:ED Repository 12/29/2017/12/30/19 [id number] Emergency [place] ding:ED Repository 11/15/2017/11/17/19 [id number] Ambulatory [address] Repository 11/14/2017/11/15/19 [id number] Ambulatory [address] Repository 11/03/2017/11/05/19 [id number] Ambulatory [address] Repository 11/01/2017/11/02/19 [id number] Emergency BBuilding:BAILEY Solano [address] [place] [address] Repository 09/12/2017/09/14/19 [id number] Ambulatory [address] Repository 09/10/2017/09/13/19 [id number] Ambulatory [address] Repository 09/10/2017/09/11/19 [id number] Emergency [place] [facility] ding:ED Repository 08/22/2017/08/23/19 [id number] Ambulatory [address] Repository 08/22/2017/08/24/19 [id number] Ambulatory [address] Repository 08/01/2017/08/06/19 [id number] Ambulatory [address] Repository 07/24/2017/07/24/19 [id number] Emergency [place] [facility] ding:ED Repository 07/19/2017/07/20/19 [id number] Ambulatory [address] Repository PAYERS PAYERS ENCOUNTER GUARANTOR PAYER SUBSCRIBER SOURCE 06/23/2018 VALERIA Hyatt Primary Insurance:[facility] VALERIA R [place] [id number] N [facility] PLANPolicy DYEDOB: [facility] [place] Number: [id number] [id number] Repository 13258Nto: 330) Date:9084-41-64XJ [phone] ([facility] [address] [place] [address] 78008EH: 06/23/2018 Secondary NOT GIVENUNK [place] Insurance:SELF PAY [facility] Number: Effective Repository Date:2018-06-23 06/22/2018 VALERIA Hyatt Primary Insurance:[facility] VALERIA R [place] [id number] N [facility] PLANPolicy DYEDOB: [facility] [place] Number: [id number], [place] [id number] Repository 19[address]Yoo: (330) Date:2709-16-72BV [phone] () [address] [place] [address] 71975IK: 06/22/2018 Secondary NOT GIVENUNK [place] Insurance:SELF PAY [facility] Number: Effective Repository Date:2018-06-22 04/17/2018 VALERIA Hyatt Primary Insurance:C VALERIA R [place] [id number] N COMMUNITY PLANPolicy DYEDOB: Community [place] Number: [id number], [place] [id number] Repository 998[address]Irp: (330) Date:0006-23-04DL [phone] () [address] [place] [address] 35696AQ: 04/17/2018 Secondary NOT GIVENUNK [place] Insurance:SELF PAY [facility] Number: Effective Repository Date:2018-04-17 02/16/2018 VALERIA Hyatt Primary Insurance:[facility] VALERIA R [place] [id number] N COMMUNITY PLANPolicy DYEDOB: Community [place] Number: [id number], [place] [id number] Repository 259[address]Elv: (330) Date:8334-02-83ZN [phone] () [address] [place] [address] 12092SX: 02/16/2018 Secondary NOT GIVENUNK [place] Insurance:SELF PAY [facility] Number: Effective Repository Date:2018-02-16 12/29/2017 VALERIA Hyatt Primary Insurance:[facility] VALERIA R [place] [id number] N COMMUNITY PLANPolicy DYEDOB: Community [place] Number: [id number], [place] [id number] Repository [address]77[address]Hux: (330) Date:2169-37-67RC [phone] () [address] [place] [address] 70951PH: 12/29/2017 Secondary NOT GIVENUNK [place] Insurance:SELF PAY [facility] Number: Effective Repository Date:2017-12-29 11/01/2017 VALERIA R Primary VALERIA R [facility] DYEDOB: Insurance:[facility] DYEDOB: [facility] n COMMUNITY PLAPolicy [id number] Repository [place] Number: [address] [place], [place] [id number] [place] [address]~DYETABATHA Date:2017-11-01 92473Wgm: [phone] [email or web address]: [phone] Name:X[address] Box ()Tel: [phone]) () [address] [place] [address] [phone] () 20303YD: 09/10/2017 VALERIA R Primary Insurance:[facility] VALERIA R [place] [id number] N [facility] [place] [place] DYEDOB: [facility] [place] Number: [id number], [place] [id number] Repository 81292Lll: (330) Date:3982-03-55HO [phone] () [address] [place] [address] 57894SZ: 09/10/2017 Secondary NOT GIVENUNK [place] Insurance:SELF PAY [facility] Number: Effective Repository Date:2017-09-10 07/24/2017 Valeria R Primary Insurance:[facility] Valeria R [place] [id number] N [facility] DyeD[facility]: [facility] [place] Number: [id number], [place] [id number] Repository 51500Ldp: (330) Date:6078-49-28GA [phone] () [address] [place] [address] [id number]: 07/24/2017 Secondary NOT GIVENUNK [place] Insurance:SELF PAY [facility] Number: Effective Repository Date:2017-07-24
== END 2018-06-22 16:33 | disposition home or self-care (01) ==
PROVIDERS: Emergency Provider Emergency Medicine; Family Provider Family Medicine; PCP Family Medicine
DX: M62.838 Other muscle spasm (principal); G71.12 Myotonia congenita; Z72.0 Tobacco use; Z79.899 Other long term (current) drug therapy
CPT/HCPCS: 80048; 99285; A4216

== ENCOUNTER 2018-06-23 06:29 | Emergency (ER) | payer MEDICAID, SELFPAY ==
[2018-06-22 12:43] VITALS: BMI 36.0
[2018-06-23 06:30] VITALS: BP 128/94; PULSE 94; RESP 18; TEMP 36.9; O2SAT 94; BMI 36.0
--- NOTE | 2018-06-23 06:38 | CT_ITS ---
STUDY: CT BRAIN WITHOUT CONTRAST REASON FOR EXAM: Female, 37 years old. Seizure RADIATION DOSAGE (If Supplied By Facility): CTDIvol = ( 44.99 ) mGy, DLP = ( 745.49 ) mGycm TECHNIQUE: Transaxial CT imaging of the brain was performed without administration of intravenous contrast material. Individualized dose optimization techniques were used for this CT. COMPARISON: 07/24/2017 FINDINGS: Normal soft tissue structures. Normal calvarium. Normal size ventricles and extra-axial spaces for the patient's age. Normal white matter tracts of the cerebral hemispheres. Normal basal ganglia and thalami. Normal brainstem. Normal cerebellum. There is no intracranial hemorrhage. There are no findings of an acute ischemic infarction. Normal visualized paranasal sinuses. CT/Brain/Head without Contrast IMPRESSION: Normal unenhanced CT scan of the brain. Electronically Signed: Tremayne Cordova MD at 7:08 EST , Service support ,
[2018-06-23] MEDS: 0.9% Normal Saline 1,000 ML 1000 ML IV (06:43)
--- NOTE | 2018-06-23 06:51 | ED.VISSUMM ---
- ER Visit Summary Date of Service: 06/23/18 Chief Complaint: Seizure-like activity History of Present Illness: The patient is a 37 F with a history of myoclonic disorder presents with spasms while she was at work this morning. She states that she felt as if she was going to have a seizure and then alerted coworkers, asking him to call 911. She was then witnessed to have twitching type movements but apparently remained conscious. According to report, no full body tonic-clonic seizure activity. She did not lose control of her bladder and she did not bite her tongue. She currently has a headache but otherwise feels back to baseline. Denies any injuries associated with the twitching. She was here last night for similar symptoms and her blood work was within normal limits but she is concerned that she may need a CAT scan. She denies any recent changes in medication. Denies any recent infection or trauma. Physical Examination: Vitals are within normal limits. She is not in distress. Neck is supple. Heart tones are regular and without murmur. Lungs are clear bilaterally. Abdomen is soft and nontender. She has no focal or lateralizing neuro findings. Test Results: CBC, BMP, hCG, urinalysis, and CT brain were all ordered and pending. Emergency Department Course and Treatment: Care will be turned over to the oncoming physician to check test results and reevaluate. Treatment Plan: At this point she looks well, by description it sounds like this was more of a twitching disorder which she states is not unusual for her myoclonic disorder. It does not sound like a full body tonic-clonic seizure based on what she is describing but I cannot say with certainty. If her workup is unremarkable here today, and she continues to feel completely normal, I feel she can safely be discharged home but will need close neurology follow-up. I discussed this with her as well as the oncoming physician who will assume care now at shift change. Disposition: Home if workup unremarkable here, close neurology follow-up Impression: Subsequent encounter, myoclonic jerks This note was generated with [employer] dictation software. It may contain incorrect words, spelling, and punctuation that were not noted in review of the chart prior to signing ED Disposition - Plan for ED Patient: Chief Complaint: Seizure Referrals: Gonzalo Adamson MD [Primary Care Provider] -
[2018-06-23 06:55] LABS: Absolute Lymphocyte Count 1.62 X10^3/ul (0.83-4.51); Absolute Neutrophil Count 5.6 X10^3/uL (2.0-7.7); Basophil# 0.03 X10^3/uL; Basophil% 0.4 % (0-1); Eosinophil# 0.14 X10^3/uL; Eosinophils% 1.8 % (0-5); Hemoglobin 14.7 g/dl (12.0-15.0); Lymphocyte # 1.62 X10^3/ul (4.0); Lymphocyte % 20.6 % (19-41); Mean Corp Hgb Conc 34.2 g/gl (32-36); Mean Corpuscular Hgb 34.4 pg (27.0-32.0); Mean Corpuscular Volume 100.7 fL (81-99); Mean Platelet Vol. 9.2 fl (6.2-12.0); Monocyte# 0.44 X10^3/uL; Monocyte% 5.6 % (0-10); Neutrophil # 5.64 X10^3/uL (2.7-7.7); Neutrophil % 71.5 % (47-70); Platelet Count 291 K/mm3 (150-450); RBC Distribution Width CV 11.4 % (11.6-14.6); RBC Distribution Width SD 41.1 fl (35.1-43.9); Red Blood Count 4.27 M/mm3 (4.2-5.4); White Blood Count 7.9 K/mm3 (4.4-11.0)
[2018-06-23 06:59] LABS: POSITIVE COUNT NO; POSITIVE DIFFERENTIAL NO; POSITIVE MORPHOLOGY NO
[2018-06-23 07:03] LABS: Anion Gap 8 (5-15); BUN 15 mg/dL (7-18); BUN/Creat Ratio 16.2 RATIO (10-20); Calcium,Total 8.7 mg/dL (8.5-10.1); Chloride 106 mmol/L (98-107); Creatinine, Serum 0.93 mg/dL (0.55-1.02); EST Glomerular Filtration Rate 73 mL/min (>60); Est Glom Filt Rate - Afr Amer 88 mL/min (>60); Estimated Creatinine Clearance 72.91 ml/min; Glucose 93 mg/dL (74-106); Potassium 3.7 mmol/L (3.5-5.1); Sodium Level 140 mmol/L (136-145)
[2018-06-23 07:17] LABS: Pregnancy, Serum, hCG Quali. NEGATIVE Negative (0-9 Nonpreg)
--- NOTE | 2018-06-23 07:17 | ED.RN ---
PT AWARE NEED URINE. VOICES UNABLE TO GO AT THIS TIME. C/O HEADACHE AND DIZZY. DR CORDERO.
[2018-06-23 07:47] VITALS: BP 119/78; PULSE 65; RESP 17; O2SAT 98
[2018-06-23] MEDS: Acetaminophen 500 MG Tablet 1000 MG PO (07:47)
[2018-06-23 07:51] LABS: Mucous, Urine 0 SEEN /hpf (<or=2+); White Blood Cells 0 SEEN /hpf (0-5)
[2018-06-23 07:53] LABS: Color, Urine Yellow (Yellow); Glucose, Dipstick Normal (Normal); Ketone-Dipstick Negative (Negative); Leukocyte Esterase-Dipstick Negative /ul (Negative); Nitrite-Dipstick Negative (Negative); Occult Blood-Urine 10 /ul (Negative); Protein-Dipstick Negative (Negative); Urine Bilirubin Dipstick Negative (Negative); Urine Clarity Sl. Cloudy (Clear); Urine Urobilinogen Normal (Normal)
[2018-06-23 07:59] LABS: Bacteria 1+ /hpf (None Seen); Red Blood Cells-Urine 0-5 SEEN /hpf (0-5); Squamous Epithelial Cells - UA 5-10 SEEN /hpf (5-10)
--- NOTE | 2018-06-23 08:05 | ED.DEP ---
ED Disposition - Plan for ED Patient: Chief Complaint: Seizure Instructions: ED Muscle Pain Leg Cramps Referrals: Gonzalo Adamson MD [NON-STAFF] -
[2018-06-23] MEDS: LORazepam 0.5 MG Tablet PO (08:22)
[2018-06-23 08:23] VITALS: BP 100/71; PULSE 74; RESP 14; O2SAT 100
--- OUTSIDE RECORDS SUMMARY | 2018-08-27 14:05 | XMS RPT_ITS ---
:1980 Author Organization [place] Care Team Providers Name Role Phone ENRIQUE SANTOYO DORadha Attending Unavailable HALEY RUTHERFORD, GONZALO Primary Care Unavailable THO BALL (CNM) Attending Unavailable GONZALO DE LEON Attending Unavailable KAREN SAMUEL (PT) Attending Unavailable HALEY, GONZALO Myers Referring Unavailable HALEY, GONZALO Myers Referring Unavailable Ankur DEAL (PA-C) Attending Unavailable Ankur DEAL (PA-C) Attending Unavailable CONSTANCE NEWSOME Attending Unavailable Ankur DEAL (PA-C) Attending Unavailable Ankur DEAL (PA-C) Attending Unavailable Ankur DEAL (PA-C) Attending Unavailable Ankur DEAL (PA-C) Referring Unavailable Ankur DEAL (PA-C) Referring Unavailable HALEY, GONZALO Myers Attending Unavailable GONZALO DE LENO Referring Unavailable CHUCKY LAI Attending Unavailable GONZALO DE LEON Referring Unavailable GONZALO DE LEON Attending Unavailable GONZALO DE LEON Referring Unavailable HALEY, GONZALO Myers Referring Unavailable SHAE RODGERS (COMPLIANCE PROJECT MANAGER) Attending Unavailable Ankur DEAL (PA-C) Attending Unavailable [place], Gonzalo Primary Care Unavailable Aryan Frey Attending Unavailable Dominik Diaz Attending Unavailable Ankur Deal Primary Care Unavailable [place], Gonzalo Primary Care Unavailable Kyle Gurrola Attending Unavailable [place], Gonzalo Primary Care Unavailable Kristina Scott Attending Unavailable Haley, Gonzalo Primary Care Unavailable Donte Ladd Attending Unavailable [place], Gonzalo Primary Care Unavailable Petar Osuna Attending Unavailable Haley, Gonzalo Primary Care Unavailable Billy Cage Attending Unavailable PROBLEMS PROBLEMS DATE TYPE CONDITION / CODE ATTENDING STATUS SOURCE 06/19/2018 Active Syncope and NA Active [facility] collapse / [facility] [place] R55(ICD-10) Repository 06/01/2018 Active Other specified CHUCKY LAI Active [facility] joint disorders, [facility] [place] right wrist / Repository M25.831(ICD-10) 05/08/2018 Active Pain in right NA Active [facility] wrist / [facility] [place] M25.531(ICD-10) Repository 03/21/2013 Active Nontoxic NA Active [facility] multinodular [facility] goiter / Repository E04.2(ICD-10) 03/28/2018 Active Other fatigue / NA Active [facility] R53.83(ICD-10) [place] Repository 08/22/2017 Active Sciatica, left NA Active [facility] side / [facility] M54.32(ICD-10) Repository 08/22/2017 Active Unknown / KAREN SAMUEL Active [facility] UNK(Unknown) (PT) [facility] [place] Repository PROCEDURES PROCEDURES No Procedure Records FoundRESULTS RESULTS CNCO Observed: 06/30/2018 Status: COMPLETED Source: [place] 12:00 AM [facility] REPOSITORY Clinical report posted in error Void Comment: typo Letter Text [facility] [address] [place] [address] NAME: Valeria Jha DATE: 06/30/2018 ADDRESS: [address] [place], [place] [id number] [place] PHONE: [phone] (home) : 1980 To [facility] Appeals, Ms. Jha is being treated in the Department of Neurology at the [facility]. She was recently prescribed Desvenlafax 50mg ER [...] Constance Newsome MD Letter Text ? [facility] [address] [place] [address] ? NAME: Valeria Jha DATE: 06/30/2018 ? ADDRESS: [address] [place], [place] [id number] [place] PHONE: [phone] (home) ? : 1980 ? To [facility] Appeals, ? Ms. Jha is being treated in the Department of Neurology at the [facility]. She was recently prescribed Desvenlafax 50mg ER [...] MD PROGRESS Observed: 06/28/2018 Status: COMPLETED Source: [place] 11:50 AM [facility] REPOSITORY HNO ID: [id number] Author: Ankur Brantley (Hiral) Say Service: (none) Author Type: Physician Supervisor Purification Type: Progress Notes Filed: 06/28/2018 5:08 PM Note Text: 37 year old female for [facility] ED follow up 06/22/18: went in with c/o feeling dizziness, lightheaded, severe headaches. Then started having headaches, increasing anxious feeling with tremors. States passed out last Tuesday. Attributes to Cymabalta which was actually helping her immensely. Earth like normal person. Pain was much better. States seizure- like activity: shaking in head and arms but couldn't stop it. Had a headache also for 2 weeks which improved when she stopped Cymbalta last Tuesday. Came back yesterday when she took the medication again. Earth she had to do something because she [...] BRUSHINGS/WASHINGS October Laparoscopy, adhesion lysis - POLYSOMNOGRAM(DIAG) 91012 12/2005 Sleep study wnl - THYROID FINE NEEDLE ASPIRATION 2013 - VAGINAL HYSTERECTOMY 10/29/10 [facility] Social History Marital status: Spouse name: Years of education: GED Number of children: 2 Occupational History Occupation Employer Comment unemployed [employer] last job in [place] Social History Main Topics Smoking status: Current [...] son, age 5 yo dtr ) - [facility] 01/2013 ACTIVE PROBLEM LIST Migraine Without Aura, [...] HIRAL Li Observed: 06/28/2018 Status: COMPLETED Source: [place] 11:40 AM [facility] REPOSITORY Office Visit (FAMPWS) VALERIA JHA ([id number]) 1980 F Date Time Provider Department 06/28/18 11:40 AM Ankur DEAL) ORIN During your visit today, we recorded the following information about you: Temperature Pulse Respiration Blood pressure 97 degrees 80/minute 20/minute 100/80 Weight 95.7 kg M Ferhco Deal PA-C 06/28/2018 5:08 PM Signed 37 year old female for [facility] ED follow up 06/22/18: went in with c/o feeling dizziness, lightheaded, severe headaches. Then started having headaches, increasing anxious feeling with tremors. States passed out last Tuesday. Attributes to Cymabalta which was actually helping her immensely. Earth like normal person. Pain was much better. States seizure-like activity: shaking in head and arms but couldn't stop it. Had a headache also for 2 weeks which improved when she stopped Cymbalta last Tuesday. Came back yesterday when she took the medication again. Earth she had to do something because she [...] 2004 LAPROSCOPIC - [facility] 10/27/05 - HYSTEROSCOPY, STERILIZATION 02/13/08 Essure - L'SCOPE DX W/WO BRUSHINGS/WASHINGS October Laparoscopy, adhesion lysis - POLYSOMNOGRAM(DIAG) 06237 12/2005 Sleep study wnl - THYROID FINE NEEDLE ASPIRATION 2012 - VAGINAL HYSTERECTOMY 10/29/10 [facility] Social History Marital status: Spouse name: Years of education: GED Number of children: 2 Occupational History Occupation Employer Comment unemployed [employer] last job in [place] Social History Main Topics Smoking status: Current [...] son, age 5 yo dtr ) - [facility] 01/2013 ACTIVE PROBLEM LIST Migraine Without Aura, [...] shakiness and dizziness Referring Provider: ER STAFF [[id number]] Allergies As of Date: 06/28/2018 Noted Allergy [...] Reason for Visit: ER F/U [41] Cmt: [facility] 06/22/18 and 06/23/18. Fainting, dizziness, headache witness stated looked like a seizure. Did stop taking the cymbalta for about 4 days and was feeling much better except for her mood. Reason For Visit History Recorded Primary Visit Diagnosis:Medication adverse effect, subsequent encounter [T50.900D] Other Visit Diagnoses:Major depressive disorder with single [...] CONSTIPATION NOS [K59.00] MYALGIA AND MYOSITIS NOS [[id number]] INVALID FOR* Lump or Mass in Breast [...] Follow-up and Disposition History Recorded Letter Text [facility] [address] [place], [place] [address] Valeria Jha [address] [facility] [address] Clinic #: [id number] 06/28/2018 To Whom it may concern, Valeria [...] 06/28/18 OBSOLETE Observed: 06/27/2018 Status: COMPLETED Source: [place] 12:00 AM [facility] REPOSITORY Refill ([facility]) VALERIA JHA ([id number]) 1980 F Date Time Provider Department 06/27/18 CONSTANCE NEWSOME [facility] During your visit today, we recorded the following information about you: Subhash Frye, RN, RN 06/27/2018 2:15 PM Signed Spoke to pt. Agreeable to new dosage plan. States she has been on Effexor in the past and it caused worsening depression. Requesting scripts updated for baclofen and Valium. Sig adjusted per [facility]. Will have SjS review scripts and sign if appropriate/addend as needed. KATHY Latif, RN, RN 06/28/2018 9:13 AM Signed The following prescriptions have been called to [facility] pharmacy 06/28/2018 at 9:13 AM by Subhash [...] CONSTIPATION NOS [K59.00] MYALGIA AND MYOSITIS NOS [[id number]] INVALID FOR* Lump or Mass in Breast [...] DISCHARGE INSTRUCTION Observed: 06/23/2018 Status: F Source: [place] 3:[address] [facility] REPOSITORY [facility] Medical Records Department [address] [place] [address] Discharge Instruction 06/23/18804 MR#: [id number] Acct: [id number] Name: VALERIA JHA [place] Rep #: [id number] : 1980 37 From: Corby Castellano MD [...] your Primary Care Provider. Call [facility] ([phone]) or report to the closest Emergency Room. Call 911 if necessary. 06/23/18 1545 <Electronically signed by Corby Castellano MD> Date Corby Castellano MD Cosigner Signature (If Indicated): Date CC: Ankur Deal EMERGENCY DEPARTMENT Observed: 06/23/2018 Status: C Source: [place] SUMMARY 8:[address] [facility] REPOSITORY [facility] Medical Records Department [address] [place] [address] Emergency Department Summary 06/23/18 0651 MR#: [id number] Acct: [id number] Name: VALERIA JHA Rep #: [id number] : 1980 37 From: Emiliano Diaz MD [...] myoclonic jerks This note was generated with Lyxia dictation software. It may contain incorrect words, [...] your Primary Care Provider. Call [facility] ([phone]) or report to the closest Emergency Room. Call 911 if necessary. 06/23/18 0700 <Electronically signed by Emiliano Diaz MD> Date Emiliano Diaz MD Cosigner Signature (If Indicated): Date CC: Ankur Deal URINALYSIS, COMPLETE Collected: 06/23/2018 Status: F Source: [place] 7:[address] [facility] REPOSITORY Order Comment: Order Date: 06/23/18 How [...] URINE SEEN Performed By: #### L400.0001 #### [facility] [address] [place], [place], [address] CBC W/DIFF, AUTOMATED Collected: 06/23/2018 Status: F Source: [place] 6:[address] [facility] REPOSITORY TYPE CODE TESTS RESULT OUT OF [...] Lymph 1.62 Performed By: #### L100.0100 #### [facility] [address] [place], [address] BASIC METABOLIC Collected: 06/23/2018 Status: F Source: [place] PROFILE (BMP) 6:[address] [facility] REPOSITORY TYPE CODE TESTS RESULT OUT OF [...] GAP 8 Performed By: #### L500.2500 #### [facility] [address] [facility] [place], [place], [id number] ,SERUM,HCG QUALI. Collected: Status: F Source: [place] 06/23/2018 6:[address] [facility] REPOSITORY TYPE CODE TESTS RESULT OUT OF REFERENCE UNITS RANGE LAB L700.6700 =>Qualitative mIU/mL Normal HCG Qual < 1 triggr LAB L700.7000 0-9 Nonpreg Negative Normal HCGSQUAL NEGATIVE Performed By: #### L700.6800 #### [facility] [address] [facility] [place], [place], [address] BRAIN/HEAD WITHOUT Observed: 06/23/2018 Status: F Source: [place] CONTRAST 6[facility]39 AM [facility] Imaging Services [address] [place] [address] Brain/Head without Contrast MR#: [id number] Acct: [id number] Name: VALERIA JHA Rep #: [id number] : 1980 F 37 From: Tremayne Cordova PCP: Ankur Deal Status: REG ER Study: Brain/Head without Contrast Date of Exam: 06/23/18 Exam# [id number] Ordering Dr: Emiliano Diaz MD STUDY: CT [...] , CC: Ankur Deal; Dominik Diaz MD Reprint Sorter: Signed EMERGENCY DEPARTMENT Observed: 06/22/2018 Status: F Source: [place] SUMMARY 4:[address] [facility] REPOSITORY [facility] Medical Records Department [address] [place] [address] Emergency Department Summary 06/22/18 1551 MR#: [id number] Acct: [id number] Name: VALERIA JHA Rep #: [id number] : 1980 37 From: Aryan Frey MD [...] myoclonic congenita This note was generated with Lyxia dictation software. It may contain incorrect words, [...] your Primary Care Provider. Call [facility] ([phone]) or report to the closest Emergency Room. Call 911 if necessary. 06/22/18 1604 <Electronically signed by Aryan Frey MD> Date Aryan Frey MD Cosigner Signature (If Indicated): Date CC: Gonzalo De Leon MD DISCHARGE INSTRUCTION Observed: 06/22/2018 Status: F Source: [place] 4:04 PM [facility] REPOSITORY [facility] Medical Records Department [address] [place] [address] Discharge Instruction 06/22/18 1554 MR#: [id number] Acct: [id number] Name: VALERIA JHA Rep #: [id number] : 1980 37 From: Aryan Frey MD [...] your Primary Care Provider. Call [facility] ([phone]) or report to the closest Emergency Room. Call 911 if necessary. 06/22/18 1604 <Electronically signed by Aryan Frey MD> Date Aryan Frey MD Cosigner Signature (If Indicated): Date CC: Gonzalo De Leon MD BASIC METABOLIC Collected: 06/22/2018 Status: F Source: [place] PROFILE (BMP) 2:[address] [facility] REPOSITORY TYPE CODE TESTS RESULT OUT OF [...] GAP 7 Performed By: #### L500.2500 #### [facility] [address] [place], [address] OBSOLETE Observed: 06/20/2018 Status: COMPLETED Source: [place] 12:00 AM [facility] RE[facility]ITORY [facility] ([id number]) 1980 F Date Time Provider Department 06/20/18 [facility] During your visit today, we recorded [...] CONSTIPATION NOS [K59.00] MYALGIA AND MYOSITIS NOS [[id number]] INVALID FOR* Lump or Mass in Breast [...] 06/20/18 PROGRESS Observed: 06/19/2018 Status: COMPLETED Source: [place] 2:03 PM [facility] REPOSITORY HNO ID: [id number] Author: Shae Rascon) [place] Service: (none) Author Type: Nurse Practitioner Type: [...] 2004 LAPROSCOPIC - COLONOSCOP W/ OR W/O [facility] SPEC 10/27/05 - HYSTEROSCOPY, STERILIZATION 02/13/08 Essure - L'SCOPE DX W/WO BRUSHINGS/WASHINGS October Laparoscopy, adhesion lysis - POLYSOMNOGRAM(DIAG) 73712 12/2005 Sleep study wnl - THYROID FINE NEEDLE ASPIRATION 2012 - VAGINAL HYSTERECTOMY 10/29/10 [facility] FAMILY HISTORY Problem Relation Age of [...] 2 Occupational History Occupation Employer Comment unemployed [employer] last job in [place] Social History Main Topics Smoking status: Current [...] son, age 5 yo dtr ) - [facility] 01/2013 Current Outpatient Prescriptions: fluticasone propionate (FLONASE [...] external genitalia normal, normal Bartholin's glands, urethra, Knapp's glands, no cervical lesions, physiologic discharge present, [...] cyst gets larger or more painful Shae [place], CHASER TAR.COMPLIANCE PROJECT MANAGER CNOV Observed: 06/19/2018 Status: COMPLETED Source: [place] 2:00 PM [facility] REPOSITORY Office Visit (WOOB) VALERIA JHA ([id number]) 1980 F Date Time Provider Department 06/19/18 [...] BRUSHINGS/WASHINGS October Laparoscopy, adhesion lysis - POLYSOMNOGRAM(DIAG) 75829 12/2005 Sleep study wnl - THYROID FINE NEEDLE ASPIRATION 2013 - VAGINAL HYSTERECTOMY 10/29/10 [facility] FAMILY HISTORY Problem Relation Age of [...] 2 Occupational History Occupation Employer Comment unemployed [employer] last job in [place] Social History Main Topics Smoking status: Current [...] son, age 5 yo dtr ) - [facility] 01/2013 Current Outpatient Prescriptions: fluticasone propionate (FLONASE [...] external genitalia normal, normal Bartholin's glands, urethra, Knapp's glands, no cervical lesions, physiologic discharge present, [...] gets larger or more painful Shae Rodgers APRN.COMPLIANCE PROJECT MANAGER Referring Provider: SELF [200] Allergies As of [...] CONSTIPATION NOS [K59.00] MYALGIA AND MYOSITIS NOS [[id number]] INVALID FOR* Lump or Mass in Breast [...] AND DIFFERENTIAL Collected: 06/19/2018 Status: F Source: [place] 1:13 PM [facility] REPOSITORY TYPE CODE TESTS RESULT OUT OF [...] k/uL Abs Lymph 3.39 LAB AMONO % Massac% 4.8 LAB AAMONO <0.87 k/uL Abs [place] 0.49 LAB AEOS % Eosin% 2.1 LAB AAEOS <0.46 k/uL Abs Eosin 0.22 LAB ABASO % Baso% 0.7 LAB AABASO <0.11 k/uL Abs Baso 0.07 LAB AUNRBC 0 /100 WBC NRBCs 0.0 LAB ABNRBC <0.01 k/uL Absolute nRBC <0.01 LAB DTYP DTYPE Auto Diff Performed By: #### CBCDIF, BMP #### [facility] [address] [place] [address] BASIC METABOLIC PANL Collected: 06/19/2018 Status: F Source: [place] 1:13 PM [facility] REPOSITORY TYPE CODE TESTS RESULT OUT OF REFERENCE UNITS RANGE LAB GLU 74-99 mg/dL Low Glucose 68 Result Comment: The [place] Diabetes Association (ADA) provides guidance for cutoff [...] Standards of Medical Care in Diabetes 2016, [place] [employer] Association. Diabetes Care. 2016.39(Suppl 1). LAB [...] GFR. Performed By: #### CBCDIF, BMP #### [facility] [address] [place], [place] [address] PROGRESS Observed: 06/19/2018 Status: COMPLETED Source: [place] 12:16 PM [facility] REPOSITORY O ID: [id number] Author: Gonzalo De Leon Service: (none) Author [...] month PROGRESS Observed: 06/19/2018 Status: COMPLETED Source: [place] 12:02 PM [facility] REPOSITORY HNO ID: [id number] Author: Gonzalo De Leon Service: (none) Author [...] BRUSHINGS/WASHINGS October Laparoscopy, adhesion lysis - POLYSOMNOGRAM(DIAG) 75118 12/2005 Sleep study wnl - THYROID FINE NEEDLE ASPIRATION 2012 - VAGINAL HYSTERECTOMY 10/29/10 [facility] FAMILY HISTORY Problem Relation Age of [...] 2 Occupational History Occupation Employer Comment unemployed [employer] last job in [place] Social History Main Topics Smoking status: Current [...] son, age 5 yo dtr ) - [facility] 01/2013 Reviewed current medications, allergies, past medical [...] MD CNOV Observed: 06/19/2018 Status: COMPLETED Source: [place] 11:20 AM [facility] REPOSITORY [facility] ([id number]) 1980 F Date Time Provider Department 06/19/18 11:20 AM [facility] During your visit today, we recorded the [...] BRUSHINGS/WASHINGS October Laparoscopy, adhesion lysis - POLYSOMNOGRAM(DIAG) 33917 12/2005 Sleep study wnl - THYROID FINE [...] 2 Occupational History Occupation Employer Comment unemployed [employer] last job in [place] Social History Main Topics Smoking status: Current [...] son, age 5 yo dtr ) - [facility] 01/2013 Reviewed current medications, allergies, past medical [...] ECG COMPLETE W INTERPRETATION [ECG01] Order #: [id number] FUTURE CBC + DIFF [SQCBCDIF] Order #: [id number] FUTURE BASIC METABOLIC PNL [SQBMP] Order #: [id number] FUTURE STRESS ECHO TREADMILL [[id number]] Order #: [id number]: 1 FUTURE perflutren lipid microspheres (DEFINITY) 1.1 mg/mL injection (to be provided with echo procedure)Inject 1.3 mL intravenously as directed.Disp: 1.3 mLRfl: 0 HOLTER MONITOR 24 HOUR [[id number]] Order #: [id number] FUTURE Prescriptions as of 06/19/2018 Sig: FLONASE [...] CONSTIPATION NOS [K59.00] MYALGIA AND MYOSITIS NOS [TRW1757] INVALID FOR* Lump or Mass in Breast [...] 06/19/18 PROGRESS Observed: 06/01/2018 Status: COMPLETED Source: [place] 4:41 PM [facility] REPOSITORY HNO ID: [id number] Author: Chucky Lai Service: (none) Author Type: Physician Type: Progress Notes Filed: 06/26/2018 5:41 PM Note Text: Chucky Lai MD Department of Orthopaedics Orthopaed[facility] [address] [facility] [address] Dept: [phone] Dept June 01, 2018 CHIEF COMPLAINT: right [...] months feeling worse. She works at a [employer] and is quite painful for her while [...] Lai MD IMAGING: IMPRESSION: POSITIVE ULNAR VARIANCE. Reprint Sorter: PSCB ? Transcribe Date/Time: May ?9:17A Dictated [...] 2004 LAPROSCOPIC - COLONOSCOP W/ OR W/O [facility] SPEC 10/27/05 - HYSTEROSCOPY, STERILIZATION 02/13/08 [facility] - L'SCOPE DX W/WO BRUSHINGS/WASHINGS October Laparoscopy, adhesion lysis - POLYSOMNOGRAM(DIAG) 52400 12/2005 Sleep study wnl - THYROID FINE NEEDLE ASPIRATION 2012 - VAGINAL HYSTERECTOMY 10/29/10 [facility] Family History: FAMILY HISTORY Problem Relation [...] 2 Occupational History Occupation Employer Comment unemployed [employer] last job in [place] Social History Main Topics Smoking status: Current [...] son, age 5 yo dtr ) - [facility] 01/2013 Medications: Current Outpatient Prescriptions: baclofen (LIORESAL) [...] PHYSICIAN: Ms. Valeria Jha was referred to wi for consultation by the following physician. This consultation note will be sent to the following physician by either mail or electronic medical record. Gonzalo De Leon MD [address] [facility] [address] Fercho Deal PA-C [address] [facility] [address] This note was partially generated using Lyxia voice recognition system, and there may be some incorrect words, spellings, and punctuation that were not noted in checking the note before saving. Chucky Lai MD PROGRESS Observed: 06/01/2018 Status: COMPLETED Source: [place] 3:46 PM [facility] REPOSITORY HNO ID: [id number] Author: Nati Infante RN Service: (none) Author [...] the past 2 months. 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 She is R handed. Pt had XR done on 05/08/18 and was given thumb spica splint. She states splint helps but she is unable to wear at work. CNOV Observed: 06/01/2018 Status: COMPLETED Source: [place] 2:55 PM [facility] REPOSITORY Office Visit (ORTHWS) VALERIA JHA ([id number]) 1980 F Date Time Provider Department 06/01/18 [...] past 2 months. 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 She is R handed. Pt had XR done on 05/08/18 and was given thumb spica splint. She states splint helps but she is unable to wear at work. Chucky Lai MD 06/26/2018 5:41 PM Signed Chucky Lai MD Department of Orthopaedics Orthopaedics [facility] [address] Dept: [phone] Dept June 01, 2018 CHIEF COMPLAINT: right [...] months feeling worse. She works at a [employer] and is quite painful for her while [...] Lai MD IMAGING: IMPRESSION: POSITIVE ULNAR VARIANCE. Reprint Sorter: ADRIAN ? Transcribe Date/Time: May ?2017 ?9:17A [...] BRUSHINGS/WASHINGS October Laparoscopy, adhesion lysis - POLYSOMNOGRAM(DIAG) 58660 12/2005 Sleep study wnl - THYROID FINE NEEDLE ASPIRATION 2012 - VAGINAL HYSTERECTOMY 10/29/10 [facility] Family History: FAMILY HISTORY Problem Relation [...] Employer Comment unemployed [employer] last job in [place] Social History Main Topics Smoking status: Current [...] son, age 5 yo dtr ) - [facility] 01/2013 Medications: Current Outpatient Prescriptions: baclofen (LIORESAL) [...] electronic medical record. Gonzalo De Leon MD [address] [facility] [address] Fercho Deal PA-C [address] [facility] [address] This note was partially generated using Lyxia voice recognition system, and there may be some incorrect words, spellings, and punctuation that were not noted in checking the note before saving. Chucky Lai MD Referring Provider: GOZNALO DE LEON [[id number]] Allergies As of Date: 06/01/2018 Noted Allergy [...] CONSTIPATION NOS [K59.00] MYALGIA AND MYOSITIS NOS [[id number]] INVALID FOR* Lump or Mass in Breast [...] 3V PA/LAT/OBL Observed: 05/08/2018 Status: F Source: [facility] 5:23 PM [facility] REPOSITORY * * *Final Report* * * [...] normal. No fracture. IMPRESSION: POSITIVE ULNAR VARIANCE. Reprint Sorter: PSCB Transcribe Date/Time: May 09 2018 9:17A Dictated by : MUSTAPHA DEARS MD This examination was interpreted and the report reviewed and electronically signed by: MUSTAPHA DERAS MD on May 09 2018 9:19AM EST [id number] PROGRESS Observed: 05/08/2018 Status: COMPLETED Source: [place] 5:14 PM [facility] REPOSITORY HNO ID: [id number] Author: Osiris Benz Rt Service: (none) Author [...] PM PROGRESS Observed: 05/08/2018 Status: COMPLETED Source: [place] 4:53 PM [facility] REPOSITORY O ID: [id number] Author: Gonzalo De Leon Service: (none) Author [...] BRUSHINGS/WASHINGS October Laparoscopy, adhesion lysis - POLYSOMNOGRAM(DIAG) 90717 12/2005 Sleep study wnl - THYROID FINE NEEDLE ASPIRATION 2012 - VAGINAL HYSTERECTOMY 10/29/10 [facility] FAMILY HISTORY Problem Relation Age of [...] 2 Occupational History Occupation Employer Comment unemployed [employer] last job in [place] Social History Main Topics Smoking status: Current [...] son, age 7 yo dtr ) - [facility] 01/2013 Reviewed current medications, allergies, past medical [...] MD CNOV Observed: 05/08/2018 Status: COMPLETED Source: [place] 4:00 PM [facility] REPOSITORY Office Visit (FAMPWS) VALERIA JHA ([id number]) 1980 F Date Time Provider Department 05/08/18 [...] BRUSHINGS/WASHINGS October Laparoscopy, adhesion lysis - POLYSOMNOGRAM(DIAG) 25727 12/2005 Sleep study wnl - THYROID FINE NEEDLE ASPIRATION 2012 - VAGINAL HYSTERECTOMY 10/29/10 [facility] FAMILY HISTORY Problem Relation Age of [...] 2 Occupational History Occupation Employer Comment unemployed [employer] last job in [place] Social History Main Topics Smoking status: Current [...] son, age 7 yo dtr ) - [facility] 01/2013 Reviewed current medications, allergies, past medical [...] [facility] 03/18/2006 Date Reviewed: 05/08/2018 Reviewed by: aKren Sheehan Ma - Fully Assessed Reason for Visit: Wrist Pain [1580] Primary Visit Diagnosis:Wrist pain, right [M25.531] Order(s):XR WRIST GENERAL 3V PA/LAT/OBL RT [1244215] Order #: [id number] FUTURE WRIST SPLINT - THUMB SPICA [29607040] Order #: [id number] CONSULT TO ORTHOPAEDICS [9026] Order #: [id number]: 1 Prescriptions as of 05/08/2018 Sig: DIAZEPAM [...] CONSTIPATION NOS [K59.00] MYALGIA AND MYOSITIS NOS [BHP7007] INVALID FOR* Lump or Mass in Breast [...] DISCHARGE INSTRUCTION Observed: 04/17/2018 Status: F Source: [place] 11:[address] [facility] REPOSITORY [facility] Medical Records Department [address] [place] [address] Discharge Instruction 04/17/183 MR#: [id number] Acct: [id number] Name: VALERIA JHA Rep #: [id number] : 1980 37 From: Billy Cage MD [...] problems, contact your Primary Care Provider. Call [facility] ([phone]) or report to the closest Emergency Room. Call 911 if necessary. 04/17/18 2334 <Electronically signed by Billy Cage MD> Date Billy Cage MD Cosigner Signature (If Indicated): Date CC: Gonzalo De Leon MD EMERGENCY DEPARTMENT Observed: 04/17/2018 Status: F Source: [place] [facility] 11:[address] [facility] REPOSITORY [facility] Medical Records Department [address] [place] [address] Emergency Department Summary 04/17/18 2330 MR#: [id number] Acct: [id number] Name: VALERIA JHA Rep #: [id number] : 1980 37 From: Billy Cage MD [...] foot contusion This note was generated with Lyxia dictation software. It may contain incorrect words, [...] your Primary Care Provider. Call [facility] ([phone]) or report to the closest Emergency Room. Call 911 if necessary. 04/17/18 2333 <Electronically signed by Billy Cage MD> Date Billy Cage MD Cosigner Signature (If Indicated): Date CC: Gonzalo De Leon MD FOOT MIN 3 VIEWS Observed: 04/17/2018 Status: F Source: [place] 10:[address] [facility] REPOSITORY [facility] Imaging Services [address] [place] [address] Foot min 3 Views MR#: [id number] Acct: [id number] Name: VALERIA JHA Rep #: [id number] : 1980 F 37 From: Juvenal Pedroza DO PCP: Gonzalo De Leon MD Status: REG ER Study: Foot min 3 Views Date of Exam: 04/17/18 Exam# [id number] Ordering Dr: Billy Cage MD STUDY: X-RAY [...] Juvenalbryn Pedroza DO at 23:19 EST Tel [phone], Service support , CC: Billy Cage MD; Gonzalo De Leon MD Reprint Sorter: Signed PROGRESS Observed: 04/03/2018 Status: COMPLETED Source: [place] 11:18 AM [facility] REPOSITORY O ID: [id number] Author: Roseann Wasserman Service: (none) Author Type: Maple [employer] Maker Type: Progress Notes Filed: 04/03/2018 11:18 AM [...] US THYROID/PARATHYROID Observed: 04/03/2018 Status: F Source: [place] 11:18 AM [facility] REPOSITORY * * *Final Report* * * DATE OF EXAM: Apr 03 2018 11:18AM [facility] - US THYROID/PARATHYROID / PROCEDURE REASON: [...] None. IMPRESSION: Bilateral thyroid nodules, as described. Reprint Sorter: PSCB Transcribe Date/Time: Apr 03 2018 4:16P Dictated by : LATOYA FELIZ MD This examination was interpreted and the report reviewed and electronically signed by: LATOYA FELIZ MD on Apr 03 2018 4:21PM EST [id number] Observed: 03/29/2018 Status: COMPLETED Source: [place] 12:00 AM [facility] REPOSITORY [facility] ([id number]) 1980 F Date Time Provider Department 03/29/18 Ankur DEAL[facility] During your visit today, we recorded the following information about you: Arti García LPN 03/29/2018 1:57 PM Signed [facility] will not cover Savella. They are stating to use Gabapentin, Amitriptyline or Flexeril. Pt has been/is on Flexeril and Gabapentin. Med list does not show pt has been on Amitriptyline. Please advise. [facility] ID# [id number] SHENG Quintero PA-C 03/29/2018 3:47 PM Signed She was no Nortryptiline; couldn't tolerate. Probably won't make a difference. Thanks, HIRAL Gomez LPN 03/30/2018 9:29 AM Signed Prior Authorization has been completed online at [employer] for KRISTIAN, will await response. Please keep [...] Venlafaxine Pt has also tried Flexeril, however [facility] is stating she still has not tried [...] on formulary. I called and spoke with [facility] and I was advised that they only accept previous medications tried that was filled while pt was on their insurance, which started in 2017. I told [facility] that that is unacceptable as pt has [...] CONSTIPATION NOS [K59.00] MYALGIA AND MYOSITIS NOS [[id number]] INVALID FOR* Lump or Mass in Breast [...] once daily. Cosign accepted by Ankur DEAL PA-C[[id number]] on 04/06/2018 1:28 PM DULOXETINE 30 MG [...] on file. Cosign accepted by Ankur DEAL PA-C[[id number]] on 04/06/2018 1:28 PM Encounter Status:Closed by JANICE SIMS MA on 04/11/18 CBC AND DIFFERENTIAL Collected: 03/28/2018 Status: F Source: [place] 3:40 PM [facility] REPOSITORY TYPE CODE TESTS RESULT [...] Abs High Lymph 4.66 LAB AMONO % Massac% 5.0 LAB AAMONO <0.87 k/uL Abs Massac 0.59 LAB AEOS % Eosin% 4.0 LAB AAEOS <0.46 k/uL Abs High Eosin 0.47 LAB ABASO % Baso% 0.7 LAB AABASO <0.11 k/uL Abs Baso 0.08 LAB AUNRBC 0 /100 WBC NRBCs 0.0 LAB ABNRBC <0.01 k/uL Absolute nRBC <0.01 LAB DTYP DTYPE Auto Diff Performed By: #### CBCDIF, CMP, TSH #### [facility] [address] [place], [place] [address] COMP METABOLIC PANEL Collected: 03/28/2018 Status: F Source: [place] 3:40 PM [facility] REPOSITORY TYPE [...] mg/dL Low Glucose 71 Result Comment: The [place] Diabetes Association (ADA) provides guidance for cutoff [...] Standards of Medical Care in Diabetes 2016, [place] [employer]. Diabetes Care. 2016.39(Suppl 1). LAB [...] Performed By: #### CBCDIF, CMP, TSH #### [facility] [address] [place], [place] [address] TSH Collected: 03/28/2018 Status: F Source: [place] 3:40 PM [facility] REPOSITORY TYPE [...] Clinical Practice Guideline. J Clin Endocrinol Metab, 2012:97:9941-9349. 2. Jakub VALENZUELA. Overview of thyroid disease in . UpToDate. 2016. Accessed on November 21, 2015. Performed By: #### CBCDIF, CMP, TSH #### [facility] [address] [place], [place] [address] PROGRESS Observed: 03/28/2018 Status: COMPLETED Source: [place] 2:26 PM [facility] REPOSITORY HNO ID: [id number] Author: Ankur Brantley (PaPretty) Say Service: (none) Author Type: Physician Supervisor Purification Type: Progress Notes Filed: 03/28/2018 5:45 PM [...] BRUSHINGS/WASHINGS October Laparoscopy, adhesion lysis - POLYSOMNOGRAM(DIAG) 51491 12/2005 Sleep study wnl - THYROID FINE NEEDLE ASPIRATION 2012 - VAGINAL HYSTERECTOMY 10/29/10 [facility] Social History Marital status: Spouse name: Years of education: GED Number of children: 2 Occupational History Occupation Employer Comment unemployed [employer] last job in [place] Social History Main Topics Smoking status: Current [...] son, age 5 yo dtr ) - [facility] 01/2013 ACTIVE PROBLEM LIST Migraine Without Aura, [...] PA-C CNOV Observed: 03/28/2018 Status: COMPLETED Source: [place] 2:00 PM [facility] REPOSITORY Office Visit (FAMPWS) VALERIA JHA ([id number]) 1980 F Date Time Provider Department 03/28/18 [...] 2004 LAPROSCOPIC - COLONOSCOP W/ OR W/O [facility] SPEC 10/27/05 - HYSTEROSCOPY, STERILIZATION 02/13/08 [facility] - L'SCOPE DX W/WO BRUSHINGS/WASHINGS October Laparoscopy, adhesion lysis - POLYSOMNOGRAM(DIAG) 47775 12/2005 Sleep study wnl - THYROID FINE NEEDLE ASPIRATION 2013 - VAGINAL HYSTERECTOMY 10/29/10 [facility] Social History Marital status: Spouse name: Years of education: GED Number of children: 2 Occupational History Occupation Employer Comment unemployed [employer] last job in [place] Social History Main Topics Smoking status: Current [...] son, age 7 yo dtr ) - [facility] 01/2013 ACTIVE PROBLEM LIST Migraine Without Aura, [...] Myotonia [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] Chronic depression [F32.9] Order(s):US THYROID/PARATHYROID [5454833] Order #: [id number] FUTURE TSH BLD [SQTSH] Order #: [id number] FUTURE COMP METABOLIC PANEL [SQCMP] Order #: [id number] FUTURE CBC + DIFF [SQCBCDIF] Order #: [id number] FUTURE Milnacipran (SAVELLA) 25 mg tabTake 1 [...] CONSTIPATION NOS [K59.00] MYALGIA AND MYOSITIS NOS [IGD0286] INVALID FOR* Lump or Mass in Breast [...] Follow-up and Disposition History Recorded Letter Text [facility] [address] [place], [place] [address] Valeria Jha [address] [phone] Clinic #: [id number] 03/28/2018 To Whom it may concern, Valeria Jha was examined here for an acute medical condition. Please excuse her from work missed today. Thank you, Janeen Deal PA-C Letter Text Janeen Deal PA-C [address] [place], [place] [address] 03/28/2018 Valeria Jha C[facility]# [id number] [address] [id number] TO WHOM IT MAY CONCERN: This is to certify that Ms. Valeria Jha has been under my care for illness and was unable to work from 03/28/18. May return to work 03/29/18 with no restriction. Sincerely yours, Janeen Deal PA-C (Signed electronically to expedite mailing) Encounter Status:Closed by Ankur DEAL PA-C on 03/28/18 PROGRESS Observed: 03/19/2018 Status: COMPLETED Source: [place] 3:48 PM [facility] REPOSITORY HNO ID: [id number] Author: Aviva Kan (Computer Lab Para Professional) Jasbir Service: (none) Author Type: Nurse Practitioner [...] BRUSHINGS/WASHINGS October Laparoscopy, adhesion lysis - POLYSOMNOGRAM(DIAG) 79721 12/2005 Sleep study wnl - THYROID FINE [...] APRN.GIOVANA CNOV Observed: 03/19/2018 Status: COMPLETED Source: [place] 3:30 PM [facility] REPOSITORY Office Visit (UCWSTR) VALERIA JHA ([id number]) 1980 F Date Time Provider Department 03/19/18 3:30 PM AVIVA MARTELL (MATERIAL YARD CLERK) WSTR During your visit today, we recorded [...] BRUSHINGS/WASHINGS October Laparoscopy, adhesion lysis - POLYSOMNOGRAM(DIAG) 34993 12/2005 Sleep study wnl - THYROID FINE [...] Patient agreeable to treatment plan. Aviva Martell APRN.COMPLIANCE PROJECT MANAGER Referring Provider: SELF [200] Allergies As of [...] CONSTIPATION NOS [K59.00] MYALGIA AND MYOSITIS NOS [[id number]] INVALID FOR* Lump or Mass in Breast [...] 03/19/18 PROGRESS Observed: 03/13/2018 Status: COMPLETED Source: [place] 3:08 PM [facility] REPOSITORY HNO ID: [id number] Author: Ankur Brantley (Hiral) Say Service: (none) Author Type: Physician Supervisor Purification Type: Progress Notes Filed: 03/13/2018 10:07 PM [...] BRUSHINGS/WASHINGS October Laparoscopy, adhesion lysis - POLYSOMNOGRAM(DIAG) 23811 12/2005 Sleep study wnl - THYROID FINE NEEDLE ASPIRATION 2012 - VAGINAL HYSTERECTOMY 10/29/10 [facility] Social History Marital status: Spouse name: Years of education: GED Number of children: 2 Occupational History Occupation Employer Comment unemployed [employer] last job in [place] Social History Main Topics Smoking status: Current [...] son, age 5 yo dtr ) - [facility] 01/2013 ACTIVE PROBLEM LIST Migraine Without Aura, [...] PA-C CNOV Observed: 03/13/2018 Status: COMPLETED Source: [place] 2:20 PM [facility] REPOSITORY Office Visit (FAMPWS) VALERIA JHA ([id number]) 1980 F Date Time Provider Department 03/13/18 [...] 2004 LAPROSCOPIC [facility] 10/27/05 - HYSTEROSCOPY, STERILIZATION 02/13/08 [facility] - L'SCOPE DX W/WO BRUSHINGS/WASHINGS October Laparoscopy, adhesion lysis - POLYSOMNOGRAM(DIAG) 03703 12/2005 Sleep study wnl - THYROID FINE NEEDLE ASPIRATION 2012 - VAGINAL HYSTERECTOMY 10/29/10 [facility] Social History Marital status: Spouse name: Years of education: GED Number of children: 2 Occupational History Occupation Employer Comment unemployed [employer] last job in [place] Social History Main Topics Smoking status: Current [...] son, age 7 yo dtr ) - [facility] 01/2013 ACTIVE PROBLEM LIST Migraine Without Aura, [...] to affected area three times daily. [facility] 0 fluconazole (DIFLUCAN) 150 mg [...] CONSTIPATION NOS [K59.00] MYALGIA AND MYOSITIS NOS [KWX0540] INVALID FOR* Lump or Mass in Breast [...] EMERGENCY DEPARTMENT Observed: 02/16/2018 Status: F Source: [place] SUMMARY 4:[address] [facility] REPOSITORY [facility] Medical Records Department [address] [place] [address] Emergency Department Summary 02/16/18 1447 MR#: [id number] Acct: [id number] Name: VALERIA JHA Rep #: [id number] : 1980 37 From: Petar Osuna DO [...] and dizziness This note was generated with Lyxia dictation software. It may contain incorrect words, [...] problems, contact your Primary Care Provider. Call [facility] ([phone]) or report to the closest Emergency Room. Call 911 if necessary. 02/16/18 1621 <Electronically signed by Petar Osuna DO> Date Petar Osuna DO Cosigner Signature (If Indicated): Date CC: Gonzalo De Leon MD URINALYSIS, COMPLETE Collected: 02/16/2018 Status: F Source: [place] 3:[address] [facility] REPOSITORY Order Comment: Order Date: 02/16/18 How [...] AMORPHOUS PHOS Performed By: #### L400.0001 #### [facility] [address] [place], [address] CBC W/DIFF, AUTOMATED Collected: 02/16/2018 Status: F Source: [place] 2:[address] [facility] REPOSITORY TYPE CODE TESTS RESULT OUT OF [...] Lymph 2.27 Performed By: #### L100.0100 #### [facility] [place], [address] COMPREHENSIVE METABOLIC Collected: 02/16/2018 Status: F Source: [place] [facility] 2:[address] [facility] REPOSITORY TYPE CODE TESTS RESULT OUT OF [...] GAP 6 Performed By: #### L500.4050 #### [facility] [address] [facility] [place], [address] CHEST PA AND LATERAL Observed: 02/16/2018 Status: F Source: [place] 2:[address] [facility] REPOSITORY [facility] Imaging Services [address] [place] [address] Chest PA and Lateral MR#: [id number] Acct: [id number] Name: VALERIA JHA R Rep #: [id number] : 1980 F 37 From: Keaton Lambert MD PCP: Gonzalo De Leon MD Status: REG ER Study: Chest PA and Lateral Date of Exam: 02/16/18 Exam# [id number] Ordering Dr: Petar Osuna DO STUDY: X-RAY [...] Petar Osuna DO; Gonzalo De Leon MD Reprint Sorter: Signed EMERGENCY DEPARTMENT Observed: 12/29/2017 Status: F Source: [place] SUMMARY 11:[address] [facility] REPOSITORY [facility] Medical Records Department [address] [place] [address] Emergency Department Summary 12/29/17 2320 MR#: [id number] Acct: [id number] Name: VALERIA JHA Rep #: [id number] : 1980 37 From: Donte Ladd MD [...] foot sprain This note was generated with Lyxia dictation software. It may contain incorrect words, [...] your Primary Care Provider. Call [facility] ([phone]) or report to the closest Emergency Room. Call 911 if necessary. 12/29/177 <Electronically signed by Donte Ladd MD> Date Donte Ladd MD Cosigner Signature (If Indicated): Date CC: Gonzalo De Leon MD DISCHARGE INSTRUCTION Observed: 12/29/2017 Status: F Source: [place] 11:[address] [facility] REPOSITORY [facility] Medical Records Department [address] [place] [address] Discharge Instruction 12/29/173 MR#: [id number] Acct: [id number] Name: VALERIA JHA Rep #: [id number] : 1980 37 From: Donte Ladd MD [...] your Primary Care Provider. Call [facility] ([phone]) or report to the closest Emergency Room. Call 911 if necessary. 12/29/17 2334 <Electronically signed by Donte Ladd MD> Date Donte Ladd MD Cosigner Signature (If Indicated): Date CC: Gonzalo De Leon MD FOOT MIN 3 VIEWS Observed: 12/29/2017 Status: F Source: [place] 11:[address] [facility] REPOSITORY [facility] Imaging Services [address] [place] [address] Foot min 3 Views MR#: [id number] Acct: [id number] Name: VALERIA JHA Rep #: [id number] : 1980 F 37 From: Anshu Hooper MD PCP: Gonzalo De Leon MD Status: REG ER Study: Foot min 3 Views Date of Exam: 12/29/17 Exam# [id number] Ordering Dr: Donte Ladd MD STUDY: X-RAY [...] Donte Ladd MD; Gonzalo De Leon MD Reprint Sorter: Signed PROGRESS Observed: 12/19/2017 Status: COMPLETED Source: [place] 11:53 PM [facility] REPOSITORY HNO ID: [id number] Author: Patricia Day Poly-T Service: (none) Author [...] attention. PROGRESS Observed: 11/15/2017 Status: COMPLETED Source: [place] 3:57 PM [facility] REPOSITORY HNO ID: [id number] Author: Ankur Deal Service: (none) Author Type: Physician Supervisor Purification Type: Progress Notes Filed: 11/15/2017 7:03 PM [...] 2004 LAPROSCOPIC - [facility]COP [facility] 10/27/05 - HYSTEROSCOPY, STERILIZATION 02/13/08 [facility] - L'SCOPE DX W/WO BRUSHINGS/WASHINGS October Laparoscopy, adhesion lysis - POLYSOMNOGRAM(DIAG) 40270 12/2005 Sleep study wnl - THYROID FINE NEEDLE ASPIRATION 2012 - VAGINAL HYSTERECTOMY 10/29/10 [facility] Social History Marital status: Spouse name: Years of education: GED Number of children: 2 Occupational History Occupation Employer Comment unemployed [employer] last job in [place] Social History Main Topics Smoking status: Current [...] son, age 5 yo dtr ) - [facility] 01/2013 ACTIVE PROBLEM LIST Migraine Without Aura, [...] PA-C CNOV Observed: 11/15/2017 Status: COMPLETED Source: [place] 3:40 PM [facility] REPOSITORY Office Visit (FAMPWS) VALERIA JHA ([id number]) 1980 F Date Time Provider Department 11/15/17 [...] 2004 LAPROSCOPIC - COLONOSCOP W/ OR W/O [facility] SPEC 10/27/05 - HYSTEROSCOPY, STERILIZATION 02/13/08 [facility] - L'SCOPE DX W/WO BRUSHINGS/WASHINGS October Laparoscopy, adhesion lysis - POLYSOMNOGRAM(DIAG) 47745 12/2005 Sleep study wnl - THYROID FINE NEEDLE ASPIRATION 2013 - VAGINAL HYSTERECTOMY 10/29/10 [facility] Social History Marital status: Spouse name: [...] son, age 5 yo dtr ) - [facility] 01/2013 ACTIVE PROBLEM LIST Migraine Without Aura, [...] [G71.12] Order(s):CONSULT TO ALLERGY/IMMUNOLOGY [9001] Order #: [id number]: 1 Prescriptions as of 11/15/2017 Sig: DIAZEPAM [...] CONSTIPATION NOS [K59.00] MYALGIA AND MYOSITIS NOS [RFA6639] INVALID FOR* Lump or Mass in Breast [...] 11/15/17 PROGRESS Observed: 11/15/2017 Status: COMPLETED Source: [place] 4:15 AM [facility] REPOSITORY HNO ID: [id number] Author: Colleen Harmon Service: (none) Author Type: [...] M.D. PROGRESS Observed: 11/14/2017 Status: COMPLETED Source: [place] 11:52 AM [facility] REPOSITORY O ID: [id number] Author: Constance Newsome Service: (none) Author Type: Physician Type: Progress Notes Filed: 11/14/2017 12:14 PM Note Text: [facility] Follow-Up Visit ? History of [...] and after prolonged use of the limbs (appointment coordinator and percussion). Worse after mild physical exertion. [...] movements. No pronator drift. 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 Power is 5-/5 [...] this appointment visit was 60 minutes of eanb-ri-vrju time with the patient. At least 50% of this time was spent in counseling, explanation of diagnosis, planning of further management, and coordination of care. ? Constance Newsome MD Staff, Neurom[facility] Center [facility] ? Referring provider: Pat Nascimento, [facility] [address] [facility] [address] ? Primary care provider: Rafael Samuel DO [address] [id number] PROGRESS Observed: 11/14/2017 Status: COMPLETED Source: [place] 11:05 AM [facility] REPOSITORY HNO ID: [id number] Author: Nataliia Clark Service: (none) Author Type: (none) Type: Progress Notes Filed: 12/19/2017 11:59 PM Note Text: November 14, 2017 An order has been received for Home Sleep Test (HST) from Dr. Ankur Deal PA-C, [facility] Staff. Visit prep complete. Comments :No The sleep study is scheduled for 12/13/2017. Insurance: Payor: [facility] MEDICAID / Plan: [facility] COMMUNITY PLAN MEDICAID / Product Type: Medicaid / Nataliia Marjan [employer] CNOV Observed: 11/14/2017 Status: COMPLETED Source: [place] 10:40 AM [facility] REPOSITORY Office Visit (NENMMN) VALERIA JHA ([id number]) 1980 F Date Time Provider Department 11/14/17 10:40 AM [facility] During your visit today, we recorded the following information about you: Pulse Respiration Blood pressure Weight 77/minute 18/minute 110/75 94.3 kg Height 1.626 m Constance Newsome MD 11/14/2017 12:14 PM Signed [facility] Follow-Up Visit ? History of [...] and after prolonged use of the limbs (appointment coordinator and percussion). Worse after mild physical exertion. [...] movements. No pronator drift. 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 Power is 5-/5 [...] this appointment visit was 60 minutes of qosk-ly-rjwr time with the patient. At least 50% of this time was spent in counseling, explanation of diagnosis, planning of further management, and coordination of care. ? Constance Newsome MD Staff, Neuromuscular Center [facility] ? Referring provider: Pat Nascimento, COMPLIANCE PROJECT MANAGER [address] [facility] [address] ? Primary care provider: Rafael Samuel, DO [address] [place] [address] Referring Provider: SELF [200] Allergies As of [...] CONSTIPATION NOS [K59.00] MYALGIA AND MYOSITIS NOS [LVJ3877] INVALID FOR* Lump or Mass in Breast [...] 11/14/17 PROGRESS Observed: 11/03/2017 Status: COMPLETED Source: [place] 5:34 PM [facility] REPOSITORY O ID: [id number] Author: Ankur Brantley (Pa-C) Say Service: (none) Author Type: Physician Supervisor Purification Type: Progress Notes Filed: 11/03/2017 7:04 PM Note Text: 36 year old female hx myotonia with c/o exacerbation chronic back pain lumbar right radiating to abdomen. Been present for months but worse lately. Trying to tolerate. Naprosyn hasn't helped. Continues with Valium routinely. Here so that I can do Mu-Ism which seems to help. HISTORIES FAMILY HISTORY [...] BRUSHINGS/WASHINGS October Laparoscopy, adhesion lysis - POLYSOMNOGRAM(DIAG) 36287 12/2005 Sleep study wnl - THYROID FINE NEEDLE ASPIRATION 2012 - VAGINAL HYSTERECTOMY 10/29/10 [facility] Social History Marital status: Spouse name: Years of education: GED Number of children: 2 Occupational History Occupation Employer Comment unemployed [employer] last job in [place] Social History Main Topics Smoking status: Current [...] son, age 5 yo dtr ) - [facility] 01/2013 ACTIVE PROBLEM LIST Migraine Without Aura, [...] that she only has to go to [place] once a year of which I am willing to do as long as there is clear oversight. - BACLOFEN 10 MG TABLET Patient (guardian) expressed understanding of instructions and agrees with plan. Ankur Deal PA-C x CNOV Observed: 11/03/2017 Status: COMPLETED Source: [place] 5:20 PM [facility] REPOSITORY [facility] VALERIA [facility]HA ([id number]) 1980 F Date Time Provider Department 11/03/17 5:20 PM [facility]ur DEAL[facility], we recorded [...] routinely. Here so that I can do Mu-Ism which seems to help. HISTORIES FAMILY HISTORY [...] BRUSHINGS/WASHINGS October Laparoscopy, adhesion lysis - POLYSOMNOGRAM(DIAG) 90479 12/2005 Sleep study wnl - THYROID FINE NEEDLE ASPIRATION 2012 - VAGINAL HYSTERECTOMY 10/29/10 [facility] Social History Marital status: Spouse name: Years of education: GED Number of children: 2 Occupational History Occupation Employer Comment unemployed [employer] last job in [place] Social History Main Topics Smoking status: Current [...] son, age 5 yo dtr ) - [facility] 01/2013 ACTIVE PROBLEM LIST Migraine Without Aura, [...] that she only has to go to [place] once a year of which I am [...] CONSTIPATION NOS [K59.00] MYALGIA AND MYOSITIS NOS [ZUA8219] INVALID FOR* Lump or Mass in Breast [...] ABDOMEN/PELVIS W/O Observed: 11/01/2017 Status: F Source: [facility] CONTRAST 10:22 PM [facility] REPOSITORY ORIGINAL CT ABDOMEN/PELVIS W/O CONTRAST Clinical [...] PM UA Collected: 11/01/2017 Status: F Source: [place] 9:20 PM [facility] REPOSITORY TYPE CODE TESTS RESULT OUT OF [...] Performed By: #### UA, PREGU, UAMICAO #### [place] [address] PREGU Collected: 11/01/2017 Status: F Source: [facility] 9:20 [facility] REPOSITORY TYPE CODE TESTS RESULT OUT OF RANGE REFERENCE UNITS LAB PREGU(LOIN C) Test Negative Urine LAB PRUG1(LOIN C) Unknown test HCG not (u) int detected. Performed By: #### UA, PREGU, UAMICAO #### [address] [address] .URINALYSIS MICROSCOPIC Collected: 11/01/2017 Status: F Source: [facility] 9:20 [facility] REPOSITORY TYPE CODE TESTS RESULT OUT OF RANGE REFERENCE UNITS LAB WBCUA(LOIN None Seen /hpf C) Unknown UA WBC 0-5 LAB RBCUA(LOIN None Seen /hpf C) Unknown UA RBC 5-10 LAB EPIUA(LOIN None Seen /hpf C) Unknown UA Squam Epithelial 10-15 LAB BACUA(LOIN /hpf C) Unknown UA Bacteria 2+ Performed By: #### UA, PREGU, UAMICAO #### [address] [address] PROGRESS Observed: 10/13/2017 Status: COMPLETED Source: [place] 12:09 PM [facility] REPOSITORY HNO ID: [id number] Author: Karen Samuel (Pt) Service: (none) Author Type: Physical Therapist Type: Progress Notes Filed: 10/13/2017 12:09 PM Note Text: [facility] PHYSICAL THERAPY [...] PT PROGRESS Observed: 09/12/2017 Status: COMPLETED Source: [place] 10:04 AM [facility] REPOSITORY HNO ID: [id number] Author: Ankur Hull) Say Service: (none) Author Type: Physician Supervisor Purification Type: Progress Notes Filed: 09/12/2017 11:23 AM [...] Gave her Norflex IM. Sees Dr[facility] News[facility]. On Valium 5mg twice if she remembers [...] BRUSHINGS/WASHINGS October Laparoscopy, adhesion lysis - POLYSOMNOGRAM(DIAG) 28169 12/2005 Sleep study wnl - THYROID FINE NEEDLE ASPIRATION 2012 - VAGINAL HYSTERECTOMY 10/29/10 [facility] Social History Marital status: Spouse name: Years of education: GED Number of children: 2 Occupational History Occupation Employer Comment unemployed [employer] last job in [place] Social History Main Topics Smoking status: Current [...] son, age 5 yo dtr ) - [facility] 01/2013 ACTIVE PROBLEM LIST Migraine Without Aura, [...] HIRAL LiOV Observed: 09/12/2017 Status: COMPLETED Source: [place] 9:40 AM [facility] REPOSITORY Office Visit ([facility]) VALERIA JHA ([id number]) 1980 F Date Time Provider Department 09/12/17 [...] Gave her Norflex IM. Sees Dr[facility] News[facility]. On Valium 5mg twice ANDquot;if she ANDquot;remembersANDquot; [...] 2004 LAPROSCOPIC - COLONOSCOP W/ OR W/O [facility] SPEC 10/27/05 - HYSTEROSCOPY, STERILIZATION 02/13/08 [facility] - L'SCOPE DX W/WO BRUSHINGS/WASHINGS October Laparoscopy, adhesion lysis - POLYSOMNOGRAM(DIAG) 99644 12/2005 Sleep study wnl - THYROID FINE NEEDLE ASPIRATION 2013 - VAGINAL HYSTERECTOMY 10/29/10 [facility] Social History Marital status: Spouse name: Years of education: GED Number of children: 2 Occupational History Occupation Employer Comment unemployed [employer] last job in [place] Social History Main Topics Smoking status: Current [...] son, age 5 yo dtr ) - [facility] 01/2013 ACTIVE PROBLEM LIST Migraine Without Aura, [...] 03/18/2006 Date Reviewed: 09/12/2017 Reviewed by: Jessy Nielson LPN - Fully Assessed Reason for Visit: Fatigue [46] Cmt: states wakes up and still tired. Was suggested that she be checked for sleep apnea. 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 REPOSITORY [facility] Medical Records Department [address] [place] [address] Emergency Department Summary 09/10/17 0917 MR#: [id number] Acct: [id number] Name: VALERIA JHA Rep #: [id number] : 1980 36 From: Kristina Scott MD [...] the same condition, she is treated by [facility] physician she has not seen them [...] and regulations by the state pharmacy board [facility] other national organizations related to the use of narcotics, given that her physicians been managing her chronically do not have her on narcotics that narcotics will not be prescribed today She did agree to proceed with dose of Norflex IM she will be given a prescription we did also send a viral swab for the lip blister, and she was instructed to use bdal-gok-goftwvy occasions for the blister and follow-up her family doctor for culture results and further management of all the above Test Results: [] Emergency Department Course and Treatment: [] Treatment Plan: [] Disposition: [] Stable, home Impression: [] Diffuse musculoskeletal type spasm reported history of unspecified musculoskeletal disorder, lip blister, requesting narcotics This note was generated with Helmedixation software. It may contain incorrect words, spelling, [...] your Primary Care Provider. Call [facility] ([phone]) or report to the closest Emergency Room. Call 911 if necessary. 09/10/17 1556 <Electronically signed by Kristina Scott MD> Date Kristina Scott MD Cosigner Signature (If Indicated): Date CC: Gonzalo De Leon MD GROUP A STREP BY Collected: 09/10/2017 Status: F Source: [place] PCR 11:08 AM [facility] REPOSITORY TYPE CODE TESTS RESULT OUT OF REFERENCE UNITS RANGE LAB GASSRC Throat Swab GAS Specimen Source LAB PCRGAS Negative for Group A Strep Group A PCR Streptococcus by PCR. Result Comment: This test was developed and its performance characteristics determined by [facility]'s [facility] [place] ([facility]). It has not been cleared or approved by the FDA. -[facility] is regulated under CLIA as qualified to perform high-complexity testing. This test is used for clinical purposes. It should not be regarded as inv estigational or for research. Performed By: #### GASPCR #### [facility] [address] [place], [place] [address] CNOV Observed: 09/10/2017 Status: COMPLETED Source: [place] 10:30 AM [facility] REPOSITORY Office Visit (UCWSTR) VALERIA JHA ([id number]) 1980 F Date Time Provider Department 09/10/17 [...] BRUSHINGS/WASHINGS October Laparoscopy, adhesion lysis - POLYSOMNOGRAM(DIAG) 10867 12/2005 Sleep study wnl - THYROID FINE [...] Patient agreeable to treatment plan. Arina Boggs APRN.GIOVANA Boggs APRN.CNP 09/10/2017 11:10 AM [...] 30 capsuleRfl: 0 RAPID STREP TEST B/O [[id number]] Order #: [id number] GROUP A STREPTOCOCCUS BY PCR [SQGASPCR] Order #: [id number] fluconazole (DIFLUCAN) 150 mg tabletTake 1 tablet [...] CONSTIPATION NOS [K59.00] MYALGIA AND MYOSITIS NOS [CLB8960] INVALID FOR* Lump or Mass in Breast [...] 09/10/17 PROGRESS Observed: 09/10/2017 Status: COMPLETED Source: [place] 10:29 AM [facility] REPOSITORY HNO ID: [id number] Author: Arnia Rascon) Service: (none) Author Type: Nurse Practitioner [...] BRUSHINGS/WASHINGS October Laparoscopy, adhesion lysis - POLYSOMNOGRAM(DIAG) 83544 12/2005 Sleep study wnl - THYROID FINE NEEDLE ASPIRATION 2012 - VAGINAL HYSTERECTOMY 10/29/10 [facility] ALLERGIES Adhesive; Beestings [Other]; Cat Dander [...] Patient agreeable to treatment plan. Arina Boggs APRN.COMPLIANCE PROJECT MANAGER DISCHARGE INSTRUCTION Observed: 09/10/2017 Status: F Source: [place] 9:24 AM [facility] Medical Records Department [facility] [place] [address] Discharge Instruction 09/10/17 0922 MR#: [id number] Acct: [id number] Name: VALERIA JHA [place] Rep #: [id number] : 1980 36 From: Kristina Scott MD [...] your Primary Care Provider. Call [facility] ([phone]) or report to the closest Emergency Room. Call 911 if necessary. 09/10/17923 <Electronically signed by Kristina Scott MD> Date Kristina Scott MD Cosigner Signature (If Indicated): Date CC: Gonzalo De Leon MD Observed: 09/10/2017 Status: F Source: [place] CULTURE, VIRUS 9:[address] [facility] REPOSITORY Comments: Lip sore Virus Culture Positive for Herpes simplex virus type-1. Typing was confirmed by monoclonal antibody microscopic immunofluorescence. TESTING PERFORMED AT [facility]. ORIGINAL REPORT ON FILE IN LAB CONTAINS ADDITIONAL TEST SITE INFORMATION. RESULTS CALLED TO Jamilah 09/19/17813 Hannah Sims. REPORT READ BACK BY Saige. Copy of report sent to Infection Control Printer [id number] 09/19/17813 KEATON. Culture, Virus General CULTURE POSITIVE for HERPES SIMPLEX VIRUS by FLOURESCENT Ab. Performed By: #### M600.3500 #### [facility] [address] 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 FINDINGS: There are five vgb-pwk-przdddv lumbar vertebra. No fracture or subluxations are noted. The disc spaces are well preserved. There is no significant osteophyte formation. IMPRESSION: Negative lumbar spine. Reprint Sorter: PSCB Transcribe Date/Time: Aug 22 2017 6:59P Dictated by : MELISSA SILVA MD This examination was interpreted and the report reviewed and electronically signed by: MELISSA SILVA MD on Aug 22 2017 7:00PM EST [id number] PROGRESS Observed: 08/22/2017 Status: COMPLETED Source: [place] 12:58 PM [facility] REPOSITORY HNO ID: [id number] Author: Dorian Wong (Rt) Service: (none) Author Type: Insurance Loss Assessor Type: Progress Notes Filed: 08/22/2017 1:05 PM [...] 08/22/2017 Status: COMPLETED Source: [place] 11:45 AM [facility] REPOSITORY OT/PT/Speech Visit (PTWS) VALERIA JHA ([id number]) 1980 F Date Time Provider Department 08/22/17 11:45 AM KAREN SAMUEL (PT) PTWS Date Time Provider Department Center 08/22/2017 11:45 AM [id number], LISA (PT) PTWS [facility] Reason for Visit: PT Eval [747] [...] (steroid, naprosyn, massage, ) Relevant History 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, 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, 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, 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 [...] in regards to ROM and function Billing: [facility]: Evaluation - Low Complexity (09294) Therapeutic Exercise (07261): 1:1 time: 25 minutes (2 units: 23-37 mins) Total time: 45 minutes BC Marrero Lisa (Pt) 10/13/2017 12:09 PM Signed [facility] PHYSICAL THERAPY [...] PT PROGRESS Observed: 08/01/2017 Status: COMPLETED Source: [place] 1:03 PM [facility] REPOSITORY HNO ID: [id number] Author: Gonzalo De Leon Service: (none) Author Type: Physician Type: Progress Notes Filed: 08/01/2017 1:15 PM Note Text: Patient presents with: ED Follow-up HPI: Patient presents today for office visit for follow up [facility] ER. Nursing Notes: Sowmya Lopez LPN 08/01/2017 12:56 PM Signed HOSPITAL/ER FOLLOW UP: Reason for visit: numbness left leg Which facility: [facility] Date of visit: 07/24/17 Diagnosis: left [...] BRUSHINGS/WASHINGS October Laparoscopy, adhesion lysis - POLYSOMNOGRAM(DIAG) 46473 12/2005 Sleep study wnl - THYROID FINE NEEDLE ASPIRATION 2012 - VAGINAL HYSTERECTOMY 10/29/10 [facility] FAMILY HISTORY Problem Relation Age of [...] son, age 5 yo dtr ) - [facility] 01/2013 Reviewed current medications, allergies, past medical [...] 07/27/2017 Status: F Source: [place] 1:[address] [facility] REPOSITORY [facility] Cardiovascular Services [address] [place] [address] 12 Lead EKG 07/24/172120 MR#: [id number] Acct: [id number] Name: VALERIA JHA R Rep #: [id number] : 1980 36 From: Reilly Olmedo MD [...] Normal ECG Confirmed by ALBERTO RUTHERFORD, REILLY ([id number]), content editor JOS SANTOYO ([id number]) on 07/27/2017 1:59:22 PM Referred By: SAVITA Confirmed By:REILLY OLMEDO MD 07/27/17 1359 Date Reilly Olmedo MD CC: Kyle Gurrola DO; Gonzalo De Leon MD Signed EMERGENCY DEPARTMENT Observed: 07/25/2017 Status: F Source: [place] SUMMARY 7:15 AM [facility] Medical Records Department [address] [place] [address] Emergency Department Summary 07/24/17 221 MR#: [id number] Acct: [id number] Name: VALERIA JHA R Rep #: [id number] : 1980 36 From: Kyle Gurrola DO [...] extremity numbness This note was generated with Lyxia dictation software. It may contain incorrect words, [...] your Primary Care Provider. Call [facility] ([phone]) or report to the closest Emergency Room. Call 911 if necessary. 07/25/17 0715 <Electronically signed by Kyle Gurrola DO> Date Kyle Gurrola DO Cosigner Signature (If Indicated): Date CC: Gonzalo De Leon MD DISCHARGE INSTRUCTION Observed: 07/24/2017 Status: F Source: [place] 11:[address] [facility] REPOSITORY [facility] Medical Records Department [address] [address] Discharge Instruction 07/24/17 2309 MR#: [id number] Acct: [id number] Name: VALERIA JHA Rep #: [id number] : 1980 36 From: Kyle Gurrola DO [...] your Primary Care Provider. Call [facility] ([phone]) or report to the closest Emergency Room. Call 911 if necessary. 07/24/17 2310 <Electronically signed by Kyle Gurrola DO> Date Kyle Gurrola DO Cosigner Signature (If Indicated): Date CC: Gonzalo De Leon MD BASIC METABOLIC Collected: 07/24/2017 Status: F Source: [place] PROFILE (BMP) 10:[address] [facility] REPOSITORY TYPE CODE TESTS RESULT OUT OF [...] Normal 5 Performed By: #### L500.2500 #### [facility] [address] [place], [address] CBC W/DIFF, AUTOMATED Collected: 07/24/2017 Status: F Source: [place] 10:[address] [facility] REPOSITORY TYPE CODE TESTS RESULT OUT OF [...] Lymph 3.16 Performed By: #### L100.0100 #### [facility] [address] [facility] [place], [address] BRAIN/HEAD WITHOUT Observed: 07/24/2017 Status: F Source: [place] CONTRAST 10:[address] [facility] REPOSITORY [facility] Imaging Services [address] [place] [address] Brain/Head without Contrast MR#: [id number] Acct: [id number] Name: VALERIA JHA Rep #: [id number] : 1980 F 36 From: Latasha Toure MD PCP: Gonzalo De Leon MD Status: REG ER Study: Brain/Head without Contrast Date of Exam: 07/24/17 Exam# [id number] Ordering Dr: Kyle Gurrola DO STUDY: CT [...] Kyle Gurrola DO; Gonzalo De Leon MD Reprint Sorter: Signed PROGRESS Observed: 07/19/2017 Status: COMPLETED Source: [place] 1:20 PM [facility] REPOSITORY HNO ID: [id number] Author: hTo Ball Service: (none) Author Type: Table Games Manager Type: Progress Notes Filed: 07/19/2017 2:45 PM [...] BRUSHINGS/WASHINGS October Laparoscopy, adhesion lysis - POLYSOMNOGRAM(DIAG) 87458 12/2005 Sleep study wnl - THYROID FINE NEEDLE ASPIRATION 2012 - VAGINAL HYSTERECTOMY 10/29/10 [facility] FAMILY HISTORY Problem Relation Age of [...] 4 Occupational History 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 Social History Main [...] son, age 7 yo dtr ) - [facility] 01/2013 Current Outpatient Prescriptions: NAPROXEN ORAL Take [...] external genitalia normal, normal Bartholin's glands, urethra, Knapp's glands, no vulvar lesions, no cervical lesions, [...] SEVERITY SOURCE 06/23/19 Drug clavulanic Other Unknown [place] 19 Allergy/663461530 acid/[id number](RXN Community (SNOMED CT) ORM) Hospital Repository 06/23/19 Drug amoxicillin/E204152 Other Unknown [place] 19 Allergy/731619610 675(RXNORM) [facility]) Hospital Repository 06/23/19 Drug cyclobenzaprine/F00 Other Unknown [place] 19 Allergy/797256119 8860895(RXNORM) [facility] (SN[address]) Hospital Repository 06/19/19 DRUG/381792351(SN AMOXICILLIN-POT OTHER: SEE C [place] [address]) CLAVULANATE [facility] [place] Repository 06/30/19 DRUG CYCLOBENZAPRINE HCL INTOLERANCE [place] 17 INGREDI/073808117 Clinic [facility] (SNOMED CT) [place] Repository 10/10/19 DRUG ADHESIVE [place] 09 INGREDI/086143540 Clinic [facility] (SNOMED CT) [place] Repository 03/13/20 Miscellaneous OTHER [place] 07 Allergy/372482012 Clinic [facility] (SNOMED CT) [place] Repository 03/18/20 Environ/723422947 RAGWEED [place] 06 (SNOMED CT) Clinic [facility] [place] Repository 02/26/20 Miscellaneous OTHER INTOLERANCE [place] 05 Allergy/354877828 Clinic Main (SNOMED CT) [place] Repository 02/26/20 DRUG GRASS POLLEN RASH [place] 05 INGREDI/172191103 Clinic Main (SNOMED CT) [place] Repository ENCOUNTERS ENCOUNTERS ADMIT/DISCHARGE ACCOUNT NUMBER ADMITTING ENCOUNTER LOCATION SOURCE CLASS 06/28/2018/06/29/19 [id number] Ambulatory [address] Main [place] Repository 06/23/2018/06/23/19 [id number] Emergency [place] ding:ED Repository 06/22/2018/06/22/19 [id number] Emergency [place] ding:ED Repository 06/19/2018/06/20/19 [id number] Ambulatory [address] Main [place] Repository 06/19/2018/06/19/19 [id number] Ambulatory [address] [place] Repository 06/19/2018/06/19/19 [id number] Ambulatory [address] [place] Repository 06/19/2018/06/20/19 [id number] Ambulatory [address] [place] Repository 06/01/2018/06/27/19 [id number] Ambulatory [address] [place] Repository 05/08/2018/05/08/20 [id number] Ambulatory [address] [place] Repository 05/08/2018/05/09/20 [id number] Ambulatory [address] [place] Repository 04/17/2018/04/17/20 [id number] Emergency [address] ding:ED Repository 04/03/2018/04/03/20 [id number] Ambulatory [address] [facility] [place] Repository 03/28/2018/03/28/20 [id number] Ambulatory [address] [place] Repository 03/28/2018/03/29/20 [id number] Ambulatory [address] [place] Repository 03/19/2018/03/21/20 [id number] Ambulatory [address] [place] Repository 03/13/2018/03/14/20 [id number] Ambulatory [address] [place] Repository 02/16/2018/02/17/20 [id number] Emergency [place] [facility] ding:ED Repository 12/29/2017/12/30/19 [id number] Emergency [place] [facility] ding:ED Repository 11/15/2017/11/17/19 [id number] Ambulatory [address] Repository 11/14/2017/11/15/19 [id number] Ambulatory [address] Repository 11/03/2017/11/05/19 [id number] Ambulatory [address] Repository 11/01/2017/11/02/19 [id number] Emergency BBuilding:BAILEY Solano [address] [place] [address] Repository 09/12/2017/09/14/19 [id number] Ambulatory [address] Repository 09/10/2017/09/13/19 [id number] Ambulatory [address] Repository 09/10/2017/09/11/19 [id number] Emergency [place] [facility] ding:ED Repository 08/22/2017/08/23/19 [id number] Ambulatory [address] Repository 08/22/2017/08/24/19 [id number] Ambulatory [address] Repository 08/01/2017/08/06/19 [id number] Ambulatory [address] Repository 07/24/2017/07/24/19 [id number] Emergency [place] [facility] ding:ED Repository 07/19/2017/07/20/19 [id number] Ambulatory [address] Repository PAYERS PAYERS ENCOUNTER GUARANTOR PAYER SUBSCRIBER SOURCE 06/23/2018 VALERIA Hyatt Primary Insurance:[facility] VALERIA R [place] [id number] [facility] PLANPolicy DYEDOB: [facility] [id number] [id number] Repository [address]Mux: 330) Date:[id number] [phone] ([facility] [address] [place] [address]NA: 06/23/2018 Secondary NOT GIVENUNK [place] Insurance:SELF PAY [facility] Number: Effective Repository Date:2018-06-23 06/22/2018 VALERIA Hyatt Primary Insurance:[facility] VALERIA R Hammond [id number] [address] [facility] PLANPolicy DYEDOB: Formerly [facility], [facility] [place] Number: [id number], [place] [id number] Repository 69371Gpg: ([phone]) Date:[id number] [phone] () [address] [place] [address] [id number]: 06/22/2018 Secondary NOT GIVENUNK Shira Insurance:SELF PAY [facility] Number: Effective Repository Date:2018-06-22 04/17/2018 VALERIA Hyatt Primary Insurance:C VALERIA R Hammond [id number] N COMMUNITY PLANPolicy DYEDOB: Community [place] Number: [id number], [place] [id number] Repository 45547Lco: ([phone]) Date:[id number] [phone] () [address] [place] [address] [id number]: 04/17/2018 Secondary NOT GIVENUNK Hammond Insurance:SELF PAY [facility] Number: Effective Repository Date:2018-04-17 02/16/2018 VALERIA Hyatt Primary Insurance:[facility] VALERIA R Hammond [id number] N COMMUNITY PLANPolicy DYEDOB: Community [place] Number: [id number], [place] [id number] Repository 72[address]Ftd: ([phone]) Date:7030-41-77ET [phone] () [address] [place] [address] [id number]: 02/16/2018 Secondary NOT GIVENUNK Shira Insurance:SELF PAY [facility] Number: Effective Repository Date:2018-02-16 12/29/2017 VALERIA Hyatt Primary Insurance:[facility] VALERIA R Hammond [id number] N COMMUNITY PLANPolicy DYEDOB: Community [place] Number: [id number], [place] [id number] Repository 41[address]Mhq: (330) Date:4808-35-65NI [phone] () [address] [place] [address] [id number]: 12/29/2017 Secondary NOT GIVENUNK Hammond Insurance:SELF PAY [facility] Number: Effective Repository Date:2017-12-29 11/01/2017 VALERIA R Primary VALERIA R [facility] DYEDOB: Insurance:[facility] DYEDOB: [facility] n COMMUNITY PLAPolicy [id number] Repository [place] Number: [address] [place], [place] [id number] [place] [address]~DYETABATHA Date:2017-11-01 38612Luh: [phone] [email or web address]: [id number] [phone] Name:[address] ()Tel: 000) () [address] [place] [address] [phone] () [id number]: 09/10/2017 VALERIA R Primary Insurance:[facility] VALERIA R Hammond [id number] N [facility] DYEDOB: [facility], [facility] [place] Number: [id number], [place] [id number] Repository 83083Qxr: (330) Date:[id number] [phone] () [address] [place] [address] [id number]: 09/10/2017 Secondary NOT GIVENUNK Shira Insurance:SELF PAY [facility] Number: Effective Repository Date:2017-09-10 07/24/2017 Valeria R Primary Insurance:[facility] Valeria R Shira [id number] [address] [facility] DyeDOB: [facility], [facility] [place] Number: [id number], [place] [id number] Repository 416[address]Wyf: ([phone]) Date:0128-40-89HB [phone] () [address] [place] [address] [id number]: 07/24/2017 Secondary NOT GIVENUNK Shira Insurance:SELF PAY [facility] Number: Effective Repository Date:2017-07-24
== END 2018-06-23 08:24 | disposition home or self-care (01) ==
PROVIDERS: Emergency Provider Emergency Medicine; Family Provider Physician Assistant; PCP Physician Assistant
DX: G25.3 Myoclonus (principal); F32.9 Major depressive disorder, single episode, unspecified; Z79.899 Other long term (current) drug therapy
CPT/HCPCS: 70450; 80048; 81001; 84703; 85025; 96360; 99285; J7030; A4216

== ENCOUNTER 2018-10-09 11:28 | Emergency (ER) | payer MEDICAID, SELFPAY ==
[2018-10-09 11:29] VITALS: BP 141/82; PULSE 94; RESP 16; TEMP 36.4; O2SAT 98; BMI 37.8
--- NOTE | 2018-10-09 11:34 | RAD_ITS ---
STUDY: X-RAY - LEFT FOOT CLINICAL: Heel pain, injury last week. TECHNIQUE: 3 view(s) of the foot. COMPARISON: Radiographs 02/04/2017. FINDINGS: There is a very small posterior calcaneal enthesophyte. Normal visualized subtalar, talonavicular, calcaneocuboid, tarsal and tarsometatarsal articulations. Normal metatarsi. Normal metatarsophalangeal joint of the great toe. Normal tibial and fibular sesamoid bones. Normal interphalangeal joint of the great toe. Normal phalanges of the great toe. Normal second through fifth metatarsophalangeal joints. Normal interphalangeal joints and phalanges of the lesser toes. The soft tissue structures are unremarkable. RAD/Foot min 3 Views IMPRESSION: Very small calcaneal enthesophyte. Otherwise, unremarkable x-ray examination of the left foot. Electronically Signed: Ameya Conner MD at 12:17 EDT Tel , Service support ,
--- NOTE | 2018-10-09 11:34 | ED.VIS.LOWEX ---
History of Present Illness Chief Complaint: Lower Extremity Injury Informant: Patient Occurred: Weeks - 1 week Mechanism/Context: - - Jogging to car last week Onset: Weeks - 1 week Context: Sudden Onset Timing: Continuous Quality of Pain: Aching Location: Heel of left foot Current Severity: Mild Maximum Severity: Severe Worsened by: Weightbearing Relieved by: Nothing Associated Symptoms: - - Difficulty walking. Negative for: Parasthesia, Weakness Narrative: Patient is a 37-year-old woman who presents with pain left heel since last week. She states she was jogging in her flip-flops to car. She denies paresthesia, anesthesia or motor weakness. She is taken intermittent doses of ibuprofen with no significant effect. She has no history of peripheral artery disease. She has no symptoms consistent with claudication. She has no other complaints. Tetanus Immunization: 5-10 years Prior similar symptoms: No Recent Illness/Hospitalization: No Past Medical History - Allergies and Home Meds Allergies/Adverse Reactions: Allergies amoxicillin [From Augmentin] Adverse Reaction (Verified 10/09/18 11:39) Other clavulanic acid [From Augmentin] Adverse Reaction (Verified 10/09/18 11:39) Other cyclobenzaprine [From Flexeril] Adverse Reaction (Verified 10/09/18 11:39) Other Primary Care Physician: Ankur Deal PA [Primary Care Provider] - Prior records reviewed: No Lives: With Family Smoking Status: Current every day smoker Drugs: None Review of Systems General: Denies: Chills, Fever, Malaise, Subjective, Sweats, Weight loss ENT: Reports: Bilateral ear pain Musculoskeletal: Reports: Extremity Pain - Left heel. Denies: Myalgias, Arthralgias, Neck pain, Back pain Skin: Denies: Wounds Neurological: Denies: Weakness, Parasthesia, Numbness Hematologic: Denies: Easy bruising, Easy bleeding Allergy: Denies: Uticaria, Swelling of the mouth Physical Exam Vital Signs/Narrative: Vital Signs Temp Pulse Resp BP Pulse Ox 10/09/18 11:29 97.6 F L 94 16 141/82 H 98 - Extremity Exam Left Ankle: Negative for: Abrasion, Contusion, Deformity, Edema, Hematoma, Limited ROM, - - Patient has limited discomfort palpation of the Achilles tendon. Knott test reveals the Achilles tendon is functionally intact. Left Foot: Negative for: Abrasion, Contusion, Deformity, Edema, Hematoma, Limited ROM, - - There is minimal pain plantar surface near the calcaneus. DP and PT pulse are palpable and 2+. There is no pain with plantar or dorsiflexion against resistance. Left Toe: Negative for: Abrasion, Contusion, Deformity, Edema, Hematoma, Limited ROM, - General: Well nourished, Well developed, Obese Head: Normocephalic, Atraumatic Eyes: Perrl, EOMI. Negative for: Pale conjunctiva, Scleral icterus, - Cardiovascular: Regular rate Respiratory: No distress Skin: Normal color, No rash, No Trauma. Negative for: Cyanosis, Jaundice Neurological: Alert, Oriented x3, Cranial nerves II-XII grossly intact, Normal Strength, Normal Sensation, - - Patient has a limp secondary to left foot pain. Psychological: Normal affect, Normal Mood Diagnostic/Tx/Re-eval Chest X-Ray - ED: Read by ED Physician Three-view x-ray of the left foot was obtained and interpreted by me as negative for fracture, subluxation or dislocation. There is no heel spur noted. Based on patient's physical exam her heel pain is secondary to Achilles tendinitis. Will treat with appropriate dose of NSAIDs since there is no contraindication. - Medical Decision Making Will obtain x-ray to see if there is evidence of heel spur to suggest possible mild plantar fasciitis. Concerned the patient's heel pain is secondary to Achilles tendinitis. Patient is taking approximately 400 at most 800 mg of ibuprofen per day. She has no contraindication to anti-inflammatories. ED Disposition - Plan for ED Patient: Disposition: Home or Assisted Living Diagnosis: Achilles tendinitis, left leg Instructions: What Is Tendinitis of the Foot? Prescriptions: Naproxen [Naprosyn] 500 mg PO BID #14 tablet Referrals: Ankur Deal PA [Primary Care Provider] - 1 Week Additional Instructions: Nonweightbearing until pain-free. Weight-bear as tolerated after pain-free.
== END 2018-10-09 12:43 | disposition home or self-care (01) ==
PROVIDERS: Emergency Provider Emergency Medicine; Family Provider Physician Assistant; PCP Physician Assistant
DX: M76.62 Achilles tendinitis, left leg (principal); F17.200 Nicotine dependence, unspecified, uncomplicated; E66.9 Obesity, unspecified
CPT/HCPCS: 29515; 73630; 99283

== ENCOUNTER 2018-11-21 15:05 | Emergency (ER) | payer MEDICAID, SELFPAY ==
[2018-11-21 15:07] VITALS: BP 137/84; PULSE 81; RESP 16; TEMP 36.7; O2SAT 96; BMI 36.5
--- NOTE | 2018-11-21 15:38 | CT_ITS ---
STUDY: CT BRAIN WITHOUT CONTRAST REASON FOR EXAM: Female, 37 years old. Weakness RADIATION DOSAGE (If Supplied By Facility): DLP = ( 745.49 ) mGycm TECHNIQUE: Transaxial CT imaging of the brain was performed without administration of intravenous contrast material. Individualized dose optimization techniques were used for this CT. COMPARISON: CT brain June 23, 2018 FINDINGS: There is no acute bleed or infarct. There are normal white matter tracts. The ventricles are normal in configuration. There is no hydrocephalus. The visualized paranasal sinuses are clear. The mastoid air cells are well aerated. There is no skull fracture. CT/Brain/Head without Contrast IMPRESSION: No acute intracranial abnormality. Electronically Signed: Aryan Diaz, at 18:00 EDT Tel , Service support ,
--- NOTE | 2018-11-21 15:39 | EKG12_ITS ---
Test Reason : NEURO Blood Pressure : / mmHG Vent. Rate : 065 BPM Atrial Rate : 065 BPM P-R Int : 134 ms QRS Dur : 084 ms QT Int : 426 ms P-R-T Axes : 052 055 050 degrees QTc Int : 443 ms Normal sinus rhythm with sinus arrhythmia Normal ECG Confirmed by LAWANDA ALEJO ([id number]), electronic news gathering editor AVEL BRYSON ([id number]) on 11/27/2018 10:17:36 AM Referred By: MARGE Confirmed By:LAWANDA ALEJO
--- NOTE | 2018-11-21 15:39 | RAD_ITS ---
STUDY: X-RAY CHEST REASON FOR EXAM: Female, 37 years old. Dizziness TECHNIQUE: PA and lateral views of the chest COMPARISON: X-ray chest February 16, 2018 FINDINGS: The lungs are clear. There are no pleural effusions. There is no pneumothorax. The heart is normal in size. The visualized osseous structures are within normal limits. RAD/Chest PA and Lateral IMPRESSION: No acute thoracic pathology. Electronically Signed: Aryan Diaz, at 18:01 EDT Tel , Service support ,
--- NOTE | 2018-11-21 15:44 | ED.DCSUM_ITS ---
- ER Visit Summary Date of Service: 11/21/18 Chief Complaint: Syncopal episode, dizziness, lightheadedness, and chest tightness History of Present Illness: The patient is a 37 F who presents with a syncopal episode that occurred last night. Patient states she has been dizzy and lightheaded since last night. Patient states she has had tightness in her chest today. Patient states she has heaviness in her left arm and leg today. Patient states she was seen in the emergency department at [facility] today. Patient states they did an EKG, urinalysis, and x-ray. Patient states she was still feeling dizzy and lightheaded and called her primary care physician. Patient states that her primary care physician told her to come back to the emergency department. Physical Examination: Vital signs are stable. Patient is afebrile. Patient is in no acute distress. Oral mucosa is pink and moist. Neck is supple. Trachea is midline. There is no JVD noted. Heart was regular rate and rhythm. Lungs are clear and equal bilateral. Abdomen is soft. Bowel sounds are normal. There is no tenderness. There is no guarding noted. Skin is warm dry. Cranial nerves II through XII are intact. There are no focal motor or sensory deficits noted. The remaining physical exam is within normal limits. Test Results: CBC and comprehensive metabolic profile were within normal limits. Urinalysis does not show any evidence of urinary tract infection. CT scan of the brain was obtained was negative. PA and lateral chest x-ray was obtained. There is no acute cardiopulmonary process. EKG showed normal sinus rhythm with a rate of 65. There are no acute ST or T wave changes. This was unchanged compared to previous EKG dated 07/24/2017. Troponin was normal. Emergency Department Course and Treatment: Patient was given IV fluids and Toradol here. Patient still complained of a persistent headache. Patient was given Compazine and Benadryl. Patient was instructed to rest in a dark quiet room. Patient was instructed to follow-up with her primary care physician in 5 to 7 days. Patient understood and was agreeable with the plan. All questions were answered. Disposition: Discharge home Impression: 1. Dizziness 2. Near syncope 3. Headache This note was generated with Campus Cellect[employer] software. It may contain incorrect words, spelling, and punctuation that were not noted in review of the chart prior to signing ED Disposition - Plan for ED Patient: Disposition: Home or Assisted Living Diagnosis: Dizziness, Near syncope, Headache Instructions: HEADACHE, Unspecified, DIZZINESS, Unk Cause, NEAR SYNCOPE, Unknown Referrals: Gonzalo Adamson MD [Primary Care Provider] - 3-5 Days
[2018-11-21 16:30] VITALS: BP 113/83; BP 117/79; BP 125/86; PULSE 71; PULSE 74; PULSE 85
[2018-11-21] MEDS: 0.9% Normal Saline 1,000 ML 1000 ML IV (16:43)
[2018-11-21 16:59] LABS: Absolute Lymphocyte Count 3.53 X10^3/ul (0.83-4.51); Absolute Neutrophil Count 4.7 X10^3/uL (2.0-7.7); Basophil# 0.05 X10^3/uL; Basophil% 0.5 % (0-1); Eosinophil# 0.36 X10^3/uL; Eosinophils% 3.9 % (0-5); Hemoglobin 14.8 g/dl (12.0-15.0); Lymphocyte # 3.53 X10^3/ul (4.0); Lymphocyte % 38.4 % (19-41); Mean Corp Hgb Conc 34.4 g/gl (32-36); Mean Corpuscular Hgb 33.5 pg (27.0-32.0); Mean Corpuscular Volume 97.3 fL (81-99); Mean Platelet Vol. 9.3 fl (6.2-12.0); Monocyte# 0.51 X10^3/uL; Monocyte% 5.5 % (0-10); Neutrophil # 4.73 X10^3/uL (2.7-7.7); Neutrophil % 51.6 % (47-70); Platelet Count 345 K/mm3 (150-450); RBC Distribution Width SD 42.5 fl (35.1-43.9); Red Blood Count 4.42 M/mm3 (4.2-5.4); White Blood Count 9.2 K/mm3 (4.4-11.0)
[2018-11-21 17:00] LABS: Bedside Glucose 80 mg/dL (70-110)
[2018-11-21 17:13] LABS: POSITIVE COUNT NO; POSITIVE DIFFERENTIAL NO; POSITIVE MORPHOLOGY NO
[2018-11-21 17:15] LABS: ALB/GLOB Ratio 1.1 RATIO (0.9-2.4); AST(SGOT) 14 U/L (15-37); Alanine Aminotransfer ALT/SGPT 27 U/L (13-56); Albumin, Serum 3.6 g/dL (3.2-5.0); Alkaline Phosphatase 59 U/L (45-117); Anion Gap 8 (5-15); BUN 11 mg/dL (7-18); BUN/Creat Ratio 11.2 RATIO (10-20); Calcium,Total 8.8 mg/dL (8.5-10.1); Chloride 109 mmol/L (98-107); Creatinine, Serum 0.98 mg/dL (0.55-1.02); EST Glomerular Filtration Rate 68 mL/min (>60); Est Glom Filt Rate - Afr Amer 82 mL/min (>60); Estimated Creatinine Clearance 69.19 ml/min; Globulin 3.3 g/dL (2.2-4.2); Glucose 84 mg/dL (74-106); Potassium 3.9 mmol/L (3.5-5.1); Protein, Total 6.9 g/dL (6.4-8.2); Sodium Level 145 mmol/L (136-145)
[2018-11-21 19:29] VITALS: BP 131/82; PULSE 60; RESP 16; O2SAT 96
[2018-11-21] MEDS: Ketorolac 30 MG/ML Syringe IV (19:30)
[2018-11-21 19:50] LABS: Bacteria 0 SEEN /hpf (None Seen); Mucous, Urine 0 SEEN /hpf (<or=2+); White Blood Cells 0 SEEN /hpf (0-5)
[2018-11-21 19:52] LABS: Color, Urine Yellow (Yellow); Glucose, Dipstick Normal (Normal); Ketone-Dipstick Negative (Negative); Leukocyte Esterase-Dipstick Negative /ul (Negative); Nitrite-Dipstick Negative (Negative); Occult Blood-Urine 25 /ul (Negative); Protein-Dipstick Negative (Negative); Specific Gravity, Urine 1.015 (1.002-1.030); Urine Bilirubin Dipstick Negative (Negative); Urine Clarity Sl. Cloudy (Clear); Urine Urobilinogen Normal (Normal)
[2018-11-21 20:06] LABS: Red Blood Cells-Urine 0-5 SEEN /hpf (0-5); Squamous Epithelial Cells - UA 5-10 SEEN /hpf (5-10)
[2018-11-21] MEDS: proCHLORPERazine 10 MG/2 ML Vial IV (20:47)
[2018-11-21] MEDS: DiphenhydrAMINE 50 MG/ML Syringe 25 MG IV (20:47)
[2018-11-21 21:10] VITALS: BP 119/57; PULSE 61; RESP 16
[2018-11-21 21:16] VITALS: BP 119/57; PULSE 61; RESP 16
== END 2018-11-21 21:23 | disposition home or self-care (01) ==
PROVIDERS: Emergency Provider Emergency Medicine; Family Provider Family Medicine; PCP Family Medicine
DX: R55 Syncope and collapse (principal); R42 Dizziness and giddiness; R51 Headache; E66.9 Obesity, unspecified; Z72.0 Tobacco use
CPT/HCPCS: 70450; 71046; 80053; 81001; 82962; 84484; 85025; 93005; 96361; 96374; 96375; 99285; J7030; A4216

== ENCOUNTER 2018-12-02 21:27 | Emergency (ER) | payer MEDICAID, SELFPAY ==
[2018-12-02 21:28] VITALS: BP 125/76; PULSE 90; RESP 16; TEMP 36.8; O2SAT 96; BMI 36.6
--- NOTE | 2018-12-02 21:38 | RAD_ITS ---
STUDY: X-RAY - LEFT WRIST REASON FOR EXAM: Female, 37 years old. Hand injury, status post fall TECHNIQUE: 3 view(s) of the wrist were obtained. COMPARISON: None. FINDINGS: Normal visualized distal radius and ulna. Normal radiocarpal articulation. Normal distal radioulnar articulation. Normal carpal bones. Normal carpal articulations. Normal carpometacarpal articulation of the thumb. Normal second through fifth carpometacarpal articulations. Normal visualized metacarpal bones. The soft tissue structures are unremarkable. RAD/Wrist min 3 Views IMPRESSION: Negative x-ray examination of the wrist. Electronically Signed: Dominik Polk, at 22:05 EDT Tel , Service support ,
--- NOTE | 2018-12-02 21:38 | RAD_ITS ---
STUDY: X-RAY - LEFT HAND REASON FOR EXAM: Female, 37 years old. first through third digit hand injury TECHNIQUE: 3 view(s) of the hand. COMPARISON: None. FINDINGS: Normal radiocarpal articulation. Normal distal radioulnar joint. Normal visualized carpal bones. Normal carpal articulations Normal carpometacarpal articulation of the thumb. Normal second through fifth carpometacarpal joints. Normal metacarpi. Normal metacarpophalangeal joint of the thumb. Normal interphalangeal joint of the thumb. Normal proximal and distal phalanges of the thumb. Normal metacarpophalangeal joints of the second through fifth fingers. Normal proximal and distal interphalangeal joints of the second through fifth fingers. Normal phalanges of the second through fifth fingers. The soft tissue structures are unremarkable. RAD/Hand Min 3 Views IMPRESSION: Negative x-ray examination of the hand. Electronically Signed: Dominik Polk, at 22:04 EDT Tel , Service support ,
--- NOTE | 2018-12-02 21:44 | ED.DCSUM_ITS ---
- ER Visit Summary Date of Service: 12/02/18 Chief Complaint: [Injury to left hand and wrist] History of Present Illness: The patient is a 37 F [presents to the emergency department with an injury to her left hand and wrist that occurred around 4 PM today. Patient states that she tripped and fell and try to catch herself with her hands and her left thumb, index finger, and long finger bent in different directions. Patient not complaining of pain with range of motion and swelling to the hand. She also has some pain into the wrist. She denies any other injuries. Patient has history of myotonia.] Physical Examination: [Left upper extremity-patient has some mild soft tissue sw elling over the thenar eminence of the left hand. Patient has some tenderness diffusely about the left thumb, index finger, and long finger. No obvious deformity noted to the fingers. Patient has somewhat decreased ability to flex the digits and extend them secondary to pain and swelling. Patient also some mild diffuse tenderness over the left wrist. No obvious deformity noted at the wrist. She is neurovascular intact distally.] Test Results: [X-rays of the left hand and wrist were obtained which on my interpretation does not show any evidence of fracture.] Emergency Department Course and Treatment: [Patient was placed in a thumb spica splint.] Treatment Plan: [She will be given a prescription for a few [place] for severe pain. Patient to follow-up with primary care physician in 5 to 7 days.] Disposition: [Discharged home stable condition.] Impression: [Left hand and wrist sprain] This note was generated with Imagine K12 dictation software. It may contain incorrect words, spelling, and punctuation that were not noted in review of the chart prior to signing ED Disposition - Plan for ED Patient: Referrals: Gonzalo Adamosn MD [Primary Care Provider] -
--- NOTE | 2018-12-02 21:57 | ED.DEP ---
ED Disposition - Plan for ED Patient: Instructions: Wrist Sprain, Sprain Hand Prescriptions: Hydrocodone Bitart/Apap 5-325 [[place] 5MG-325MG] 1 tab PO Q4H PRN PRN 2 Days #10 tab PRN Reason: Pain Prescription Printed Referrals: Gonzalo Adamson MD [Primary Care Provider] - 5-7 Days
[2018-12-02 22:11] VITALS: PULSE 90; RESP 18
== END 2018-12-02 22:13 | disposition home or self-care (01) ==
LOC: ED 21:54
PROVIDERS: Emergency Provider Emergency Medicine; Family Provider Family Medicine; PCP Family Medicine
DX: S63.502A Unspecified sprain of left wrist, initial encounter (principal); S63.92XA Sprain of unspecified part of left wrist and hand, initial encounter; Z72.0 Tobacco use; W01.0XXA Fall on same level from slipping, tripping and stumbling without subsequent striking against object, initial encounter; Y93.89 Activity, other specified; Y92.89 Other specified places as the place of occurrence of the external cause; Y99.8 Other external cause status
CPT/HCPCS: 73110; 73130; 99283

== ENCOUNTER → 2018-12-25 | Outpatient (CLI) | payer MEDICAID, SELFPAY ==
[2018-12-25 09:47] VITALS: BMI 36.6
--- NOTE | 2018-12-25 09:53 | RAD_ITS ---
STUDY: X-RAY - LEFT HAND REASON FOR EXAM: Female, 38 years old. Pain and swelling after a fall TECHNIQUE: 3 view(s) of the hand. COMPARISON: None. FINDINGS: Normal radiocarpal articulation. Normal distal radioulnar joint. Normal visualized carpal bones. Normal carpal articulations Normal carpometacarpal articulation of the thumb. Normal second through fifth carpometacarpal joints. Normal metacarpi. Normal metacarpophalangeal joint of the thumb. Normal interphalangeal joint of the thumb. Normal proximal and distal phalanges of the thumb. Normal metacarpophalangeal joints of the second through fifth fingers. Normal proximal and distal interphalangeal joints of the second through fifth fingers. Normal phalanges of the second through fifth fingers. The soft tissue structures are unremarkable. RAD/Hand Min 3 Views IMPRESSION: Normal x-ray examination of the hand. Electronically Signed: Ganesh Castillo MD at 11:51 EDT , Service support ,
== END | disposition home or self-care (01) ==
LOC: HPRAD 09:53
PROVIDERS: Family Provider Family Medicine; PCP Family Medicine; Referring Provider Orthopaedic Surgery; Visit Provider Orthopaedic Surgery
DX: M79.642 Pain in left hand (principal)
CPT/HCPCS: 73130

== ENCOUNTER → 2019-01-24 | Outpatient (CLI) | payer MEDICAID, SELFPAY ==
[2019-01-10 07:54] VITALS: BMI 36.6
--- NOTE | 2019-01-24 10:33 | MRI_ITS ---
STUDY: MRI LEFT HAND (ATTENTION THUMB) REASON FOR EXAM: Pain, swelling, left thumb injury 8 weeks ago, evaluate for Stener lesion. TECHNIQUE: Standardized fat and water weighted pulse sequences were obtained in all 3 orthogonal planes. COMPARISON: Radiographs 12/25/2018. FINDINGS: There are bone contusions of the ulnar aspect of the first metacarpal head and ulnar base of the first proximal phalanx (inversion recovery coronal image 19). Normal flexor pollicis longus and extensor pollicis longus tendons. Normal first carpometacarpal joint. There is a partial tear of the ulnar collateral ligament of the first metacarpophalangeal joint at the proximal phalangeal attachment (inversion recovery coronal image 17). There is a tear of the radial collateral ligament of the first metacarpophalangeal joint (inversion recovery coronal image 18; T2 coronal image 18). There is mild arthrosis of the interphalangeal joint of the first digit with mild chondral thinning (T2 coronal image 16). Normal thenar musculature. MRI/Upper Ext/No Jt/ wo IMPRESSION: Partial tear of the ulnar collateral ligament of the first metacarpophalangeal joint. Tear of the radial collateral ligament of the first metacarpophalangeal joint. Bone contusions of the first metacarpal head and first proximal phalangeal base. Mild arthrosis of the interphalangeal joint of the first digit. Electronically Signed: Ameya Conner MD at 12:17 EDT Tel , Service support ,
== END | disposition home or self-care (01) ==
PROVIDERS: Family Provider Family Medicine; PCP Family Medicine; Referring Provider Orthopaedic Surgery; Visit Provider Orthopaedic Surgery
DX: M79.645 Pain in left finger(s) (principal); S63.642D Sprain of metacarpophalangeal joint of left thumb, subsequent encounter
CPT/HCPCS: 73218

== ENCOUNTER 2019-06-24 10:03 | Emergency (ER) | payer MEDICAID, SELFPAY ==
[2019-01-26 09:24] VITALS: BMI 36.6
[2019-06-24 10:04] VITALS: BP 143/98; PULSE 100; RESP 18; TEMP 36.6; O2SAT 98; BMI 34.2
[2019-06-24] MEDS: HYDROcodone Bitartrate/Apap 5/325 Tablet PO (10:41)
--- NOTE | 2019-06-24 10:45 | ED.VIS.FALL ---
History of Present Illness <Kristina Scott - Last Filed: 06/24/19 11:12> Informant: Patient Occurred: Yesterday Mechanism/Context: Same level fall, Trip, Slip. Negative for: Cannot recall fall, Prodromal, Dizziness, Vertigo, Lightheadedness, Near-syncope Fall from Height (ft): Standing Usually ambulates: Without assistance Location: Low back and left hip Quality of Pain: Sharp Current Severity: Moderate Maximum Severity: Moderate Worsened by: Movements and walking Relieved by: Rest Associated Symptoms: Negative for: Parasthesias, Weakness, Loss of function, Inability to ambulate, Loss of consciousness, Amnesia Length of loss of consciousness: None, no loss of consciousness Narrative: 38-year-old female presents to the emergency department with low back pain and left hip pain after a fall. Patient ice-skating yesterday fell onto her back and injured her left hip. She had no prodromal symptoms and she did not hit her head or lose consciousness. She has been ambulating normally since this occurred but is having pain. The pain does not radiate into her legs. No constipation or difficulty urinating or any loss of bowel or bladder function. She is not on anticoagulation. No numbness tingling or weakness. Tetanus Immunization: Unknown Prior similar symptoms: No Recent Illness/Hospitalization: No <Adrian Zhang - Last Filed: 06/24/19 11:55> Chief Complaint: Back Past Medical History <Margi Scottdeann - Last Filed: 06/24/19 11:12> Prior records reviewed: Yes Past Medical History: - - Chronic abdominal pain, arthritis, GERD, migraines, myotonia Surgical History: - - Appendectomy, colonoscopy, hysteroscopy, thyroid fine-needle aspiration, vaginal hysterectomy Lives: With Family Smoking Status: Current every day smoker Alcohol: None Drugs: None <Adrian Zhang - Last Filed: 06/24/19 11:55> - Allergies and Home Meds Allergies/Adverse Reactions: Allergies duloxetine [From Cymbalta] Allergy (Verified 06/24/19 10:07) Other amoxicillin [From Augmentin] Adverse Reaction (Verified 12/02/18 21:30) Other clavulanic acid [From Augmentin] Adverse Reaction (Verified 12/02/18 21:30) Other cyclobenzaprine [From Flexeril] Adverse Reaction (Verified 12/02/18 21:30) Other Primary Care Physician: Gonzalo Adamson MD [Primary Care Provider] - Review of Systems All systems negative except as indicated General: Denies: Chills, Fever Eyes: Denies: Visual changes - bilaterally, Blurred Vision - bilaterally ENT: Denies: Bilateral ear pain, Rhinorrhea, Sore throat Cardiovascular: Denies: Chest pain, Palpitations, Heart racing Respiratory: Denies: Dyspnea, Cough, Sputum Gastrointestinal: Denies: Abdominal pain, Nausea, Vomiting, Diarrhea Genitourinary: Denies: Dysuria, Hematuria, Frequency Musculoskeletal: Reports: Back pain, Extremity Pain. Denies: Neck pain, Swelling Skin: Denies: Rash, Abscess, Abrasions, Wounds Neurological: Denies: Headache, Weakness, Parasthesia, Numbness Psych: Denies: Depression, Anxiety <Adrian Zhang - Last Filed: 06/24/19 11:55> Physical Exam Vital Signs/Narrative: Vital Signs Temp Pulse Resp BP Pulse Ox 06/24/19 10:04 97.9 F 100 18 143/98 H 98 <Kristina Scott - Last Filed: 06/24/19 11:12> Vital Signs/Narrative: Vital Signs Temp Pulse Resp BP Pulse Ox 06/24/19 10:04 97.9 F 100 18 143/98 H 98 Inital Vital Signs reviewed: Yes General: Well nourished, Well developed, Obese Head: Normocephalic, Atraumatic Eyes: Perrl, EOMI ENT: TM's clear, No hemotympanum or drainage, No trauma Neck: Nontender, Full ROM. Negative for: Spinal Tenderness, Paraspinal Tenderness Cardiovascular: Regular rate, Regular rhythm, No murmurs Respiratory: No distress, CTA bilaterally, Chest nontender Abdomen: Soft, Nontender, Nondistended, Normal bowel sounds, No masses Back: Paraspinal Tenderness, Negative SLR - Right, Negative SLR - Left. Negative for: CVA Tenderness - Right, CVA Tenderness - Left, Spinal Tenderness, Positive SLR - Right, Positive SLR - Left Extremeties: Patient's inspection of her low back and left hip normal without swelling bruising signs of trauma. 5 out of 5 strength testing of both legs. Normal DP and PT pulses and sensation bilaterally. No deformities and logroll negative left lower extremity. Skin: Normal color, No rash, No Trauma. Negative for: Trauma Neurological: Alert, Oriented x3, Cranial nerves II-XII grossly intact, Normal Strength, Normal Sensation, Normal Gait Psychological: Normal affect, Normal Mood <Adrian Zhang - Last Filed: 06/24/19 11:55> Diagnostic/Tx/Re-eval - Medical Decision Making Fell doing sports type activity and sharp intermittent sternal pain left hip pain and lumbar back pain, her chief complaint is left hip pain from the fall she has no cardiovascular disease or disorder, her symptoms to all body parts related to position if she positions herself a certain way the pain goes away seen with Adrian the PHQ history physical as above head neck chest unremarkable lungs clear abdomen soft is very mild pain to the left hip lumbar back neurologic exam is all normal <Kristina Scott - Last Filed: 06/24/19 11:12> Chest X-Ray - ED: 2 View, Read by ED Physician, Read by Radiologist, No Acute Disease - Medical Decision Making Xrays of the chest, left hip and lumbar spine all unremarkable. Patient is ambulatory. She is neurovascularly intact. Will discharge home. She advised to rest and ice. She will be given return precautions <Adrian Zhang - Last Filed: 06/24/19 11:55> ED Disposition <Kristina Scott - Last Filed: 06/24/19 11:12> <Adrian Zhang - Last Filed: 06/24/19 11:55> - Plan for ED Patient: Disposition: Home or Assisted Living Diagnosis: Contusion of back, Contusion of left hip Instructions: CONTUSION, Back Prescriptions: Hydrocodone Bitart/Apap 5-325 [[place] 5MG-325MG] 1 tab PO Q6H PRN PRN 3 Days #10 tab PRN Reason: Pain Prescription Printed Referrals: Gonzalo Adamson MD [Primary Care Provider] - 3-5 Days
--- NOTE | 2019-06-24 10:48 | RAD_ITS ---
STUDY: X-RAY - PELVIS AND LEFT HIP REASON FOR EXAM: Female, 38 years old. LEFT HIP PAIN S/P FALL TECHNIQUE: 4 views of the pelvis and left hip. COMPARISON: None. FINDINGS: There is a non-specific bowel gas pattern. Normal visualized soft tissue structures. Normal bilateral iliac wings, sacroiliac joints and visualized sacrum. Normal bilateral superior and inferior pubic rami. Normal pubic symphysis. Normal bilateral ischial tuberosities. Normal visualized femoral head. Normal acetabulum. Normal hip joint. RAD/HIP, UNI W/ Pelvis 2-3 Views IMPRESSION: Normal x-ray examination of the pelvis and left hip. Electronically Signed: Janes Ardon, at 11:39 EST Tel , Service support ,
--- NOTE | 2019-06-24 10:58 | RAD_ITS ---
STUDY: X-RAY - LUMBAR SPINE REASON FOR EXAM: Female, 38 years old. LOW BACK AND LEFT HIP PAIN S/P FALL; -- PATIENT UNABLE TO POSITION ON LEFT SIDE FOR LATERAL IMAGE DUE TO PAIN TECHNIQUE: 5 view(s) of the lumbar spine were obtained. COMPARISON: February 10, 2017 lumbar spine x-ray FINDINGS: Normal lumbar lordosis. There is no substantial scoliosis. There is a normal alignment of the vertebrae. There is disc space narrowing L5-S1. There is no apparent acute loss of height or alignment. Findings are similar to the prior study. Normal disc space heights. Postoperative changes in the pelvis. RAD/L/S Spine Min 4 Views IMPRESSION: Degenerative change L5-S1. No apparent acute loss of height or alignment. Findings are similar to the prior study. Electronically Signed: Iman Caldwell MD at 11:40 EST Tel , Service support ,
--- NOTE | 2019-06-24 11:08 | RAD_ITS ---
STUDY: X-RAY CHEST REASON FOR EXAM: Female, 38 years old. MIDSTERNAL CHEST AND UPPER BACK PAIN S/P FALL TECHNIQUE: PA and lateral views of the chest. COMPARISON: November 21, 2018 chest x-ray FINDINGS: The lungs are clear and expanded. Stable chest. There is no demonstrated pleural abnormality. Normal size heart. Normal mediastinum and maddie. Normal visualized pulmonary arteries. Normal visualized aortic arch and descending thoracic aorta. Normal visualized thoracic spine. Normal visualized ribs, clavicles, and shoulders. There is no demonstrated abnormality of the visualized soft tissue structures of the upper abdomen. RAD/Chest PA and Lateral IMPRESSION: Stable chest no evidence of acute focal infiltrate. Electronically Signed: Iman Caldwell MD at 11:35 EST Tel , Service support ,
--- NOTE | 2019-06-24 12:32 | ED.RN ---
Pt called several friends for rides and was unable to secure ride. Pt aware she is not to drive after med but refused to wait.
== END 2019-06-24 12:33 | disposition home or self-care (01) ==
PROVIDERS: Emergency Provider Physician Assistant Medical; PCP Family Medicine; Referring Provider Family Medicine
DX: S70.02XA Contusion of left hip, initial encounter (principal); S30.0XXA Contusion of lower back and pelvis, initial encounter; K21.9 Gastro-esophageal reflux disease without esophagitis; M19.90 Unspecified osteoarthritis, unspecified site; F17.200 Nicotine dependence, unspecified, uncomplicated; E66.9 Obesity, unspecified; V00.211A Fall from ice-skates, initial encounter; Y93.21 Activity, ice skating; Y92.89 Other specified places as the place of occurrence of the external cause; Y99.8 Other external cause status
CPT/HCPCS: 71046; 72110; 73502; 99282

== ENCOUNTER 2019-09-11 19:10 | Emergency (ER) | payer MEDICAID, SELFPAY ==
[2019-09-11 19:10] VITALS: BP 126/86; PULSE 86; RESP 16; TEMP 35.7; O2SAT 99; BMI 36.0
--- NOTE | 2019-09-11 19:20 | RAD_ITS ---
STUDY: X-RAY - RIGHT FOOT CLINICAL: Female, 38 years old. RIGHT FOOT PAIN, UNKNOWN INJURY TECHNIQUE: 3 view(s) of the foot. COMPARISON: None. FINDINGS: Normal talus, calcaneus, and tarsal bones. Normal visualized subtalar, talonavicular, calcaneocuboid, tarsal and tarsometatarsal articulations. Normal metatarsi. Normal metatarsophalangeal joint of the great toe. Normal tibial and fibular sesamoid bones. Normal interphalangeal joint of the great toe. Normal phalanges of the great toe. Normal second through fifth metatarsophalangeal joints. Normal interphalangeal joints and phalanges of the lesser toes. The soft tissue structures are unremarkable. RAD/Foot min 3 Views IMPRESSION: Normal x-ray examination of the foot. Electronically Signed: Hiwot Hall MD at 20:07 EDT Tel , Service support ,
--- NOTE | 2019-09-11 19:21 | ED.DCSUM_ITS ---
History of Present Illness Chief Complaint: Lower Extremity Injury Narrative: Patient is a 38-year-old female who presents with right foot and ankle pain. She does have a history of prior surgery on that ankle which sounds like it was an ankle arthroscopy. She has no recent trauma or injury that she recalls. She has had increased pain for about 1 week. No numbness tingling weakness. She has been taking Aleve. Past Medical History - Allergies and Home Meds Allergies/Adverse Reactions: Allergies duloxetine [From Cymbalta] Allergy (Verified 09/11/19 19:14) Other SERATONIN SYNDROME amoxicillin [From Augmentin] Adverse Reaction (Verified 09/11/19 19:15) Other YEAST INFECTION clavulanic acid [From Augmentin] Adverse Reaction (Verified 09/11/19 19:14) Rash YEAST INFECTION cyclobenzaprine [From Flexeril] Adverse Reaction (Verified 09/11/19 19:15) Other HEADACHE Primary Care Physician: Gonzalo Adamson MD [Primary Care Provider] - Past Medical History: - - Depression and anxiety Surgical History: - - Appendectomy, colonoscopy, hysteroscopy, thyroid fine- needle aspiration, vaginal hysterectomy Smoking Status: Current every day smoker Review of Systems All systems negative except as indicated General: Denies: Fever Eyes: Denies: Visual changes - bilaterally ENT: Denies: Bilateral ear pain Cardiovascular: Denies: Chest pain Respiratory: Denies: Dyspnea Gastrointestinal: Denies: Vomiting Musculoskeletal: Reports: - - Right ankle and foot pain Skin: Denies: Rash Neurological: Denies: Headache Physical Exam Vital Signs/Narrative: Vital Signs Temp Pulse Resp BP Pulse Ox 09/11/19 19:10 96.3 F L 86 16 126/86 H 99 Inital Vital Signs reviewed: Yes General: Well nourished Head: Normocephalic Eyes: EOMI ENT: Moist mucous membranes Neck: Supple Cardiovascular: Regular rate Respiratory: No distress Extremities: - - Patient has no focal bony tenderness of the right lower extremity. I do not appreciate soft tissue swelling no deformity easily palpable dorsalis pedis pulse brisk capillary refill normal sensation to light touch and normal motor function she has some diffuse nonfocal tenderness of the ankle and foot Diagnostic/Tx/Re-eval Impressions Foot X-Ray 09/11/19 19:20 IMPRESSION: Normal x-ray examination of the foot. Electronically Signed: Hiwot Hall MD at 20:07 EDT Tel , Service support , Ankle X-Ray 09/11/19 19:40 IMPRESSION: Normal x-ray examination of the ankle. Electronically Signed: Hiwot Hall MD at 20:10 EDT Tel , Service support , 09/11/19 19:20 Foot min 3 Views [RAD] Stat 09/11/19 19:40 Ankle min 3 Views [RAD] Stat - Medical Decision Making X-rays are normal. Patient was advised on supportive care such as rest ice compression and elevation. She was advised on anti-inflammatory use and discharged home. ED Disposition - Plan for ED Patient: Disposition: Home or Assisted Living Diagnosis: Foot pain, right, Ankle pain, right Instructions: ED JOINT PAIN Referrals: Gonzalo Adamson MD [Primary Care Provider] -
--- NOTE | 2019-09-11 19:40 | RAD_ITS ---
STUDY: X-RAY - RIGHT ANKLE REASON FOR EXAM: Female, 38 years old. RIGHT FOOT PAIN, UNKNOWN INJURY TECHNIQUE: 3 view(s) of the ankle. COMPARISON: None. FINDINGS: Normal visualized distal tibia and fibula. Normal medial and lateral malleoli. Normal tibiotalar articulation and ankle mortise. Normal visualized talus and calcaneus. The visualized subtalar, talonavicular, calcaneocuboid and tarsal articulations are normal. The soft tissue structures are unremarkable. RAD/Ankle min 3 Views IMPRESSION: Normal x-ray examination of the ankle. Electronically Signed: Hiwot Hall MD at 20:10 EDT Tel , Service support ,
== END 2019-09-11 20:42 | disposition home or self-care (01) ==
PROVIDERS: Emergency Provider Emergency Medicine; PCP Family Medicine
DX: M25.571 Pain in right ankle and joints of right foot (principal); M79.671 Pain in right foot; F32.9 Major depressive disorder, single episode, unspecified; F41.9 Anxiety disorder, unspecified; F17.200 Nicotine dependence, unspecified, uncomplicated; Z79.899 Other long term (current) drug therapy
CPT/HCPCS: 73610; 73630; 99282

== ENCOUNTER 2020-01-25 13:50 | Emergency (ER) | payer MEDICAID, SELFPAY ==
[2020-01-25 13:51] VITALS: BP 128/79; PULSE 89; RESP 16; TEMP 36.9; O2SAT 95; BMI 39.5
--- NOTE | 2020-01-25 14:09 | ED.VIS.GEN ---
History of Present Illness Chief Complaint: Other, Pain/Inj Informant: Patient Narrative: Presents the emergency department with pain. I asked her what brings her into the emergency department and she states pain. 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 She sees [facility] for her care. She states that her specialist is on vacation. She states that on Tuesday she was picking up branches when she woke on had severe pain particularly in the ribs and back. States her medications are not helping. She did not contact her local doctors. She came to emergency department and tells me that she does not want to come off sounding like a crack head. She states that she wants something to make her pain go away so that she can sleep at night. She states she does not want any prescriptions. Past Medical History - Allergies and Home Meds Allergies/Adverse Reactions: Allergies duloxetine [From Cymbalta] Allergy (Verified 01/25/20 13:51) Other SERATONIN SYNDROME amoxicillin [From Augmentin] Adverse Reaction (Verified 01/25/20 13:51) Other YEAST INFECTION clavulanic acid [From Augmentin] Adverse Reaction (Verified 01/25/20 13:51) Rash YEAST INFECTION cyclobenzaprine [From Flexeril] Adverse Reaction (Verified 01/25/20 13:51) Other HEADACHE Primary Care Physician: Gonzalo Adamson MD [Primary Care Provider] - As soon as possible Surgical History: - - Appendectomy, colonoscopy, hysteroscopy, thyroid fine-needle aspiration, vaginal hysterectomy Smoking Status: Current every day smoker Review of Systems General: Denies: Chills, Fever, Sweats Eyes: Denies: Visual changes - bilaterally, Diplopia ENT: Denies: Rhinorrhea, Sore throat Cardiovascular: Reports: Chest pain. Denies: Palpitations Respiratory: Denies: Dyspnea, Cough, Dyspnea on exertion Gastrointestinal: Denies: Abdominal pain, Nausea, Vomiting, Diarrhea, Melena, Hematochezia Genitourinary: Denies: Dysuria, Hematuria, Frequency Musculoskeletal: Reports: Myalgias, Back pain. Denies: Extremity Pain Skin: Denies: Rash, Wounds Neurological: Denies: Headache, Weakness, Numbness Physical Exam Vital Signs/Narrative: Vital Signs Temp Pulse Resp BP Pulse Ox 01/25/20 13:51 98.5 F 89 16 128/79 H 95 Inital Vital Signs reviewed: Yes General: Well nourished, Well developed, No Acute Distress Head: Normocephalic, Atraumatic Eyes: Perrl, EOMI ENT: Moist mucous membranes, No rhinorrhea Neck: Supple Cardiovascular: Regular rate, Regular rhythm, No murmurs Respiratory: No distress, CTA bilaterally Abdomen: Soft, Nondistended, Normal bowel sounds Extremities: Nontender, No edema Skin: Normal color, No rash Neurological: Alert, Oriented x3, Cranial nerves II-XII grossly intact, Normal Strength, Normal Sensation Psychological: Normal affect, Normal Mood Diagnostic/Tx/Re-eval - Medical Decision Making I explained to the patient that she has a chronic medical condition that is appears to have a flare. I explained that the emergency department is not designed to treat chronic conditions and especially in light of recent opioid epidemic's particularly in our state it is not morales for the emergency department to attempt to try and treat chronic medical conditions and their complications. I will give her a shot of Toradol and one-time dose of [place]. I would strongly urged her to speak with her doctors about what she can do for these flares. Patient then took the [place] but refused the Toradol. She states that she wants what she usually gets that will knock her out until tomorrow. I told her this is not going to happen. I also informed her that I am not going to give her a medicine to knock her out until tomorrow is that not good medicine. She states that she needs something better than [place] and Toradol because it is not going to give her the relief that she needs. I informed her that these were her options that again if she has a chronic medical condition that has flares and it is up to her and her doctors to develop a plan for that. There are numerous red flags in this case that cannot be ignored. ED Disposition - Plan for ED Patient: Disposition: Home or Assisted Living Diagnosis: Pain, Fibromyalgia, Myotonia congenita Instructions: ED Chronic Pain Referrals: Gonzalo Adamson MD [Primary Care Provider] - As soon as possible
[2020-01-25] MEDS: HYDROcodone Bitartrate/Apap 5/325 Tablet PO (14:21)
--- NOTE | 2020-01-25 14:30 | ED.RN ---
PT REFUSED TORADOL INJECTION AND IS REQUESTING A MUSCLE RELAXER OR A REALLY STRONG PAIN MED. DR. MCGREGOR TO BEDSIDE AND DISCUSSED PLAN OF CARE IN DETAIL WITH PT. PT STATES THIS IS JUST FRUSTRATING. REVIEWED D/C INSTRUCTIONS WITH PT. PT STATES THIS [facility] IS REALLY [facility] [place]. PT STATES I USUALLY GET A MUSCLE RELAXER AND A GOOD, STRONG PAIN MED. EXPLAINED TO PT THAT TORADOL AND NORCO ARE THE MEDICATIONS ORDERED FOR HER TODAY. ENCOURAGED PT TO FOLLOW UP WITH HER PCP FOR FURTHER MANAGEMENT OF HER PAIN. PT A&O X 3, RESP EVEN AND UNLABORED, NO DISTRESS NOTED. PT AMBULATED OUT OF ED, GAIT STEADY.
[2020-01-25 14:39] VITALS: RESP 16
== END 2020-01-25 14:46 | disposition home or self-care (01) ==
LOC: ED 14:29
PROVIDERS: Emergency Provider Emergency Medicine; PCP Family Medicine
DX: R52 Pain, unspecified (principal); M79.7 Fibromyalgia; G71.12 Myotonia congenita; F17.200 Nicotine dependence, unspecified, uncomplicated
CPT/HCPCS: 99283

== ENCOUNTER 2020-02-27 13:34 | Emergency (ER) | payer MEDICAID, SELFPAY ==
[2020-02-27 13:35] VITALS: BP 149/89; PULSE 98; RESP 18; TEMP 36.4; O2SAT 97; BMI 39.2
--- NOTE | 2020-02-27 14:10 | ED.VIS.GEN ---
History of Present Illness Chief Complaint: Lower Extremity Injury Informant: Patient Narrative: Patient states that last week she sustained an inversion injury to the right ankle. She states that this is my problem foot. She states that the pain seems to get worse every day and is now radiating up the leg and down the foot. She states that she has been elevating it and taking Aleve but not wrapping it or providing any support. She is wearing a pair of flip-flops. I did review her last ED visit. Past Medical History - Allergies and Home Meds Allergies/Adverse Reactions: Allergies duloxetine [From Cymbalta] Allergy (Verified 02/27/20 13:38) Other SERATONIN SYNDROME amoxicillin [From Augmentin] Adverse Reaction (Verified 02/27/20 13:38) Other YEAST INFECTION clavulanic acid [From Augmentin] Adverse Reaction (Verified 02/27/20 13:38) Rash YEAST INFECTION cyclobenzaprine [From Flexeril] Adverse Reaction (Verified 02/27/20 13:38) Other HEADACHE Primary Care Physician: Gonzalo Adamson MD [Primary Care Provider] - Prior records reviewed: Yes Surgical History: noncontributory, - - Appendectomy, colonoscopy, hysteroscopy, thyroid fine-needle aspiration, vaginal hysterectomy Smoking Status: Current every day smoker Drugs: None Review of Systems General: Denies: Chills, Fever, Sweats Eyes: Denies: Visual changes - bilaterally, Diplopia ENT: Denies: Rhinorrhea, Sore throat Cardiovascular: Denies: Chest pain, Palpitations Respiratory: Denies: Dyspnea, Cough, Dyspnea on exertion Gastrointestinal: Denies: Abdominal pain, Nausea, Vomiting, Diarrhea, Melena, Hematochezia Genitourinary: Denies: Dysuria, Hematuria, Frequency Musculoskeletal: Reports: Extremity Pain. Denies: Back pain Skin: Denies: Rash, Wounds Neurological: Denies: Headache, Weakness, Numbness Physical Exam Vital Signs/Narrative: Vital Signs Temp Pulse Resp BP Pulse Ox 02/27/20 13:35 97.6 F L 98 18 149/89 H 97 Inital Vital Signs reviewed: Yes General: Well nourished, Well developed, Obese, No Acute Distress Head: Normocephalic, Atraumatic Eyes: Perrl, EOMI ENT: Moist mucous membranes, No rhinorrhea Neck: Supple, Nontender Cardiovascular: Regular rate, Regular rhythm, No murmurs Respiratory: No distress, CTA bilaterally, Chest nontender Abdomen: Soft, Nontender, Nondistended, Normal bowel sounds Back: Nontender, Normal Inspection Extremities: No edema, - - Diffuse tenderness to palpation. No significant swelling or deformities noted. Negative Knott's and Achilles appears intact. Skin: Normal color, No rash Neurological: Alert, Oriented x3, Cranial nerves II-XII grossly intact, Normal Strength, Normal Sensation Psychological: Normal affect, Normal Mood Diagnostic/Tx/Re-eval Clinical Impression(s) from Imaging Studies Ankle X-Ray 02/27/20 14:15 IMPRESSION: Normal x-ray examination of the ankle. Electronically Signed: Som Reneeanthony, at 14:28 EDT , Service support , - Medical Decision Making X-rays of the ankle were negative. She will be discharged home with Mikal wrap and supportive care following up with her doctors return if worsening or concerns she states that she has a foot and ankle specialist that she sees. ED Disposition - Plan for ED Patient: Disposition: Home or Assisted Living Diagnosis: Right ankle sprain Instructions: ED Sprain Ankle W X Ray Referrals: Gonzalo Adamson MD [Primary Care Provider] - 1 Week if not improving
--- NOTE | 2020-02-27 14:15 | RAD_ITS ---
STUDY: X-RAY - RIGHT ANKLE REASON FOR EXAM: Female, 39 years old. Right ankle pain after twisting it 1 week ago TECHNIQUE: 3 view(s) of the ankle. COMPARISON: None. FINDINGS: Normal visualized distal tibia and fibula. Normal medial and lateral malleoli. Normal tibiotalar articulation and ankle mortise. Normal visualized talus and calcaneus. The visualized subtalar, talonavicular, calcaneocuboid and tarsal articulations are normal. The soft tissue structures are unremarkable. RAD/Ankle min 3 Views IMPRESSION: Normal x-ray examination of the ankle. Electronically Signed: Som Lawson, at 14:28 EDT , Service support ,
[2020-02-27 14:57] VITALS: RESP 17
== END 2020-02-27 14:57 | disposition home or self-care (01) ==
PROVIDERS: Emergency Provider Emergency Medicine; PCP Family Medicine
DX: S93.401A Sprain of unspecified ligament of right ankle, initial encounter (principal); F17.200 Nicotine dependence, unspecified, uncomplicated; E66.9 Obesity, unspecified; X50.1XXA Overexertion from prolonged static or awkward postures, initial encounter; Y93.89 Activity, other specified; Y92.89 Other specified places as the place of occurrence of the external cause; Y99.8 Other external cause status
CPT/HCPCS: 73610; 99282

== ENCOUNTER 2020-04-11 14:22 | Emergency (ER) | payer MEDICAID, SELFPAY ==
[2020-04-11 15:13] VITALS: BP 118/93; PULSE 84; RESP 18; TEMP 36.7; O2SAT 96; BMI 38.6
--- NOTE | 2020-04-11 15:44 | ED.RN ---
pt reports that significant other is coming to take her to another hospital because she cannot wait any longer. pt a+ox4. pt in wheelchair, wheeled to exit. lwbs at [phone].
== END 2020-04-11 16:14 | disposition left against medical advice (07) ==
LOC: ED 16:11
PROVIDERS: Emergency Provider Student in an Organized Health Care Education/Training Program; PCP Family Medicine
DX: M54.2 Cervicalgia (principal)

== ENCOUNTER 2020-04-12 20:00 | Emergency (ER) | payer MEDICAID, SELFPAY ==
[2020-04-11 15:13] VITALS: BMI 38.6
[2020-04-12 20:00] VITALS: BP 139/92; PULSE 88; RESP 16; TEMP 35.7; O2SAT 98; BMI 38.3
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
[2020-04-12] MEDS: 0.9% Normal Saline 1,000 ML 125 ML IV (20:32)
[2020-04-12] MEDS: Ketorolac 30 MG/ML Syringe IV (20:33)
[2020-04-12 20:49] LABS: Absolute Lymphocyte Count 2.82 X10^3/uL (0.83-4.51); Absolute Neutrophil Count 6.6 X10^3/uL (2.0-7.7); Basophil# 0.05 X10^3/uL; Basophil% 0.5 % (0-1); Eosinophil# 0.27 X10^3/uL; Eosinophils% 2.6 % (0-5); Hematocrit 43.9 % (37-47); Hemoglobin 14.6 g/dL (12.0-15.0); Lymphocyte # 2.82 X10^3/ul (4.0); Lymphocyte % 27.4 % (19-41); Mean Corp Hgb Conc 33.3 g/dL (32-36); Mean Corpuscular Hgb 34.9 pg (27.0-32.0); Mean Platelet Vol. 9.5 fl (6.2-12.0); Monocyte% 4.9 % (0-10); NRBC Flagged by Analyzer 0 % (0-5); Neutrophil # 6.62 X10^3/uL (2.7-7.7); Neutrophil % 64.2 % (47-70); Platelet Count 332 K/mm3 (150-450); RBC Distribution Width CV 11.8 % (11.6-14.6); RBC Distribution Width SD 46.1 fl (35.1-43.9); Red Blood Count 4.18 M/mm3 (4.2-5.4); White Blood Count 10.3 K/mm3 (4.4-11.0)
[2020-04-12 21:00] LABS: Anion Gap 3 (5-15); BUN 9 mg/dL (7-18); BUN/Creat Ratio 10.7 RATIO (10-20); Calcium,Total 8.4 mg/dL (8.5-10.1); Chloride 107 mmol/L (98-107); Creatinine, Serum 0.84 mg/dL (0.55-1.02); EST Glomerular Filtration Rate 81 mL/min (>60); Est Glom Filt Rate - Afr Amer 98 mL/min (>60); Estimated Creatinine Clearance 79.18 ml/min; Glucose 73 mg/dL (74-106); Sodium Level 140 mmol/L (136-145)
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
[2020-04-12] MEDS: Ondansetron 4 MG/2 ML Vial IV (21:43)
[2020-04-12] MEDS: Morphine 4 MG/ML Syringe IV (21:43)
[2020-04-12 22:09] VITALS: BP 128/78; PULSE 71; RESP 16; O2SAT 99
== END 2020-04-12 22:11 | disposition home or self-care (01) ==
LOC: ED 20:24
PROVIDERS: Emergency Provider Emergency Medicine; PCP Family Medicine
DX: S06.0X0A Concussion without loss of consciousness, initial encounter (principal); R10.32 Left lower quadrant pain; Z72.0 Tobacco use; V49.9XXA Car occupant (driver) (passenger) injured in unspecified traffic accident, initial encounter; Y93.I9 Activity, other involving external motion; Y92.410 Unspecified street and highway as the place of occurrence of the external cause; Y99.8 Other external cause status
CPT/HCPCS: 70450; 74176; 80048; 85025; 96361; 96374; 96375; 99283; J7030; A4216; J2405

== ENCOUNTER 2020-04-26 11:47 | Emergency (ER) | payer MEDICAID, SELFPAY ==
[2020-04-26 11:48] VITALS: BP 137/98; PULSE 104; RESP 17; TEMP 36.4; O2SAT 98; BMI 39.4
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
[2020-04-26 12:22] LABS: Mucous, Urine 0 SEEN /hpf (<or=2+)
[2020-04-26] MEDS: 0.9% Normal Saline 1,000 ML 1000 ML IV (12:22)
[2020-04-26 12:23] LABS: Color, Urine Yellow (Yellow); Glucose, Dipstick Normal (Normal); Ketone-Dipstick Negative (Negative); Leukocyte Esterase-Dipstick Negative /ul (Negative); Nitrite-Dipstick Negative (Negative); Occult Blood-Urine 50 /ul (Negative); Protein-Dipstick Negative (Negative); Urine Bilirubin Dipstick Negative (Negative); Urine Clarity Clear (Clear); Urine Urobilinogen Normal (Normal)
[2020-04-26 12:44] LABS: Bacteria 1+ /hpf (None Seen); Red Blood Cells-Urine 0-5 SEEN /hpf (0-5); Squamous Epithelial Cells - UA 10-25 SEEN /hpf (5-10); White Blood Cells 0-5 SEEN /hpf (0-5)
[2020-04-26 12:44] LABS: Absolute Lymphocyte Count 1.98 X10^3/uL (0.83-4.51); Absolute Neutrophil Count 10.1 X10^3/uL (2.0-7.7); Basophil# 0.04 X10^3/uL; Basophil% 0.3 % (0-1); Eosinophil# 0.16 X10^3/uL; Eosinophils% 1.2 % (0-5); Hematocrit 43.3 % (37-47); Hemoglobin 14.8 g/dL (12.0-15.0); Lymphocyte # 1.98 X10^3/ul (4.0); Lymphocyte % 15.4 % (19-41); Mean Corp Hgb Conc 34.2 g/dL (32-36); Mean Corpuscular Hgb 35.2 pg (27.0-32.0); Mean Corpuscular Volume 102.9 fL (81-99); Mean Platelet Vol. 8.7 fl (6.2-12.0); Monocyte# 0.55 X10^3/uL; Monocyte% 4.3 % (0-10); NRBC Flagged by Analyzer 0 % (0-5); Neutrophil % 78.6 % (47-70); Platelet Count 351 K/mm3 (150-450); RBC Distribution Width CV 12.1 % (11.6-14.6); RBC Distribution Width SD 45.5 fl (35.1-43.9); Red Blood Count 4.21 M/mm3 (4.2-5.4); White Blood Count 12.9 K/mm3 (4.4-11.0)
[2020-04-26 12:50] LABS: ALB/GLOB Ratio 1.2 RATIO (0.9-2.4); AST(SGOT) 35 U/L (15-37); Alanine Aminotransfer ALT/SGPT 54 U/L (13-56); Albumin, Serum 3.8 g/dL (3.2-5.0); Alkaline Phosphatase 69 U/L (45-117); Anion Gap 4 (5-15); BUN 10 mg/dL (7-18); Calcium,Total 8.9 mg/dL (8.5-10.1); Chloride 111 mmol/L (98-107); Creatinine, Serum 0.83 mg/dL (0.55-1.02); EST Glomerular Filtration Rate 82 mL/min (>60); Est Glom Filt Rate - Afr Amer 99 mL/min (>60); Estimated Creatinine Clearance 80.14 ml/min; Globulin 3.1 g/dL (2.2-4.2); Glucose 84 mg/dL (74-106); Potassium 3.8 mmol/L (3.5-5.1); Protein, Total 6.9 g/dL (6.4-8.2); Sodium Level 140 mmol/L (136-145)
[2020-04-26] MEDS: Ketorolac 30 MG/ML Syringe IV (13:05)
[2020-04-26 13:07] VITALS: BP 100/74; PULSE 78; RESP 19; O2SAT 97
[2020-04-26] MEDS: 0.9% Normal Saline 1,000 ML 999 ML IV (13:50)
[2020-04-26 15:28] VITALS: BP 105/73; PULSE 76; RESP 18; O2SAT 97
== END 2020-04-26 15:28 | disposition home or self-care (01) ==
PROVIDERS: Emergency Provider Emergency Medicine; PCP Family Medicine
DX: E86.0 Dehydration (principal); F17.200 Nicotine dependence, unspecified, uncomplicated
CPT/HCPCS: 80053; 81001; 85025; 96361; 96374; 99283; J7030